=== PATIENT | male | born 1970 | race Caucasian/White ===

== ENCOUNTER → 2017-05-14 | Day surgery (SDC) | payer MEDICARE, OTHER ==
[~2017-05-14] MED LIST: DEXL60CA2 PO; ESCITALOPRAM OX10 MG PO; GABA600T2 PO; HYDR12.58 PO; LIDOCAINE 1%/EPI 1:100,000 20 ML VIAL. ONE; LIDOCAINE 2%/EPI 1:100,000 20 ML VIAL. IJ ONE; MIRT30TA6 PO; OLAN15TA7 PO; ONDA4TAB10 SL; ONDA8TAB12 PO; ONDA8TAB9 PO; RANI150T6 PO; TRAM-48 PO
[2017-05-14 11:10] VITALS: BP 136/93
--- NOTE | 2017-05-14 11:35 | PDOC ---
BRIEF OPERATIVE NOTE Pre-Op Diagnosis infected groshong remove infected groshong adia byrne local ebl <5 ml stacy well fl home #dictation line down. will dictate when line working. BOBY BYRNE MD May 14, 2017 11:35
== END | disposition home or self-care (01) ==
LOC: SURG 10:01
PROVIDERS: ATTEND Surgery
DX: T80.218A Other infection due to central venous catheter, initial encounter (principal); K21.9 Gastro-esophageal reflux disease without esophagitis; K31.84 Gastroparesis; Z72.89 Other problems related to lifestyle; Z88.6 Allergy status to analgesic agent; Z88.4 Allergy status to anesthetic agent
CPT/HCPCS: 36590; 87070; 87071; 87075; 87205; J3490

== ENCOUNTER 2017-05-24 06:07 | Day surgery (SDC) | payer MEDICARE, OTHER ==
[~2017-05-24 06:07] MED LIST changes: +HEPARIN SODIUM 5,000 UNIT in IV RINGERS,LACTATED 500ML 500 ML IRR ONE; -LIDOCAINE 1%/EPI 1:100,000 20 ML VIAL. ONE; -LIDOCAINE 2%/EPI 1:100,000 20 ML VIAL. IJ ONE
[2017-05-24] MEDS ORDERED: HEPARIN for IV BOLUS 10,000 UNIT/10 ML VIAL. ONE (06:54)
[2017-05-24] MEDS ORDERED: BUPIVACAINE-EPI 0.5%-1:200000 50 ML VIAL. ONE (06:54)
[2017-05-24] MEDS ORDERED: fentaNYL PF VIAL 100 MCG/2 ML VIAL IV PRN (07:00)
[2017-05-24] MEDS ORDERED: LIDOCAINE 1% 1 ML SYRINGE. ID PRN (07:00)
[2017-05-24] MEDS ORDERED: IV RINGERS,LACTATED 1000ML 1,000 ML IV SCH (07:00)
[2017-05-24] MEDS ORDERED: HYDROmorphone 2 MG/ML VIAL IV PRN (07:00)
[2017-05-24] MEDS ORDERED: ONDANSETRON PF 4 MG/2 ML VIAL. IV PRN (07:00)
[2017-05-24] MEDS ORDERED: LIDOCAINE 2% PF Vial for OR 5 ML VIAL. ONE (07:16)
[2017-05-24] MEDS ORDERED: PROPOFOL 20 ML IV ONE ×6 (07:16→08:09)
[2017-05-24] MEDS ORDERED: MIDAZOLAM HCL/PF 2 MG/2 ML VIAL. ONE (07:19)
[2017-05-24] MEDS ORDERED: ONDANSETRON PF 4 MG/2 ML VIAL. ONE (07:41)
[2017-05-24] MEDS ORDERED: IOHEXOL 300 MG/ML 50 ML VIAL. ONE (08:19)
--- NOTE | 2017-05-24 08:45 | PDOC4 ---
OPERATIVE NOTE: (dictation line is down) DATE OF SURGERY: 05/24/2017 PREOPERATIVE DIAGNOSIS: Gastroparesis. POSTOPERATIVE DIAGNOSIS: Gastroparesis. PROCEDURE: 1. Placement of a right internal jugular groshong (a tunneled CVL) 2. Ultrasound-guided venous access. 3. Intraoperative use of fluoroscopy. SURGEON: Eliana Byrne MD. ANESTHESIA: IV sedation/local. ESTIMATED BLOOD LOSS: 10 mL. IV FLUIDS: 100 mL. INDICATIONS: The patient is a 47-year-old male who is in need of tunneled CVL for ongoing treatment of n/v associated with his gastroparesis. DESCRIPTION OF PROCEDURE: After informed consent was obtained, the patient was taken to the operating room and placed in supine position. After adequate induction of IV sedation, he was prepped and draped in usual sterile fashion. he had been given 2 grams of ancef. After prepping and draping in the usual sterile fashion, he was placed in Trendelenburg with the right IJ visualized with ultrasound, and the right IJ was accessed without difficulty under direct ultrasound-guidance. Venous blood was aspirated easily. The syringe was removed, and the guidewire was advanced through the Cook needle. Fluoroscopy was then used to confirm that the guidewire advanced down the right side of the heart. The Cook needle was removed, and the guidewire was clamped to the drape with a hemostat. Local was injected in the skin of the right chest and the subcutaneous pocket of the right chest as well as from the right chest to the right neck. The anticipated catheter exit site and subcutaneous tunnel were lateral to his prior groshong. Skin incision was made over the guidewire as well as on the right chest. The catheter was tunneled from the right neck to the right chest and allowed to lie on a sterile blue towel so that the catheter did not come in contact with the skin. Dilator and sheath were passed over the guidewire. Guidewire slid easily throughout passes of the dilator and sheath. The guidewire and dilator were removed leaving the sheath in place. The catheter was inserted through the sheath. The sheath was then removed. The patient was taken out of head-down position and returned to a flat position. The catheter was withdrawn to the superior vena cava. It's position was confirmed with fluoroscopy. The catheter hub was attached to the catheter. The white wings were fastened to the catheter and secured in 4 places with 2-0 prolene. The incision exit site on the right chest was closed with a single interrupted 2-0 prolene. The incision at the right neck was also closed with 4-0 Monocryl in subcuticular fashion. Sterile dressings were placed, which consisted of Dermabond and Steri-Strips and a tegaderm. He tolerated the procedure well. There were no apparent complications. He was transferred in stable condition to the recovery room where a CXR will be performed. ELIANA BYRNE MD May 24, 2017 08:45
[2017-05-24] MEDS: fentaNYL PF VIAL 100 MCG/2 ML VIAL IV PRN ×4 (09:05→09:30)
--- NOTE | 2017-05-24 09:56 | RAD ---
Indication post Port-A-Cath. Assess for potential complication. A single view of the chest was obtained. Note is made of a previous examination 02/05/2015. The heart and pulmonary vessels appear normal. The lungs are clear. Port-A-Cath is noted appropriately positioned in the distal SVC. No complication is seen and specifically no pneumothorax is apparent. IMPRESSION: Appropriately positioned right Port-A-Cath. No complication seen.
[2017-05-24 10:37] VITALS: BP 142/98
== END 2017-05-24 11:00 | disposition home or self-care (01) ==
LOC: SURG 06:07
PROVIDERS: ATTEND Surgery
DX: K31.84 Gastroparesis (principal); K21.9 Gastro-esophageal reflux disease without esophagitis; I10 Essential (primary) hypertension; Z86.69 Personal history of other diseases of the nervous system and sense organs; Z87.39 Personal history of other diseases of the musculoskeletal system and connective tissue; Z88.6 Allergy status to analgesic agent; Z88.8 Allergy status to other drugs, medicaments and biological substances
CPT/HCPCS: 36556; 71010; C1769; C1894; J0690; J1170; J1644; J2001; J2250; J2405; J2704; J3010; J7120; Q9967

== ENCOUNTER 2017-09-14 21:19 | Emergency (ER) | payer MEDICARE, OTHER ==
[~2017-09-14] VITALS: Ht 172.7 cm; Wt 74.4 kg
[~2017-09-14 21:19] MED LIST changes: -HEPARIN SODIUM 5,000 UNIT in IV RINGERS,LACTATED 500ML 500 ML IRR ONE
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
[2017-09-14] MEDS ORDERED: fentaNYL PF VIAL 100 MCG/2 ML VIAL IV PRN (22:30)
[2017-09-14] MEDS ORDERED: ONDANSETRON PF 4 MG/2 ML VIAL. IV ONE (23:00)
[2017-09-14] MEDS ORDERED: FAMOTIDINE 20 MG/2 ML VIAL IVP ONE (23:00)
[2017-09-14] MEDS ORDERED: IV NORMAL SALINE 1000ML BAG 1,000 ML IV SCH (23:00)
[2017-09-14 23:07] LABS: BASO % 1 % (0-3); EOS % 0 % (0-3); HEMATOCRIT 38.5 % (39.0-53.0); HEMOGLOBIN 11.9 g/dL (13.0-17.5); LYMPH # 0.9 x10^3/uL (1.0-4.8); LYMPH % 18 % (24-48); MEAN CORPUSCULAR HEMOGLOBIN 23 pg (25-35); MEAN CORPUSCULAR HGB CONC 31 g/dL (31-37); MEAN CORPUSCULAR VOLUME 74 fL (79-100); MONO % 8 % (0-9); NEUT % 73 % (31-73); PLATELET COUNT 182 x10^3/uL (140-400); RED BLOOD COUNT 5.19 x10^6/uL (4.30-5.70); RED CELL DISTRIBUTION WIDTH 18.4 % (11.5-14.5); WHITE BLOOD COUNT 4.9 x10^3/uL (4.0-11.0)
[2017-09-14 23:19] LABS: CALCIUM 9.3 mg/dL (8.5-10.1); CREATININE 1.1 mg/dL (0.7-1.3); GFR 71.8; POTASSIUM 3.4 mmol/L (3.5-5.1)
[2017-09-14 23:26] LABS: ALBUMIN/GLOBULIN RATIO 0.9 (1.0-1.7); TOTAL BILIRUBIN 0.4 mg/dL (0.2-1.0); TOTAL PROTEIN 8.6 g/dL (6.4-8.2)
[2017-09-15 01:02] VITALS: BP 160/100
== END 2017-09-15 01:05 | disposition home or self-care (01) ==
LOC: ER 21:19
DX: K31.84 Gastroparesis (principal); R11.2 Nausea with vomiting, unspecified; I10 Essential (primary) hypertension; K21.9 Gastro-esophageal reflux disease without esophagitis; Z88.5 Allergy status to narcotic agent; Z88.8 Allergy status to other drugs, medicaments and biological substances
CPT/HCPCS: 36415; 80053; 83690; 85025; 96361; 96374; 96375; 99284; J2405; J3010; J7030; S0028

== ENCOUNTER 2017-09-29 15:40 | Emergency (ER) | payer MEDICARE, OTHER ==
[~2017-09-29] VITALS: Ht 172.7 cm; Wt 76.7 kg
[2017-09-29] MEDS ORDERED: IV NORMAL SALINE 1000ML BAG 1,000 ML IV ONE (16:15)
[2017-09-29] MEDS ORDERED: ONDANSETRON PF 4 MG/2 ML VIAL. IV ONE (16:15)
[2017-09-29] MEDS ORDERED: fentaNYL PF VIAL 100 MCG/2 ML VIAL IV ONE (16:15)
[2017-09-29 16:35] LABS: BASO % 1 % (0-3); EOS % 1 % (0-3); HEMATOCRIT 33.2 % (39.0-53.0); HEMOGLOBIN 10.4 g/dL (13.0-17.5); LYMPH # 0.9 x10^3/uL (1.0-4.8); LYMPH % 18 % (24-48); MEAN CORPUSCULAR HEMOGLOBIN 23 pg (25-35); MEAN CORPUSCULAR HGB CONC 31 g/dL (31-37); MEAN CORPUSCULAR VOLUME 74 fL (79-100); MONO % 7 % (0-9); NEUT % 74 % (31-73); PLATELET COUNT 174 x10^3/uL (140-400); RED BLOOD COUNT 4.51 x10^6/uL (4.30-5.70); RED CELL DISTRIBUTION WIDTH 18.4 % (11.5-14.5); WHITE BLOOD COUNT 4.9 x10^3/uL (4.0-11.0)
[2017-09-29 16:43] LABS: CALCIUM 8.8 mg/dL (8.5-10.1); CREATININE 0.9 mg/dL (0.7-1.3); GFR 90.4; POTASSIUM 3.4 mmol/L (3.5-5.1)
[2017-09-29 16:49] LABS: ALBUMIN 3.3 g/dL (3.4-5.0); ALBUMIN/GLOBULIN RATIO 0.8 (1.0-1.7); MAGNESIUM 1.9 mg/dL (1.8-2.4); TOTAL BILIRUBIN 0.3 mg/dL (0.2-1.0); TOTAL PROTEIN 7.4 g/dL (6.4-8.2)
[2017-09-29] MEDS ORDERED: POTASSIUM CHLORIDE 20 MEQ TABLET.ER. PO ONE (17:15)
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
[2017-09-29] MEDS ORDERED: PROMETHAZINE 12.5 MG in IV NORMAL SALINE 50ML 50 ML IV ONE (17:30)
[2017-09-29] MEDS ORDERED: diphenhydrAMINE 50 MG/ML VIAL IVP ONE (17:30)
[2017-09-29 18:15] VITALS: BP 169/110
== END 2017-09-29 18:15 | disposition home or self-care (01) ==
LOC: ER 15:40
DX: R10.32 Left lower quadrant pain (principal); R11.2 Nausea with vomiting, unspecified; K21.9 Gastro-esophageal reflux disease without esophagitis; I10 Essential (primary) hypertension; F43.10 Post-traumatic stress disorder, unspecified; F32.9 Major depressive disorder, single episode, unspecified; Z88.5 Allergy status to narcotic agent; Z88.8 Allergy status to other drugs, medicaments and biological substances
CPT/HCPCS: 36415; 80053; 83690; 83735; 85025; 96361; 96365; 96375; 99284; J1200; J2405; J2550; J3010; J7030; 99285-25

== ENCOUNTER 2018-01-21 19:53 | Emergency (ER) | payer MEDICARE, OTHER ==
[2018-01-21] MEDS ORDERED: CONTRAST GIVEN MC (20:30)
[2018-01-21] MEDS: IV NORMAL SALINE 1000ML BAG 1,000 ML IV (20:40)
[2018-01-21] MEDS: ONDANSETRON PF 4 MG/2 ML VIAL. IV (20:41)
[2018-01-21] MEDS: diphenhydrAMINE 50 MG/ML VIAL IVP (20:42)
[2018-01-21] MEDS: FAMOTIDINE 20 MG/2 ML VIAL IVP (20:42)
[2018-01-21] MEDS: fentaNYL PF VIAL 100 MCG/2 ML VIAL IV ×2 (20:42→21:23)
[2018-01-21 20:51] LABS: ADD MAN DIFF? NO
[2018-01-21 20:54] LABS: BASO % 0 % (0-3); EOS % 0 % (0-3); HEMATOCRIT 45.4 % (39.0-53.0); HEMOGLOBIN 15.4 g/dL (13.0-17.5); LYMPH % 14 % (24-48); MEAN CORPUSCULAR HEMOGLOBIN 31 pg (25-35); MEAN CORPUSCULAR HGB CONC 34 g/dL (31-37); MEAN CORPUSCULAR VOLUME 90 fL (79-100); MONO # 0.5 x10^3/uL (0.0-1.1); MONO % 7 % (0-9); NEUT # 5.4 x10^3uL (1.8-7.7); NEUT % 78 % (31-73); PLATELET COUNT 217 x10^3/uL (140-400); RED BLOOD COUNT 5.02 x10^6/uL (4.30-5.70); RED CELL DISTRIBUTION WIDTH 15.4 % (11.5-14.5); WHITE BLOOD COUNT 6.8 x10^3/uL (4.0-11.0)
[2018-01-21 21:05] LABS: ANION GAP 9 (6-14); BLOOD UREA NITROGEN 9 mg/dL (8-26); BUN/CREATININE RATIO 8 (6-20); CALCIUM 9.3 mg/dL (8.5-10.1); CARBON DIOXIDE 27 mmol/L (21-32); CHLORIDE 101 mmol/L (98-107); CREATININE 1.1 mg/dL (0.7-1.3); GFR 71.8; GLUCOSE 141 mg/dL (70-99); POTASSIUM 3.1 mmol/L (3.5-5.1); SODIUM 137 mmol/L (136-145)
[2018-01-21 21:10] LABS: ALBUMIN 3.2 g/dL (3.4-5.0); ALBUMIN/GLOBULIN RATIO 0.7 (1.0-1.7); ALK PHOS 99 U/L (46-116); ALT (SGPT) 26 U/L (16-63); AST (SGOT) 25 U/L (15-37); TOTAL BILIRUBIN 0.3 mg/dL (0.2-1.0); TOTAL PROTEIN 8.1 g/dL (6.4-8.2)
[2018-01-21] MEDS: IOHEXOL 300 MG/ML 100ML VIAL. IV (21:44)
[2018-01-21 22:07] LABS: BILIRUBIN,URINE NEGATIVE (NEG); CLARITY,URINE CLEAR; COLOR,URINE YELLOW; GLUCOSE,URINE NEGATIVE (NEG); NITRITE,URINE NEGATIVE (NEG); PH,URINE 7.5; PROTEIN,URINE NEGATIVE (NEG-TRACE)
[2018-01-21 22:17] LABS: BACTERIA,URINE 0 /HPF (0-FEW); RBC,URINE 0 /HPF (0-2); WBC,URINE 0 /HPF (0-4)
[2018-01-21] MEDS: DOXYCYCLINE HYCLATE 100 MG TABLET PO (22:56)
== END 2018-01-21 22:58 | disposition home or self-care (01) ==
LOC: ER 19:53
DX: G43.A1 Cyclical vomiting, in migraine, intractable (principal); R10.84 Generalized abdominal pain; L03.311 Cellulitis of abdominal wall; K31.84 Gastroparesis; I10 Essential (primary) hypertension; F43.10 Post-traumatic stress disorder, unspecified; K21.9 Gastro-esophageal reflux disease without esophagitis; Z93.3 Colostomy status; Z90.49 Acquired absence of other specified parts of digestive tract; Z95.0 Presence of cardiac pacemaker; Z88.5 Allergy status to narcotic agent; Z88.8 Allergy status to other drugs, medicaments and biological substances
CPT/HCPCS: 36415; 74177; 80053; 81001; 85025; 87205; 96361; 96374; 96375; 96376; 99285-25; J1200; J2405; J3010; J7030; Q9967; S0028

== ENCOUNTER 2018-01-27 14:21 | Emergency (ER) | payer MEDICARE, OTHER ==
[2018-01-27 16:02] LABS: ADD MAN DIFF? NO
[2018-01-27 16:10] LABS: BASO % 1 % (0-3); EOS % 1 % (0-3); HEMOGLOBIN 14.3 g/dL (13.0-17.5); LYMPH # 1.2 x10^3/uL (1.0-4.8); LYMPH % 24 % (24-48); MEAN CORPUSCULAR HEMOGLOBIN 31 pg (25-35); MEAN CORPUSCULAR HGB CONC 34 g/dL (31-37); MEAN CORPUSCULAR VOLUME 91 fL (79-100); MONO # 0.5 x10^3/uL (0.0-1.1); MONO % 11 % (0-9); NEUT # 3.1 x10^3uL (1.8-7.7); NEUT % 64 % (31-73); PLATELET COUNT 222 x10^3/uL (140-400); RED BLOOD COUNT 4.62 x10^6/uL (4.30-5.70); RED CELL DISTRIBUTION WIDTH 14.8 % (11.5-14.5); WHITE BLOOD COUNT 4.9 x10^3/uL (4.0-11.0)
[2018-01-27 16:19] LABS: ANION GAP 8 (6-14); BLOOD UREA NITROGEN 8 mg/dL (8-26); CALCIUM 8.4 mg/dL (8.5-10.1); CARBON DIOXIDE 27 mmol/L (21-32); CHLORIDE 105 mmol/L (98-107); GFR 80.1; GLUCOSE 88 mg/dL (70-99); POTASSIUM 3.8 mmol/L (3.5-5.1); SODIUM 140 mmol/L (136-145)
[2018-01-27 16:25] LABS: ALBUMIN 3.1 g/dL (3.4-5.0); ALK PHOS 81 U/L (46-116); ALT (SGPT) 20 U/L (16-63); AST (SGOT) 20 U/L (15-37); LIPASE 155 U/L (73-393); TOTAL BILIRUBIN 0.3 mg/dL (0.2-1.0); TOTAL PROTEIN 7.2 g/dL (6.4-8.2)
[2018-01-27 16:30] LABS: DIRECT BILIRUBIN < 0.1 mg/dL (0.0-0.2)
[2018-01-27 16:31] LABS: TROPONINI < 0.017 ng/mL (0.000-0.055)
[2018-01-27 18:01] LABS: BILIRUBIN,URINE NEGATIVE (NEG); CLARITY,URINE CLOUDY; COLOR,URINE YELLOW; GLUCOSE,URINE NEGATIVE (NEG); NITRITE,URINE NEGATIVE (NEG); PROTEIN,URINE NEGATIVE (NEG-TRACE)
[2018-01-27] MEDS: diphenhydrAMINE HCL 25 MG CAPSULE PO (18:07)
[2018-01-27] MEDS: fentaNYL PF VIAL 100 MCG/2 ML VIAL IV (18:07)
[2018-01-27 18:09] LABS: BACTERIA,URINE 0 /HPF (0-FEW); RBC,URINE 0 /HPF (0-2); WBC,URINE 0 /HPF (0-4)
== END 2018-01-27 18:37 | disposition home or self-care (01) ==
LOC: ER 14:21
DX: R10.9 Unspecified abdominal pain (principal); F32.9 Major depressive disorder, single episode, unspecified; K21.9 Gastro-esophageal reflux disease without esophagitis; I10 Essential (primary) hypertension; K31.84 Gastroparesis; F43.10 Post-traumatic stress disorder, unspecified; Z87.820 Personal history of traumatic brain injury; Z96.659 Presence of unspecified artificial knee joint; Z88.5 Allergy status to narcotic agent; Z88.8 Allergy status to other drugs, medicaments and biological substances
CPT/HCPCS: 36415; 74176; 80048; 80076; 81001; 83605; 83690; 84484; 85025; 96374; 99285-25; J3010; Q0163

== ENCOUNTER 2018-03-04 18:58 | Emergency (ER) | payer MEDICARE, OTHER ==
[2018-03-04 19:56] LABS: ADD MAN DIFF? NO
[2018-03-04 19:59] LABS: BASO % 1 % (0-3); EOS % 0 % (0-3); HEMATOCRIT 40.4 % (39.0-53.0); HEMOGLOBIN 13.8 g/dL (13.0-17.5); LYMPH # 1.3 x10^3/uL (1.0-4.8); LYMPH % 24 % (24-48); MEAN CORPUSCULAR HEMOGLOBIN 31 pg (25-35); MEAN CORPUSCULAR HGB CONC 34 g/dL (31-37); MEAN CORPUSCULAR VOLUME 92 fL (79-100); MONO # 0.4 x10^3/uL (0.0-1.1); MONO % 8 % (0-9); NEUT # 3.4 x10^3uL (1.8-7.7); NEUT % 67 % (31-73); PLATELET COUNT 198 x10^3/uL (140-400); RED BLOOD COUNT 4.42 x10^6/uL (4.30-5.70); RED CELL DISTRIBUTION WIDTH 13.6 % (11.5-14.5); WHITE BLOOD COUNT 5.2 x10^3/uL (4.0-11.0)
[2018-03-04] MEDS: IV NORMAL SALINE 1000ML BAG 1,000 ML IV ×4 (20:01→20:52)
[2018-03-04] MEDS: PROMETHAZINE 25 MG in IV NORMAL SALINE 50ML 50 ML IV (20:02)
[2018-03-04] MEDS: diphenhydrAMINE 50 MG/ML VIAL IVP ×2 (20:02)
[2018-03-04] MEDS: fentaNYL PF VIAL 100 MCG/2 ML VIAL IV ×4 (20:02→21:16)
[2018-03-04 20:10] LABS: INR 0.9 (0.8-1.1)
[2018-03-04 20:13] LABS: ANION GAP 9 (6-14); BLOOD UREA NITROGEN 6 mg/dL (8-26); CALCIUM 8.2 mg/dL (8.5-10.1); CARBON DIOXIDE 28 mmol/L (21-32); CHLORIDE 103 mmol/L (98-107); GFR 80.1; GLUCOSE 102 mg/dL (70-99); POTASSIUM 3.9 mmol/L (3.5-5.1); SODIUM 140 mmol/L (136-145)
[2018-03-04 20:18] LABS: ALBUMIN 3.3 g/dL (3.4-5.0); ALK PHOS 87 U/L (46-116); ALT (SGPT) 16 U/L (16-63); AST (SGOT) 20 U/L (15-37); DIRECT BILIRUBIN 0.1 mg/dL (0.0-0.2); LIPASE 69 U/L (73-393); MAGNESIUM 2.1 mg/dL (1.8-2.4); TOTAL BILIRUBIN 0.5 mg/dL (0.2-1.0)
[2018-03-04 20:20] LABS: BILIRUBIN,URINE NEGATIVE (NEG); CLARITY,URINE CLEAR; COLOR,URINE YELLOW; GLUCOSE,URINE NEGATIVE (NEG); NITRITE,URINE NEGATIVE (NEG); PROTEIN,URINE NEGATIVE (NEG-TRACE); UROBILINOGEN,URINE 0.2 mg/dL (0.2 mg/dL)
[2018-03-04 20:21] LABS: TROPONINI < 0.017 ng/mL (0.000-0.055)
[2018-03-04 20:26] LABS: NT-PRO BNP 135 pg/mL (0-124)
[2018-03-04 20:26] LABS: AMPHETAMINE/METHAMPHETAMINE NEG (NEG); BARBITURATES NEG (NEG); BENZODIAZEPINES NEG (NEG); CANNABINOIDS NEG (NEG); CKMB INDEX 0.4 % (0-4); CKMB MASS 0.8 ng/mL (0.0-3.6); COCAINE NEG (NEG); CREATINE KINASE 197 U/L (39-308); ETHANOL, URINE NEG (NEG); METHADONE NEG (NEG); OPIATES NEG (NEG); PHENCYCLIDINE NEG (NEG)
[2018-03-04 20:31] LABS: RBC,URINE OCC /HPF (0-2)
[2018-03-04 20:32] LABS: BACTERIA,URINE 0 /HPF (0-FEW); SQUAMOUS EPITHELIAL CELL,UR FEW /LPF; WBC,URINE 0 /HPF (0-4)
== END 2018-03-04 22:13 | disposition home or self-care (01) ==
LOC: ER 18:58
DX: R10.9 Unspecified abdominal pain (principal); R11.0 Nausea; I10 Essential (primary) hypertension; F43.10 Post-traumatic stress disorder, unspecified; K21.9 Gastro-esophageal reflux disease without esophagitis; Z93.1 Gastrostomy status; Z95.0 Presence of cardiac pacemaker
CPT/HCPCS: 36415; 80048; 80076; 80307; 81001; 82553; 83690; 83735; 83880; 84484; 85025; 85610; 93005; 96365; 96375; 96376; 99285-25; J1200; J2550; J3010; J7030

== ENCOUNTER 2018-03-11 20:45 | Emergency (ER) | payer MEDICARE, OTHER ==
[2018-03-11] MEDS ORDERED: PROMETHAZINE IM 25 MG/ML VIAL IM (21:15)
[2018-03-11 21:21] LABS: ADD MAN DIFF? NO
[2018-03-11 21:23] LABS: BASO % 0 % (0-3); EOS % 0 % (0-3); HEMATOCRIT 37.9 % (39.0-53.0); LYMPH # 1.2 x10^3/uL (1.0-4.8); LYMPH % 22 % (24-48); MEAN CORPUSCULAR HEMOGLOBIN 31 pg (25-35); MEAN CORPUSCULAR HGB CONC 34 g/dL (31-37); MEAN CORPUSCULAR VOLUME 91 fL (79-100); MONO # 0.6 x10^3/uL (0.0-1.1); MONO % 10 % (0-9); NEUT # 3.6 x10^3uL (1.8-7.7); NEUT % 67 % (31-73); PLATELET COUNT 165 x10^3/uL (140-400); RED BLOOD COUNT 4.15 x10^6/uL (4.30-5.70); RED CELL DISTRIBUTION WIDTH 13.5 % (11.5-14.5); WHITE BLOOD COUNT 5.4 x10^3/uL (4.0-11.0)
[2018-03-11 21:32] LABS: ANION GAP 8 (6-14); BLOOD UREA NITROGEN 14 mg/dL (8-26); BUN/CREATININE RATIO 13 (6-20); CALCIUM 8.3 mg/dL (8.5-10.1); CARBON DIOXIDE 29 mmol/L (21-32); CHLORIDE 104 mmol/L (98-107); CREATININE 1.1 mg/dL (0.7-1.3); GFR 71.8; GLUCOSE 88 mg/dL (70-99); POTASSIUM 3.5 mmol/L (3.5-5.1); SODIUM 141 mmol/L (136-145)
[2018-03-11 21:37] LABS: ALBUMIN 3.2 g/dL (3.4-5.0); ALBUMIN/GLOBULIN RATIO 0.9 (1.0-1.7); ALK PHOS 78 U/L (46-116); ALT (SGPT) 18 U/L (16-63); AST (SGOT) 30 U/L (15-37); LIPASE 112 U/L (73-393); TOTAL BILIRUBIN 0.3 mg/dL (0.2-1.0); TOTAL PROTEIN 6.7 g/dL (6.4-8.2)
[2018-03-11] MEDS: ONDANSETRON PF 4 MG/2 ML VIAL. IV (22:08)
[2018-03-11] MEDS: diphenhydrAMINE 50 MG/ML VIAL IVP (22:08)
[2018-03-11] MEDS: fentaNYL PF VIAL 100 MCG/2 ML VIAL IV (22:09)
[2018-03-11] MEDS: IV NORMAL SALINE 1000ML BAG 1,000 ML IV (22:09)
[2018-03-12] MEDS: fentaNYL PF VIAL 100 MCG/2 ML VIAL IV (00:15)
== END 2018-03-12 00:20 | disposition home or self-care (01) ==
LOC: ER 03-12 00:20
DX: K31.84 Gastroparesis (principal); R11.10 Vomiting, unspecified; I10 Essential (primary) hypertension; K21.9 Gastro-esophageal reflux disease without esophagitis; F43.10 Post-traumatic stress disorder, unspecified; Z88.5 Allergy status to narcotic agent; Z88.8 Allergy status to other drugs, medicaments and biological substances
CPT/HCPCS: 36415; 80053; 83690; 85025; 96361; 96374; 96375; 96376; 99284-25; J1200; J2405; J3010; J7030

== ENCOUNTER 2018-03-30 03:08 | Emergency (ER) | payer MEDICARE, OTHER ==
[2018-03-30] MEDS: IV NORMAL SALINE 1000ML BAG 1,000 ML IV (04:15)
[2018-03-30] MEDS: PROMETHAZINE IM 25 MG/ML VIAL IM (04:25)
[2018-03-30] MEDS: fentaNYL PF VIAL 100 MCG/2 ML VIAL IV ×2 (04:25→05:43)
[2018-03-30] MEDS: diphenhydrAMINE 50 MG/ML VIAL IVP (04:25)
[2018-03-30 04:50] LABS: ADD MAN DIFF? NO
[2018-03-30 04:52] LABS: BASO % 1 % (0-3); EOS # 0.1 x10^3/uL (0.0-0.7); EOS % 2 % (0-3); HEMATOCRIT 36.8 % (39.0-53.0); HEMOGLOBIN 12.4 g/dL (13.0-17.5); LYMPH # 1.3 x10^3/uL (1.0-4.8); LYMPH % 29 % (24-48); MEAN CORPUSCULAR HEMOGLOBIN 30 pg (25-35); MEAN CORPUSCULAR HGB CONC 34 g/dL (31-37); MEAN CORPUSCULAR VOLUME 90 fL (79-100); MONO # 0.4 x10^3/uL (0.0-1.1); MONO % 9 % (0-9); NEUT # 2.6 x10^3uL (1.8-7.7); NEUT % 59 % (31-73); PLATELET COUNT 201 x10^3/uL (140-400); RED BLOOD COUNT 4.09 x10^6/uL (4.30-5.70); RED CELL DISTRIBUTION WIDTH 13.5 % (11.5-14.5); WHITE BLOOD COUNT 4.4 x10^3/uL (4.0-11.0)
[2018-03-30 05:03] LABS: ANION GAP 6 (6-14); BLOOD UREA NITROGEN 11 mg/dL (8-26); BUN/CREATININE RATIO 11 (6-20); CARBON DIOXIDE 25 mmol/L (21-32); CHLORIDE 103 mmol/L (98-107); GFR 80.1; GLUCOSE 108 mg/dL (70-99); POTASSIUM 3.9 mmol/L (3.5-5.1); SODIUM 134 mmol/L (136-145)
[2018-03-30 05:10] LABS: ALBUMIN 3.1 g/dL (3.4-5.0); ALBUMIN/GLOBULIN RATIO 0.8 (1.0-1.7); ALK PHOS 80 U/L (46-116); ALT (SGPT) 21 U/L (16-63); AST (SGOT) 17 U/L (15-37); LIPASE 91 U/L (73-393); TOTAL BILIRUBIN 0.3 mg/dL (0.2-1.0); TOTAL PROTEIN 6.9 g/dL (6.4-8.2)
== END 2018-03-30 05:55 | disposition home or self-care (01) ==
LOC: ER 03:08
DX: K31.84 Gastroparesis (principal); R11.2 Nausea with vomiting, unspecified; R10.84 Generalized abdominal pain; I10 Essential (primary) hypertension; K21.9 Gastro-esophageal reflux disease without esophagitis; Z87.820 Personal history of traumatic brain injury; F43.10 Post-traumatic stress disorder, unspecified; Z88.5 Allergy status to narcotic agent; Z88.8 Allergy status to other drugs, medicaments and biological substances
CPT/HCPCS: 36415; 80053; 83690; 85025; 96361; 96372; 96374; 96375; 96376; 99284-25; J1200; J2550; J3010; J7030

== ENCOUNTER 2018-04-02 20:29 | Inpatient (IN) | payer MEDICARE, OTHER ==
[2018-04-02] MEDS: IV NORMAL SALINE 1000ML BAG 1,000 ML IV (22:19)
[2018-04-02] MEDS: fentaNYL PF VIAL 100 MCG/2 ML VIAL IV (22:23)
[2018-04-02 22:24] LABS: ADD MAN DIFF? NO
[2018-04-02 22:26] LABS: BASO % 1 % (0-3); EOS % 1 % (0-3); HEMATOCRIT 39.4 % (39.0-53.0); HEMOGLOBIN 13.7 g/dL (13.0-17.5); LYMPH # 1.2 x10^3/uL (1.0-4.8); LYMPH % 24 % (24-48); MEAN CORPUSCULAR HEMOGLOBIN 31 pg (25-35); MEAN CORPUSCULAR HGB CONC 35 g/dL (31-37); MEAN CORPUSCULAR VOLUME 88 fL (79-100); MONO # 0.4 x10^3/uL (0.0-1.1); MONO % 9 % (0-9); NEUT # 3.1 x10^3uL (1.8-7.7); NEUT % 66 % (31-73); PLATELET COUNT 211 x10^3/uL (140-400); RED BLOOD COUNT 4.46 x10^6/uL (4.30-5.70); WHITE BLOOD COUNT 4.8 x10^3/uL (4.0-11.0)
[2018-04-02] MEDS: diphenhydrAMINE 50 MG/ML VIAL IVP ×2 (22:27→23:59)
[2018-04-02] MEDS: METOCLOPRAMIDE HCL 10 MG/2 ML VIAL. IV (22:31)
[2018-04-02 22:44] LABS: ANION GAP 10 (6-14); BLOOD UREA NITROGEN 12 mg/dL (8-26); BUN/CREATININE RATIO 15 (6-20); CALCIUM 8.4 mg/dL (8.5-10.1); CARBON DIOXIDE 26 mmol/L (21-32); CHLORIDE 104 mmol/L (98-107); CREATININE 0.8 mg/dL (0.7-1.3); GFR 103.6; GLUCOSE 112 mg/dL (70-99); POTASSIUM 3.5 mmol/L (3.5-5.1); SODIUM 140 mmol/L (136-145)
[2018-04-02 22:50] LABS: ALBUMIN 3.2 g/dL (3.4-5.0); ALBUMIN/GLOBULIN RATIO 0.8 (1.0-1.7); ALK PHOS 88 U/L (46-116); ALT (SGPT) 21 U/L (16-63); AST (SGOT) 20 U/L (15-37); LIPASE 117 U/L (73-393); TOTAL BILIRUBIN 0.3 mg/dL (0.2-1.0); TOTAL PROTEIN 7.1 g/dL (6.4-8.2)
[2018-04-03] MEDS: fentaNYL PF VIAL 100 MCG/2 ML VIAL IV ×13 (02:05→23:06)
[2018-04-03] MEDS: IV NORMAL SALINE 1000ML BAG 1,000 ML IV (02:15)
[2018-04-03] MEDS: ONDANSETRON PF 4 MG/2 ML VIAL. IV ×2 (05:52→20:43)
[2018-04-03] MEDS: diphenhydrAMINE 50 MG/ML VIAL IVP ×3 (07:55→23:06)
[2018-04-03 10:48] LABS: POC GLUCOSE 101 mg/dL (70-99)
[2018-04-03 11:47] LABS: POC GLUCOSE 92 mg/dL (70-99)
[2018-04-03 16:21] LABS: POC GLUCOSE 82 mg/dL (70-99)
[2018-04-03] MEDS: TPN PER PHARMACY MC (17:19)
[2018-04-03] MEDS: TOTAL PARENTERAL NUTRITION IV (22:08)
[2018-04-03] MEDS: [UNRECOGNIZED DRUG - OTHER] IV (22:08)
[2018-04-03] MEDS: AMINO ACID IV (22:08)
[2018-04-03] MEDS: DEXTROSE 70% IV (22:08)
[2018-04-04] MEDS: fentaNYL PF VIAL 100 MCG/2 ML VIAL IV ×9 (01:41→22:14)
[2018-04-04 04:17] LABS: ANION GAP 6 (6-14); BLOOD UREA NITROGEN 10 mg/dL (8-26); CALCIUM 8.5 mg/dL (8.5-10.1); CARBON DIOXIDE 28 mmol/L (21-32); CHLORIDE 103 mmol/L (98-107); CREATININE 0.8 mg/dL (0.7-1.3); GFR 103.6; GLUCOSE 113 mg/dL (70-99); MAGNESIUM 2.2 mg/dL (1.8-2.4); PHOSPHORUS 3.7 mg/dL (2.6-4.7); POTASSIUM 3.9 mmol/L (3.5-5.1); SODIUM 137 mmol/L (136-145); TRIGLYCERIDES 198 mg/dL (0-150)
[2018-04-04] MEDS: diphenhydrAMINE 50 MG/ML VIAL IVP ×3 (05:21→22:14)
[2018-04-04 06:28] LABS: POC GLUCOSE 99 mg/dL (70-99)
[2018-04-04] MEDS: ONDANSETRON PF 4 MG/2 ML VIAL. IV (10:45)
[2018-04-04 12:30] LABS: POC GLUCOSE 107 mg/dL (70-99)
[2018-04-04] MEDS: TPN PER PHARMACY MC (13:14)
[2018-04-04 18:05] LABS: POC GLUCOSE 107 mg/dL (70-99)
[2018-04-04] MEDS: ALTEPLASE 2 MG VIAL INT CAT (21:34)
[2018-04-04] MEDS: [UNRECOGNIZED DRUG - OTHER] IV (23:35)
[2018-04-04] MEDS: DEXTROSE 70% IV (23:35)
[2018-04-04] MEDS: TOTAL PARENTERAL NUTRITION IV (23:35)
[2018-04-04] MEDS: AMINO ACID IV (23:35)
[2018-04-05] MEDS: fentaNYL PF VIAL 100 MCG/2 ML VIAL IV ×6 (00:55→13:15)
[2018-04-05 01:31] LABS: POC GLUCOSE 111 mg/dL (70-99)
[2018-04-05] MEDS: ONDANSETRON PF 4 MG/2 ML VIAL. IV (03:49)
[2018-04-05] MEDS: diphenhydrAMINE 50 MG/ML VIAL IVP ×2 (04:32→11:08)
[2018-04-05 05:51] LABS: ANION GAP 8 (6-14); BLOOD UREA NITROGEN 14 mg/dL (8-26); CARBON DIOXIDE 28 mmol/L (21-32); CHLORIDE 103 mmol/L (98-107); CREATININE 0.8 mg/dL (0.7-1.3); GFR 103.6; GLUCOSE 89 mg/dL (70-99); MAGNESIUM 2.2 mg/dL (1.8-2.4); PHOSPHORUS 3.6 mg/dL (2.6-4.7); POTASSIUM 4.2 mmol/L (3.5-5.1); SODIUM 139 mmol/L (136-145)
[2018-04-05 07:15] LABS: POC GLUCOSE 97 mg/dL (70-99)
[2018-04-05] MEDS: TPN PER PHARMACY MC (13:14)
[2018-04-05] MEDS: HEPARIN PF 500 UNIT/5 ML DISP.SYRIN. IV (14:30)
== END 2018-04-05 14:30 | disposition home or self-care (01) | DRG 391 ==
LOC: 5 SOUTH 04-03 00:04 → ER 20:29
DX: K31.84 Gastroparesis (principal); E43 Unspecified severe protein-calorie malnutrition; K65.9 Peritonitis, unspecified; Z88.8 Allergy status to other drugs, medicaments and biological substances; Z68.22 Body mass index [BMI] 22.0-22.9, adult; F32.9 Major depressive disorder, single episode, unspecified; F43.10 Post-traumatic stress disorder, unspecified; I10 Essential (primary) hypertension; Z96.659 Presence of unspecified artificial knee joint; K21.9 Gastro-esophageal reflux disease without esophagitis; Z83.3 Family history of diabetes mellitus; Z93.1 Gastrostomy status; Z93.4 Other artificial openings of gastrointestinal tract status; Z87.820 Personal history of traumatic brain injury
CPT/HCPCS: 36415; 80048; 80053; 82962; 83690; 83735; 84100; 84478; 85025; 96374; 96375; 99285; 99285-25; J0610; J1200; J2405; J2765; J2997; J3010; J3475; J7030

== ENCOUNTER 2018-07-15 16:42 | Emergency (ER) | payer MEDICARE, OTHER ==
[~2018-07-15] VITALS: Ht 172.7 cm; Wt 62.6 kg
[~2018-07-15 16:42] MED LIST changes: +DOXY100T PO; +METO25TA4 PO; +MIRT45TA58 PO; +ONDA4DIS4 IVP; +ONDA8TAB15 PO; +PRAZ2CAP2 PO; +PROM25VI5 IVP; +RANI150C PO; +RANI150T21 PO; -RANI150T6 PO; +SCOP1PAT11 TP
--- NOTE | 2018-07-15 17:52 | PHYS DOC ---
Past Medical History Past Medical History: Depression, GERD, Hypertension, Other Additional Past Medical Histor: GASTROPARESIS-due to abdominal injury, TBI, groshong placement,PTSD Past Surgical History: Knee Replacement, Other Additional Past Surgical Histo: ostomy insertion/takedown, diaphragm repair, jtube,gtube, gastric pacemaker Alcohol Use: None Drug Use: None Adult General Chief Complaint Chief Complaint: NAUSEA/VOMITING/DIARRHA HPI HPI Patient is a 48 year old male presents to the ED complaining of nausea and vomiting times one day. Patient has a history of gastroparesis and multiple abdominal surgeries with a G-tube and J-tube on TPN and is "as tolerated by mouth". States the vomiting started last night. Vomited over 5 times (Nonbloody) . Follows up with Dr. James for his care. States same symptoms in the past with previous exacerbations of his gastroparesis. Took IV zofran at home without relief. Denies weakness, chest pain, shortness of breath, diarrhea, bloody stools, headache, fever. Review of Systems Review of Systems Constitutional: Denies fever or chills [] Eyes: Denies change in visual acuity, redness, or eye pain [] HENT: Denies nasal congestion or sore throat [] Respiratory: Denies cough or shortness of breath [] Cardiovascular: No additional information not addressed in HPI [] GI: Complains of abdominal pain, nausea and vomiting. Denies bloody stools or diarrhea [] : Denies dysuria or hematuria [] Musculoskeletal: Denies back pain or joint pain [] Integument: Denies rash or skin lesions [] Neurologic: Denies headache, focal weakness or sensory changes [] All other systems were reviewed and found to be within normal limits, except as documented in this note. Current Medications Current Medications Current Medications Medications (Trade) Dose Ordered Sig/Ed Start Time Stop Time Status Last Admin Dose Admin Diphenhydramine HCl (Benadryl) 25 mg 1X ONCE 07/15/18 17:45 07/15/18 17:46 DC 07/15/18 18:02 25 MG Fentanyl Citrate (Fentanyl 2ml Vial) 50 mcg 1X ONCE 07/15/18 17:45 07/15/18 17:46 DC 07/15/18 18:03 50 MCG Metoclopramide HCl (Reglan Vial) 10 mg 1X ONCE 07/15/18 17:45 07/15/18 17:46 DC 07/15/18 18:12 10 MG Allergies Allergies Allergies Coded Allergies Type Severity Reaction Last Updated Verified morphine Allergy Severe Anaphylaxis Patient states can take Hydromorphone Yes droperidol Adverse Reaction Intermediate DYSTONIA 05/24/17 Yes metoclopramide Adverse Reaction Intermediate DYSTONIA 05/24/17 Yes prochlorperazine Adverse Reaction Intermediate DYSTONIA 05/24/17 Yes Physical Exam Physical Exam Constitutional: Well developed, well nourished, no acute distress, non-toxic appearance. [] HENT: Normocephalic, atraumatic Neck: Normal range of motion, no tenderness, supple, no stridor. [] Cardiovascular:Heart rate regular rhythm, no murmur [] Lungs & Thorax: Bilateral breath sounds clear to auscultation [] Abdomen: Bowel sounds normal, soft, no tenderness, no masses, no pulsatile masses. [] Skin: Warm, dry, no erythema, no rash. [] Back: No tenderness, no CVA tenderness. [] Extremities: No tenderness, no cyanosis, no clubbing, ROM intact, no edema. [] Neurologic: Alert and oriented X 3, normal motor function, normal sensory function, no focal deficits noted. [] Psychologic: Affect normal, judgement normal, mood normal. [] Current Patient Data Vital Signs Vital Signs Date Time Temp Pulse Resp B/P (MAP) Pulse Ox O2 Delivery O2 Flow Rate FiO2 07/15/18 18:16 98.6 104 20 145/106 (119) Room Air 98.6 07/15/18 18:03 98 Lab Values Laboratory Tests Test 07/15/18 17:52 07/15/18 18:40 White Blood Count 5.1 x10^3/uL (4.0-11.0) Red Blood Count 4.44 x10^6/uL (4.30-5.70) Hemoglobin 12.4 g/dL (13.0-17.5) L Hematocrit 37.2 % (39.0-53.0) L Mean Corpuscular Volume 84 fL (79-100) Mean Corpuscular Hemoglobin 28 pg (25-35) Mean Corpuscular Hemoglobin Concent 33 g/dL (31-37) Red Cell Distribution Width 15.8 % (11.5-14.5) H Platelet Count 255 x10^3/uL (140-400) Neutrophils (%) (Auto) 68 % (31-73) Lymphocytes (%) (Auto) 22 % (24-48) L Monocytes (%) (Auto) 10 % (0-9) H Eosinophils (%) (Auto) 0 % (0-3) Basophils (%) (Auto) 0 % (0-3) Neutrophils # (Auto) 3.4 x10^3uL (1.8-7.7) Lymphocytes # (Auto) 1.1 x10^3/uL (1.0-4.8) Monocytes # (Auto) 0.5 x10^3/uL (0.0-1.1) Eosinophils # (Auto) 0.0 x10^3/uL (0.0-0.7) Basophils # (Auto) 0.0 x10^3/uL (0.0-0.2) Sodium Level 137 mmol/L (136-145) Potassium Level 3.8 mmol/L (3.5-5.1) Chloride Level 103 mmol/L (98-107) Carbon Dioxide Level 28 mmol/L (21-32) Anion Gap 6 (6-14) Blood Urea Nitrogen 7 mg/dL (8-26) L Creatinine 1.0 mg/dL (0.7-1.3) Estimated GFR (Cockcroft-Gault) 79.8 BUN/Creatinine Ratio 7 (6-20) Glucose Level 101 mg/dL (70-99) H Calcium Level 8.9 mg/dL (8.5-10.1) Total Bilirubin 0.4 mg/dL (0.2-1.0) Aspartate Amino Transferase (AST) 21 U/L (15-37) Alanine Aminotransferase (ALT) 20 U/L (16-63) Alkaline Phosphatase 93 U/L (46-116) Total Protein 7.8 g/dL (6.4-8.2) Albumin 3.5 g/dL (3.4-5.0) Albumin/Globulin Ratio 0.8 (1.0-1.7) L Lipase 79 U/L (73-393) Urine Collection Type Void Urine Color Yellow Urine Clarity Clear Urine pH 6.5 Urine Specific [place] <=1.005 Urine Protein Negative mg/dL (NEG-TRACE) Urine Glucose (UA) Negative mg/dL (NEG) Urine Ketones (Stick) Negative mg/dL (NEG) Urine Blood Negative (NEG) Urine Nitrite Negative (NEG) Urine Bilirubin Negative (NEG) Urine Urobilinogen Dipstick 1.0 mg/dL (0.2 mg/dL) Urine Leukocyte Esterase Negative (NEG) Urine RBC 0 /HPF (0-2) Urine WBC Occ /HPF (0-4) Urine Squamous Epithelial Cells Occ /LPF Urine Bacteria Few /HPF (0-FEW) Laboratory Tests 07/15/18 17:52 Laboratory Tests 07/15/18 17:52 EKG EKG [] Radiology/Procedures Radiology/Procedures [] Course & Med Decision Making Course & Med Decision Making Pertinent Labs and Imaging studies reviewed. (See chart for details) []Discussed lab findings with patient. Patient's pain resolved. On re- examination, abdomen is soft nontender nondistended. No peritoneal signs. Tolerating by mouth. Patient has medications outpatient for his symptoms. States he follows up with his surgeon next week. Discussed reasons to return to the ED. Patient understands and agrees with plan. Dragon Disclaimer Dragon Disclaimer This electronic medical record was generated, in whole or in part, using a voice recognition dictation system. Departure Departure Impression: Primary Impression: Gastroparesis Disposition: 01 HOME, SELF-CARE Condition: IMPROVED Referrals: CHIRAG MALIK (PCP) Patient Instructions: Gastroparesis QUEENIE NUNEZ Jul 15, 2018 17:52
[2018-07-15 18:01] LABS: BASO % 0 % (0-3); EOS % 0 % (0-3); HEMATOCRIT 37.2 % (39.0-53.0); HEMOGLOBIN 12.4 g/dL (13.0-17.5); LYMPH # 1.1 x10^3/uL (1.0-4.8); LYMPH % 22 % (24-48); MEAN CORPUSCULAR HEMOGLOBIN 28 pg (25-35); MEAN CORPUSCULAR HGB CONC 33 g/dL (31-37); MEAN CORPUSCULAR VOLUME 84 fL (79-100); MONO # 0.5 x10^3/uL (0.0-1.1); MONO % 10 % (0-9); NEUT # 3.4 x10^3uL (1.8-7.7); NEUT % 68 % (31-73); PLATELET COUNT 255 x10^3/uL (140-400); RED BLOOD COUNT 4.44 x10^6/uL (4.30-5.70); RED CELL DISTRIBUTION WIDTH 15.8 % (11.5-14.5); WHITE BLOOD COUNT 5.1 x10^3/uL (4.0-11.0)
[2018-07-15] MEDS: diphenhydrAMINE 50 MG/ML VIAL IVP ONE (18:02)
[2018-07-15] MEDS: fentaNYL PF VIAL 100 MCG/2 ML VIAL IV ONE (18:03)
[2018-07-15 18:10] LABS: CALCIUM 8.9 mg/dL (8.5-10.1); GFR 79.8; POTASSIUM 3.8 mmol/L (3.5-5.1)
[2018-07-15] MEDS: METOCLOPRAMIDE HCL 10 MG/2 ML VIAL. IV ONE (18:12)
[2018-07-15 18:16] VITALS: BP 145/106
[2018-07-15 18:16] LABS: ALBUMIN 3.5 g/dL (3.4-5.0); ALBUMIN/GLOBULIN RATIO 0.8 (1.0-1.7); TOTAL BILIRUBIN 0.4 mg/dL (0.2-1.0); TOTAL PROTEIN 7.8 g/dL (6.4-8.2)
[2018-07-15 18:58] LABS: BILIRUBIN,URINE NEGATIVE (NEG); CLARITY,URINE CLEAR; COLOR,URINE YELLOW; NITRITE,URINE NEGATIVE (NEG); PH,URINE 6.5; PROTEIN,URINE NEGATIVE (NEG-TRACE)
[2018-07-15 19:01] LABS: BACTERIA,URINE FEW /HPF (0-FEW); RBC,URINE 0 /HPF (0-2); SQUAMOUS EPITHELIAL CELL,UR OCC /LPF; WBC,URINE OCC /HPF (0-4)
== END 2018-07-15 18:56 | disposition home or self-care (01) ==
LOC: ER 16:42
DX: K31.84 Gastroparesis (principal); R11.2 Nausea with vomiting, unspecified; K21.9 Gastro-esophageal reflux disease without esophagitis; I10 Essential (primary) hypertension; F32.9 Major depressive disorder, single episode, unspecified; F43.10 Post-traumatic stress disorder, unspecified; Z98.890 Other specified postprocedural states
CPT/HCPCS: 36415; 80053; 81001; 83690; 85025; 96374; 96375; 99284; J1200; J2765; J3010

== ENCOUNTER 2018-08-11 02:17 | Emergency (ER) | payer MEDICARE, OTHER ==
[~2018-08-11] VITALS: Ht 162.6 cm; Wt 62.6 kg
[2018-08-11] MEDS ORDERED: ONDANSETRON PF 4 MG/2 ML VIAL. IV ONE (03:45)
[2018-08-11 03:53] LABS: BASO % 1 % (0-3); EOS # 0.1 x10^3/uL (0.0-0.7); EOS % 1 % (0-3); HEMATOCRIT 34.3 % (39.0-53.0); HEMOGLOBIN 11.6 g/dL (13.0-17.5); LYMPH # 1.3 x10^3/uL (1.0-4.8); LYMPH % 27 % (24-48); MEAN CORPUSCULAR HEMOGLOBIN 28 pg (25-35); MEAN CORPUSCULAR HGB CONC 34 g/dL (31-37); MEAN CORPUSCULAR VOLUME 83 fL (79-100); MONO # 0.5 x10^3/uL (0.0-1.1); MONO % 10 % (0-9); NEUT % 61 % (31-73); PLATELET COUNT 170 x10^3/uL (140-400); RED BLOOD COUNT 4.13 x10^6/uL (4.30-5.70); RED CELL DISTRIBUTION WIDTH 15.6 % (11.5-14.5); WHITE BLOOD COUNT 4.9 x10^3/uL (4.0-11.0)
[2018-08-11] MEDS ORDERED: IV NORMAL SALINE 1000ML BAG 1,000 ML IV ONE (04:00)
[2018-08-11] MEDS ORDERED: fentaNYL PF VIAL 100 MCG/2 ML VIAL IV ONE (04:00)
[2018-08-11] MEDS ORDERED: diphenhydrAMINE HCL 25 MG CAPSULE PO ONE (04:00)
[2018-08-11 04:06] LABS: CALCIUM 8.1 mg/dL (8.5-10.1); CREATININE 0.9 mg/dL (0.7-1.3); GFR 90.1
[2018-08-11 04:14] LABS: ALBUMIN 3.1 g/dL (3.4-5.0); ALBUMIN/GLOBULIN RATIO 0.9 (1.0-1.7); TOTAL BILIRUBIN 0.3 mg/dL (0.2-1.0); TOTAL PROTEIN 6.7 g/dL (6.4-8.2)
[2018-08-11 04:30] VITALS: BP 147/102
[2018-08-11] MEDS ORDERED: ONDA4TAB7 PO (04:43)
--- NOTE | 2018-08-11 04:44 | PHYS DOC ---
Past Medical History Past Medical History: Anxiety, Depression, GERD, Other Additional Past Medical Histor: PTSD, GASTROPARESIS, TBI Past Surgical History: Other Additional Past Surgical Histo: HERNIA REPAIR, COLOSTOMY, JTUBE, GTUBE Alcohol Use: None Drug Use: None Adult General Chief Complaint Chief Complaint: ABDOMINAL PAIN HPI HPI Patient is a 48 year old male with history of trauma gastroparesis who presents with chronic abdominal pain with nausea and vomiting. No fever chills, or sweats. Symptoms began yesterday and continued today. Patient last vomited 3 hours prior to ED arrival. [facility] 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 Patient several months diet with PPN and chilled tube feedings. No other acute symptoms or complaints [ ] Review of Systems Review of Systems Review symptoms as per history of present illness. All other review symptoms are negative. All other systems were reviewed and found to be within normal limits, except as documented in this note. Current Medications Current Medications Current Medications Medications (Trade) Dose Ordered Sig/Ed Start Time Stop Time Status Last Admin Dose Admin Diphenhydramine HCl (Benadryl) 50 mg 1X ONCE 08/11/18 04:00 08/11/18 04:01 DC 08/11/18 04:02 50 MG Fentanyl Citrate (Fentanyl 2ml Vial) 75 mcg 1X ONCE 08/11/18 04:00 08/11/18 04:01 DC 08/11/18 04:01 75 MCG Ondansetron HCl (Zofran) 4 mg 1X ONCE 08/11/18 03:45 08/11/18 03:46 DC 08/11/18 03:41 4 MG Sodium Chloride 1,000 ml @ 1,000 mls/hr 1X ONCE 08/11/18 04:00 08/11/18 04:59 08/11/18 04:01 1,000 MLS/HR Allergies Allergies Allergies Coded Allergies Type Severity Reaction Last Updated Verified morphine Allergy Severe Anaphylaxis Patient states can take Hydromorphone Yes droperidol Adverse Reaction Intermediate DYSTONIA 05/24/17 Yes metoclopramide Adverse Reaction Intermediate DYSTONIA 05/24/17 Yes prochlorperazine Adverse Reaction Intermediate DYSTONIA 05/24/17 Yes Physical Exam Physical Exam Constitutional: Well developed, well nourished, no acute distress, non-toxic appearance. [] HENT: Normocephalic, atraumatic, bilateral external ears normal, oropharynx moist, no oral exudates, nose normal. [] Eyes: PERRLA, EOMI, conjunctiva normal, no discharge. [] Neck: Normal range of motion, no tenderness, supple, no stridor. [] Cardiovascular:Heart rate regular rhythm, no murmur [] Lungs & Thorax: Bilateral breath sounds clear to auscultation. [] Abdomen: Bowel sounds normal, soft, mild distention, nonincarcerated para umbilical hernia, J tubes X2 in place.. [] Skin: Warm, dry, no erythema, no rash. [] Back: No tenderness, no CVA tenderness. [] Extremities: No tenderness, no cyanosis, no edema. [] Neurologic: Alert and oriented X 3, normal motor function, normal sensory function, no focal deficits noted. [] Psychologic: Affect, anxious. [] Current Patient Data Vital Signs Vital Signs Date Time Temp Pulse Resp B/P (MAP) Pulse Ox O2 Delivery O2 Flow Rate FiO2 08/11/18 04:01 16 100 Room Air 08/11/18 03:24 87 161/109 (126) 08/11/18 02:20 98.3 98.3 Lab Values Laboratory Tests Test 08/11/18 03:40 White Blood Count 4.9 x10^3/uL (4.0-11.0) Red Blood Count 4.13 x10^6/uL (4.30-5.70) L Hemoglobin 11.6 g/dL (13.0-17.5) L Hematocrit 34.3 % (39.0-53.0) L Mean Corpuscular Volume 83 fL (79-100) Mean Corpuscular Hemoglobin 28 pg (25-35) Mean Corpuscular Hemoglobin Concent 34 g/dL (31-37) Red Cell Distribution Width 15.6 % (11.5-14.5) H Platelet Count 170 x10^3/uL (140-400) Neutrophils (%) (Auto) 61 % (31-73) Lymphocytes (%) (Auto) 27 % (24-48) Monocytes (%) (Auto) 10 % (0-9) H Eosinophils (%) (Auto) 1 % (0-3) Basophils (%) (Auto) 1 % (0-3) Neutrophils # (Auto) 3.0 x10^3uL (1.8-7.7) Lymphocytes # (Auto) 1.3 x10^3/uL (1.0-4.8) Monocytes # (Auto) 0.5 x10^3/uL (0.0-1.1) Eosinophils # (Auto) 0.1 x10^3/uL (0.0-0.7) Basophils # (Auto) 0.0 x10^3/uL (0.0-0.2) Sodium Level 141 mmol/L (136-145) Potassium Level 4.0 mmol/L (3.5-5.1) Chloride Level 105 mmol/L (98-107) Carbon Dioxide Level 27 mmol/L (21-32) Anion Gap 9 (6-14) Blood Urea Nitrogen 12 mg/dL (8-26) Creatinine 0.9 mg/dL (0.7-1.3) Estimated GFR (Cockcroft-Gault) 90.1 BUN/Creatinine Ratio 13 (6-20) Glucose Level 90 mg/dL (70-99) Calcium Level 8.1 mg/dL (8.5-10.1) L Total Bilirubin 0.3 mg/dL (0.2-1.0) Aspartate Amino Transferase (AST) 20 U/L (15-37) Alanine Aminotransferase (ALT) 15 U/L (16-63) L Alkaline Phosphatase 65 U/L (46-116) Total Protein 6.7 g/dL (6.4-8.2) Albumin 3.1 g/dL (3.4-5.0) L Albumin/Globulin Ratio 0.9 (1.0-1.7) L Lipase 88 U/L (73-393) Laboratory Tests 08/11/18 03:40 Laboratory Tests 08/11/18 03:40 EKG EKG [] Radiology/Procedures Radiology/Procedures [] Course & Med Decision Making Course & Med Decision Making Pertinent Labs and Imaging studies reviewed. (See chart for details) [IV fluids, pain medication and antiemetics given. No vomiting in the ED. Lab work is reassuring. Recommend follow-up with GI specialist.] Dragon Disclaimer Dragon Disclaimer This electronic medical record was generated, in whole or in part, using a voice recognition dictation system. Departure Departure Impression: Primary Impression: Nausea and vomiting Additional Impression: Abdominal pain Disposition: 01 HOME, SELF-CARE Condition: GOOD Referrals: CHIRAG MALIK (PCP) Patient Instructions: Abdominal Pain (Nonspecific), Nausea and Vomiting, Easy- to-Read Additional Instructions: Please take some instructed and follow-up with your GI specialist for further management. Scripts Ondansetron Hcl (ZOFRAN) 4 Mg Tablet 1 TAB PO Q6HRS, #20 TAB 0 Refills Prov: TIFFANI SELBY DO 08/11/18 Problem Qualifiers TIFFANI SELBY DO Aug 11, 2018 04:43
== END 2018-08-11 05:07 | disposition home or self-care (01) ==
LOC: ER 02:17
DX: G89.29 Other chronic pain (principal); R10.33 Periumbilical pain; R11.2 Nausea with vomiting, unspecified; K21.9 Gastro-esophageal reflux disease without esophagitis; Z98.890 Other specified postprocedural states; F43.10 Post-traumatic stress disorder, unspecified; Z93.3 Colostomy status; Z88.5 Allergy status to narcotic agent; Z88.8 Allergy status to other drugs, medicaments and biological substances
CPT/HCPCS: 36415; 80053; 83690; 85025; 96374; 96375; 99284; J2405; J3010; J7030; Q0163

== ENCOUNTER 2018-08-26 21:49 | Emergency (ER) | payer MEDICARE, OTHER ==
[~2018-08-26] VITALS: Ht 172.7 cm; Wt 63.5 kg
[~2018-08-26 21:49] MED LIST changes: +ONDA4TAB7 PO
[2018-08-26] MEDS ORDERED: fentaNYL PF VIAL 100 MCG/2 ML VIAL IV ONE (23:15)
[2018-08-26] MEDS ORDERED: ONDANSETRON PF 4 MG/2 ML VIAL. IV ONE (23:15)
[2018-08-26 23:24] LABS: BASO % 1 % (0-3); EOS % 1 % (0-3); HEMATOCRIT 34.9 % (39.0-53.0); HEMOGLOBIN 11.9 g/dL (13.0-17.5); LYMPH # 1.4 x10^3/uL (1.0-4.8); LYMPH % 30 % (24-48); MEAN CORPUSCULAR HEMOGLOBIN 28 pg (25-35); MEAN CORPUSCULAR HGB CONC 34 g/dL (31-37); MEAN CORPUSCULAR VOLUME 82 fL (79-100); MONO # 0.5 x10^3/uL (0.0-1.1); MONO % 10 % (0-9); NEUT # 2.8 x10^3uL (1.8-7.7); NEUT % 58 % (31-73); PLATELET COUNT 227 x10^3/uL (140-400); RED BLOOD COUNT 4.26 x10^6/uL (4.30-5.70); RED CELL DISTRIBUTION WIDTH 15.3 % (11.5-14.5); WHITE BLOOD COUNT 4.8 x10^3/uL (4.0-11.0)
[2018-08-26 23:32] LABS: CALCIUM 9.2 mg/dL (8.5-10.1); CREATININE 1.1 mg/dL (0.7-1.3); GFR 71.4
[2018-08-26 23:37] LABS: ALBUMIN 3.4 g/dL (3.4-5.0); DIRECT BILIRUBIN 0.1 mg/dL (0.0-0.2); TOTAL BILIRUBIN 0.2 mg/dL (0.2-1.0); TOTAL PROTEIN 7.5 g/dL (6.4-8.2)
[2018-08-27] MEDS ORDERED: fentaNYL PF VIAL 100 MCG/2 ML VIAL IV ONE (00:30)
[2018-08-27] MEDS ORDERED: ONDANSETRON PF 4 MG/2 ML VIAL. IV ONE (00:30)
[2018-08-27 01:10] VITALS: BP 117/79
--- NOTE | 2018-08-27 04:45 | PHYS DOC ---
Past Medical History Past Medical History: Anxiety, Depression, GERD, Other Additional Past Medical Histor: PTSD, GASTROPARESIS, TBI Past Surgical History: Other Additional Past Surgical Histo: HERNIA REPAIR, COLOSTOMY, JTUBE, GTUBE Alcohol Use: None Drug Use: None Adult General Chief Complaint Chief Complaint: ABDOMINAL PAIN HPI HPI Patient is a 48 year old male who presents with abdominal pain. The patient is known to have a significant history of gastroparesis. He does take medications at home every day for control of the symptoms. Today, he presents to the emergency department stating that he is having an exacerbation of his pain. The patient does come to the emergency department for similar presentations. He does have some nausea but no acute vomiting. No fever. He denies diarrhea. He is primarily requesting pain relief this evening. Review of Systems Review of Systems Constitutional: Denies fever or chills Eyes: Denies complaints HENT: Denies Respiratory: Denies cough or shortness of breath Cardiovascular: No additional information not addressed in HPI GI: as documented above Musculoskeletal: Denies back pain Integument: Denies rash or skin lesions Neurologic: Denies focal neuro complaints Endocrine: Denies polyuria All other systems were reviewed and found to be within normal limits, except as documented in this note. Current Medications Current Medications Current Medications Medications (Trade) Dose Ordered Sig/[facility] Start Time Stop Time Status Last Admin Dose Admin Fentanyl Citrate (Fentanyl 2ml Vial) 100 mcg 1X ONCE 08/27/18 00:30 08/27/18 00:31 DC 08/27/18 00:55 100 MCG Ondansetron HCl (Zofran) 4 mg 1X ONCE 08/27/18 00:30 08/27/18 00:31 DC 08/27/18 00:55 4 MG Allergies Allergies Allergies Coded Allergies Type Severity Reaction Last Updated Verified morphine Allergy Severe Anaphylaxis Patient states can take Hydromorphone Yes droperidol Adverse Reaction Intermediate DYSTONIA 05/24/17 Yes metoclopramide Adverse Reaction Intermediate DYSTONIA 05/24/17 Yes prochlorperazine Adverse Reaction Intermediate DYSTONIA 05/24/17 Yes Physical Exam Physical Exam Constitutional: Well developed, well nourished, no acute distress, non-toxic appearance HENT: Normocephalic, atraumatic, bilateral external ears normal, oropharynx moist Eyes: PERRLA, EOMI Neck: Normal range of motion Cardiovascular:Heart rate regular rhythm, no murmur Lungs & Thorax: Bilateral breath sounds clear to auscultation Abdomen: abdomen is soft with multiple old, healed scars present, midline incisional hernia that is soft and reduces easily. no significant TTP, guarding , or rebound Skin: Warm, dry Back: No tenderness Extremities: No tenderness Neurologic: Alert and oriented X 3 Psychologic: Affect normal Current Patient Data Vital Signs Vital Signs Date Time Temp Pulse Resp B/P (MAP) Pulse Ox O2 Delivery O2 Flow Rate FiO2 08/27/18 01:10 78 16 117/79 (92) 94 Room Air 08/26/18 22:43 98.1 98.1 Lab Values Laboratory Tests Test 08/26/18 23:16 White Blood Count 4.8 x10^3/uL (4.0-11.0) Red Blood Count 4.26 x10^6/uL (4.30-5.70) L Hemoglobin 11.9 g/dL (13.0-17.5) L Hematocrit 34.9 % (39.0-53.0) L Mean Corpuscular Volume 82 fL (79-100) Mean Corpuscular Hemoglobin 28 pg (25-35) Mean Corpuscular Hemoglobin Concent 34 g/dL (31-37) Red Cell Distribution Width 15.3 % (11.5-14.5) H Platelet Count 227 x10^3/uL (140-400) Neutrophils (%) (Auto) 58 % (31-73) Lymphocytes (%) (Auto) 30 % (24-48) Monocytes (%) (Auto) 10 % (0-9) H Eosinophils (%) (Auto) 1 % (0-3) Basophils (%) (Auto) 1 % (0-3) Neutrophils # (Auto) 2.8 x10^3uL (1.8-7.7) Lymphocytes # (Auto) 1.4 x10^3/uL (1.0-4.8) Monocytes # (Auto) 0.5 x10^3/uL (0.0-1.1) Eosinophils # (Auto) 0.0 x10^3/uL (0.0-0.7) Basophils # (Auto) 0.0 x10^3/uL (0.0-0.2) Sodium Level 139 mmol/L (136-145) Potassium Level 4.0 mmol/L (3.5-5.1) Chloride Level 103 mmol/L (98-107) Carbon Dioxide Level 31 mmol/L (21-32) Anion Gap 5 (6-14) L Blood Urea Nitrogen 12 mg/dL (8-26) Creatinine 1.1 mg/dL (0.7-1.3) Estimated GFR (Cockcroft-Gault) 71.4 Glucose Level 85 mg/dL (70-99) Calcium Level 9.2 mg/dL (8.5-10.1) Total Bilirubin 0.2 mg/dL (0.2-1.0) Direct Bilirubin 0.1 mg/dL (0.0-0.2) Aspartate Amino Transferase (AST) 22 U/L (15-37) Alanine Aminotransferase (ALT) 22 U/L (16-63) Alkaline Phosphatase 79 U/L (46-116) Total Protein 7.5 g/dL (6.4-8.2) Albumin 3.4 g/dL (3.4-5.0) Lipase 100 U/L (73-393) Laboratory Tests 08/26/18 23:16 Laboratory Tests 08/26/18 23:16 EKG EKG [] Radiology/Procedures Radiology/Procedures [] Course & Med Decision Making Course & Med Decision Making Pertinent Labs and Imaging studies reviewed. (See chart for details) Patient was seen in the ER for what he describes to be a typical flare of his gastroparesis pain. He did not desire admission this evening. He simply wanted pain control. In the ER, basic labs were checked and there were no acute findings. He was given 2 doses of intravenous dental along with Zofran and his symptoms were improved enough that he was comfortable with discharge home and resuming his medications at home. He was nontoxic in appearance and his abdominal exam was benign. Patient was encouraged to follow-up with his primary care doctor or return to the ER for any new symptoms. Dragon Disclaimer Dragon Disclaimer This electronic medical record was generated, in whole or in part, using a voice recognition dictation system. Departure Departure Impression: Primary Impression: Gastroparesis Disposition: 01 HOME, SELF-CARE Condition: GOOD Referrals: CHIRAG MALIK (PCP) Patient Instructions: Gastroparesis MARVA MARIE DO Aug 27, 2018 04:45
== END 2018-08-27 01:17 | disposition home or self-care (01) ==
LOC: ER 21:49
DX: K31.84 Gastroparesis (principal); K21.9 Gastro-esophageal reflux disease without esophagitis; Z88.8 Allergy status to other drugs, medicaments and biological substances; Z88.5 Allergy status to narcotic agent
CPT/HCPCS: 36415; 80048; 80076; 83690; 85025; 96361; 96374; 96375; 99285; J2405; J3010

== ENCOUNTER 2018-09-02 21:09 | Emergency (ER) | payer MEDICARE, OTHER ==
[~2018-09-02] VITALS: Ht 172.7 cm; Wt 63.5 kg
[2018-09-02] MEDS ORDERED: KETOROLAC 15 MG/ML VIAL. IV ONE (22:15)
[2018-09-02] MEDS ORDERED: ONDANSETRON PF 4 MG/2 ML VIAL. IV ONE (22:15)
[2018-09-02] MEDS ORDERED: FAMOTIDINE 20 MG/2 ML VIAL IVP ONE (22:15)
[2018-09-02 22:39] LABS: BASO % 1 % (0-3); EOS % 1 % (0-3); HEMATOCRIT 35.8 % (39.0-53.0); HEMOGLOBIN 12.1 g/dL (13.0-17.5); LYMPH # 1.2 x10^3/uL (1.0-4.8); LYMPH % 20 % (24-48); MEAN CORPUSCULAR HEMOGLOBIN 28 pg (25-35); MEAN CORPUSCULAR HGB CONC 34 g/dL (31-37); MEAN CORPUSCULAR VOLUME 81 fL (79-100); MONO # 0.5 x10^3/uL (0.0-1.1); MONO % 8 % (0-9); NEUT # 4.4 x10^3uL (1.8-7.7); NEUT % 71 % (31-73); PLATELET COUNT 202 x10^3/uL (140-400); RED BLOOD COUNT 4.41 x10^6/uL (4.30-5.70); RED CELL DISTRIBUTION WIDTH 14.8 % (11.5-14.5); WHITE BLOOD COUNT 6.2 x10^3/uL (4.0-11.0)
--- NOTE | 2018-09-02 22:47 | PHYS DOC ---
Past Medical History Past Medical History: Anxiety, Depression, GERD, Other Additional Past Medical Histor: PTSD, GASTROPARESIS, TBI Past Surgical History: Other Additional Past Surgical Histo: HERNIA REPAIR, COLOSTOMY, JTUBE, GTUBE Alcohol Use: None Drug Use: None Adult General Chief Complaint Chief Complaint: NAUSEA/VOMITING/DIARRHA HPI HPI 48-year-old male with past medical history of gastroparesis who follows with GI and general surgery regarding presents with report of continued nausea despite using home medications. Patient denies known trauma. Reports he thinks might be secondary to exposure to kids at home with possible gastroenteritis. Denies fever or chills. Review of Systems Review of Systems Constitutional: Denies fever or chills [] Eyes: Denies change in visual acuity, redness, or eye pain [] HENT: Denies nasal congestion or sore throat [] Respiratory: Denies cough or shortness of breath [] Cardiovascular: Denies chest pain or palpitations GI: Reports abdominal pain and nausea; Denies vomiting, bloody stools, or diarrhea [] : Denies dysuria or hematuria [] Musculoskeletal: Denies back pain or joint pain [] Integument: Denies rash or skin lesions [] Neurologic: Denies headache, focal weakness or sensory changes [] Complete systems were reviewed and found to be within normal limits, except as documented in this note. Current Medications Current Medications Current Medications Medications (Trade) Dose Ordered Sig/Ed Start Time Stop Time Status Last Admin Dose Admin Famotidine (Pepcid Vial) 20 mg 1X ONCE 09/02/18 22:15 09/02/18 22:16 DC 09/02/18 22:26 20 MG Ketorolac Tromethamine (Toradol 15mg Vial) 15 mg 1X ONCE 09/02/18 22:15 09/02/18 22:16 DC 09/02/18 22:26 15 MG Ondansetron HCl (Zofran) 4 mg 1X ONCE 09/02/18 22:15 09/02/18 22:16 DC 09/02/18 22:26 4 MG Allergies Allergies Allergies Coded Allergies Type Severity Reaction Last Updated Verified morphine Allergy Severe Anaphylaxis Patient states can take Hydromorphone Yes droperidol Adverse Reaction Intermediate DYSTONIA 05/24/17 Yes metoclopramide Adverse Reaction Intermediate DYSTONIA 05/24/17 Yes prochlorperazine Adverse Reaction Intermediate DYSTONIA 05/24/17 Yes Physical Exam Physical Exam Constitutional: Well developed, well nourished, no acute distress, non-toxic appearance. [] HENT: Normocephalic, atraumatic, oropharynx moist Eyes: Conjunctiva normal, no discharge. [] Neck: Normal range of motion, no tenderness, supple, no stridor. [] Cardiovascular: Heart rate regular rhythm, no murmur [] Lungs & Thorax: Bilateral breath sounds clear to auscultation [] Abdomen: Soft, abdomen non-peritoneal Skin: Warm, dry, no erythema, no rash. [] Extremities: No tenderness, ROM intact, no edema. [] Neurologic: Alert and oriented X 3, normal motor function, normal sensory function, no focal deficits noted. [] Psychologic: Affect normal, judgement normal, mood normal. [] Current Patient Data Vital Signs Vital Signs Date Time Temp Pulse Resp B/P (MAP) Pulse Ox O2 Delivery O2 Flow Rate FiO2 09/02/18 21:18 97.9 88 16 179/118 (138) 98 Room Air 97.9 Lab Values Laboratory Tests Test 09/02/18 00:45 09/02/18 22:20 Urine Collection Type Unknown Urine Color Yellow Urine Clarity Clear Urine pH 6.5 Urine Specific [place] <=1.005 Urine Protein Negative mg/dL (NEG-TRACE) Urine Glucose (UA) Negative mg/dL (NEG) Urine Ketones (Stick) Negative mg/dL (NEG) Urine Blood Negative (NEG) Urine Nitrite Negative (NEG) Urine Bilirubin Negative (NEG) Urine Urobilinogen Dipstick 0.2 mg/dL (0.2 mg/dL) Urine Leukocyte Esterase Negative (NEG) Urine RBC 0 /HPF (0-2) Urine WBC 0 /HPF (0-4) Urine Squamous Epithelial Cells Occ /LPF Urine Bacteria 0 /HPF (0-FEW) White Blood Count 6.2 x10^3/uL (4.0-11.0) Red Blood Count 4.41 x10^6/uL (4.30-5.70) Hemoglobin 12.1 g/dL (13.0-17.5) L Hematocrit 35.8 % (39.0-53.0) L Mean Corpuscular Volume 81 fL (79-100) Mean Corpuscular Hemoglobin 28 pg (25-35) Mean Corpuscular Hemoglobin Concent 34 g/dL (31-37) Red Cell Distribution Width 14.8 % (11.5-14.5) H Platelet Count 202 x10^3/uL (140-400) Neutrophils (%) (Auto) 71 % (31-73) Lymphocytes (%) (Auto) 20 % (24-48) L Monocytes (%) (Auto) 8 % (0-9) Eosinophils (%) (Auto) 1 % (0-3) Basophils (%) (Auto) 1 % (0-3) Neutrophils # (Auto) 4.4 x10^3uL (1.8-7.7) Lymphocytes # (Auto) 1.2 x10^3/uL (1.0-4.8) Monocytes # (Auto) 0.5 x10^3/uL (0.0-1.1) Eosinophils # (Auto) 0.0 x10^3/uL (0.0-0.7) Basophils # (Auto) 0.0 x10^3/uL (0.0-0.2) Sodium Level 137 mmol/L (136-145) Potassium Level 3.9 mmol/L (3.5-5.1) Chloride Level 100 mmol/L (98-107) Carbon Dioxide Level 30 mmol/L (21-32) Anion Gap 7 (6-14) Blood Urea Nitrogen 11 mg/dL (8-26) Creatinine 1.1 mg/dL (0.7-1.3) Estimated GFR (Cockcroft-Gault) 71.4 BUN/Creatinine Ratio 10 (6-20) Glucose Level 85 mg/dL (70-99) Calcium Level 8.9 mg/dL (8.5-10.1) Magnesium Level 2.1 mg/dL (1.8-2.4) Total Bilirubin 0.2 mg/dL (0.2-1.0) Aspartate Amino Transferase (AST) 25 U/L (15-37) Alanine Aminotransferase (ALT) 23 U/L (16-63) Alkaline Phosphatase 76 U/L (46-116) Creatine Kinase 352 U/L (39-308) H Creatine Kinase MB (Mass) 1.4 ng/mL (0.0-3.6) Creatine Kinase MB Relative Index 0.4 % (0-4) Troponin I Quantitative < 0.017 ng/mL (0.000-0.055) Total Protein 7.4 g/dL (6.4-8.2) Albumin 3.4 g/dL (3.4-5.0) Albumin/Globulin Ratio 0.9 (1.0-1.7) L Lipase 85 U/L (73-393) Laboratory Tests 09/02/18 22:20 Laboratory Tests 09/02/18 22:20 EKG EKG @ 2207 NSR with sinus arrhythmia at 89bpm, No ST elevation, nonspecific q waves in I and aVL Radiology/Procedures Radiology/Procedures [] Course & Med Decision Making Course & Med Decision Making Pertinent Labs and Imaging studies reviewed. (See chart for details) Patient presents with report of continued nausea despite taking Zofran at home with past medical history of gastroparesis. Patient recently seen in the emergency department on 08/26/18 for same. Patient follows with GI and general surgery. Labs obtained and posted to chart. IV fluid hydration provided. Symptomatic treatment provided. Patient stable for discharge with outpatient follow-up with PCP. Discussed findings and plan with patient and family, who acknowledge understanding and agreement. Dragon Disclaimer Dragon Disclaimer This electronic medical record was generated, in whole or in part, using a voice recognition dictation system. Departure Departure Impression: Primary Impression: Gastroparesis Disposition: 01 HOME, SELF-CARE Condition: STABLE Referrals: CHIRAG MALIK (PCP) Patient Instructions: Gastroparesis, Nausea and Vomiting, [id number] CHAY BLANC DO Sep 02, 2018 22:47
[2018-09-02 22:48] LABS: CALCIUM 8.9 mg/dL (8.5-10.1); CREATININE 1.1 mg/dL (0.7-1.3); GFR 71.4; POTASSIUM 3.9 mmol/L (3.5-5.1)
[2018-09-02 22:54] LABS: ALBUMIN 3.4 g/dL (3.4-5.0); ALBUMIN/GLOBULIN RATIO 0.9 (1.0-1.7); MAGNESIUM 2.1 mg/dL (1.8-2.4); TOTAL BILIRUBIN 0.2 mg/dL (0.2-1.0); TOTAL PROTEIN 7.4 g/dL (6.4-8.2)
[2018-09-02 22:57] LABS: BILIRUBIN,URINE NEGATIVE (NEG); CLARITY,URINE CLEAR; COLOR,URINE YELLOW; NITRITE,URINE NEGATIVE (NEG); PH,URINE 6.5; PROTEIN,URINE NEGATIVE (NEG-TRACE); UROBILINOGEN,URINE 0.2 mg/dL (0.2 mg/dL)
[2018-09-02 23:07] LABS: BACTERIA,URINE 0 /HPF (0-FEW); RBC,URINE 0 /HPF (0-2); SQUAMOUS EPITHELIAL CELL,UR OCC /LPF; WBC,URINE 0 /HPF (0-4)
[2018-09-02 23:32] VITALS: BP 138/87
--- NOTE | 2018-09-03 07:21 | EKG ---
[address] [place] [id number] Test Date: 2018-09-02 Test Time: 22:07:35 Pat Name: MERISSA JACKSON Department: Room: Gender: M [employer]ud [employer]er: : 1970 Requested By: CHAY BLANC Order Number: [id number] Reading MD: Chucho Hooker MD Measurements Intervals [place] Rate: 89 P: 47 IL: 164 QRS: -5 QRSD: 86 T: 31 QT: 338 QTc: 412 Interpretive Statements SINUS RHYTHM Electronically Signed On 09-05-2018 11:52:18 CDT by Chucho Hooker MD
== END 2018-09-02 23:46 | disposition home or self-care (01) ==
LOC: ER 21:09
DX: K31.84 Gastroparesis (principal); K21.9 Gastro-esophageal reflux disease without esophagitis; Z98.890 Other specified postprocedural states; Z93.3 Colostomy status; Z88.5 Allergy status to narcotic agent; Z88.8 Allergy status to other drugs, medicaments and biological substances
CPT/HCPCS: 36415; 80053; 81001; 82553; 83690; 83735; 84484; 85025; 93005; 96374; 96375; 99285; J1885; J2405; J3490

== ENCOUNTER 2018-10-22 09:09 | Emergency (ER) | payer MEDICARE, OTHER ==
[~2018-10-22] VITALS: Ht 172.7 cm; Wt 63.5 kg
[2018-10-22] MEDS ORDERED: IV NORMAL SALINE 1000ML BAG 1,000 ML IV SCH (09:27)
[2018-10-22] MEDS ORDERED: ONDANSETRON PF 4 MG/2 ML VIAL. IV ONE (09:30)
[2018-10-22] MEDS ORDERED: FAMOTIDINE 20 MG/2 ML VIAL IVP ONE (09:30)
[2018-10-22] MEDS ORDERED: fentaNYL PF VIAL 100 MCG/2 ML VIAL IV ONE ×2 (09:30→11:30)
[2018-10-22 10:06] LABS: CALCIUM 8.9 mg/dL (8.5-10.1); GFR 79.8; POTASSIUM 4.1 mmol/L (3.5-5.1)
[2018-10-22 10:09] LABS: BASO % 0 % (0-3); EOS % 1 % (0-3); HEMATOCRIT 34.6 % (39.0-53.0); HEMOGLOBIN 11.2 g/dL (13.0-17.5); LYMPH # 1.1 x10^3/uL (1.0-4.8); LYMPH % 29 % (24-48); MEAN CORPUSCULAR HEMOGLOBIN 26 pg (25-35); MEAN CORPUSCULAR HGB CONC 32 g/dL (31-37); MEAN CORPUSCULAR VOLUME 81 fL (79-100); MONO # 0.4 x10^3/uL (0.0-1.1); MONO % 10 % (0-9); NEUT # 2.3 x10^3uL (1.8-7.7); NEUT % 60 % (31-73); PLATELET COUNT 174 x10^3/uL (140-400); RED BLOOD COUNT 4.29 x10^6/uL (4.30-5.70); RED CELL DISTRIBUTION WIDTH 16.2 % (11.5-14.5); WHITE BLOOD COUNT 3.8 x10^3/uL (4.0-11.0)
[2018-10-22 10:15] LABS: ALBUMIN 3.5 g/dL (3.4-5.0); ALBUMIN/GLOBULIN RATIO 0.9 (1.0-1.7); TOTAL BILIRUBIN 0.3 mg/dL (0.2-1.0); TOTAL PROTEIN 7.6 g/dL (6.4-8.2)
--- NOTE | 2018-10-22 10:15 | PHYS DOC ---
Past Medical History Past Medical History: Anxiety, Depression, GERD, Other Additional Past Medical Histor: PTSD, GASTROPARESIS, TBI Past Surgical History: Other Additional Past Surgical Histo: HERNIA REPAIR, COLOSTOMY, JTUBE, GTUBE and removal Alcohol Use: None Drug Use: None Adult General Chief Complaint Chief Complaint: NAUSEA/VOMITING/DIARRHA HPI HPI Patient is a 48 year old male who presents with complaint of nausea and vomiting for the last couple of days. Patient also indicates that he has had loose stools since being on antibiotics. He states that he has a history of gastroparesis and feels that he is having a recurrence of the gastroparesis. He does indicate that he is on TPN 12 hours a day due to malnutrition. He does report to abdominal cramping and pain that he rates as moderate. He states that nothing is improving symptoms. He denies any fever. He also denies any chest pain or shortness of breath. Review of Systems Review of Systems Constitutional: Denies fever or chills [] Respiratory: Denies cough or shortness of breath [] Cardiovascular: No additional information not addressed in HPI [] GI: Complains of abdominal pain/cramping with nausea and vomiting. Admits to loose stools.[] Integument: Denies rash or skin lesions [] Neurologic: Denies headache, focal weakness or sensory changes [] All other systems were reviewed and found to be within normal limits, except as documented in this note. Current Medications Current Medications Current Medications Medications (Trade) Dose Ordered Sig/Ed Start Time Stop Time Status Last Admin Dose Admin Diphenhydramine HCl (Benadryl) 25 mg 1X ONCE 10/22/18 11:30 10/22/18 11:31 DC 10/22/18 11:39 25 MG Famotidine (Pepcid Vial) 20 mg 1X ONCE 10/22/18 09:30 10/22/18 09:32 DC 10/22/18 09:59 20 MG Fentanyl Citrate (Fentanyl 2ml Vial) 50 mcg 1X ONCE 10/22/18 11:30 10/22/18 11:31 DC 10/22/18 11:39 50 MCG Ondansetron HCl (Zofran) 8 mg 1X ONCE 10/22/18 09:30 10/22/18 09:32 DC 10/22/18 09:59 8 MG Sodium Chloride 1,000 ml @ 1,000 mls/hr Q1H 10/22/18 09:27 10/22/18 10:26 DC 10/22/18 09:27 1,000 MLS/HR Allergies Allergies Allergies Coded Allergies Type Severity Reaction Last Updated Verified morphine Allergy Severe Anaphylaxis Patient states can take Hydromorphone Yes droperidol Adverse Reaction Intermediate DYSTONIA 05/24/17 Yes metoclopramide Adverse Reaction Intermediate DYSTONIA 05/24/17 Yes prochlorperazine Adverse Reaction Intermediate DYSTONIA 05/24/17 Yes Physical Exam Physical Exam Constitutional: Well developed, well nourished, no acute distress, non-toxic appearance. [] HENT: Normocephalic, atraumatic, bilateral external ears normal, oropharynx moist, no oral exudates, nose normal. [] Eyes: PERRLA, EOMI, conjunctiva normal, no discharge. [] Neck: Normal range of motion, no tenderness, supple, no stridor. [] Cardiovascular: Regular rate and rhythm [] Lungs & Thorax: Bilateral breath sounds clear to auscultation [] Abdomen: Bowel sounds normal, soft, with diffuse tenderness. [] Skin: Warm, dry, no erythema, no rash. [] Extremities: No tenderness, no cyanosis, no clubbing, ROM intact, no edema. [] Neurologic: Alert and oriented X 3, normal motor function, normal sensory function, no focal deficits noted. [] Current Patient Data Vital Signs Vital Signs Date Time Temp Pulse Resp B/P (MAP) Pulse Ox O2 Delivery O2 Flow Rate FiO2 10/22/18 11:35 68 20 131/80 (97) 99 10/22/18 09:16 98.1 Room Air 98.1 Lab Values Laboratory Tests Test 10/22/18 09:30 10/22/18 09:44 Urine Collection Type Unknown Urine Color Yellow Urine Clarity Clear Urine pH 6.5 Urine Specific [place] 1.010 Urine Protein Negative mg/dL (NEG-TRACE) Urine Glucose (UA) Negative mg/dL (NEG) Urine Ketones (Stick) Negative mg/dL (NEG) Urine Blood Negative (NEG) Urine Nitrite Negative (NEG) Urine Bilirubin Negative (NEG) Urine Urobilinogen Dipstick 0.2 mg/dL (0.2 mg/dL) Urine Leukocyte Esterase Negative (NEG) Urine RBC 0 /HPF (0-2) Urine WBC 1-4 /HPF (0-4) Urine Squamous Epithelial Cells Occ /LPF Urine Bacteria 0 /HPF (0-FEW) White Blood Count 3.8 x10^3/uL (4.0-11.0) L Red Blood Count 4.29 x10^6/uL (4.30-5.70) L Hemoglobin 11.2 g/dL (13.0-17.5) L Hematocrit 34.6 % (39.0-53.0) L Mean Corpuscular Volume 81 fL (79-100) Mean Corpuscular Hemoglobin 26 pg (25-35) Mean Corpuscular Hemoglobin Concent 32 g/dL (31-37) Red Cell Distribution Width 16.2 % (11.5-14.5) H Platelet Count 174 x10^3/uL (140-400) Neutrophils (%) (Auto) 60 % (31-73) Lymphocytes (%) (Auto) 29 % (24-48) Monocytes (%) (Auto) 10 % (0-9) H Eosinophils (%) (Auto) 1 % (0-3) Basophils (%) (Auto) 0 % (0-3) Neutrophils # (Auto) 2.3 x10^3uL (1.8-7.7) Lymphocytes # (Auto) 1.1 x10^3/uL (1.0-4.8) Monocytes # (Auto) 0.4 x10^3/uL (0.0-1.1) Eosinophils # (Auto) 0.0 x10^3/uL (0.0-0.7) Basophils # (Auto) 0.0 x10^3/uL (0.0-0.2) Sodium Level 139 mmol/L (136-145) Potassium Level 4.1 mmol/L (3.5-5.1) Chloride Level 105 mmol/L (98-107) Carbon Dioxide Level 26 mmol/L (21-32) Anion Gap 8 (6-14) Blood Urea Nitrogen 12 mg/dL (8-26) Creatinine 1.0 mg/dL (0.7-1.3) Estimated GFR (Cockcroft-Gault) 79.8 BUN/Creatinine Ratio 12 (6-20) Glucose Level 99 mg/dL (70-99) Calcium Level 8.9 mg/dL (8.5-10.1) Total Bilirubin 0.3 mg/dL (0.2-1.0) Aspartate Amino Transferase (AST) 22 U/L (15-37) Alanine Aminotransferase (ALT) 22 U/L (16-63) Alkaline Phosphatase 83 U/L (46-116) Total Protein 7.6 g/dL (6.4-8.2) Albumin 3.5 g/dL (3.4-5.0) Albumin/Globulin Ratio 0.9 (1.0-1.7) L Lipase 145 U/L (73-393) Laboratory Tests 10/22/18 09:44 Laboratory Tests 10/22/18 09:44 EKG EKG [] Radiology/Procedures Radiology/Procedures [] Course & Med Decision Making Course & Med Decision Making Pertinent Labs and Imaging studies reviewed. (See chart for details) [] Dragon Disclaimer Dragon Disclaimer This electronic medical record was generated, in whole or in part, using a voice recognition dictation system. Departure Departure Impression: Primary Impression: Gastroparesis Additional Impression: Nausea and vomiting Disposition: 01 HOME, SELF-CARE Condition: STABLE Referrals: CHIRAG MALIK (PCP) Patient Instructions: Gastroparesis Problem Qualifiers Additional Impression: Nausea and vomiting Vomiting type: unspecified Vomiting Intractability: non-intractable Qualified Codes: R11.2 - Nausea with vomiting, unspecified YOON GERMAN Jr. DO Oct 22, 2018 10:15
[2018-10-22 10:41] LABS: BILIRUBIN,URINE NEGATIVE (NEG); CLARITY,URINE CLEAR; COLOR,URINE YELLOW; NITRITE,URINE NEGATIVE (NEG); PH,URINE 6.5; PROTEIN,URINE NEGATIVE (NEG-TRACE); UROBILINOGEN,URINE 0.2 mg/dL (0.2 mg/dL)
[2018-10-22 11:05] LABS: SQUAMOUS EPITHELIAL CELL,UR OCC /LPF
[2018-10-22 11:06] LABS: BACTERIA,URINE 0 /HPF (0-FEW); RBC,URINE 0 /HPF (0-2)
[2018-10-22] MEDS ORDERED: diphenhydrAMINE 50 MG/ML VIAL IVP ONE (11:30)
[2018-10-22 12:30] VITALS: BP 136/86
== END 2018-10-22 13:02 | disposition home or self-care (01) ==
LOC: ER 09:09
DX: K31.84 Gastroparesis (principal); R11.2 Nausea with vomiting, unspecified; R19.7 Diarrhea, unspecified; F41.9 Anxiety disorder, unspecified; F32.9 Major depressive disorder, single episode, unspecified; K21.9 Gastro-esophageal reflux disease without esophagitis; F43.10 Post-traumatic stress disorder, unspecified; Z87.820 Personal history of traumatic brain injury; Z88.5 Allergy status to narcotic agent; Z88.8 Allergy status to other drugs, medicaments and biological substances
CPT/HCPCS: 36415; 80053; 81001; 83690; 85025; 96361; 96374; 96375; 96376; 99283; J1200; J2405; J3010; J3490; J7030

== ENCOUNTER 2018-11-11 09:24 | Emergency (ER) | payer MEDICARE, OTHER ==
[~2018-11-11] VITALS: Ht 172.7 cm; Wt 63.5 kg
[2018-11-11 10:19] LABS: BILIRUBIN,URINE NEGATIVE (NEG); CLARITY,URINE CLEAR; COLOR,URINE YELLOW; NITRITE,URINE NEGATIVE (NEG); PH,URINE 6.5; PROTEIN,URINE NEGATIVE (NEG-TRACE); UROBILINOGEN,URINE 0.2 mg/dL (0.2 mg/dL)
[2018-11-11 10:33] LABS: SQUAMOUS EPITHELIAL CELL,UR FEW /LPF
[2018-11-11 10:34] LABS: BACTERIA,URINE 0 /HPF (0-FEW); RBC,URINE 0 /HPF (0-2)
[2018-11-11] MEDS ORDERED: fentaNYL PF VIAL 100 MCG/2 ML VIAL IV ONE (11:30)
[2018-11-11] MEDS ORDERED: ONDANSETRON PF 4 MG/2 ML VIAL. IV ONE (11:30)
[2018-11-11] MEDS ORDERED: diphenhydrAMINE 50 MG/ML VIAL IVP ONE (11:30)
[2018-11-11] MEDS ORDERED: IV NORMAL SALINE 1000ML BAG 1,000 ML IV ONE (11:30)
--- NOTE | 2018-11-11 11:57 | PHYS DOC ---
Past Medical History Past Medical History: Anxiety, Depression, GERD, Other Additional Past Medical Histor: PTSD, GASTROPARESIS, TBI Past Surgical History: Other Additional Past Surgical Histo: HERNIA REPAIR, COLOSTOMY, JTUBE, GTUBE and removal Alcohol Use: None Drug Use: None Adult General Chief Complaint Chief Complaint: NAUSEA/VOMITING/DIARRHA HPI HPI 48-year-old male presents to ER with complaints of abdominal pain with nausea and vomiting. Patient reports for the past couple of days he has had gradual worsening of symptoms. Patient has history of gastroparesis and is well known to the ER for chronic abdominal pain. Patient reports this episode feels similar to previous where he has had to come to the ER for fluids and nausea/ pain medications. Pt denies any fever, urinary symptoms, chest pain, or palpitations. Patient denies dizziness or fatigue. Review of Systems Review of Systems Constitutional: Denies fever or chills [] Eyes: Denies change in visual acuity, redness, or eye pain [] HENT: Denies nasal congestion or sore throat [] Respiratory: Denies cough or shortness of breath [] Cardiovascular: No additional information not addressed in HPI [] GI: Denies abdominal pain, nausea, vomiting, bloody stools or diarrhea [] : Denies dysuria or hematuria [] Musculoskeletal: Denies back pain or joint pain [] Integument: Denies rash or skin lesions [] Neurologic: Denies headache, focal weakness or sensory changes [] Endocrine: Denies polyuria or polydipsia [] All other systems were reviewed and found to be within normal limits, except as documented in this note. Current Medications Current Medications Current Medications Medications (Trade) Dose Ordered Sig/Ed Start Time Stop Time Status Last Admin Dose Admin Diphenhydramine HCl (Benadryl) 25 mg 1X ONCE 11/11/18 11:30 11/11/18 11:31 DC 11/11/18 11:46 25 MG Fentanyl Citrate (Fentanyl 2ml Vial) 50 mcg 1X ONCE 11/11/18 11:30 11/11/18 11:31 DC 11/11/18 11:50 50 MCG Ondansetron HCl (Zofran) 4 mg 1X ONCE 11/11/18 11:30 11/11/18 11:31 DC 11/11/18 11:48 4 MG Sodium Chloride 1,000 ml @ 1,000 mls/hr 1X ONCE 11/11/18 11:30 11/11/18 12:29 DC 11/11/18 11:43 1,000 MLS/HR Allergies Allergies Allergies Coded Allergies Type Severity Reaction Last Updated Verified morphine Allergy Severe Anaphylaxis Patient states can take Hydromorphone Yes droperidol Adverse Reaction Intermediate DYSTONIA 05/24/17 Yes metoclopramide Adverse Reaction Intermediate DYSTONIA 05/24/17 Yes prochlorperazine Adverse Reaction Intermediate DYSTONIA 05/24/17 Yes Physical Exam Physical Exam Constitutional: Well developed, well nourished, no acute distress, non-toxic appearance. [] HENT: Normocephalic, atraumatic, bilateral external ears normal, oropharynx moist, no oral exudates, nose normal. [] Eyes: PERRLA, EOMI, conjunctiva normal, no discharge. [] Neck: Normal range of motion, no tenderness, supple, no stridor. [] Cardiovascular:Heart rate regular rhythm, no murmur [] Lungs & Thorax: Bilateral breath sounds clear to auscultation [] Abdomen: Bowel sounds normal, soft, no tenderness, no masses, no pulsatile masses. [] Skin: Warm, dry, no erythema, no rash. [] Back: No tenderness, no CVA tenderness. [] Extremities: No tenderness, no cyanosis, no clubbing, ROM intact, no edema. [] Neurologic: Alert and oriented X 3, normal motor function, normal sensory function, no focal deficits noted. [] Psychologic: Affect normal, judgement normal, mood normal. [] Current Patient Data Vital Signs Vital Signs Date Time Temp Pulse Resp B/P (MAP) Pulse Ox O2 Delivery O2 Flow Rate FiO2 11/11/18 12:14 82 16 149/95 (113) 96 Room Air 11/11/18 10:55 98.0 98.0 Lab Values Laboratory Tests Test 11/11/18 09:30 11/11/18 11:45 Urine Collection Type Unknown Urine Color Yellow Urine Clarity Clear Urine pH 6.5 Urine Specific [place] 1.015 Urine Protein Negative mg/dL (NEG-TRACE) Urine Glucose (UA) Negative mg/dL (NEG) Urine Ketones (Stick) Negative mg/dL (NEG) Urine Blood Negative (NEG) Urine Nitrite Negative (NEG) Urine Bilirubin Negative (NEG) Urine Urobilinogen Dipstick 0.2 mg/dL (0.2 mg/dL) Urine Leukocyte Esterase Trace (NEG) Urine RBC 0 /HPF (0-2) Urine WBC 1-4 /HPF (0-4) Urine Squamous Epithelial Cells Few /LPF Urine Bacteria 0 /HPF (0-FEW) White Blood Count 4.3 x10^3/uL (4.0-11.0) Red Blood Count 4.16 x10^6/uL (4.30-5.70) L Hemoglobin 10.8 g/dL (13.0-17.5) L Hematocrit 32.4 % (39.0-53.0) L Mean Corpuscular Volume 78 fL (79-100) L Mean Corpuscular Hemoglobin 26 pg (25-35) Mean Corpuscular Hemoglobin Concent 33 g/dL (31-37) Red Cell Distribution Width 16.7 % (11.5-14.5) H Platelet Count 143 x10^3/uL (140-400) Neutrophils (%) (Auto) 67 % (31-73) Lymphocytes (%) (Auto) 24 % (24-48) Monocytes (%) (Auto) 8 % (0-9) Eosinophils (%) (Auto) 1 % (0-3) Basophils (%) (Auto) 1 % (0-3) Neutrophils # (Auto) 2.9 x10^3uL (1.8-7.7) Lymphocytes # (Auto) 1.0 x10^3/uL (1.0-4.8) Monocytes # (Auto) 0.4 x10^3/uL (0.0-1.1) Eosinophils # (Auto) 0.0 x10^3/uL (0.0-0.7) Basophils # (Auto) 0.0 x10^3/uL (0.0-0.2) Sodium Level 139 mmol/L (136-145) Potassium Level 3.9 mmol/L (3.5-5.1) Chloride Level 103 mmol/L (98-107) Carbon Dioxide Level 28 mmol/L (21-32) Anion Gap 8 (6-14) Blood Urea Nitrogen 10 mg/dL (8-26) Creatinine 1.0 mg/dL (0.7-1.3) Estimated GFR (Cockcroft-Gault) 79.8 Glucose Level 99 mg/dL (70-99) Calcium Level 8.4 mg/dL (8.5-10.1) L Total Bilirubin 0.4 mg/dL (0.2-1.0) Direct Bilirubin 0.1 mg/dL (0.0-0.2) Aspartate Amino Transferase (AST) 25 U/L (15-37) Alanine Aminotransferase (ALT) 23 U/L (16-63) Alkaline Phosphatase 104 U/L (46-116) Total Protein 7.3 g/dL (6.4-8.2) Albumin 3.1 g/dL (3.4-5.0) L Lipase 94 U/L (73-393) Laboratory Tests 11/11/18 11:45 Laboratory Tests 11/11/18 11:45 EKG EKG [] Radiology/Procedures Radiology/Procedures [] Course & Med Decision Making Course & Med Decision Making Pertinent Labs reviewed. (See chart for details) 1300: Reevaluation patient reports he has had some improvement in pain and patient is in no visible distress and nontoxic in appearance at this time. Vital signs have remained stable. Discussed with improved symptoms and lab similar to previous results plans were for home discharge and patient to call as soon as possible to schedule follow-up appointment with GI and primary care physician. Patient is Zofran at home for nausea. Education provided on signs and symptoms to return to ER for an discharge instructions were discussed. Dragon Disclaimer Dragon Disclaimer This electronic medical record was generated, in whole or in part, using a voice recognition dictation system. Departure Departure Impression: Primary Impression: Abdominal pain Additional Impression: Nausea and vomiting Disposition: 01 HOME, SELF-CARE Condition: STABLE Referrals: CHIRAG MALIK (PCP) Patient Instructions: Abdominal Pain, Nausea and Vomiting Additional Instructions: Call and schedule follow-up appointment with your lower gastrointestinal and primary care physicians. Continue home medications as previously prescribed. Problem Qualifiers WALTER BAUTISTA APRN Nov 11, 2018 11:56
[2018-11-11 12:10] LABS: BASO % 1 % (0-3); EOS % 1 % (0-3); HEMATOCRIT 32.4 % (39.0-53.0); HEMOGLOBIN 10.8 g/dL (13.0-17.5); LYMPH % 24 % (24-48); MEAN CORPUSCULAR HEMOGLOBIN 26 pg (25-35); MEAN CORPUSCULAR HGB CONC 33 g/dL (31-37); MEAN CORPUSCULAR VOLUME 78 fL (79-100); MONO # 0.4 x10^3/uL (0.0-1.1); MONO % 8 % (0-9); NEUT # 2.9 x10^3uL (1.8-7.7); NEUT % 67 % (31-73); PLATELET COUNT 143 x10^3/uL (140-400); RED BLOOD COUNT 4.16 x10^6/uL (4.30-5.70); RED CELL DISTRIBUTION WIDTH 16.7 % (11.5-14.5); WHITE BLOOD COUNT 4.3 x10^3/uL (4.0-11.0)
[2018-11-11 12:19] LABS: CALCIUM 8.4 mg/dL (8.5-10.1); GFR 79.8; POTASSIUM 3.9 mmol/L (3.5-5.1)
[2018-11-11 13:20] VITALS: BP 147/94
[2018-11-11 13:22] LABS: ALBUMIN 3.1 g/dL (3.4-5.0); DIRECT BILIRUBIN 0.1 mg/dL (0.0-0.2); TOTAL BILIRUBIN 0.4 mg/dL (0.2-1.0); TOTAL PROTEIN 7.3 g/dL (6.4-8.2)
== END 2018-11-11 13:50 | disposition home or self-care (01) ==
LOC: ER 09:24
DX: R11.2 Nausea with vomiting, unspecified (principal); G89.29 Other chronic pain; R10.9 Unspecified abdominal pain; K21.9 Gastro-esophageal reflux disease without esophagitis; Z98.890 Other specified postprocedural states; Z93.3 Colostomy status; Z93.4 Other artificial openings of gastrointestinal tract status; Z93.1 Gastrostomy status; Z88.5 Allergy status to narcotic agent; Z88.8 Allergy status to other drugs, medicaments and biological substances
CPT/HCPCS: 36415; 80048; 80076; 81001; 83690; 85025; 96361; 96374; 96375; 99283; J1200; J2405; J3010; J7030

== ENCOUNTER 2018-12-09 09:17 | Emergency (ER) | payer MEDICARE, OTHER ==
[~2018-12-09] VITALS: Ht 172.7 cm; Wt 68.0 kg
[~2018-12-09 09:17] MED LIST changes: -GABA600T2 PO; +GABA600T7 PO; -MIRT30TA6 PO; +MIRT30TA93 PO
[2018-12-09] MEDS ORDERED: IV NORMAL SALINE 1000ML BAG 1,000 ML IV SCH (09:42)
[2018-12-09] MEDS ORDERED: diphenhydrAMINE 50 MG/ML VIAL IVP ONE (09:45)
[2018-12-09] MEDS ORDERED: KETOROLAC 30 MG/ML VIAL. IV ONE (09:45)
[2018-12-09 10:27] LABS: BASO % 1 % (0-3); EOS % 1 % (0-3); HEMATOCRIT 34.6 % (39.0-53.0); LYMPH % 19 % (24-48); MEAN CORPUSCULAR HEMOGLOBIN 24 pg (25-35); MEAN CORPUSCULAR HGB CONC 32 g/dL (31-37); MEAN CORPUSCULAR VOLUME 77 fL (79-100); MONO # 0.4 x10^3/uL (0.0-1.1); MONO % 7 % (0-9); NEUT # 3.9 x10^3uL (1.8-7.7); NEUT % 73 % (31-73); PLATELET COUNT 231 x10^3/uL (140-400); RED BLOOD COUNT 4.52 x10^6/uL (4.30-5.70); RED CELL DISTRIBUTION WIDTH 17.1 % (11.5-14.5); WHITE BLOOD COUNT 5.4 x10^3/uL (4.0-11.0)
[2018-12-09 10:38] LABS: CALCIUM 8.9 mg/dL (8.5-10.1); GFR 79.8
[2018-12-09 10:41] LABS: ALBUMIN 3.4 g/dL (3.4-5.0); ALBUMIN/GLOBULIN RATIO 0.8 (1.0-1.7); TOTAL BILIRUBIN 0.2 mg/dL (0.2-1.0); TOTAL PROTEIN 7.5 g/dL (6.4-8.2)
[2018-12-09] MEDS ORDERED: fentaNYL PF VIAL 100 MCG/2 ML VIAL IV ONE (11:15)
--- NOTE | 2018-12-09 11:28 | PHYS DOC ---
Past Medical History Past Medical History: Anxiety, Depression, GERD, Other Additional Past Medical Histor: PTSD, GASTROPARESIS, TBI Past Surgical History: Cholecystectomy, Colectomy, Gastric Bypass, Other Additional Past Surgical Histo: HERNIA REPAIR, COLOSTOMY, JTUBE, GTUBE and removal Additional Information: Denies smoking Alcohol Use: None Drug Use: None Adult General Chief Complaint Chief Complaint: NAUSEA/VOMITING/DIARRHA HPI HPI Patient is a 48 year old male with history of 12 abdominal surgeries and gastroparesis on home TPN who presents with complaining of flaring up of his gastroparesis for the last 3 days with one episode of vomiting every day and pain in left upper quadrant as a constant pain and rated his pain 6/10 and stated he did not take any pain medication at home. Patient states he took oral and IV Zofran, Benadryl, Phenergan at home without improvement of nausea. Patient states he usually gets episodes of gastroparesis episode 3 weeks. Patient denies fever and chills, diarrhea and constipation, urinary symptoms, focal neuro deficit, chest pain and shortness of breath. Review of Systems Review of Systems Constitutional: Denies fever or chills [] Eyes: Denies change in visual acuity, redness, or eye pain [] HENT: Denies nasal congestion or sore throat [] Respiratory: Denies cough or shortness of breath [] Cardiovascular: No additional information not addressed in HPI [] GI: Reports abdominal pain, nausea, vomiting, denies bloody stools or diarrhea [ ] : Denies dysuria or hematuria [] Musculoskeletal: Denies back pain or joint pain [] Integument: Denies rash or skin lesions [] Neurologic: Denies headache, focal weakness or sensory changes [] Endocrine: Denies polyuria or polydipsia [] All other systems were reviewed and found to be within normal limits, except as documented in this note. Current Medications Current Medications Current Medications Medications (Trade) Dose Ordered Sig/Ed Start Time Stop Time Status Last Admin Dose Admin Diphenhydramine HCl (Benadryl) 50 mg 1X ONCE 12/09/18 09:45 12/09/18 09:47 DC 12/09/18 10:18 50 MG Ketorolac Tromethamine (Toradol 30mg Vial) 30 mg 1X ONCE 12/09/18 09:45 12/09/18 09:47 DC 12/09/18 10:19 30 MG Sodium Chloride 1,000 ml @ 1,000 mls/hr Q1H 12/09/18 09:42 12/09/18 10:41 DC 12/09/18 10:14 1,000 MLS/HR Allergies Allergies Allergies Coded Allergies Type Severity Reaction Last Updated Verified morphine Allergy Severe Anaphylaxis Patient states can take Hydromorphone Yes droperidol Adverse Reaction Intermediate DYSTONIA 05/24/17 Yes metoclopramide Adverse Reaction Intermediate DYSTONIA 05/24/17 Yes prochlorperazine Adverse Reaction Intermediate DYSTONIA 05/24/17 Yes Physical Exam Physical Exam Constitutional: Well developed, well nourished, no acute distress, non-toxic appearance. [] HENT: Normocephalic, atraumatic, oropharynx moist, no oral exudates, nose normal. [] Eyes: PERRLA, EOMI, conjunctiva normal, no discharge. [] Neck: Normal range of motion, no tenderness, supple, no stridor. [] Cardiovascular: Tachycardia, no murmur [] Lungs & Thorax: Bilateral breath sounds clear to auscultation [] Abdomen: Several abdominal wall scar and small epigastric ventral hernia, bowel sounds normal, soft, no tenderness, no masses, no pulsatile masses. [] Skin: Warm, dry, no erythema, no rash. [] Back: No tenderness, no CVA tenderness. [] Extremities: Right upper extremity PICC line in place, No tenderness, no cyanosis, no clubbing, ROM intact, no edema. [] Neurologic: Alert and oriented X 3, normal motor function, normal sensory function, no focal deficits noted. [] Psychologic: Affect normal, judgement normal, mood normal. [] Current Patient Data Vital Signs Vital Signs Date Time Temp Pulse Resp B/P (MAP) Pulse Ox O2 Delivery O2 Flow Rate FiO2 12/09/18 09:38 98.9 117 20 154/92 (112) 100 Room Air 98.9 Lab Values Laboratory Tests Test 12/09/18 10:15 White Blood Count 5.4 x10^3/uL (4.0-11.0) Red Blood Count 4.52 x10^6/uL (4.30-5.70) Hemoglobin 11.0 g/dL (13.0-17.5) L Hematocrit 34.6 % (39.0-53.0) L Mean Corpuscular Volume 77 fL (79-100) L Mean Corpuscular Hemoglobin 24 pg (25-35) L Mean Corpuscular Hemoglobin Concent 32 g/dL (31-37) Red Cell Distribution Width 17.1 % (11.5-14.5) H Platelet Count 231 x10^3/uL (140-400) Neutrophils (%) (Auto) 73 % (31-73) Lymphocytes (%) (Auto) 19 % (24-48) L Monocytes (%) (Auto) 7 % (0-9) Eosinophils (%) (Auto) 1 % (0-3) Basophils (%) (Auto) 1 % (0-3) Neutrophils # (Auto) 3.9 x10^3uL (1.8-7.7) Lymphocytes # (Auto) 1.0 x10^3/uL (1.0-4.8) Monocytes # (Auto) 0.4 x10^3/uL (0.0-1.1) Eosinophils # (Auto) 0.0 x10^3/uL (0.0-0.7) Basophils # (Auto) 0.0 x10^3/uL (0.0-0.2) Sodium Level 141 mmol/L (136-145) Potassium Level 4.0 mmol/L (3.5-5.1) Chloride Level 104 mmol/L (98-107) Carbon Dioxide Level 27 mmol/L (21-32) Anion Gap 10 (6-14) Blood Urea Nitrogen 13 mg/dL (8-26) Creatinine 1.0 mg/dL (0.7-1.3) Estimated GFR (Cockcroft-Gault) 79.8 BUN/Creatinine Ratio 13 (6-20) Glucose Level 94 mg/dL (70-99) Calcium Level 8.9 mg/dL (8.5-10.1) Magnesium Level 2.0 mg/dL (1.8-2.4) Total Bilirubin 0.2 mg/dL (0.2-1.0) Aspartate Amino Transferase (AST) 21 U/L (15-37) Alanine Aminotransferase (ALT) 16 U/L (16-63) Alkaline Phosphatase 90 U/L (46-116) Total Protein 7.5 g/dL (6.4-8.2) Albumin 3.4 g/dL (3.4-5.0) Albumin/Globulin Ratio 0.8 (1.0-1.7) L Lipase 108 U/L (73-393) Laboratory Tests 12/09/18 10:15 Laboratory Tests 12/09/18 10:15 EKG EKG [] Radiology/Procedures Radiology/Procedures [] Course & Med Decision Making Course & Med Decision Making Pertinent Labs reviewed. (See chart for details) Evaluation of patient in ER showed 48-year-old female patient with history of gastroparesis and home TPN with complaining of episodes of nausea and vomiting and abdominal pain for the last 2 days. Patient had unremarkable physical exam except for tachycardia that was a chronic problem for patient. Patient had unremarkable labs except for chronic anemia. Patient treated with IV fluid and Zofran and Toradol and states his pain is not getting better and one dose of fentanyl was ordered and plan to discharge patient home with instruction to continue home treatment. Dragon Disclaimer Dragon Disclaimer This electronic medical record was generated, in whole or in part, using a voice recognition dictation system. Departure Departure Impression: Primary Impression: Gastroparesis Additional Impressions: Nausea and vomiting Abdominal pain Disposition: HOME, SELF-CARE (@1125) Condition: IMPROVED Referrals: CHIRAG MALIK (PCP) Patient Instructions: Gastroparesis, Nausea and Vomiting Additional Instructions: Drink plenty of liquids Follow-up with your primary care physician in 3-5 days Return to ER if not getting better [id number] current medication Problem Qualifiers SUE RAMOS MD Dec 09, 2018 11:28
[2018-12-09 11:53] VITALS: BP 163/105
== END 2018-12-09 12:17 | disposition home or self-care (01) ==
LOC: ER 09:17
DX: R11.2 Nausea with vomiting, unspecified (principal); K31.84 Gastroparesis; R10.12 Left upper quadrant pain; K21.9 Gastro-esophageal reflux disease without esophagitis; F43.10 Post-traumatic stress disorder, unspecified; Z90.49 Acquired absence of other specified parts of digestive tract; Z98.84 Bariatric surgery status; Z93.3 Colostomy status; Z98.890 Other specified postprocedural states; Z88.5 Allergy status to narcotic agent; Z88.8 Allergy status to other drugs, medicaments and biological substances
CPT/HCPCS: 36415; 80053; 83690; 83735; 85025; 96361; 96374; 96375; 99283; J1200; J1885; J3010; J7030

== ENCOUNTER 2018-12-17 09:28 | Emergency (ER) | payer MEDICARE, OTHER ==
[~2018-12-17] VITALS: Ht 172.7 cm; Wt 68.9 kg
[2018-12-17] MEDS ORDERED: PROMETHAZINE 12.5 MG TABLET. PO ONE (10:15)
[2018-12-17] MEDS ORDERED: IV NORMAL SALINE 1000ML BAG 1,000 ML IV ONE (10:15)
[2018-12-17] MEDS ORDERED: ONDANSETRON PF 4 MG/2 ML VIAL. IV ONE (10:15)
[2018-12-17] MEDS ORDERED: DIPHENHYDRAMINE IV ONE (10:30)
[2018-12-17] MEDS ORDERED: NORMAL SALINE IV ONE (10:30)
[2018-12-17 10:53] LABS: BASO % 1 % (0-3); EOS % 0 % (0-3); HEMOGLOBIN 10.7 g/dL (13.0-17.5); LYMPH # 0.7 x10^3/uL (1.0-4.8); LYMPH % 16 % (24-48); MEAN CORPUSCULAR HEMOGLOBIN 24 pg (25-35); MEAN CORPUSCULAR HGB CONC 31 g/dL (31-37); MEAN CORPUSCULAR VOLUME 77 fL (79-100); MONO # 0.4 x10^3/uL (0.0-1.1); MONO % 8 % (0-9); NEUT # 3.4 x10^3uL (1.8-7.7); NEUT % 75 % (31-73); PLATELET COUNT 217 x10^3/uL (140-400); RED BLOOD COUNT 4.44 x10^6/uL (4.30-5.70); RED CELL DISTRIBUTION WIDTH 17.3 % (11.5-14.5); WHITE BLOOD COUNT 4.5 x10^3/uL (4.0-11.0)
[2018-12-17 11:01] LABS: CALCIUM 8.8 mg/dL (8.5-10.1); CREATININE 0.9 mg/dL (0.7-1.3); GFR 90.1; POTASSIUM 4.5 mmol/L (3.5-5.1)
--- NOTE | 2018-12-17 11:01 | RAD ---
Examination: ACUTE ABDOMEN SERIES History: Abdominal pain, vomiting, gastroparesis Comparison/Correlation: 01/27/2018 CT abdomen and pelvis without contrast Findings: Frontal view chest was obtained. Supine and upright views of the abdomen were provided. Right-sided PICC is present. Heart size and pulmonary vasculature are normal. No infiltrate or effusion. Epicardial surgical clips are present. Right lower quadrant electronic device with leads terminating in the epigastric region noted. Moderate quantity of stool in the colon noted. No bowel obstruction. No suspicious abdominal calcification. Osteopenia present. Impression: No infiltrate. No bowel obstruction or other acute process. Electronically signed by: Juan José Stringer MD (12/17/2018 10:58 AM) [id number]
[2018-12-17 11:07] LABS: ALBUMIN 3.2 g/dL (3.4-5.0); ALBUMIN/GLOBULIN RATIO 0.7 (1.0-1.7); TOTAL BILIRUBIN 0.2 mg/dL (0.2-1.0); TOTAL PROTEIN 7.6 g/dL (6.4-8.2)
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
[2018-12-17 12:24] VITALS: BP 153/100
== END 2018-12-17 12:36 | disposition home or self-care (01) ==
LOC: ER 09:28
DX: K31.84 Gastroparesis (principal); R11.2 Nausea with vomiting, unspecified; R19.7 Diarrhea, unspecified; K21.9 Gastro-esophageal reflux disease without esophagitis; Z90.49 Acquired absence of other specified parts of digestive tract; Z93.3 Colostomy status; Z98.84 Bariatric surgery status; Z98.890 Other specified postprocedural states; Z88.5 Allergy status to narcotic agent; Z88.8 Allergy status to other drugs, medicaments and biological substances
CPT/HCPCS: 36415; 74022; 80053; 85025; 96365; 96375; 99285; J1200; J2060; J2405; J7030; Q0169; 99284-25

== ENCOUNTER 2019-02-03 09:05 | Emergency (ER) | payer MEDICARE, OTHER ==
[~2019-02-03] VITALS: Ht 172.7 cm; Wt 68.9 kg
[~2019-02-03 09:05] MED LIST changes: +RANI-376 PO; -RANI150T21 PO
[2019-02-03] MEDS ORDERED: fentaNYL PF VIAL 100 MCG/2 ML VIAL IV ONE ×2 (09:30→11:30)
[2019-02-03] MEDS ORDERED: ONDANSETRON PF 4 MG/2 ML VIAL. IV ONE ×2 (09:30→11:30)
[2019-02-03] MEDS ORDERED: IV NORMAL SALINE 1000ML BAG 1,000 ML IV ONE ×2 (09:30)
[2019-02-03] MEDS ORDERED: diphenhydrAMINE 50 MG/ML VIAL IVP ONE ×2 (09:30→11:30)
--- NOTE | 2019-02-03 09:52 | PHYS DOC ---
Past Medical History Past Medical History: Anxiety, Depression, GERD, Other Additional Past Medical Histor: PTSD, GASTROPARESIS, TBI Past Surgical History: Cholecystectomy, Colectomy, Gastric Bypass, Other Additional Past Surgical Histo: HERNIA REPAIR, COLOSTOMY, JTUBE, GTUBE and removal Alcohol Use: None Drug Use: None Adult General Chief Complaint Chief Complaint: NAUSEA/VOMITING/DIARRHA HPI HPI Patient is a 48 year old male who presents with chief complaint of abdominal pain and vomiting. He has a long history of gastroparesis multiple abdominal surgeries frequent ER visits is been dealing with this off for a long time and is a left sided upper quadrant cramping and sharp pain he's had it for 2 days he tried his usual home treatment with minimal relief so he is coming to the emergency room for IV treatment which does happen to him occasionally he denies fever he is being treated for open wounds on his left upper abdomen apparently they did cultures in the did not grow out anything they're just being covered with wet-to-dry dressings and he tells me they are slowly improving. This is similar to his prior visit type of pain Review of Systems Review of Systems Constitutional: Denies fever or chills [] Eyes: Denies change in visual acuity, redness, or eye pain [] HENT: Denies nasal congestion or sore throat [] Respiratory: Denies cough or shortness of breath [] Cardiovascular: No additional information not addressed in HPI [] GI: : Denies dysuria or hematuria [] All other systems were reviewed and found to be within normal limits, except as documented in this note. Current Medications Current Medications Current Medications Medications (Trade) Dose Ordered Sig/Ed Start Time Stop Time Status Last Admin Dose Admin Amlodipine Besylate (Norvasc) 10 mg 1X ONCE 02/03/19 12:45 02/03/19 12:46 DC 02/03/19 12:51 10 MG Diphenhydramine HCl (Benadryl) 25 mg 1X ONCE 02/03/19 11:30 02/03/19 11:31 DC 02/03/19 12:19 25 MG Fentanyl Citrate (Fentanyl 2ml Vial) 50 mcg 1X ONCE 02/03/19 11:30 02/03/19 11:31 DC 02/03/19 12:20 50 MCG Labetalol HCl (Normodyne Iv Push) 10 mg 1X ONCE 02/03/19 12:45 02/03/19 12:45 DC Ondansetron HCl (Zofran) 4 mg 1X ONCE 02/03/19 11:30 02/03/19 11:31 DC 02/03/19 12:19 4 MG Sodium Chloride 1,000 ml @ 1,000 mls/hr 1X ONCE 02/03/19 09:30 02/03/19 10:29 DC Allergies Allergies Allergies Coded Allergies Type Severity Reaction Last Updated Verified morphine Allergy Severe Anaphylaxis Patient states can take Hydromorphone Yes droperidol Adverse Reaction Intermediate DYSTONIA 05/24/17 Yes metoclopramide Adverse Reaction Intermediate DYSTONIA 05/24/17 Yes prochlorperazine Adverse Reaction Intermediate DYSTONIA 05/24/17 Yes Physical Exam Physical Exam Constitutional: Well developed, well nourished, no acute distress, non-toxic appearance. [] HENT: Normocephalic, atraumatic, bilateral external ears normal, oropharynx dry , no oral exudates, nose normal. [] Eyes: PERRLA, EOMI, conjunctiva normal, no discharge. [] Neck: Normal range of motion, no tenderness, supple, no stridor. [] Cardiovascular: Tachycardic pulse Lungs & Thorax: normal respiratory effort no increased work of breathing. Abdomen: Bowel sounds normal, soft, mild left upper quadrant epigastric similar to my prior examination tenderness, no masses, no pulsatile masses. [] There is a reducible ventral hernia there is 2 wet to dry dressings overlying G and J- tube surgical sites no significant surrounding erythema noted. No peritoneal signs Skin: Warm, dry, no erythema, no rash. [] Back: No tenderness, no CVA tenderness. [] Extremities: No tenderness, no cyanosis, no clubbing, ROM intact, no edema. [] Neurologic: Alert and oriented X 3, normal motor function, normal sensory function, no focal deficits noted. [] Psychologic: Affect normal, judgement normal, mood normal. [] Current Patient Data Vital Signs Vital Signs Date Time Temp Pulse Resp B/P (MAP) Pulse Ox O2 Delivery O2 Flow Rate FiO2 02/03/19 12:51 94 168/113 02/03/19 12:50 15 100 Room Air 02/03/19 09:27 98.2 98.2 Lab Values Laboratory Tests Test 02/03/19 10:05 02/03/19 11:52 White Blood Count 7.3 x10^3/uL (4.0-11.0) Red Blood Count 4.88 x10^6/uL (4.30-5.70) Hemoglobin 12.0 g/dL (13.0-17.5) L Hematocrit 37.9 % (39.0-53.0) L Mean Corpuscular Volume 78 fL (79-100) L Mean Corpuscular Hemoglobin 25 pg (25-35) Mean Corpuscular Hemoglobin Concent 32 g/dL (31-37) Red Cell Distribution Width 20.4 % (11.5-14.5) H Platelet Count 131 x10^3/uL (140-400) L Neutrophils (%) (Auto) 79 % (31-73) H Lymphocytes (%) (Auto) 14 % (24-48) L Monocytes (%) (Auto) 7 % (0-9) Eosinophils (%) (Auto) 0 % (0-3) Basophils (%) (Auto) 0 % (0-3) Neutrophils # (Auto) 5.7 x10^3uL (1.8-7.7) Lymphocytes # (Auto) 1.0 x10^3/uL (1.0-4.8) Monocytes # (Auto) 0.5 x10^3/uL (0.0-1.1) Eosinophils # (Auto) 0.0 x10^3/uL (0.0-0.7) Basophils # (Auto) 0.0 x10^3/uL (0.0-0.2) Platelet Estimate Decreased (ADEQUATE) Large Platelets Present Hypochromasia Slight Anisocytosis Mod Sodium Level 141 mmol/L (136-145) Potassium Level 3.9 mmol/L (3.5-5.1) Chloride Level 103 mmol/L (98-107) Carbon Dioxide Level 28 mmol/L (21-32) Anion Gap 10 (6-14) Blood Urea Nitrogen 11 mg/dL (8-26) Creatinine 1.0 mg/dL (0.7-1.3) Estimated GFR (Cockcroft-Gault) 79.8 BUN/Creatinine Ratio 11 (6-20) Glucose Level 103 mg/dL (70-99) H Calcium Level 8.7 mg/dL (8.5-10.1) Total Bilirubin 0.3 mg/dL (0.2-1.0) Aspartate Amino Transferase (AST) 24 U/L (15-37) Alanine Aminotransferase (ALT) 25 U/L (16-63) Alkaline Phosphatase 93 U/L (46-116) Total Protein 7.4 g/dL (6.4-8.2) Albumin 3.3 g/dL (3.4-5.0) L Albumin/Globulin Ratio 0.8 (1.0-1.7) L Lipase 191 U/L (73-393) Urine Collection Type Unknown Urine Color Yellow Urine Clarity Clear Urine pH 7.5 Urine Specific Wilson 1.015 Urine Protein Negative mg/dL (NEG-TRACE) Urine Glucose (UA) Negative mg/dL (NEG) Urine Ketones (Stick) Negative mg/dL (NEG) Urine Blood Negative (NEG) Urine Nitrite Negative (NEG) Urine Bilirubin Negative (NEG) Urine Urobilinogen Dipstick 1.0 mg/dL (0.2 mg/dL) Urine Leukocyte Esterase Negative (NEG) Urine RBC Occ /HPF (0-2) Urine WBC Occ /HPF (0-4) Urine Squamous Epithelial Cells Occ /LPF Urine Bacteria 0 /HPF (0-FEW) Urine Mucus Slight /LPF Laboratory Tests 02/03/19 10:05 Laboratory Tests 02/03/19 10:05 EKG EKG [] Radiology/Procedures Radiology/Procedures [] Course & Med Decision Making Course & Med Decision Making Pertinent Labs and Imaging studies reviewed. (See chart for details) 48-year-old male multiple prior abdominal surgeries history of gastroparesis on TPN presenting with what sounds most like gastroparesis flare initially in the emergency room he was tachycardic to 130 he says that happens sometimes when he is having a flareup he does look a little bit dehydrated we will give his usual IV regimen as noted above on reevaluation at 9:50 AM heart rate is down to 101 we did check basic lab work is feeling better after treatment As per patient is usual ER course he did have fairly significant improvement after medication as noted above. His heart rate did come down nicely his blood pressure did remain elevated we did give a dose of by mouth amlodipine, blood pressure was in the 160s on my reevaluation at this point time given his reassuring lab work and is symptomatically improved and I think this is likely to be a gastroparesis flare he is comfortable with going home he has had frequent visits I don't see any obvious need for new imaging at this time reassurance was provided and return precautions discussed she voiced understanding. Antonieta Disclaimer Antonieta Disclaimer This electronic medical record was generated, in whole or in part, using a voice recognition dictation system. Departure Departure Impression: Primary Impression: Gastroparesis Disposition: 01 HOME, SELF-CARE Condition: STABLE Referrals: CHIRAG MALIK (PCP) SILVER BRADSHAW MD Feb 03, 2019 09:52
[2019-02-03 10:26] LABS: BASO % 0 % (0-3); EOS % 0 % (0-3); HEMATOCRIT 37.9 % (39.0-53.0); LYMPH % 14 % (24-48); MEAN CORPUSCULAR HEMOGLOBIN 25 pg (25-35); MEAN CORPUSCULAR HGB CONC 32 g/dL (31-37); MEAN CORPUSCULAR VOLUME 78 fL (79-100); MONO # 0.5 x10^3/uL (0.0-1.1); MONO % 7 % (0-9); NEUT # 5.7 x10^3uL (1.8-7.7); NEUT % 79 % (31-73); PLATELET COUNT 131 x10^3/uL (140-400); RED BLOOD COUNT 4.88 x10^6/uL (4.30-5.70); RED CELL DISTRIBUTION WIDTH 20.4 % (11.5-14.5); WHITE BLOOD COUNT 7.3 x10^3/uL (4.0-11.0)
[2019-02-03 10:31] LABS: CALCIUM 8.7 mg/dL (8.5-10.1); GFR 79.8; POTASSIUM 3.9 mmol/L (3.5-5.1)
[2019-02-03 10:36] LABS: ALBUMIN 3.3 g/dL (3.4-5.0); ALBUMIN/GLOBULIN RATIO 0.8 (1.0-1.7); TOTAL BILIRUBIN 0.3 mg/dL (0.2-1.0); TOTAL PROTEIN 7.4 g/dL (6.4-8.2)
[2019-02-03 12:02] LABS: BILIRUBIN,URINE NEGATIVE (NEG); CLARITY,URINE CLEAR; COLOR,URINE YELLOW; NITRITE,URINE NEGATIVE (NEG); PH,URINE 7.5; PROTEIN,URINE NEGATIVE (NEG-TRACE)
[2019-02-03 12:19] LABS: BACTERIA,URINE 0 /HPF (0-FEW); RBC,URINE OCC /HPF (0-2); SQUAMOUS EPITHELIAL CELL,UR OCC /LPF; WBC,URINE OCC /HPF (0-4)
[2019-02-03] MEDS ORDERED: LABETALOL 20 MG/4 ML DISP.SYRIN. IVP ONE (12:45)
[2019-02-03] MEDS ORDERED: amLODIPine BESYLATE 5 MG TABLET PO ONE (12:45)
[2019-02-03 12:51] VITALS: BP 168/113
[2019-02-03 13:14] LABS: ANISOCYTOSIS MOD; HYPOCHROMIA SLIGHT; PLT ESTIMATE DECREASED (ADEQUATE)
[2019-03-08] MEDS ORDERED: ENOX100D SQ (12:06)
[2019-03-08] MEDS ORDERED: WARF-78 PO ×3 (12:06→12:21)
[2019-03-08] MEDS ORDERED: BETH10TA12 PO (12:51)
== END 2019-02-03 13:20 | disposition home or self-care (01) ==
LOC: ER 09:05
DX: K31.84 Gastroparesis (principal); E86.0 Dehydration; F41.9 Anxiety disorder, unspecified; F32.9 Major depressive disorder, single episode, unspecified; K21.9 Gastro-esophageal reflux disease without esophagitis; F43.10 Post-traumatic stress disorder, unspecified; Z90.89 Acquired absence of other organs; Z90.49 Acquired absence of other specified parts of digestive tract; Z98.84 Bariatric surgery status; Z88.5 Allergy status to narcotic agent; Z88.8 Allergy status to other drugs, medicaments and biological substances
CPT/HCPCS: 36415; 80053; 81001; 83690; 85025; 96361; 96374; 96375; 96376; 99283; J1200; J2405; J3010; J7030

== ENCOUNTER 2019-02-17 09:00 | Emergency (ER) | payer MEDICARE, OTHER ==
[~2019-02-17] VITALS: Ht 172.7 cm; Wt 65.8 kg
[2019-02-17] MEDS ORDERED: fentaNYL PF VIAL 100 MCG/2 ML VIAL IV ONE ×2 (09:15→10:45)
[2019-02-17] MEDS ORDERED: diphenhydrAMINE 50 MG/ML VIAL IVP ONE (09:15)
[2019-02-17] MEDS ORDERED: ONDANSETRON PF 4 MG/2 ML VIAL. IV ONE (09:15)
--- NOTE | 2019-02-17 09:20 | PHYS DOC ---
Past Medical History Past Medical History: Anxiety, Depression, GERD, Other Additional Past Medical Histor: PTSD, GASTROPARESIS, TBI Past Surgical History: Cholecystectomy, Colectomy, Gastric Bypass, Other Additional Past Surgical Histo: HERNIA REPAIR, COLOSTOMY, JTUBE, GTUBE and removal Alcohol Use: None Drug Use: None Adult General Chief Complaint Chief Complaint: ABDOMINAL PAIN HPI HPI Patient is a 48 year old male with long-standing history of gastroparesis currently on TPN who presents to the ED today complaining of moderate left upper quadrant abdominal pain with nausea that is chronic but got worse in the last couple days. Patient rates the pain as 8 out of 10 describes it as cramping. He states he has tried his home regimen with no relief. He has history of multiple abdominal surgeries. He has a couple wounds on his abdomen from G-tube and J-tube removal as well as an abdominal hernia. He states the wounds are healing well, he states the wounds have been cultured before they did not grow infection. He is requesting pain management, IV fluids and nausea medicine and Benadryl. Review of Systems Review of Systems Constitutional: Denies fever or chills [] Eyes: Denies change in visual acuity, redness, or eye pain [] HENT: Denies nasal congestion or sore throat [] Respiratory: Denies cough or shortness of breath [] Cardiovascular: No additional information not addressed in HPI [] GI: Reports left upper quadrant abdominal pain, nausea, denies vomiting, bloody stools or diarrhea [] : Denies dysuria or hematuria [] Musculoskeletal: Denies back pain or joint pain [] Integument: Denies rash or skin lesions [] Neurologic: Denies headache, focal weakness or sensory changes [] All other systems were reviewed and found to be within normal limits, except as documented in this note. Current Medications Current Medications Current Medications Medications (Trade) Dose Ordered Sig/Ed Start Time Stop Time Status Last Admin Dose Admin Diphenhydramine HCl (Benadryl) 25 mg 1X ONCE 02/17/19 09:15 02/17/19 09:22 DC 02/17/19 09:36 25 MG Fentanyl Citrate (Fentanyl 2ml Vial) 50 mcg 1X ONCE 02/17/19 10:45 02/17/19 10:46 DC 02/17/19 10:54 50 MCG Ondansetron HCl (Zofran) 4 mg 1X ONCE 02/17/19 09:15 02/17/19 09:22 DC 02/17/19 09:35 4 MG Allergies Allergies Allergies Coded Allergies Type Severity Reaction Last Updated Verified morphine Allergy Severe Anaphylaxis Patient states can take Hydromorphone Yes droperidol Adverse Reaction Intermediate DYSTONIA 05/24/17 Yes metoclopramide Adverse Reaction Intermediate DYSTONIA 05/24/17 Yes prochlorperazine Adverse Reaction Intermediate DYSTONIA 05/24/17 Yes Physical Exam Physical Exam Constitutional: Well developed, well nourished, no acute distress, non-toxic appearance. [] HENT: Normocephalic, atraumatic, bilateral external ears normal, oropharynx moist, no oral exudates, nose normal. [] Eyes: PERRLA, EOMI, conjunctiva normal, no discharge. [] Neck: Normal range of motion, no tenderness, supple, no stridor. [] Cardiovascular:Heart rate regular rhythm, no murmur [] Lungs & Thorax: Bilateral breath sounds clear to auscultation [] Abdomen: Bowel sounds normal, soft, a small reducible ventral hernia is noted on the abdomen. There are two open wounds on the left abdomen, patient states the wounds are chronic from G-tube and J- tube removal sites he states the wound have been swabbed before and cultures were negative. There is slight erythema of the areas, no obvious drainage today from the wounds. Diffuse tenderness on the left upper quadrant,no masses, no pulsatile masses. [] No peritoneal signs. PICC line RUE Skin: Warm, dry, no erythema, no rash. [] Back: No tenderness, no CVA tenderness. [] Extremities: No tenderness, no cyanosis, no clubbing, ROM intact, no edema. [] Neurologic: Alert and oriented X 3, normal motor function, normal sensory function, no focal deficits noted. [] Psychologic: Affect normal, judgement normal, mood normal. [] Current Patient Data Vital Signs Vital Signs Date Time Temp Pulse Resp B/P (MAP) Pulse Ox O2 Delivery O2 Flow Rate FiO2 02/17/19 10:54 14 02/17/19 09:27 97.9 95 148/98 (115) 97 Room Air 97.9 Lab Values Laboratory Tests Test 02/17/19 09:16 White Blood Count 3.0 x10^3/uL (4.0-11.0) L Red Blood Count 4.13 x10^6/uL (4.30-5.70) L Hemoglobin 10.3 g/dL (13.0-17.5) L Hematocrit 32.2 % (39.0-53.0) L Mean Corpuscular Volume 78 fL (79-100) L Mean Corpuscular Hemoglobin 25 pg (25-35) Mean Corpuscular Hemoglobin Concent 32 g/dL (31-37) Red Cell Distribution Width 20.6 % (11.5-14.5) H Platelet Count 193 x10^3/uL (140-400) Neutrophils (%) (Auto) 50 % (31-73) Lymphocytes (%) (Auto) 32 % (24-48) Monocytes (%) (Auto) 15 % (0-9) H Eosinophils (%) (Auto) 2 % (0-3) Basophils (%) (Auto) 1 % (0-3) Neutrophils # (Auto) 1.5 x10^3uL (1.8-7.7) L Lymphocytes # (Auto) 1.0 x10^3/uL (1.0-4.8) Monocytes # (Auto) 0.5 x10^3/uL (0.0-1.1) Eosinophils # (Auto) 0.1 x10^3/uL (0.0-0.7) Basophils # (Auto) 0.0 x10^3/uL (0.0-0.2) Platelet Estimate Pending Sodium Level 137 mmol/L (136-145) Potassium Level 3.4 mmol/L (3.5-5.1) L Chloride Level 102 mmol/L (98-107) Carbon Dioxide Level 25 mmol/L (21-32) Anion Gap 10 (6-14) Blood Urea Nitrogen 12 mg/dL (8-26) Creatinine 1.0 mg/dL (0.7-1.3) Estimated GFR (Cockcroft-Gault) 79.8 BUN/Creatinine Ratio 12 (6-20) Glucose Level 115 mg/dL (70-99) H Calcium Level 8.1 mg/dL (8.5-10.1) L Total Bilirubin 0.3 mg/dL (0.2-1.0) Aspartate Amino Transferase (AST) 21 U/L (15-37) Alanine Aminotransferase (ALT) 13 U/L (16-63) L Alkaline Phosphatase 71 U/L (46-116) Total Protein 7.0 g/dL (6.4-8.2) Albumin 3.2 g/dL (3.4-5.0) L Albumin/Globulin Ratio 0.8 (1.0-1.7) L Lipase 114 U/L (73-393) Laboratory Tests 02/17/19 09:16 Laboratory Tests 02/17/19 09:16 EKG EKG [] Radiology/Procedures Radiology/Procedures [] Course & Med Decision Making Course & Med Decision Making Pertinent Labs and Imaging studies reviewed. (See chart for details) This is a 48-year-old male patient with was known history of gastroparesis presenting to the ED today with left upper quadrant pain consistent with his gastroparesis. Patient is well known to this ED. CBC with a WBC of 3.0, hemoglobin 10.3, hematocrit 32.2 around his baseline from previous labs, CMP with no acute findings. Patient is in no distress, was given IV fluids, pain medicine, nausea medicine, sitting on the side of the bed right now reading a magazine, states he feels much better and would like to go home. DC to home. Follow-up with his own doctors as an outpatient. Dragon Disclaimer Dragon Disclaimer This electronic medical record was generated, in whole or in part, using a voice recognition dictation system. Departure Departure Impression: Primary Impression: Gastroparesis Disposition: 01 HOME, SELF-CARE Condition: STABLE Referrals: CHIRAG MALIK (PCP) Follow-up in 1-2 weeks Patient Instructions: Gastroparesis Additional Instructions: You were evaluated in the emergency room for gastroparesis. Please continue following up with your own doctor. MONICA LAWSON APRN Feb 17, 2019 09:20
[2019-02-17 09:33] LABS: BASO % 1 % (0-3); EOS # 0.1 x10^3/uL (0.0-0.7); EOS % 2 % (0-3); HEMATOCRIT 32.2 % (39.0-53.0); HEMOGLOBIN 10.3 g/dL (13.0-17.5); LYMPH % 32 % (24-48); MEAN CORPUSCULAR HEMOGLOBIN 25 pg (25-35); MEAN CORPUSCULAR HGB CONC 32 g/dL (31-37); MEAN CORPUSCULAR VOLUME 78 fL (79-100); MONO # 0.5 x10^3/uL (0.0-1.1); MONO % 15 % (0-9); NEUT # 1.5 x10^3uL (1.8-7.7); NEUT % 50 % (31-73); PLATELET COUNT 193 x10^3/uL (140-400); RED BLOOD COUNT 4.13 x10^6/uL (4.30-5.70); RED CELL DISTRIBUTION WIDTH 20.6 % (11.5-14.5)
[2019-02-17 09:44] LABS: CALCIUM 8.1 mg/dL (8.5-10.1); GFR 79.8; POTASSIUM 3.4 mmol/L (3.5-5.1)
[2019-02-17 09:50] LABS: ALBUMIN 3.2 g/dL (3.4-5.0); ALBUMIN/GLOBULIN RATIO 0.8 (1.0-1.7); TOTAL BILIRUBIN 0.3 mg/dL (0.2-1.0)
[2019-02-17 11:13] VITALS: BP 142/97
[2019-02-17 11:52] LABS: ANISOCYTOSIS PRESENT; PLT ESTIMATE ADEQUATE (ADEQUATE)
[2019-03-08] MEDS ORDERED: ENOX100D SQ (12:06)
[2019-03-08] MEDS ORDERED: WARF-78 PO ×3 (12:06→12:21)
[2019-03-08] MEDS ORDERED: BETH10TA12 PO (12:51)
== END 2019-02-17 12:14 | disposition home or self-care (01) ==
LOC: ER 09:00
DX: K31.84 Gastroparesis (principal); G89.29 Other chronic pain; K21.9 Gastro-esophageal reflux disease without esophagitis; Z90.49 Acquired absence of other specified parts of digestive tract; Z98.84 Bariatric surgery status; Z98.890 Other specified postprocedural states; Z93.3 Colostomy status; Z88.5 Allergy status to narcotic agent; Z88.8 Allergy status to other drugs, medicaments and biological substances
CPT/HCPCS: 36415; 80053; 83690; 85025; 96374; 96375; 96376; 99284; J1200; J2405; J3010

== ENCOUNTER 2019-02-20 09:05 | Emergency (ER) | payer MEDICARE, OTHER ==
[~2019-02-20] VITALS: Ht 172.7 cm; Wt 65.8 kg
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
[2019-02-20] MEDS ORDERED: IV NORMAL SALINE 1000ML BAG 1,000 ML IV ONE (09:30)
[2019-02-20] MEDS ORDERED: ONDANSETRON PF 4 MG/2 ML VIAL. IV ONE (09:30)
[2019-02-20] MEDS ORDERED: diphenhydrAMINE HCL 25 MG CAPSULE PO ONE (09:30)
[2019-02-20] MEDS ORDERED: fentaNYL PF VIAL 100 MCG/2 ML VIAL IV ONE ×2 (09:30→10:45)
[2019-02-20 10:46] VITALS: BP 169/115
[2019-02-20] MEDS ORDERED: DIPH25CA58 PO (12:55)
[2019-02-20] MEDS ORDERED: CLON0.1T PO (12:55)
[2019-02-20] MEDS ORDERED: VENL75TA PO (12:55)
[2019-02-21] MEDS ORDERED: fentaNYL PF VIAL 100 MCG/2 ML VIAL ONE (12:00)
[2019-03-08] MEDS ORDERED: ENOX100D SQ (12:06)
[2019-03-08] MEDS ORDERED: WARF-78 PO ×3 (12:06→12:21)
[2019-03-08] MEDS ORDERED: BETH10TA12 PO (12:51)
== END 2019-02-20 11:08 | disposition home or self-care (01) ==
LOC: ER 09:05
DX: K31.84 Gastroparesis (principal); R11.2 Nausea with vomiting, unspecified; R10.84 Generalized abdominal pain; R19.7 Diarrhea, unspecified; K21.9 Gastro-esophageal reflux disease without esophagitis; Z90.49 Acquired absence of other specified parts of digestive tract; Z98.84 Bariatric surgery status; Z98.890 Other specified postprocedural states; Z88.5 Allergy status to narcotic agent; Z88.8 Allergy status to other drugs, medicaments and biological substances
CPT/HCPCS: 96361; 96374; 96375; 96376; 99284; J2405; J3010; J7030; Q0163

== ENCOUNTER → 2019-02-21 | Day surgery (SDC) | payer MEDICARE, OTHER ==
[~2019-02-21] VITALS: Ht 172.7 cm; Wt 69.6 kg
[~2019-02-21] MED LIST changes: +BETH10TA12 PO; +BUPIVACAINE 0.25% 50 ML VIAL. ONE; +CLON0.1T PO; +DIPH25CA58 PO; +ENOX100D SQ; +ERYT1OIN6 OP; +FAMOTIDINE 20 MG/2 ML VIAL ONE; +GLYCOPYRROLATE 1 MG/5 ML VIAL. ONE; +HEPARIN PF 500 UNIT/5 ML DISP.SYRIN. IV ONE; +HEPARIN for IV BOLUS 10,000 UNIT/10 ML VIAL. ONE; +IOHEXOL 300 MG/ML 100ML VIAL. ONE; +IV RINGERS,LACTATED 1000ML 1,000 ML IV SCH; +LIDOCAINE 2% PF 5 ML VIAL. ONE; +MIDAZOLAM HCL/PF 5 MG/5 ML VIAL. ONE; +NEOSTIGMINE METHYLSULFATE 5 MG/5 ML SYRINGE. ONE; +ONDANSETRON PF 4 MG/2 ML VIAL. IV PRN; +ONDANSETRON PF 4 MG/2 ML VIAL. ONE; +PROM12.58 PO; +PROPOFOL 100 ML IV ONE; +PROPOFOL 20 ML IV ONE; +PROPOFOL 50 ML IV ONE; +ROCURONIUM 50 MG/5 ML VIAL. ONE; +SUCCINYLCHOLINE 200 MG/10 ML VIAL. ONE; +VENL75TA PO; +WARF-78 PO; +ceFAZolin 2GM PREMIX 2 GM/50 ML BAG IV ONE; +diphenhydrAMINE 50 MG/ML VIAL ONE; +fentaNYL PF VIAL 100 MCG/2 ML VIAL IV PRN; +fentaNYL PF VIAL 100 MCG/2 ML VIAL ONE
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
--- NOTE | 2019-02-21 11:27 | DISCH ---
DISCHARGE INSTRUCTIONS Condition on Discharge Condition on Discharge: Stable Activity After Discharge Activity Instructions for Disc: Activity as tolerated Bathing Instructions: Shower-keep dressing dry Diet after Discharge Diet after Discharge: Regular Contacting the [facility]Mag after DC Call your doctor for: If your condition worsens Follow-Up Follow up with: Dr. Shi in 2 weeks ROBERT SHI MD Feb 21, 2019 11:27
[2019-02-21] MEDS: fentaNYL PF VIAL 100 MCG/2 ML VIAL IV PRN ×4 (12:04→12:52)
--- NOTE | 2019-02-21 12:54 | RAD ---
Portable chest, 02/21/2019: HISTORY: Check catheter placement Comparison is made to a study from 05/24/2017. A right sided Groshong catheter extends into the mid right atrium. A right PICC extends into the superior vena cava. The heart size and pulmonary vascularity are normal. Several artifacts overlie the right upper chest. No underlying pneumothorax, pulmonary infiltrate or pleural fluid is seen. IMPRESSION: The right sided Groshong catheter extends into the mid right atrium. Electronically signed by: Robert Castro MD (02/21/2019 12:51 PM) [facility]
[2019-02-21 13:45] VITALS: BP 113/76
== END | disposition home or self-care (01) ==
LOC: SURG 08:16
PROVIDERS: ATTEND Surgery
DX: K31.84 Gastroparesis (principal); K21.9 Gastro-esophageal reflux disease without esophagitis; F43.10 Post-traumatic stress disorder, unspecified; Z88.5 Allergy status to narcotic agent; Z88.8 Allergy status to other drugs, medicaments and biological substances; Z79.899 Other long term (current) drug therapy; Z90.49 Acquired absence of other specified parts of digestive tract; Z93.3 Colostomy status; Z98.890 Other specified postprocedural states; Z82.49 Family history of ischemic heart disease and other diseases of the circulatory system
CPT/HCPCS: 36558; 71045; 77001; A7015; C1750; J0330; J0696; J1200; J1644; J2001; J2250; J2405; J2704; J2710; J3010; J3490; Q9967; 36556

== ENCOUNTER 2019-03-04 09:23 | Inpatient (IN) | payer MEDICARE, OTHER ==
[~2019-03-04] VITALS: Ht 172.7 cm; Wt 67.6 kg
[~2019-03-04 09:23] MED LIST changes: -BETH10TA12 PO; -BUPIVACAINE 0.25% 50 ML VIAL. ONE; -ENOX100D SQ; -ERYT1OIN6 OP; -FAMOTIDINE 20 MG/2 ML VIAL ONE; -GLYCOPYRROLATE 1 MG/5 ML VIAL. ONE; -HEPARIN PF 500 UNIT/5 ML DISP.SYRIN. IV ONE; -HEPARIN for IV BOLUS 10,000 UNIT/10 ML VIAL. ONE; -IOHEXOL 300 MG/ML 100ML VIAL. ONE; -IV RINGERS,LACTATED 1000ML 1,000 ML IV SCH; -LIDOCAINE 2% PF 5 ML VIAL. ONE; -MIDAZOLAM HCL/PF 5 MG/5 ML VIAL. ONE; -NEOSTIGMINE METHYLSULFATE 5 MG/5 ML SYRINGE. ONE; -ONDANSETRON PF 4 MG/2 ML VIAL. IV PRN; -ONDANSETRON PF 4 MG/2 ML VIAL. ONE; -PROM12.58 PO; -PROPOFOL 100 ML IV ONE; -PROPOFOL 20 ML IV ONE; -PROPOFOL 50 ML IV ONE; -ROCURONIUM 50 MG/5 ML VIAL. ONE; -SUCCINYLCHOLINE 200 MG/10 ML VIAL. ONE; -WARF-78 PO; -ceFAZolin 2GM PREMIX 2 GM/50 ML BAG IV ONE; -diphenhydrAMINE 50 MG/ML VIAL ONE; -fentaNYL PF VIAL 100 MCG/2 ML VIAL IV PRN; -fentaNYL PF VIAL 100 MCG/2 ML VIAL ONE
[2019-03-04] MEDS ORDERED: IV NORMAL SALINE 1000ML BAG 1,000 ML IV ONE (10:30)
[2019-03-04] MEDS ORDERED: ONDANSETRON PF 4 MG/2 ML VIAL. IV ONE (10:30)
[2019-03-04 10:36] LABS: BASO % 1 % (0-3); EOS # 0.1 x10^3/uL (0.0-0.7); EOS % 1 % (0-3); HEMATOCRIT 32.1 % (39.0-53.0); HEMOGLOBIN 10.3 g/dL (13.0-17.5); LYMPH % 15 % (24-48); MEAN CORPUSCULAR HEMOGLOBIN 24 pg (25-35); MEAN CORPUSCULAR HGB CONC 32 g/dL (31-37); MEAN CORPUSCULAR VOLUME 76 fL (79-100); MONO # 0.5 x10^3/uL (0.0-1.1); MONO % 8 % (0-9); NEUT % 76 % (31-73); PLATELET COUNT 190 x10^3/uL (140-400); RED BLOOD COUNT 4.24 x10^6/uL (4.30-5.70); RED CELL DISTRIBUTION WIDTH 19.5 % (11.5-14.5); WHITE BLOOD COUNT 6.6 x10^3/uL (4.0-11.0)
[2019-03-04 11:35] LABS: ALBUMIN 3.4 g/dL (3.4-5.0); ALBUMIN/GLOBULIN RATIO 0.8 (1.0-1.7); CALCIUM 8.8 mg/dL (8.5-10.1); CREATININE 0.9 mg/dL (0.7-1.3); GFR 90.1; MAGNESIUM 2.2 mg/dL (1.8-2.4); POTASSIUM 4.2 mmol/L (3.5-5.1); TOTAL BILIRUBIN 0.4 mg/dL (0.2-1.0); TOTAL PROTEIN 7.5 g/dL (6.4-8.2)
--- NOTE | 2019-03-04 11:35 | RAD ---
Right upper extremity venous doppler ultrasound History: Right arm swelling after PICC removal Comparison: None Findings: Multiple grayscale, color, and duplex spectral analysis sonographic images were acquired of the right upper extremity veins to evaluate for the presence of DVT. There is prominent abnormal occlusive echogenicity in the right subclavian vein as well as in one of the right brachial veins at the level of the proximal to mid upper arm. There is also occlusive thrombus of the right basilic vein at the level of distal left forearm. There is nonocclusive thrombus of the right cephalic vein at mid-upper arm level. Right axillary vein is patent. Radial and ulnar veins are patent. Impression: 1. There is occlusive thrombus in the right subclavian vein and one on the right brachial veins, also thrombus in segments of right cephalic and basilic veins. FOR INTERNAL CODING PURPOSES Critical result: Findings discussed with EDMOND DOW at 03/04/2019 10:59 AM. RESULT CODE: (C) Electronically signed by: Doug Mcdonald MD (03/04/2019 11:00 AM) [id number]
[2019-03-04] MEDS ORDERED: IOHEXOL 350 MG/ML 100 ML VIAL. IV ONE (12:00)
[2019-03-04] MEDS ORDERED: CONTRAST GIVEN. MC PRN (12:15)
[2019-03-04] MEDS ORDERED: HEPARIN for IV BOLUS 10,000 UNIT/10 ML VIAL. IV PRN ×2 (12:30)
--- NOTE | 2019-03-04 12:35 | RAD ---
Chest CTA History: Extensive DVT of the right arm Technique: After bolus of intravenous contrast, CT imaging was performed of the chest. Multiplanar reconstruction images to include MIP reconstruction images are submitted. Exposure: One or more of the following individualized dose reduction techniques were utilized for this examination: 1. Automated exposure control 2. Adjustment of the mA and/or kV according to patient size 3. Use of iterative reconstruction technique. Comparison: None Findings: [ ] There are some scattered pulmonary emboli of right lower lobe branches. There is no pleural or pericardial effusion, pneumothorax, or lobar consolidation. There is some scattered atelectasis bilaterally of the lower lobes. Major airways are patent. Thoracic aortic caliber is within normal limits without intraluminal flap. There is coronary calcification. No significantly enlarged nodes are identified of the chest. There is esophageal wall thickening greater distally, small sliding hiatal hernia. Impression: 1. There are pulmonary emboli of the right lower lobe branches. 2. There is atelectasis bilaterally. 3. There is coronary calcification. 4. There is nonspecific esophageal wall thickening greater distally, could be associated with esophagitis, cannot accurately assess for mass by CT. FOR INTERNAL CODING PURPOSES Critical result: Findings discussed with EDMOND DOW at 03/04/2019 12:30 PM. RESULT CODE: (C) Electronically signed by: Doug Mcdonald MD (03/04/2019 12:32 PM) [id number]
[2019-03-04] MEDS ORDERED: HEPARIN for IV BOLUS 10,000 UNIT/10 ML VIAL. IV ONE ×2 (12:45→14:00)
--- NOTE | 2019-03-04 12:47 | PHYS DOC ---
Past Medical History Past Medical History: Anxiety, Depression, GERD, Other Additional Past Medical Histor: PTSD, GASTROPARESIS, TBI Past Surgical History: Cholecystectomy, Colectomy, Gastric Bypass, Other Additional Past Surgical Histo: HERNIA REPAIR, COLOSTOMY, JTUBE, GTUBE and removal Alcohol Use: None Drug Use: None Adult General Chief Complaint Chief Complaint: ABDOMINAL PAIN HPI HPI Patient is a 48 year old male presented to ER today for evaluation of nausea, vomiting, no cramping. Patient had history gastroparesis. Patient also complaint of right upper extremity swelling for the last 24-hours. patient had a PICC line removed couple weeks ago. Patient also had a Groshong catheter placed in his right IJ TPN. He denies any fever. Review of Systems Review of Systems Constitutional: Denies fever or chills [] Eyes: Denies change in visual acuity, redness, or eye pain [] HENT: Denies nasal congestion or sore throat [] Respiratory: Denies cough or shortness of breath [] Cardiovascular: No additional information not addressed in HPI [] GI: POSITIVE FOR abdominal pain, nausea, vomiting, NO bloody stools or diarrhea [] : Denies dysuria or hematuria [] Musculoskeletal: Denies back pain . POSITIVE RIGHT UPPER EXTREMITY SWELLING AND PAIN. Integument: Denies rash or skin lesions [] Neurologic: Denies headache, focal weakness or sensory changes [] Endocrine: Denies polyuria or polydipsia [] All other systems were reviewed and found to be within normal limits, except as documented in this note. Current Medications Current Medications Current Medications Medications (Trade) Dose Ordered Sig/Ed Start Time Stop Time Status Last Admin Dose Admin Diphenhydramine HCl (Benadryl) 25 mg PRN Q4HRS PRN 03/04/19 16:30 Fentanyl Citrate (Fentanyl 2ml Vial) 50 mcg PRN Q2HR PRN 03/04/19 16:30 Heparin Sodium (Porcine) (Heparin Sodium) 5,700 unit 1X ONCE 03/04/19 14:00 03/04/19 14:01 DC 03/04/19 13:47 5,700 UNIT Heparin Sodium/ Dextrose 500 ml @ 0 mls/hr CONT PRN 03/04/19 12:30 03/04/19 13:57 23 MLS/HR Info (Anti-Coagulation Monitoring By Pharmacy) 1 each PRN DAILY PRN 03/04/19 14:15 Info (CONTRAST GIVEN -- Rx MONITORING) 1 each PRN DAILY PRN 03/04/19 12:15 03/06/19 12:14 Iohexol (Omnipaque 350 Mg/ml) 100 ml 1X ONCE 03/04/19 12:00 03/04/19 12:02 DC 03/04/19 12:21 100 ML Metoprolol Tartrate (Lopressor Vial) 5 mg PRN Q6HRS PRN 03/04/19 16:30 Ondansetron HCl (Zofran) 4 mg PRN Q8HRS PRN 03/04/19 13:45 03/05/19 13:44 Prochlorperazine Edisylate (Compazine) 10 mg 1X ONCE 03/04/19 14:00 03/04/19 14:01 Cancel Sodium Chloride 1,000 ml @ 1,000 mls/hr 1X ONCE 03/04/19 10:30 03/04/19 11:34 DC 03/04/19 10:41 1,000 MLS/HR Allergies Allergies Allergies Coded Allergies Type Severity Reaction Last Updated Verified morphine Allergy Severe Anaphylaxis Patient states can take Hydromorphone 03/04/19 Yes hydrocodone Allergy Intermediate Rash 03/04/19 Yes droperidol Adverse Reaction Intermediate DYSTONIA 03/04/19 Yes metoclopramide Adverse Reaction Intermediate DYSTONIA 03/04/19 Yes prochlorperazine Adverse Reaction Intermediate DYSTONIA 03/04/19 Yes Physical Exam Physical Exam Constitutional: Well developed, well nourished, no acute distress, non-toxic appearance. [] HENT: Normocephalic, atraumatic, bilateral external ears normal, oropharynx moist, no oral exudates, nose normal. [] Eyes: PERRLA, EOMI, conjunctiva normal, no discharge. [] Neck: Normal range of motion, no tenderness, supple, no stridor. [] Cardiovascular:Heart rate regular rhythm, no murmur [] Lungs & Thorax: Bilateral breath sounds clear to auscultation [] Abdomen: Bowel sounds normal, soft, no tenderness, no masses, no pulsatile masses. [] Skin: Warm, dry, no erythema, no rash. [] Back: No tenderness, no CVA tenderness. [] Extremities: No tenderness, no cyanosis, no clubbing, ROM intact, Right upper extremity swelling , erythema and tender. There is strong radial pulse. Neurologic: Alert and oriented X 3, normal motor function, normal sensory function, no focal deficits noted. [] Psychologic: Affect normal, judgement normal, mood normal. [] Current Patient Data Vital Signs Vital Signs Date Time Temp Pulse Resp B/P (MAP) Pulse Ox O2 Delivery O2 Flow Rate FiO2 03/04/19 14:21 107 20 149/98 (115) 99 Room Air 03/04/19 09:30 98.1 98.1 Lab Values Laboratory Tests Test 03/04/19 10:25 White Blood Count 6.6 x10^3/uL (4.0-11.0) Red Blood Count 4.24 x10^6/uL (4.30-5.70) L Hemoglobin 10.3 g/dL (13.0-17.5) L Hematocrit 32.1 % (39.0-53.0) L Mean Corpuscular Volume 76 fL (79-100) L Mean Corpuscular Hemoglobin 24 pg (25-35) L Mean Corpuscular Hemoglobin Concent 32 g/dL (31-37) Red Cell Distribution Width 19.5 % (11.5-14.5) H Platelet Count 190 x10^3/uL (140-400) Neutrophils (%) (Auto) 76 % (31-73) H Lymphocytes (%) (Auto) 15 % (24-48) L Monocytes (%) (Auto) 8 % (0-9) Eosinophils (%) (Auto) 1 % (0-3) Basophils (%) (Auto) 1 % (0-3) Neutrophils # (Auto) 5.0 x10^3uL (1.8-7.7) Lymphocytes # (Auto) 1.0 x10^3/uL (1.0-4.8) Monocytes # (Auto) 0.5 x10^3/uL (0.0-1.1) Eosinophils # (Auto) 0.1 x10^3/uL (0.0-0.7) Basophils # (Auto) 0.0 x10^3/uL (0.0-0.2) Sodium Level 134 mmol/L (136-145) L Potassium Level 4.2 mmol/L (3.5-5.1) Chloride Level 99 mmol/L (98-107) Carbon Dioxide Level 27 mmol/L (21-32) Anion Gap 8 (6-14) Blood Urea Nitrogen 16 mg/dL (8-26) Creatinine 0.9 mg/dL (0.7-1.3) Estimated GFR (Cockcroft-Gault) 90.1 BUN/Creatinine Ratio 18 (6-20) Glucose Level 97 mg/dL (70-99) Calcium Level 8.8 mg/dL (8.5-10.1) Magnesium Level 2.2 mg/dL (1.8-2.4) Total Bilirubin 0.4 mg/dL (0.2-1.0) Aspartate Amino Transferase (AST) 24 U/L (15-37) Alanine Aminotransferase (ALT) 24 U/L (16-63) Alkaline Phosphatase 86 U/L (46-116) Total Protein 7.5 g/dL (6.4-8.2) Albumin 3.4 g/dL (3.4-5.0) Albumin/Globulin Ratio 0.8 (1.0-1.7) L Lipase 137 U/L (73-393) Laboratory Tests 03/04/19 10:25 Laboratory Tests 03/04/19 10:25 EKG EKG [] Radiology/Procedures Radiology/Procedures [][facility] [address] [place] [address] IMAGING REPORT Signed PATIENT: MERISSA JACKSON ACCOUNT: [id number] : 1970 LOCATION: ER AGE: 48 SEX: M EXAM STATUS: REG ER ORD. PHYSICIAN: EDMOND DOW DO REASON: soa, extensive DVT ON RIGHT ARM PROCEDURE: CT ANGIOGRAPHY CHEST Chest CTA History: Extensive DVT of the right arm Technique: After bolus of intravenous contrast, CT imaging was performed of the chest. Multiplanar reconstruction images to include MIP reconstruction images are submitted. Exposure: One or more of the following individualized dose reduction techniques were utilized for this examination: 1. Automated exposure control 2. Adjustment of the mA and/or kV according to patient size 3. Use of iterative reconstruction technique. Comparison: None Findings: [ ] There are some scattered pulmonary emboli of right lower lobe branches. There is no pleural or pericardial effusion, pneumothorax, or lobar consolidation. There is some scattered atelectasis bilaterally of the lower lobes. Major airways are patent. Thoracic aortic caliber is within normal limits without intraluminal flap. There is coronary calcification. No significantly enlarged nodes are identified of the chest. There is esophageal wall thickening greater distally, small sliding hiatal hernia. Impression: 1. There are pulmonary emboli of the right lower lobe branches. 2. There is atelectasis bilaterally. 3. There is coronary calcification. 4. There is nonspecific esophageal wall thickening greater distally, could be associated with esophagitis, cannot accurately assess for mass by CT. FOR INTERNAL CODING PURPOSES Critical result: Findings discussed with EDMOND DOW at 03/04/2019 12:30 PM. RESULT CODE: (C) Electronically signed by: Justin Sheppard MD (03/04/2019 12:32 PM) [id number] DICTATED and SIGNED BY: JUSTIN SHEPPARD MD DATE: 03/04/19 1232 [facility] [address] [place] [address] IMAGING REPORT Signed PATIENT: MERISSA JACKSON ACCOUNT: [id number] : 1970 LOCATION: ER AGE: 48 SEX: M EXAM STATUS: REG ER ORD. PHYSICIAN: EDMOND DOW DO REASON: right arm swelling after picc line removal recently PROCEDURE: VENOUS UPPER EXTREMITY RIGHT Right upper extremity venous doppler ultrasound History: Right arm swelling after PICC removal Comparison: None Findings: Multiple grayscale, color, and duplex spectral analysis sonographic images were acquired of the right upper extremity veins to evaluate for the presence of DVT. There is prominent abnormal occlusive echogenicity in the right subclavian vein as well as in one of the right brachial veins at the level of the proximal to mid upper arm. There is also occlusive thrombus of the right basilic vein at the level of distal left forearm. There is nonocclusive thrombus of the right cephalic vein at mid-upper arm level. Right axillary vein is patent. Radial and ulnar veins are patent. Impression: 1. There is occlusive thrombus in the right subclavian vein and one on the right brachial veins, also thrombus in segments of right cephalic and basilic veins. FOR INTERNAL CODING PURPOSES Critical result: Findings discussed with EDMOND DOW at 03/04/2019 10:59 AM. RESULT CODE: (C) Electronically signed by: Justin Sheppard MD (03/04/2019 11:00 AM) [id number] DICTATED and SIGNED BY: JUSTIN SHEPPARD MD DATE: 03/04/19 1100 Course & Med Decision Making Course & Med Decision Making Pertinent Labs and Imaging studies reviewed. (See chart for details) [] Dragon Disclaimer Dragon Disclaimer This electronic medical record was generated, in whole or in part, using a voice recognition dictation system. Departure Departure Impression: Primary Impression: Pulmonary embolism Additional Impression: DVT (deep venous thrombosis) Disposition: ADMITTED INPATIENT Admitting Physician: Fabby Francois Condition: STABLE Referrals: CHIRAG MALIK (PCP) Problem Qualifiers EDMOND DOW DO Mar 04, 2019 12:47
[2019-03-04] MEDS ORDERED: ONDANSETRON PF 4 MG/2 ML VIAL. IV PRN (13:45)
[2019-03-04] MEDS: HEPARIN 25,000UTS/500ML PREMIX 500 ML IV PRN (13:57)
[2019-03-04] MEDS ORDERED: PROCHLORPERAZINE 10 MG/2 ML VIAL. IV ONE (14:00)
[2019-03-04] MEDS ORDERED: ANTI-COAG MONITOR BY PHARMACY. MC PRN (14:15)
[2019-03-04] MEDS ORDERED: diphenhydrAMINE 50 MG/ML VIAL IVP ONE (14:15)
[2019-03-04] MEDS ORDERED: METOPROLOL TARTRATE 5 MG/5 ML VIAL. IVP PRN (16:30)
[2019-03-04] MEDS: fentaNYL PF VIAL 100 MCG/2 ML VIAL IV PRN ×3 (17:27→22:08)
[2019-03-04] MEDS: diphenhydrAMINE 50 MG/ML VIAL IVP PRN ×2 (17:27→22:08)
[2019-03-04] MEDS: AMINO AC 3%/ELECTROLYTE/GLYCER 1,000 ML IV SCH (18:36)
--- NOTE | 2019-03-04 19:20 | PDOC1 ---
History and Physical Date of Admission Date of Admission DATE: 03/04/19 TIME: 19:16 Source Source: Chart review, Patient History of Present Illness History of Present Illness Mr. Portillo, is a 48 year old male presented to ER today for evaluation of nausea, vomiting, no cramping. He has recnet PICC to right arm taken out and Grosong cath placed by Dr. James RIght arm swlling and pain and nausea and vomiting and dyspnea, pain 7/10, nausea and unable to take PO Past Medical History Past Medical History gastroparesis from injury to abdomen Cardiovascular: HTN CENTRAL NERVOUS SYSTEM: Other GI: Other Dermatology: No pertinent hx Past Surgical History Past Surgical History: Other Family History Family History: No Significant Social History Smoke: No ALCOHOL: none Current Problem List Problem List Problems Medical Problems: (1) DVT (deep venous thrombosis) Status: Acute (2) Pulmonary embolism Status: Acute Current Medications Current Medications Current Medications Sodium Chloride 1,000 ml @ 1,000 mls/hr 1X ONCE IV Last administered on 03/04/19at 10:41; Start 03/04/19 at 10:30; Stop 03/04/19 at 11:34; Status DC Ondansetron HCl (Zofran) 8 mg 1X ONCE IV Last administered on 03/04/19at 10:44; Start 03/04/19 at 10:30; Stop 03/04/19 at 10:34; Status DC Iohexol (Omnipaque 350 Mg/ml) 100 ml 1X ONCE IV Last administered on 03/04/19at 12:21; Start 03/04/19 at 12:00; Stop 03/04/19 at 12:02; Status DC Info (CONTRAST GIVEN -- Rx MONITORING) 1 each PRN DAILY PRN MC SEE COMMENTS; Start 03/04/19 at 12:15; Stop 03/06/19 at 12:14 Heparin Sodium (Porcine) (Heparin Sodium) 5,350 unit 1X ONCE IV ; Start 03/04/19 at 12:45; Stop 03/04/19 at 12:46; Status Cancel Heparin Sodium/ Dextrose 500 ml @ 0 mls/hr CONT PRN IV SEE I/O RECORD Last administered on 03/04/19at 13:57; Start 03/04/19 at 12:30 Heparin Sodium (Porcine) (Heparin Sodium) 2,000 unit PRN Q6HRS PRN IV FOR UFH LEVEL LESS THAN 0.2; Start 03/04/19 at 12:30 Heparin Sodium (Porcine) (Heparin Sodium) 1,000 unit PRN Q6HRS PRN IV FOR UFH LEVEL 0.2 - 0.29; Start 03/04/19 at 12:30 Heparin Sodium (Porcine) (Heparin Sodium) 5,700 unit 1X ONCE IV Last administered on 03/04/19 13:47; Start 03/04/19 at 14:00; Stop 03/04/19 at 14:01; Status DC Ondansetron HCl (Zofran) 4 mg PRN Q8HRS PRN IV NAUSEA/VOMITING; Start 03/04/19 at 13:45; Stop 03/05/19 at 13:44 Prochlorperazine Edisylate (Compazine) 10 mg 1X ONCE IV ; Start 03/04/19 at 14:00; Stop 03/04/19 at 14:01; Status Cancel Diphenhydramine HCl (Benadryl) 50 mg 1X ONCE IVP Last administered on 03/04/19at 14:11; Start 03/04/19 at 14:15; Stop 03/04/19 at 14:16; Status DC Info (Anti-Coagulation Monitoring By Pharmacy) 1 each PRN DAILY PRN MC SEE COMMENTS; Start 03/04/19 at 14:15 Fentanyl Citrate (Fentanyl 2ml Vial) 50 mcg PRN Q2HR PRN IV PAIN severe Last administered on 03/04/19 17:27; Start 03/04/19 at 16:30 Diphenhydramine HCl (Benadryl) 25 mg PRN Q4HRS PRN IVP ITCHING Last administered on 03/04/19 17:27; Start 03/04/19 at 16:30 Metoprolol Tartrate (Lopressor Vial) 5 mg PRN Q6HRS PRN IVP HYPERTENSION, SEE COMMENTS Last administered on 03/04/19 17:27; Start 03/04/19 at 16:30 Amino Acids/ Glycerin/ Electrolytes 1,000 ml @ 80 mls/hr [id number] IV Last administered on 03/04/19at 18:36; Start 03/04/19 at 17:15 Ondansetron HCl (Zofran) 8 mg PRN Q8HRS PRN IV NAUSEA; Start 03/04/19 at 17:15 Active Scripts Active Zofran (Ondansetron Hcl) 4 Mg Tablet 1 Tab PO Q6HRS Reported Clonidine Hcl 0.1 Mg Tablet 0.1 Mg PO PRN PRN Benadryl (Diphenhydramine Hcl) 25 Mg Capsule 50 Mg PO PRN PRN Venlafaxine Hcl 75 Mg Tablet 75 Mg PO DAILY Ranitidine Hcl 150 Mg Capsule 150 Mg PO QID Dexilant (Dexlansoprazole) 60 Mg 60 Mg PO BIDAC Metoprolol Tartrate 25 Mg Tablet 1 Tab PO BID Transderm-Scop (Scopolamine) 1 Each Patch.td72 1 Patch TP Q3DAYS Phenergan (Promethazine Hcl) 25 Mg/1 Ml Vial 25 Mg IVP PRN Q6HRS PRN Ondansetron HCl 4 mg/2 ml Syr (Ondansetron HCl/Pf) 4 Mg/2 Ml Syringe 8 Mg IVP Q8HRS Ondansetron Odt (Ondansetron) 8 Mg Tab.rapdis 8 Mg PO PRN Q12HR PRN Allergies Allergies: Coded Allergies: morphine (Verified Allergy, Severe, Anaphylaxis Patient states can take Hydromorphone, 03/04/19) DILAUDID [place] hydrocodone (Verified Allergy, Intermediate, Rash, 03/04/19) droperidol (Verified Adverse Reaction, Intermediate, DYSTONIA, 03/04/19) metoclopramide (Verified Adverse Reaction, Intermediate, DYSTONIA, 03/04/19) prochlorperazine (Verified Adverse Reaction, Intermediate, DYSTONIA, ) ROS General: No: Chills, Night Sweats, Fatigue, Malaise, Appetite, Other PSYCHOLOGICAL ROS: YES: Sleep disturbances; No: Anxiety, Behavioral Disorder, Concentration difficultie, Decreased libido, Depression, Disorientation, Hallucinations, Hostility, Irritablity, Memory difficulties, Mood Swings, Obsessive thoughts, Physical abuse, Sexual abuse, Suicidal ideation, Other Eyes: No Blurry vision, No Decreased vision, No Double vision, No Dry eyes, No Excessive tearing, No Eye Pain, No Itchy Eyes, No Loss of vision, No Photophobia , No Scotomata, No Uses contacts, No Uses glasses, No Other Respiratory: YES: Shortness of breath, SOB with excertion; No: Cough, Hemoptysis, Orthopnea, Pleuritic Pain, Sputum Changes, Stridor, Tachypnea, Wheezing, Other Cardiovascular: No Chest Pain, No Palpitations, No Orthopnea, No Paroxysmal Noc. Dyspnea, No Edema, No Lt Headedness, No Other Gastrointestinal: Yes Nausea, Yes Vomiting, Yes Abdominal Pain Genitourinary: No Dysuria, No Frequency, No Incontinence, No Hematuria, No Retention, No Discharge, No Urgency, No Pain, No Flank Pain, No Other, No , No , No , No , No , No , No Musculoskeletal: Yes Joint Stiffness; No Gait Disturbance, No Joint Pain, No Joint Swelling, No Muscle Pain, No Muscular Weakness, No Pain In:, No Swelling In:, No Other Neurological: No Behavorial Changes, No Bowel/Bladder ControlChng, No Confusion, No Dizziness, No Headaches, No Impaired Coord/balance, No Memory Loss , No Numbness/Tingling, No Seizures, No Speech Problems, No Tremors, No Visual Changes, No Weakness, No Other Skin: Yes Dry Skin; No Eczema, No Hair Changes, No Lumps, No Mole Changes, No Mottling, No Nail Changes, No Pruritus, No Rash, No Skin Lesion Changes, No Other, No Acne Physical Exam General: Oriented X3, mild distress HEENT: Atraumatic Lungs: Clear to auscultation Heart: no gallops Abdomen: Normal bowel sounds, Soft (tender, ) Rectal Exam: not examined Extremities: No cyanosis, Other (right arm and hand swollen, slighlty tender) Skin: No breakdown Neuro: Normal speech, Sensation intact Psych/Mental Status: Mood NL Vitals Vitals Vital Signs Date Time Temp Pulse Resp B/P (MAP) Pulse Ox O2 Delivery O2 Flow Rate FiO2 03/04/19 18:36 99 Room Air 03/04/19 17:27 107 191/99 03/04/19 14:21 20 03/04/19 09:30 98.1 98.1 Labs Labs Laboratory Tests Test 03/04/19 10:25 White Blood Count 6.6 x10^3/uL (4.0-11.0) Red Blood Count 4.24 x10^6/uL (4.30-5.70) Hemoglobin 10.3 g/dL (13.0-17.5) Hematocrit 32.1 % (39.0-53.0) Mean Corpuscular Volume 76 fL (79-100) Mean Corpuscular Hemoglobin 24 pg (25-35) Mean Corpuscular Hemoglobin Concent 32 g/dL (31-37) Red Cell Distribution Width 19.5 % (11.5-14.5) Platelet Count 190 x10^3/uL (140-400) Neutrophils (%) (Auto) 76 % (31-73) Lymphocytes (%) (Auto) 15 % (24-48) Monocytes (%) (Auto) 8 % (0-9) Eosinophils (%) (Auto) 1 % (0-3) Basophils (%) (Auto) 1 % (0-3) Neutrophils # (Auto) 5.0 x10^3uL (1.8-7.7) Lymphocytes # (Auto) 1.0 x10^3/uL (1.0-4.8) Monocytes # (Auto) 0.5 x10^3/uL (0.0-1.1) Eosinophils # (Auto) 0.1 x10^3/uL (0.0-0.7) Basophils # (Auto) 0.0 x10^3/uL (0.0-0.2) Sodium Level 134 mmol/L (136-145) Potassium Level 4.2 mmol/L (3.5-5.1) Chloride Level 99 mmol/L (98-107) Carbon Dioxide Level 27 mmol/L (21-32) Anion Gap 8 (6-14) Blood Urea Nitrogen 16 mg/dL (8-26) Creatinine 0.9 mg/dL (0.7-1.3) Estimated GFR (Cockcroft-Gault) 90.1 BUN/Creatinine Ratio 18 (6-20) Glucose Level 97 mg/dL (70-99) Calcium Level 8.8 mg/dL (8.5-10.1) Magnesium Level 2.2 mg/dL (1.8-2.4) Total Bilirubin 0.4 mg/dL (0.2-1.0) Aspartate Amino Transf (AST/SGOT) 24 U/L (15-37) Alanine Aminotransferase (ALT/SGPT) 24 U/L (16-63) Alkaline Phosphatase 86 U/L (46-116) Total Protein 7.5 g/dL (6.4-8.2) Albumin 3.4 g/dL (3.4-5.0) Albumin/Globulin Ratio 0.8 (1.0-1.7) Lipase 137 U/L (73-393) Laboratory Tests Test 03/04/19 10:25 White Blood Count 6.6 x10^3/uL (4.0-11.0) Red Blood Count 4.24 x10^6/uL (4.30-5.70) Hemoglobin 10.3 g/dL (13.0-17.5) Hematocrit 32.1 % (39.0-53.0) Mean Corpuscular Volume 76 fL (79-100) Mean Corpuscular Hemoglobin 24 pg (25-35) Mean Corpuscular Hemoglobin Concent 32 g/dL (31-37) Red Cell Distribution Width 19.5 % (11.5-14.5) Platelet Count 190 x10^3/uL (140-400) Neutrophils (%) (Auto) 76 % (31-73) Lymphocytes (%) (Auto) 15 % (24-48) Monocytes (%) (Auto) 8 % (0-9) Eosinophils (%) (Auto) 1 % (0-3) Basophils (%) (Auto) 1 % (0-3) Neutrophils # (Auto) 5.0 x10^3uL (1.8-7.7) Lymphocytes # (Auto) 1.0 x10^3/uL (1.0-4.8) Monocytes # (Auto) 0.5 x10^3/uL (0.0-1.1) Eosinophils # (Auto) 0.1 x10^3/uL (0.0-0.7) Basophils # (Auto) 0.0 x10^3/uL (0.0-0.2) Sodium Level 134 mmol/L (136-145) Potassium Level 4.2 mmol/L (3.5-5.1) Chloride Level 99 mmol/L (98-107) Carbon Dioxide Level 27 mmol/L (21-32) Anion Gap 8 (6-14) Blood Urea Nitrogen 16 mg/dL (8-26) Creatinine 0.9 mg/dL (0.7-1.3) Estimated GFR (Cockcroft-Gault) 90.1 BUN/Creatinine Ratio 18 (6-20) Glucose Level 97 mg/dL (70-99) Calcium Level 8.8 mg/dL (8.5-10.1) Magnesium Level 2.2 mg/dL (1.8-2.4) Total Bilirubin 0.4 mg/dL (0.2-1.0) Aspartate Amino Transf (AST/SGOT) 24 U/L (15-37) Alanine Aminotransferase (ALT/SGPT) 24 U/L (16-63) Alkaline Phosphatase 86 U/L (46-116) Total Protein 7.5 g/dL (6.4-8.2) Albumin 3.4 g/dL (3.4-5.0) Albumin/Globulin Ratio 0.8 (1.0-1.7) Lipase 137 U/L (73-393) VTE Prophylaxis Ordered VTE Prophylaxis Devices: No VTE Pharmacological Prophylaxi: Yes Assessment/Plan Assessment/Plan DVT right upper arm Pulmonary embolism gastroparesis chronic abd pain w. acute exacerbation malnutrition, TPN at home MARTA LEDESMA MD Mar 04, 2019 19:20
--- NOTE | 2019-03-04 19:38 | NUR ---
Patient was admitted to the floor around 1430. Patient was reporting of some mild abdominal pain. Pain medication received from Dr. Francois and given to the patient. He stated that it helped slightly. Patient was admitted during downtime. All admission charting and head to toe assessments were completed on paper forms and placed in the chart. Patient vitals are WNL and he is laying in bed comfortably.
[2019-03-04] MEDS: ONDANSETRON PF 4 MG/2 ML VIAL. IV PRN (19:45)
[2019-03-04 19:50] VITALS: BP 130/89
[2019-03-04 23:15] VITALS: BP 120/75
[2019-03-05] MEDS: fentaNYL PF VIAL 100 MCG/2 ML VIAL IV PRN ×9 (00:14→20:56)
[2019-03-05] MEDS: diphenhydrAMINE 50 MG/ML VIAL IVP PRN ×4 (02:03→18:43)
[2019-03-05 02:12] LABS: BASO % 1 % (0-3); EOS # 0.1 x10^3/uL (0.0-0.7); EOS % 2 % (0-3); HEMATOCRIT 31.9 % (39.0-53.0); HEMOGLOBIN 10.1 g/dL (13.0-17.5); LYMPH # 1.2 x10^3/uL (1.0-4.8); LYMPH % 22 % (24-48); MEAN CORPUSCULAR HEMOGLOBIN 24 pg (25-35); MEAN CORPUSCULAR HGB CONC 32 g/dL (31-37); MEAN CORPUSCULAR VOLUME 77 fL (79-100); MONO # 0.5 x10^3/uL (0.0-1.1); MONO % 9 % (0-9); NEUT # 3.7 x10^3uL (1.8-7.7); NEUT % 67 % (31-73); PLATELET COUNT 170 x10^3/uL (140-400); RED BLOOD COUNT 4.14 x10^6/uL (4.30-5.70); RED CELL DISTRIBUTION WIDTH 19.9 % (11.5-14.5); WHITE BLOOD COUNT 5.5 x10^3/uL (4.0-11.0)
[2019-03-05 02:25] LABS: PROTHROMBIN TIME PATIENT 12.4 SEC (11.7-14.0)
[2019-03-05 02:26] LABS: ALBUMIN 3.1 g/dL (3.4-5.0); ALBUMIN/GLOBULIN RATIO 0.8 (1.0-1.7); CALCIUM 8.4 mg/dL (8.5-10.1); CREATININE 1.1 mg/dL (0.7-1.3); GFR 71.4; POTASSIUM 4.4 mmol/L (3.5-5.1); TOTAL BILIRUBIN 0.4 mg/dL (0.2-1.0); TOTAL PROTEIN 7.1 g/dL (6.4-8.2)
[2019-03-05 02:27] LABS: UNFRACTIONATED HEPARIN TESTING 0.49 IU/mL (0.30-0.70)
[2019-03-05 03:20] VITALS: BP 145/97
[2019-03-05] MEDS: ONDANSETRON PF 4 MG/2 ML VIAL. IV PRN ×2 (04:21→12:48)
[2019-03-05] MEDS: AMINO AC 3%/ELECTROLYTE/GLYCER 1,000 ML IV SCH ×2 (05:52→18:43)
[2019-03-05 07:00] VITALS: BP 136/91
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
[2019-03-05] MEDS ORDERED: PROM12.58 PO (08:46)
[2019-03-05 11:00] VITALS: BP 150/95
[2019-03-05] MEDS: HEPARIN 25,000UTS/500ML PREMIX 500 ML IV PRN (11:09)
[2019-03-05] MEDS ORDERED: cloNIDine HCL 0.1 MG TABLET PO PRN (13:15)
[2019-03-05] MEDS ORDERED: PROMETHAZINE 12.5 MG TABLET. PO PRN (13:15)
[2019-03-05] MEDS: diphenhydrAMINE HCL 25 MG CAPSULE PO SCH ×2 (13:30→17:45)
[2019-03-05] MEDS: PANTOPRAZOLE 40 MG TABLET.DR. PO SCH (13:39)
[2019-03-05] MEDS: VENLAFAXINE XR 37.5 MG CAP.ER.24H. PO SCH (13:39)
[2019-03-05] MEDS: BETHANECHOL CHLORIDE 10 MG TABLET. PO SCH ×2 (13:40→16:30)
[2019-03-05] MEDS: METOPROLOL TART IMMED RELEASE 50 MG TABLET. PO SCH ×2 (13:40→20:55)
[2019-03-05] MEDS: ONDANSETRON ODT 4 MG TAB.RAPDIS. PO SCH ×2 (14:00→22:11)
--- NOTE | 2019-03-05 14:32 | NUR ---
SS following for discharge planning. SS reviewed pt chart. Pt is from home and is currently on room air. No discharge needs noted at this time. SS will continue to follow for pending discharge needs.
[2019-03-05] MEDS: TPN PER PHARMACY MC PRN (14:33)
--- NOTE | 2019-03-05 14:33 | NUR ---
Pharmacy TPN Dosing Note S: JACKSONMERISSA is a 48 year old M Currently receiving Central Cyclic TPN started 03/05/19 B:Pertinent PMH: protein malnutrition, home TPN Height: 5 feet, 8 inches Weight: 70.7 kg Current diet: cardiac LABS: Sodium: 137 Potassium: 4.4 Chloride: 101 Calcium: 8.4 Corrected Calcium: 9.12 Magnesium: 2.2 CO2: 27 SCr: 1.1 Glucose: 107 Albumin: 3.1 AST: 23 ALT: 25 TPN FORMULA: TPN TYPE: Central Cyclic AMINO ACIDS: 120 gm DEXTROSE: 340 gm LIPIDS: 82 gm SODIUM CHLORIDE: 85 mEq SODIUM PHOSPHATE: 30 mmol POTASSIUM ACETATE: 80 mEq MAGNESIUM: 8 mEq CALCIUM: 10 mEq MULTIPLE VITAMIN: 10 ml TRACE ELEMENTS: 1 ml TPN PLAN: -Resume home TPN with below changes. -Adjust starting NaPhos to 30 mmol/day due to Ca/Phos ratio warnings. -BMP, mag, phos, triglyceride tomorrow. R: Begin cyclic TPN Will monitor electrolytes, glucose, and tolerance to TPN. [facility], 03/05/19 [id number]
[2019-03-05 15:10] VITALS: BP 154/97
[2019-03-05 19:15] VITALS: BP 155/96
[2019-03-05] MEDS ORDERED: [UNRECOGNIZED DRUG - OTHER] IV SCH ×10 (22:00)
[2019-03-05] MEDS ORDERED: TOTAL PARENTERAL NUTRITION IV SCH ×10 (22:00)
[2019-03-05] MEDS ORDERED: AMINO ACID IV SCH ×10 (22:00)
[2019-03-05] MEDS ORDERED: DEXTROSE 70% IV SCH ×10 (22:00)
[2019-03-05 23:20] VITALS: BP 164/105
[2019-03-06] MEDS: diphenhydrAMINE 50 MG/ML VIAL IVP PRN ×5 (00:06→22:07)
[2019-03-06] MEDS: fentaNYL PF VIAL 100 MCG/2 ML VIAL IV PRN ×9 (00:06→23:09)
[2019-03-06 03:48] VITALS: BP 110/77
[2019-03-06] MEDS: diphenhydrAMINE HCL 25 MG CAPSULE PO SCH ×4 (06:00→17:27)
[2019-03-06] MEDS: ONDANSETRON ODT 4 MG TAB.RAPDIS. PO SCH ×3 (06:02→22:00)
[2019-03-06 06:37] LABS: CALCIUM 8.3 mg/dL (8.5-10.1); CREATININE 0.9 mg/dL (0.7-1.3); GFR 90.1; MAGNESIUM 2.1 mg/dL (1.8-2.4); PHOSPHORUS 3.3 mg/dL (2.6-4.7); POTASSIUM 4.8 mmol/L (3.5-5.1)
[2019-03-06 07:00] VITALS: BP 114/76
[2019-03-06] MEDS: BETHANECHOL CHLORIDE 10 MG TABLET. PO SCH ×3 (07:30→11:30)
[2019-03-06] MEDS: VENLAFAXINE XR 37.5 MG CAP.ER.24H. PO SCH (07:58)
[2019-03-06] MEDS: PANTOPRAZOLE 40 MG TABLET.DR. PO SCH (07:58)
[2019-03-06] MEDS: METOPROLOL TART IMMED RELEASE 50 MG TABLET. PO SCH ×2 (07:59→20:50)
[2019-03-06] MEDS: HEPARIN 25,000UTS/500ML PREMIX 500 ML IV PRN (09:01)
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
[2019-03-06 11:00] VITALS: BP 126/86
--- NOTE | 2019-03-06 11:58 | PDOC2 ---
MARINAJOSÉ MANUEL Russell [employer]BER 03/06/19 1158: CONSULT Date of Consult Date of Consult DATE: 03/06/19 TIME: 11:53 Reason for Consult Reason for Consult: PE, DVT, groshong Referring Physician Referring Physician: ER Identification/Chief Complaint Chief Complaint right arm swelling Source Source: Chart review, Patient History of Present Illness Reason for Visit: Hx of significant gastroparesis, g tube, stimulator previously now with groshong by Dr Sarabia 02/21/19 acutely developed right arm swelling no chest or soa Past Medical History Cardiovascular: HTN CENTRAL NERVOUS SYSTEM: Other (TB hx) GI: Other (gastroparesis ) Psych: Other (PTSD) Dermatology: No pertinent hx Past Surgical History Past Surgical History: Other (g tube, j tube, gastric stimulator vih) Family History Family History: No Significant Social History No ALCOHOL: none Current Problem List Problem List Problems Medical Problems: (1) DVT (deep venous thrombosis) Status: Acute (2) Pulmonary embolism Status: Acute Current Medications Current Medications Current Medications Sodium Chloride 1,000 ml @ 1,000 mls/hr 1X ONCE IV Last administered on 03/04/19at 10:41; Start 03/04/19 at 10:30; Stop 03/04/19 at 11:34; Status DC Ondansetron HCl (Zofran) 8 mg 1X ONCE IV Last administered on 03/04/19at 10:44; Start 03/04/19 at 10:30; Stop 03/04/19 at 10:34; Status DC Iohexol (Omnipaque 350 Mg/ml) 100 ml 1X ONCE IV Last administered on 03/04/19at 12:21; Start 03/04/19 at 12:00; Stop 03/04/19 at 12:02; Status DC Info (CONTRAST GIVEN -- Rx MONITORING) 1 each PRN DAILY PRN MC SEE COMMENTS; Start 03/04/19 at 12:15; Stop 03/06/19 at 12:14 Heparin Sodium (Porcine) (Heparin Sodium) 5,350 unit 1X ONCE IV ; Start 03/04/19 at 12:45; Stop 03/04/19 at 12:46; Status Cancel Heparin Sodium/ Dextrose 500 ml @ 0 mls/hr CONT PRN IV SEE I/O RECORD Last administered on 03/06/19at 09:01; Start 03/04/19 at 12:30 Heparin Sodium (Porcine) (Heparin Sodium) 2,000 unit PRN Q6HRS PRN IV FOR UFH LEVEL LESS THAN 0.2; Start 03/04/19 at 12:30 Heparin Sodium (Porcine) (Heparin Sodium) 1,000 unit PRN Q6HRS PRN IV FOR UFH LEVEL 0.2 - 0.29 Last administered on 03/06/19 07:02; Start 03/04/19 at 12:30 Heparin Sodium (Porcine) (Heparin Sodium) 5,700 unit 1X ONCE IV Last administered on 03/04/19 13:47; Start 03/04/19 at 14:00; Stop 03/04/19 at 14:01; Status DC Ondansetron HCl (Zofran) 4 mg PRN Q8HRS PRN IV NAUSEA/VOMITING; Start 03/04/19 at 13:45; Stop 03/05/19 at 13:44; Status DC Prochlorperazine Edisylate (Compazine) 10 mg 1X ONCE IV ; Start 03/04/19 at 14:00; Stop 03/04/19 at 14:01; Status Cancel Diphenhydramine HCl (Benadryl) 50 mg 1X ONCE IVP Last administered on 03/04/19 14:11; Start 03/04/19 at 14:15; Stop 03/04/19 at 14:16; Status DC Info (Anti-Coagulation Monitoring By Pharmacy) 1 each PRN DAILY PRN MC SEE COMMENTS; Start 03/04/19 at 14:15 Fentanyl Citrate (Fentanyl 2ml Vial) 50 mcg PRN Q2HR PRN IV PAIN severe Last administered on 03/06/19 07:58; Start 03/04/19 at 16:30 Diphenhydramine HCl (Benadryl) 25 mg PRN Q4HRS PRN IVP ITCHING Last administered on 03/06/19 05:11; Start 03/04/19 at 16:30 Metoprolol Tartrate (Lopressor Vial) 5 mg PRN Q6HRS PRN IVP HYPERTENSION, SEE COMMENTS Last administered on 03/04/19 17:27; Start 03/04/19 at 16:30 Amino Acids/ Glycerin/ Electrolytes 1,000 ml @ 80 mls/hr [id number] IV Last administered on 5/1/19at 18:43; Start 03/04/19 at 17:15; Stop 03/05/19 at 21:59; Status DC Ondansetron HCl (Zofran) 8 mg PRN Q8HRS PRN IV NAUSEA Last administered on 03/05/19at 12:48; Start 03/04/19 at 17:15 Clonidine HCl (Catapres) 0.1 mg PRN Q6HRS PRN PO HTN; Start 03/05/19 at 13:15 Diphenhydramine HCl (Benadryl) 50 mg Q6HRS PO ; Start 03/05/19 at 13:30 Metoprolol Tartrate (Lopressor) 50 mg BID PO Last administered on 03/06/19 07:59; Start 03/05/19 at 13:30 Promethazine HCl (Phenergan) 25 mg PRN Q6HRS PRN PO NAUSEA/VOMITING Last administered on 03/06/19 07:58; Start 03/05/19 at 13:15 Pantoprazole Sodium (Protonix) 40 mg DAILYAC PO Last administered on 03/06/19 07:58; Start 03/05/19 at 13:30 Ondansetron HCl (Zofran Odt) 8 mg Q8HRS PO Last administered on 03/06/19 06:02; Start 03/05/19 at 14:00 Scopolamine (Transderm-Scop) 1 patch Q3DAYS TD ; Start 03/08/19 at 09:00 Venlafaxine HCl (Effexor Xr) 75 mg DAILY PO Last administered on 03/06/19 07:58; Start 03/05/19 at 13:30 Bethanechol Chloride (Urecholine) 5 mg TIDAC PO Last administered on 03/05/19 13:40; Start 03/05/19 at 13:30 Info (Tpn Per Pharmacy) 1 each PRN DAILY PRN MC SEE COMMENTS Last administered on 03/05/19 14:33; Start 03/05/19 at 14:30 Sodium Chloride 85 meq/Sodium Phosphate 30 mmol/ Potassium Acetate 80 meq/Magn esium Sulfate 8 meq/ Calcium Gluconate 10 meq/ Multivitamins 10 ml/Chromium/ Copper/Manganese/ Seleni/Zn 1 ml/ Total Parenteral Nutrition/Amino Acids/Dextrose/ Fat Emulsion Intravenous 2,200 ml @ 183.333 mls/hr TPN CONT IV Last administered on 03/05/19at 22:09; Start 03/05/19 at 22:00; Stop 03/06/19 at 10:00; Status DC Active Scripts Active Reported Promethazine Hcl 12.5 Mg Tablet 25 Mg PO Q6H Clonidine Hcl 0.1 Mg Tablet 0.1 Mg PO PRN Q6HRS PRN Benadryl (Diphenhydramine Hcl) 25 Mg Capsule 50 Mg PO Q6HRS Venlafaxine Hcl 75 Mg Tablet 75 Mg PO DAILY Ranitidine Hcl 150 Mg Capsule 150 Mg PO QID Dexilant (Dexlansoprazole) 60 Mg Cap.mp 60 Mg PO BIDAC Metoprolol Tartrate 25 Mg Tablet 2 Tab PO BID Transderm-Scop (Scopolamine) 1 Each Patch.td72 1 Patch TP Q3DAYS Ondansetron Odt (Ondansetron) 8 Mg Tab.rapdis 8 Mg PO Q8HRS Allergies Allergies: Coded Allergies: morphine (Verified Allergy, Severe, Anaphylaxis Patient states can take Hydromorphone, 03/04/19) DILAUDID [place] hydrocodone (Verified Allergy, Intermediate, Rash, 03/04/19) droperidol (Verified Adverse Reaction, Intermediate, DYSTONIA, 03/04/19) metoclopramide (Verified Adverse Reaction, Intermediate, DYSTONIA, 03/04/19) prochlorperazine (Verified Adverse Reaction, Intermediate, DYSTONIA, 03/04/19) ROS General: No: Chills, Other (fevers) PSYCHOLOGICAL ROS: No: Anxiety, Depression Eyes: No Blurry vision, No Double vision HEENT: No: Heacaches, Sore Throat Hematological and Lymphatic: YES: Other (see hpi) Respiratory: No: Cough, SOB with excertion Cardiovascular: No Chest Pain, No Palpitations Gastrointestinal: Yes Nausea, Yes Vomiting Genitourinary: No Dysuria, No Flank Pain Musculoskeletal: No Joint Pain, No Muscle Pain Neurological: No Impaired Coord/balance, No Numbness/Tingling Skin: No Pruritus, No Rash Physical Exam General: Alert, Oriented X3, Cooperative, No acute distress HEENT: PERRLA, Mucous membr. moist/pink Lungs: Clear to auscultation, Normal air movement Heart: Regular rate, Normal S1, Normal S2, No murmurs Abdomen: Soft, No tenderness Extremities: Other (swelling R arm) Neuro: Normal speech, Strength at 5/5 X4 ext Psych/Mental Status: Mental status NL, Mood NL Vitals VITALS Vital Signs Date Time Temp Pulse Resp B/P (MAP) Pulse Ox O2 Delivery O2 Flow Rate FiO2 03/06/19 08:30 Room Air 03/06/19 07:59 78 114/76 03/06/19 07:00 97.8 16 96 97.8 Labs Labs Laboratory Tests Test 03/04/19 19:45 03/05/19 02:05 03/06/19 06:00 Heparin Anti-Xa Act, Unfractionated 0.67 IU/mL (0.30-0.70) 0.49 IU/mL (0.30-0.70) 0.24 IU/mL (0.30-0.70) White Blood Count 5.5 x10^3/uL (4.0-11.0) Red Blood Count 4.14 x10^6/uL (4.30-5.70) Hemoglobin 10.1 g/dL (13.0-17.5) Hematocrit 31.9 % (39.0-53.0) Mean Corpuscular Volume 77 fL (79-100) Mean Corpuscular Hemoglobin 24 pg (25-35) Mean Corpuscular Hemoglobin Concent 32 g/dL (31-37) Red Cell Distribution Width 19.9 % (11.5-14.5) Platelet Count 170 x10^3/uL (140-400) Neutrophils (%) (Auto) 67 % (31-73) Lymphocytes (%) (Auto) 22 % (24-48) Monocytes (%) (Auto) 9 % (0-9) Eosinophils (%) (Auto) 2 % (0-3) Basophils (%) (Auto) 1 % (0-3) Neutrophils # (Auto) 3.7 x10^3uL (1.8-7.7) Lymphocytes # (Auto) 1.2 x10^3/uL (1.0-4.8) Monocytes # (Auto) 0.5 x10^3/uL (0.0-1.1) Eosinophils # (Auto) 0.1 x10^3/uL (0.0-0.7) Basophils # (Auto) 0.0 x10^3/uL (0.0-0.2) Prothrombin Time 12.4 SEC (11.7-14.0) Prothromb Time International Ratio 1.0 (0.8-1.1) Sodium Level 137 mmol/L (136-145) 134 mmol/L (136-145) Potassium Level 4.4 mmol/L (3.5-5.1) 4.8 mmol/L (3.5-5.1) Chloride Level 101 mmol/L (98-107) 99 mmol/L (98-107) Carbon Dioxide Level 27 mmol/L (21-32) 28 mmol/L (21-32) Anion Gap 9 (6-14) 7 (6-14) Blood Urea Nitrogen 14 mg/dL (8-26) 19 mg/dL (8-26) Creatinine 1.1 mg/dL (0.7-1.3) 0.9 mg/dL (0.7-1.3) Estimated GFR (Cockcroft-Gault) 71.4 90.1 BUN/Creatinine Ratio 13 (6-20) Glucose Level 107 mg/dL (70-99) 132 mg/dL (70-99) Calcium Level 8.4 mg/dL (8.5-10.1) 8.3 mg/dL (8.5-10.1) Total Bilirubin 0.4 mg/dL (0.2-1.0) Aspartate Amino Transf (AST/SGOT) 23 U/L (15-37) Alanine Aminotransferase (ALT/SGPT) 25 U/L (16-63) Alkaline Phosphatase 84 U/L (46-116) Total Protein 7.1 g/dL (6.4-8.2) Albumin 3.1 g/dL (3.4-5.0) Albumin/Globulin Ratio 0.8 (1.0-1.7) Phosphorus Level 3.3 mg/dL (2.6-4.7) Magnesium Level 2.1 mg/dL (1.8-2.4) Triglycerides Level 543 mg/dL (0-150) Laboratory Tests Test 03/06/19 06:00 Heparin Anti-Xa Act, Unfractionated 0.24 IU/mL (0.30-0.70) Sodium Level 134 mmol/L (136-145) Potassium Level 4.8 mmol/L (3.5-5.1) Chloride Level 99 mmol/L (98-107) Carbon Dioxide Level 28 mmol/L (21-32) Anion Gap 7 (6-14) Blood Urea Nitrogen 19 mg/dL (8-26) Creatinine 0.9 mg/dL (0.7-1.3) Estimated GFR (Cockcroft-Gault) 90.1 Glucose Level 132 mg/dL (70-99) Calcium Level 8.3 mg/dL (8.5-10.1) Phosphorus Level 3.3 mg/dL (2.6-4.7) Magnesium Level 2.1 mg/dL (1.8-2.4) Triglycerides Level 543 mg/dL (0-150) Assessment/Plan Assessment/Plan PE, DVT continue anticoagulation therapy leave groshong in place for now will d/w JANIE Pratt MD 03/06/19 1520: CONSULT Assessment/Plan Assessment/Plan Pt seen and examined. Agree with Ms. Townsend's note Pt feels better, stacy min PO right arm swelling mild improved groshong in place without signs of infection abd soft, reducible hernia, persistent drainage from J-tube site agree with anticoagulants, will maintain line secondary for need for longer term access Thanks for consult! JOSÉ MANUEL TOWNSEND APRN March 06, 2019 11:58 JANIE MORALES MD March 06, 2019 15:20
[2019-03-06] MEDS ORDERED: SCOPOLAMINE 1.5MG PATCH. TD SCH (12:08)
--- NOTE | 2019-03-06 12:09 | NUR ---
Manually administered fent vial was placed in sharps container before scanning. Bendaryl PO non administered d/t pt requesting IV.
[2019-03-06] MEDS: TPN PER PHARMACY MC PRN ×2 (13:31→13:39)
--- NOTE | 2019-03-06 13:41 | NUR ---
Pharmacy TPN Dosing Note S: RENETTAMERISSA is a 48 year old M Currently receiving Central Cyclic TPN started 03/05/19 B:Pertinent PMH: protein malnutrition, home TPN Height: 5 feet, 8 inches Weight: 72.2 kg Current diet: cardiac LABS: Sodium: 134 Potassium: 4.8 Chloride: 99 Calcium: 8.3 Corrected Calcium: 9.02 Magnesium: 2.1 CO2: 28 SCr: 0.9 Glucose: 132 Albumin: 3.1 AST: 23 ALT: 25 TPN FORMULA: TPN TYPE: Central Cyclic AMINO ACIDS: 120 gm DEXTROSE: 340 gm SODIUM CHLORIDE: 85 mEq SODIUM PHOSPHATE: 30 mmol POTASSIUM ACETATE: 80 mEq MAGNESIUM: 8 mEq CALCIUM: 10 mEq MULTIPLE VITAMIN: 10ml TRACE ELEMENTS: 1 ml(s) TPN PLAN: Patient's triglycerides >500. Lipids to be removed from tonight's TPN. R: Change TPN per plan and ordered formula Will monitor electrolytes, glucose, and tolerance to TPN. Sarah Morrison RPH, 03/06/19 [id number]
--- NOTE | 2019-03-06 14:54 | NUR ---
Pt transferred to room 662. Report given to REAL Gerenberg. Assisted pt to wheelchair and packed belongings. Taken to room 662 and pt ambulated to bed.
[2019-03-06] MEDS: WARFARIN 5 MG TABLET. PO SCH (15:27)
[2019-03-06 15:34] VITALS: BP 121/79
[2019-03-06] MEDS: BETHANECHOL CHLORIDE 25 MG TABLET PO SCH (16:30)
[2019-03-06 19:00] VITALS: BP 117/79
[2019-03-06] MEDS ORDERED: DEXTROSE 70% IV SCH ×9 (22:00)
[2019-03-06] MEDS ORDERED: AMINO ACID IV SCH ×9 (22:00)
[2019-03-06] MEDS ORDERED: [UNRECOGNIZED DRUG - OTHER] IV SCH ×9 (22:00)
[2019-03-06] MEDS ORDERED: TOTAL PARENTERAL NUTRITION IV SCH ×9 (22:00)
[2019-03-06 23:00] VITALS: BP 105/73
[2019-03-06] MEDS: ONDANSETRON PF 4 MG/2 ML VIAL. IV PRN (23:09)
[2019-03-07] MEDS: diphenhydrAMINE 50 MG/ML VIAL IVP PRN ×5 (02:09→23:04)
[2019-03-07] MEDS: fentaNYL PF VIAL 100 MCG/2 ML VIAL IV PRN ×9 (02:10→23:00)
[2019-03-07 03:00] VITALS: BP 106/69
[2019-03-07] MEDS: ONDANSETRON ODT 4 MG TAB.RAPDIS. PO SCH ×3 (06:00→23:04)
[2019-03-07] MEDS: diphenhydrAMINE HCL 25 MG CAPSULE PO SCH ×4 (06:00→17:33)
[2019-03-07 07:00] VITALS: BP 100/58
[2019-03-07 07:10] LABS: CALCIUM 8.7 mg/dL (8.5-10.1); CREATININE 0.9 mg/dL (0.7-1.3); GFR 90.1; MAGNESIUM 2.1 mg/dL (1.8-2.4); POTASSIUM 4.9 mmol/L (3.5-5.1)
--- NOTE | 2019-03-07 08:38 | PDOC ---
JOSÉ MANUEL GRAY [employer]APHITE [employer]K [employer]SEMBLER 03/07/19 0838: SURGICAL PROGRESS NOTE Subjective using groshong now, no issues hoping to go home today Vital Signs Vital Signs Date Time Temp Pulse Resp B/P (MAP) Pulse Ox O2 Delivery O2 Flow Rate FiO2 03/07/19 06:50 Room Air 03/07/19 03:00 98.4 62 18 106/69 (81) 95 98.4 03/06/19 19:00 4.0 I&O Intake and Output 03/07/19 06:59 Intake Total 200 ml Balance 200 ml Intake Oral 200 ml General: Alert, Oriented X3, Cooperative, No acute distress HEENT: Other (groshong functioning ) Labs Laboratory Tests Test 03/06/19 06:00 03/06/19 11:48 03/07/19 06:43 Heparin Anti-Xa Act, Unfractionated 0.24 IU/mL (0.30-0.70) 0.62 IU/mL (0.30-0.70) Sodium Level 134 mmol/L (136-145) 131 mmol/L (136-145) Potassium Level 4.8 mmol/L (3.5-5.1) 4.9 mmol/L (3.5-5.1) Chloride Level 99 mmol/L (98-107) 95 mmol/L (98-107) Carbon Dioxide Level 28 mmol/L (21-32) 29 mmol/L (21-32) Anion Gap 7 (6-14) 7 (6-14) Blood Urea Nitrogen 19 mg/dL (8-26) 26 mg/dL (8-26) Creatinine 0.9 mg/dL (0.7-1.3) 0.9 mg/dL (0.7-1.3) Estimated GFR (Cockcroft-Gault) 90.1 90.1 Glucose Level 132 mg/dL (70-99) 92 mg/dL (70-99) Calcium Level 8.3 mg/dL (8.5-10.1) 8.7 mg/dL (8.5-10.1) Phosphorus Level 3.3 mg/dL (2.6-4.7) 4.0 mg/dL (2.6-4.7) Magnesium Level 2.1 mg/dL (1.8-2.4) 2.1 mg/dL (1.8-2.4) Triglycerides Level 543 mg/dL (0-150) Laboratory Tests Test 03/06/19 11:48 03/07/19 06:43 Heparin Anti-Xa Act, Unfractionated 0.62 IU/mL (0.30-0.70) Sodium Level 131 mmol/L (136-145) Potassium Level 4.9 mmol/L (3.5-5.1) Chloride Level 95 mmol/L (98-107) Carbon Dioxide Level 29 mmol/L (21-32) Anion Gap 7 (6-14) Blood Urea Nitrogen 26 mg/dL (8-26) Creatinine 0.9 mg/dL (0.7-1.3) Estimated GFR (Cockcroft-Gault) 90.1 Glucose Level 92 mg/dL (70-99) Calcium Level 8.7 mg/dL (8.5-10.1) Phosphorus Level 4.0 mg/dL (2.6-4.7) Magnesium Level 2.1 mg/dL (1.8-2.4) Problem List Problems Medical Problems: (1) DVT (deep venous thrombosis) Status: Acute (2) Pulmonary embolism Status: Acute Assessment/Plan PE, DVT anticoagulants JANIE MORALES MD 03/07/19 1220: SURGICAL PROGRESS NOTE Assessment/Plan Pt seen and examined. agree with Ms. Gray's note Pt with decreased swelling and improved sensation in RUQ changing to lovenox to d/c home. No surgical plans. JOSÉ MANUEL GRAY APRN March 07, 2019 08:38 JANIE MORALES MD March 07, 2019 12:20
[2019-03-07] MEDS: PANTOPRAZOLE 40 MG TABLET.DR. PO SCH (08:56)
[2019-03-07] MEDS: VENLAFAXINE XR 37.5 MG CAP.ER.24H. PO SCH (08:56)
[2019-03-07] MEDS: BETHANECHOL CHLORIDE 25 MG TABLET PO SCH (08:56)
[2019-03-07] MEDS: METOPROLOL TART IMMED RELEASE 50 MG TABLET. PO SCH ×2 (08:57→20:30)
[2019-03-07 09:53] LABS: PROTHROMBIN TIME PATIENT 13.4 SEC (11.7-14.0)
[2019-03-07 11:00] VITALS: BP 117/79
[2019-03-07] MEDS: BETHANECHOL CHLORIDE 10 MG TABLET. PO SCH ×2 (11:35→16:19)
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
[2019-03-07] MEDS: TPN PER PHARMACY MC PRN (13:43)
--- NOTE | 2019-03-07 13:44 | NUR ---
Pharmacy TPN Dosing Note S: RENETTAMERISSA is a 48 year old M Currently receiving Central Cyclic TPN started 03/05/19 B:Pertinent PMH: protein malnutrition, home TPN Height: 5 feet, 8 inches Weight: 66 kg Current diet: cardiac LABS: Sodium: 131 Potassium: 4.9 Chloride: 95 Calcium: 8.7 Corrected Calcium: 9.42 Magnesium: 2.1 CO2: 29 SCr: 0.9 Glucose: 92 Albumin: 3.1 AST: 23 ALT: 25 TPN FORMULA: TPN TYPE: Central Cyclic AMINO ACIDS: 120 gm DEXTROSE: 340 gm SODIUM CHLORIDE: 120 mEq SODIUM PHOSPHATE: 30 mmol POTASSIUM ACETATE: 60 mEq MAGNESIUM: 8 mEq CALCIUM: 10 mEq INSULIN: - units MULTIPLE VITAMIN: 10 mL TRACE ELEMENTS: 1 ml(s) TPN PLAN: Potassium decreased to 60mEq and Sodium increased to 120mEq. R: Change TPN Will monitor electrolytes, glucose, and tolerance to TPN. Sarah Morrison Felipe, 03/07/19 2584
[2019-03-07 15:00] VITALS: BP 117/71
--- NOTE | 2019-03-07 16:06 | NUR ---
Can youi please send up the Bethanechol for this patient's next dose? Thanks Julia Addendum: 03/07/19 at 1608 by JULIA RIZVI RN RN Note added in the incorrect place
[2019-03-07] MEDS: WARFARIN 5 MG TABLET. PO SCH (16:18)
[2019-03-07 19:40] VITALS: BP 113/77
[2019-03-07] MEDS ORDERED: [UNRECOGNIZED DRUG - OTHER] IV SCH ×9 (22:00)
[2019-03-07] MEDS ORDERED: DEXTROSE 70% IV SCH ×9 (22:00)
[2019-03-07] MEDS ORDERED: TOTAL PARENTERAL NUTRITION IV SCH ×9 (22:00)
[2019-03-07] MEDS ORDERED: AMINO ACID IV SCH ×9 (22:00)
[2019-03-07 23:20] VITALS: BP 119/75
[2019-03-08] MEDS: fentaNYL PF VIAL 100 MCG/2 ML VIAL IV PRN ×5 (01:25→12:15)
[2019-03-08] MEDS: diphenhydrAMINE 50 MG/ML VIAL IVP PRN ×2 (03:33→09:13)
[2019-03-08 03:44] VITALS: BP 113/73
[2019-03-08 05:35] LABS: CALCIUM 8.8 mg/dL (8.5-10.1); GFR 79.8; MAGNESIUM 2.3 mg/dL (1.8-2.4); PHOSPHORUS 4.3 mg/dL (2.6-4.7); POTASSIUM 4.6 mmol/L (3.5-5.1)
[2019-03-08] MEDS: diphenhydrAMINE HCL 25 MG CAPSULE PO SCH ×3 (06:00→12:13)
[2019-03-08 07:00] VITALS: BP 107/63
--- NOTE | 2019-03-08 09:02 | PDOC ---
SURGICAL PROGRESS NOTE Subjective no issues with Groshong working arm swelling improving Vital Signs Vital Signs Date Time Temp Pulse Resp B/P (MAP) Pulse Ox O2 Delivery O2 Flow Rate FiO2 03/08/19 07:00 98.0 59 16 107/63 (78) 98 Room Air 98.0 I&O Intake and Output 03/08/19 06:59 Intake Total 450 ml Balance 450 ml Intake Oral 450 ml # Voids 5 General: Alert, Oriented X3, Cooperative, No acute distress HEENT: Other (groshong without any swelling, reddness ) Labs Laboratory Tests Test 03/06/19 11:48 03/07/19 06:43 03/07/19 09:25 03/08/19 04:30 Heparin Anti-Xa Act, Unfractionated 0.62 IU/mL (0.30-0.70) Sodium Level 131 mmol/L (136-145) 134 mmol/L (136-145) Potassium Level 4.9 mmol/L (3.5-5.1) 4.6 mmol/L (3.5-5.1) Chloride Level 95 mmol/L (98-107) 98 mmol/L (98-107) Carbon Dioxide Level 29 mmol/L (21-32) 25 mmol/L (21-32) Anion Gap 7 (6-14) 11 (6-14) Blood Urea Nitrogen 26 mg/dL (8-26) 27 mg/dL (8-26) Creatinine 0.9 mg/dL (0.7-1.3) 1.0 mg/dL (0.7-1.3) Estimated GFR (Cockcroft-Gault) 90.1 79.8 Glucose Level 92 mg/dL (70-99) 124 mg/dL (70-99) Calcium Level 8.7 mg/dL (8.5-10.1) 8.8 mg/dL (8.5-10.1) Phosphorus Level 4.0 mg/dL (2.6-4.7) 4.3 mg/dL (2.6-4.7) Magnesium Level 2.1 mg/dL (1.8-2.4) 2.3 mg/dL (1.8-2.4) Prothrombin Time 13.4 SEC (11.7-14.0) Prothromb Time International Ratio 1.1 (0.8-1.1) Triglycerides Level 141 mg/dL (0-150) Laboratory Tests Test 03/07/19 09:25 03/08/19 04:30 Prothrombin Time 13.4 SEC (11.7-14.0) Prothromb Time International Ratio 1.1 (0.8-1.1) Sodium Level 134 mmol/L (136-145) Potassium Level 4.6 mmol/L (3.5-5.1) Chloride Level 98 mmol/L (98-107) Carbon Dioxide Level 25 mmol/L (21-32) Anion Gap 11 (6-14) Blood Urea Nitrogen 27 mg/dL (8-26) Creatinine 1.0 mg/dL (0.7-1.3) Estimated GFR (Cockcroft-Gault) 79.8 Glucose Level 124 mg/dL (70-99) Calcium Level 8.8 mg/dL (8.5-10.1) Phosphorus Level 4.3 mg/dL (2.6-4.7) Magnesium Level 2.3 mg/dL (1.8-2.4) Triglycerides Level 141 mg/dL (0-150) Problem List Problems Medical Problems: (1) DVT (deep venous thrombosis) Status: Acute (2) Pulmonary embolism Status: Acute Assessment/Plan medical management no surgical needs can FU in clinic with Dr Sarabia if any issues arise available as needed, will sign off JOSÉ MANUEL GRAY APRN March 08, 2019 09:02
[2019-03-08] MEDS: ONDANSETRON ODT 4 MG TAB.RAPDIS. PO SCH (09:07)
[2019-03-08] MEDS: VENLAFAXINE XR 37.5 MG CAP.ER.24H. PO SCH (09:08)
[2019-03-08] MEDS: METOPROLOL TART IMMED RELEASE 50 MG TABLET. PO SCH (09:08)
[2019-03-08] MEDS: PANTOPRAZOLE 40 MG TABLET.DR. PO SCH (09:08)
[2019-03-08] MEDS: BETHANECHOL CHLORIDE 10 MG TABLET. PO SCH ×2 (09:09→12:13)
[2019-03-08 10:11] LABS: PROTHROMBIN TIME PATIENT 13.4 SEC (11.7-14.0)
[2019-03-08 11:00] VITALS: BP 112/76
[2019-03-08] MEDS ORDERED: ENOX100D SQ (12:06)
[2019-03-08] MEDS ORDERED: WARF-78 PO ×3 (12:06→12:21)
--- NOTE | 2019-03-08 12:08 | SNU/HH DC ---
DISCHARGE WITH HOME HEALTH DISCHARGE INFORMATION: Discharge Date: March 08, 2019 Final Diagnosis: DVT and PE Problems Medical Problems: (1) DVT (deep venous thrombosis) Status: Acute (2) Pulmonary embolism Status: Acute Condition on Discharge: Stable CODE STATUS: Code Status: Full HOME HEALTH: Face to Face: I certify this patient is under my care and that I, or a nurse practitioner or physician's assistant professor of dietetics working with me, had a face to face encounter that meets the physician face to face encounter requirements with this patient on 03/08 Usp For: IV Infusion Therapy, Other: (TPN, ) RN For Eval/Treatment: Yes Pt Meets Homebound Status: Extreme weakness w/ amb., Other: POST DISCHARGE ORDERS: Activity Instructions for Disc: Activity as tolerated Bathing Instructions: Shower-keep dressing dry CHECKS AFTER DISCHARGE: Comment: continue the prior TPN order FOLLOW-UP: Follow up with: primary care DC TO SNF LABS: resume labs for TPN management Warfarin Follow UP: 3x week INR for 2 weeks, then weekly, goal INR 2-3 TREATMENT/EQUIPMENT ORDERS: Adaptive Equipment Issued: None Infusion Equipment, home use: PortaCath (grosong) CERTIFICATION STATEMENT: Certification Statement: Certification Statement: Based on the above finding, I certify that this patient is confined to the home and needs intermittent intermediate care, physical therapy and/or speech therapy, or continues to need occupational therapy.~ This patient is under my care, and I have initiated the establishment of the plan of care.~ This patient will be followed by myself or a community physician who will periodically review the plan of care. Home Meds Active Scripts Bethanechol Chloride (URECHOLINE) 10 Mg Tablet, 5 MG PO TIDAC for gastric motility, #90 TAB Prov:MARTA LEDESMA MD 03/08/19 Warfarin Sodium (COUMADIN) 5 Mg Tablet, 10 MG PO DAILY16 for DVT, #60 TAB check INR 3x a week for 2 weeks, then weekly Prov:MARTA LEDESMA MD 03/08/19 Enoxaparin Sodium (LOVENOX) 100 Mg/1 Ml Disp.syrin, 100 MG SQ DAILY for ANTI- COAGULANT for 7 Days, DIS.SYR Prov:MARTA LEDESMA MD 03/08/19 Reported Medications Promethazine Hcl (PROMETHAZINE HCL) 12.5 Mg Tablet, 25 MG PO Q6H for Nausea, TAB 03/05/19 Clonidine Hcl (CLONIDINE HCL) 0.1 Mg Tablet, 0.1 MG PO PRN Q6HRS PRN for ANXIETY / AGITATION, TAB 02/20/19 Diphenhydramine Hcl (BENADRYL) 25 Mg Capsule, 50 MG PO Q6HRS for Itching and Nausea, CAP 02/20/19 Venlafaxine Hcl (VENLAFAXINE HCL) 75 Mg Tablet, 75 MG PO DAILY for DEPRESSION, TAB 02/20/19 Ranitidine Hcl (RANITIDINE HCL) 150 Mg Capsule, 150 MG PO QID, TAB 04/04/18 Dexlansoprazole (DEXILANT) 60 Mg Cap.mp, 60 MG PO BIDAC, CAP 04/04/18 Metoprolol Tartrate (METOPROLOL TARTRATE) 25 Mg Tablet, 2 TAB PO BID for HTN, #180 TAB 1 Refill 04/03/18 Scopolamine (TRANSDERM-SCOP) 1 Each Patch.td72, 1 PATCH TP Q3DAYS, #4 PATCH 04/03/18 Ondansetron (ONDANSETRON ODT) 8 Mg Tab.rapdis, 8 MG PO Q8HRS for Nausea, TAB 04/03/18 Discontinued Scripts Warfarin Sodium (COUMADIN) 5 Mg Tablet, 7.5 MG PO DAILY16 for DVT, #30 TAB check INR 3x a week for 2 weeks, then weekly Prov:MARTA LEDESMA MD 03/08/19 MARTA LEDESMA MD March 08, 2019 12:08
[2019-03-08] MEDS: TPN PER PHARMACY MC PRN (12:11)
--- NOTE | 2019-03-08 12:12 | NUR ---
Pharmacy TPN Dosing Note S: JACKSONMERISSA is a 48 year old M Currently receiving Central Cyclic TPN started 03/05/19 B:Pertinent PMH: gastroparesis, home TPN Height: 5 feet, 8 inches Weight: 67.205190 kg Current diet: cardiac LABS: Sodium: 134 Potassium: 4.6 Chloride: 98 Calcium: 8.8 Corrected Calcium: 9.52 Magnesium: 2.3 CO2: 27 SCr: 1 Glucose: 124 Albumin: 3.1 AST: 23 ALT: 25 TPN FORMULA: TPN TYPE: Central Cyclic AMINO ACIDS: 120 gm DEXTROSE: 340 gm LIPIDS: 0 gm SODIUM CHLORIDE: 120 mEq SODIUM ACETATE: - mEq SODIUM PHOSPHATE: 30 mmol POTASSIUM CHLORIDE: mEq POTASSIUM ACETATE: 60 mEq POTASSIUM PHOSPHATE: mmol MAGNESIUM: 8 mEq CALCIUM: 10 mEq INSULIN: - units MULTIPLE VITAMIN: TRACE ELEMENTS: 1 ml(s) TPN PLAN: Decreased fluid volume by 300 ml to compensate for loss of lipid component since pt's Na is trending down. No other changes, BMP/trig Sunday. Pt may DC today. R: Continue TPN ABOVE. Will monitor electrolytes, glucose, and tolerance to TPN. MELISA GALEANO [facility], 03/08/19 1215
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
[2019-03-08] MEDS ORDERED: BETH10TA12 PO (12:51)
--- NOTE | 2019-03-08 13:44 | NUR ---
Pt was discahrged home with home health. gave pt 3 scripts, Coumadin 7.5 mg daily for 16 days, Coumadin 10mg daily for 16 days, Enoxaparin Inj for 7 days. wheeled down to main entrance to be driven hm by signif other. Kevin Medina RN
[2019-03-08] MEDS ORDERED: [UNRECOGNIZED DRUG - OTHER] IV SCH ×9 (22:00)
[2019-03-08] MEDS ORDERED: TOTAL PARENTERAL NUTRITION IV SCH ×9 (22:00)
[2019-03-08] MEDS ORDERED: DEXTROSE 70% IV SCH ×9 (22:00)
[2019-03-08] MEDS ORDERED: AMINO ACID IV SCH ×9 (22:00)
== END 2019-03-08 13:18 | disposition home health service (06) | DRG 299 ==
LOC: ER 09:23 → 2 SOUTH 13:48 → ER 14:39 → 6 SOUTH 03-06 14:58
PROVIDERS: ADMIT Internal Medicine; ATTEND Internal Medicine
DX: I82.621 Acute embolism and thrombosis of deep veins of right upper extremity (principal); I26.99 Other pulmonary embolism without acute cor pulmonale; E44.0 Moderate protein-calorie malnutrition; J98.11 Atelectasis; I82.B11 Acute embolism and thrombosis of right subclavian vein; D64.9 Anemia, unspecified; F43.10 Post-traumatic stress disorder, unspecified; G89.29 Other chronic pain; I10 Essential (primary) hypertension; I25.10 Atherosclerotic heart disease of native coronary artery without angina pectoris; K21.9 Gastro-esophageal reflux disease without esophagitis; K22.9 Disease of esophagus, unspecified; K31.84 Gastroparesis; Z79.01 Long term (current) use of anticoagulants; Z86.11 Personal history of tuberculosis; Z86.718 Personal history of other venous thrombosis and embolism; Z93.3 Colostomy status; Z98.84 Bariatric surgery status; F32.9 Major depressive disorder, single episode, unspecified; F41.9 Anxiety disorder, unspecified; Z68.22 Body mass index [BMI] 22.0-22.9, adult; Z88.8 Allergy status to other drugs, medicaments and biological substances; Z90.49 Acquired absence of other specified parts of digestive tract
CPT/HCPCS: 36415; 71275; 80048; 80053; 83690; 83735; 84100; 84478; 85025; 85520; 85610; 93971; 96361; 96365; 96375; J0610; J1200; J1644; J1650; J2405; J3010; J3475; J3490; J7030; Q0162; Q0163; Q0169; Q9967; 99285-25

== ENCOUNTER 2019-03-25 09:09 | Emergency (ER) | payer MEDICARE, OTHER ==
[~2019-03-25] VITALS: Ht 172.7 cm; Wt 69.4 kg
[~2019-03-25 09:09] MED LIST changes: +BETH10TA12 PO; +ENOX100D SQ; +PROM12.58 PO; +WARF-78 PO
[2019-03-25 10:28] LABS: BASO % 1 % (0-3); EOS % 1 % (0-3); HEMATOCRIT 30.4 % (39.0-53.0); HEMOGLOBIN 9.6 g/dL (13.0-17.5); LYMPH # 0.9 x10^3/uL (1.0-4.8); LYMPH % 26 % (24-48); MEAN CORPUSCULAR HEMOGLOBIN 24 pg (25-35); MEAN CORPUSCULAR HGB CONC 32 g/dL (31-37); MEAN CORPUSCULAR VOLUME 75 fL (79-100); MONO # 0.4 x10^3/uL (0.0-1.1); MONO % 12 % (0-9); NEUT # 2.2 x10^3uL (1.8-7.7); NEUT % 61 % (31-73); PLATELET COUNT 192 x10^3/uL (140-400); RED BLOOD COUNT 4.07 x10^6/uL (4.30-5.70); RED CELL DISTRIBUTION WIDTH 19.4 % (11.5-14.5); WHITE BLOOD COUNT 3.6 x10^3/uL (4.0-11.0)
[2019-03-25] MEDS ORDERED: IV NORMAL SALINE 1000ML BAG 1,000 ML IV ONE (10:30)
[2019-03-25] MEDS ORDERED: PROCHLORPERAZINE 10 MG/2 ML VIAL. IV ONE (10:30)
[2019-03-25] MEDS ORDERED: fentaNYL PF VIAL 100 MCG/2 ML VIAL IV ONE ×2 (10:30→12:00)
[2019-03-25] MEDS ORDERED: diphenhydrAMINE 50 MG/ML VIAL IVP ONE ×2 (10:30→12:15)
[2019-03-25 10:36] LABS: CALCIUM 8.5 mg/dL (8.5-10.1); CREATININE 1.1 mg/dL (0.7-1.3); GFR 71.4; POTASSIUM 4.3 mmol/L (3.5-5.1)
[2019-03-25 10:42] LABS: ALBUMIN/GLOBULIN RATIO 0.7 (1.0-1.7); TOTAL BILIRUBIN 0.3 mg/dL (0.2-1.0); TOTAL PROTEIN 7.2 g/dL (6.4-8.2)
[2019-03-25] MEDS ORDERED: ONDANSETRON PF 4 MG/2 ML VIAL. IV ONE (10:45)
[2019-03-25 11:56] VITALS: BP 143/92
--- NOTE | 2019-03-25 12:26 | PHYS DOC ---
Past Medical History Past Medical History: Anxiety, Depression, GERD, Other Additional Past Medical Histor: PTSD, GASTROPARESIS, TBI Past Surgical History: Colectomy, Gastric Bypass, Other Additional Past Surgical Histo: HERNIA REPAIR, COLOSTOMY, JTUBE, GTUBE and removal, GASTRIC STIMULATOR Alcohol Use: None Drug Use: None Adult General Chief Complaint Chief Complaint: NAUSEA/VOMITING/DIARRHA HPI HPI Patient is a 48 year old history of gastroparesis currently on TPN who presents to the ED today complaining of gastroparesis flare up with nausea and vomiting, as well as chronic mild left upper quadrant abdominal pain patient states symptoms got worse in the last 2 days. Patient states he has tried his home regimen which includes promethazine, Zofran, no relief. He has history of multiple abdominal surgeries. He has a couple wounds on his abdomen from G-tube and J-tube removal as well as an abdominal hernia. He states the wounds are healing well, he states the wounds have been cultured before they did not grow infection. He is requesting pain management, IV fluids and nausea medicine and Benadryl. Review of Systems Review of Systems Constitutional: Denies fever or chills [] Eyes: Stye to the right lower eyelid. Denies change in visual acuity, redness, or eye pain [] HENT: Denies nasal congestion or sore throat [] Respiratory: Denies cough or shortness of breath [] Cardiovascular: No additional information not addressed in HPI [] GI: Reports abdominal pain, nausea vomiting or, denies bloody stools or diarrhea [] : Denies dysuria or hematuria [] Musculoskeletal: Denies back pain or joint pain [] Integument: Denies rash or skin lesions [] Neurologic: Denies headache, focal weakness or sensory changes [] All other systems were reviewed and found to be within normal limits, except as documented in this note. Current Medications Current Medications Current Medications Medications (Trade) Dose Ordered Sig/Ed Start Time Stop Time Status Last Admin Dose Admin Diphenhydramine HCl (Benadryl) 25 mg 1X ONCE 03/25/19 12:15 03/25/19 12:16 DC 03/25/19 12:19 25 MG Fentanyl Citrate (Fentanyl 2ml Vial) 50 mcg 1X ONCE 03/25/19 12:00 03/25/19 12:01 DC 03/25/19 12:19 50 MCG Ondansetron HCl (Zofran) 4 mg 1X ONCE 03/25/19 10:45 03/25/19 10:46 DC 03/25/19 11:01 4 MG Prochlorperazine Edisylate (Compazine) 10 mg 1X ONCE 03/25/19 10:30 03/25/19 10:31 Cancel Sodium Chloride 1,000 ml @ 1,000 mls/hr 1X ONCE 03/25/19 10:30 03/25/19 11:29 DC 03/25/19 10:41 1,000 MLS/HR Allergies Allergies Allergies Coded Allergies Type Severity Reaction Last Updated Verified morphine Allergy Severe Anaphylaxis Patient states can take Hydromorphone 03/04/19 Yes hydrocodone Allergy Intermediate Rash 03/04/19 Yes droperidol Adverse Reaction Intermediate DYSTONIA 03/04/19 Yes metoclopramide Adverse Reaction Intermediate DYSTONIA 03/04/19 Yes prochlorperazine Adverse Reaction Intermediate DYSTONIA 03/04/19 Yes Physical Exam Physical Exam Constitutional: Well developed, well nourished, no acute distress, non-toxic appearance. [] HENT: Normocephalic, atraumatic, bilateral external ears normal, oropharynx moist, no oral exudates, nose normal. []Right lower eyelid medial aspect with small swelling consistent with a stye. Eyes: PERRLA, EOMI, conjunctiva normal, no discharge. [] Neck: Normal range of motion, no tenderness, supple, no stridor. [] Cardiovascular:Heart rate regular rhythm, no murmur [] Lungs & Thorax: Bilateral breath sounds clear to auscultation [] Abdomen: Bowel sounds normal, soft, no tenderness, no masses, no pulsatile masses. [] Bowel sounds normal, soft, a small reducible ventral hernia is noted on the abdomen. There are two open wounds on the left abdomen, patient states the wounds are chronic from G-tube and J- tube removal sites he states the wound have been swabbed before and cultures were negative. There is slight erythema of the areas, no obvious drainage today from the wounds. Diffuse tenderness on the left upper quadrant,no masses Groshong noted on the chest Skin: Warm, dry, no erythema, no rash. [] Back: No tenderness, no CVA tenderness. [] Extremities: No tenderness, no cyanosis, no clubbing, ROM intact, no edema. [] Neurologic: Alert and oriented X 3, normal motor function, normal sensory function, no focal deficits noted. [] Psychologic: Affect normal, judgement normal, mood normal. [] Current Patient Data Vital Signs Vital Signs Date Time Temp Pulse Resp B/P (MAP) Pulse Ox O2 Delivery O2 Flow Rate FiO2 03/25/19 12:19 100 03/25/19 09:19 97.2 69 18 143/94 (110) Room Air 97.2 Lab Values Laboratory Tests Test 03/25/19 10:11 White Blood Count 3.6 x10^3/uL (4.0-11.0) L Red Blood Count 4.07 x10^6/uL (4.30-5.70) L Hemoglobin 9.6 g/dL (13.0-17.5) L Hematocrit 30.4 % (39.0-53.0) L Mean Corpuscular Volume 75 fL (79-100) L Mean Corpuscular Hemoglobin 24 pg (25-35) L Mean Corpuscular Hemoglobin Concent 32 g/dL (31-37) Red Cell Distribution Width 19.4 % (11.5-14.5) H Platelet Count 192 x10^3/uL (140-400) Neutrophils (%) (Auto) 61 % (31-73) Lymphocytes (%) (Auto) 26 % (24-48) Monocytes (%) (Auto) 12 % (0-9) H Eosinophils (%) (Auto) 1 % (0-3) Basophils (%) (Auto) 1 % (0-3) Neutrophils # (Auto) 2.2 x10^3uL (1.8-7.7) Lymphocytes # (Auto) 0.9 x10^3/uL (1.0-4.8) L Monocytes # (Auto) 0.4 x10^3/uL (0.0-1.1) Eosinophils # (Auto) 0.0 x10^3/uL (0.0-0.7) Basophils # (Auto) 0.0 x10^3/uL (0.0-0.2) Sodium Level 136 mmol/L (136-145) Potassium Level 4.3 mmol/L (3.5-5.1) Chloride Level 101 mmol/L (98-107) Carbon Dioxide Level 28 mmol/L (21-32) Anion Gap 7 (6-14) Blood Urea Nitrogen 12 mg/dL (8-26) Creatinine 1.1 mg/dL (0.7-1.3) Estimated GFR (Cockcroft-Gault) 71.4 BUN/Creatinine Ratio 11 (6-20) Glucose Level 117 mg/dL (70-99) H Calcium Level 8.5 mg/dL (8.5-10.1) Total Bilirubin 0.3 mg/dL (0.2-1.0) Aspartate Amino Transferase (AST) 19 U/L (15-37) Alanine Aminotransferase (ALT) 18 U/L (16-63) Alkaline Phosphatase 115 U/L (46-116) Total Protein 7.2 g/dL (6.4-8.2) Albumin 3.0 g/dL (3.4-5.0) L Albumin/Globulin Ratio 0.7 (1.0-1.7) L Lipase 97 U/L (73-393) Laboratory Tests 03/25/19 10:11 Laboratory Tests 03/25/19 10:11 EKG EKG [] Radiology/Procedures Radiology/Procedures [] Course & Med Decision Making Course & Med Decision Making Pertinent Labs and Imaging studies reviewed. (See chart for details) This is a 48-year-old male patient with long-standing history of gastroparesis presenting today complaining of nausea vomiting and chronic abdominal pain. There is nothing unusual about his symptoms today. Patient was given IV fluids. Nausea medicine and pain medicine. Symptoms have subsided. His labs are negative for any acute findings. Discharged to home and follow-up with his own PCP. Upon discharge and requested treatment for stye his had for 2 weeks on the right lower eyelid. He was put on erythromycin and instructed to follow-up with an ergonomics technician. Dragon Disclaimer Dragon Disclaimer This electronic medical record was generated, in whole or in part, using a voice recognition dictation system. Departure Departure Impression: Primary Impression: Nausea and vomiting Additional Impressions: Abdominal pain Gastroparesis Stye Disposition: 01 HOME, SELF-CARE Condition: STABLE Referrals: CHIRAG MALIK (PCP) Follow-up with your doctor/doctors as soon as possible OSIEL RON MD please follow up in 2 weeks Patient Instructions: Gastroparesis, Sty Additional Instructions: You were evaluated in the emergency room for gastroparesis. Continue your home regimen and follow-up with your primary care doctor as well as a specialist. Also follow up with the eye doctor for the sty Scripts Erythromycin Base (Erythromycin) 1 Gm Oint...g. 1 APPLIC OP Q4HRS W/A, #1 MISC Prov: MONICA LAWSON DEBORAH 03/25/19 Problem Qualifiers Primary Impression: Nausea and vomiting Vomiting type: unspecified Vomiting Intractability: non-intractable Qualified Codes: R11.2 - Nausea with vomiting, unspecified Additional Impressions: Abdominal pain Abdominal location: left upper quadrant Qualified Codes: R10.12 - Left upper quadrant pain Stye Laterality: right Eyelid: lower Qualified Codes: H00.012 - Hordeolum externum right lower eyelid MONICA LAWSON BRASS POURER March 25, 2019 12:26
[2019-03-25] MEDS ORDERED: ERYT1OIN6 OP (12:37)
== END 2019-03-25 12:44 | disposition home or self-care (01) ==
LOC: ER 09:09
DX: K31.84 Gastroparesis (principal); R11.2 Nausea with vomiting, unspecified; H00.012 Hordeolum externum right lower eyelid; S31.101A Unspecified open wound of abdominal wall, left upper quadrant without penetration into peritoneal cavity, initial encounter; F41.9 Anxiety disorder, unspecified; F32.9 Major depressive disorder, single episode, unspecified; K21.9 Gastro-esophageal reflux disease without esophagitis; Z93.3 Colostomy status; Z90.49 Acquired absence of other specified parts of digestive tract; Z88.5 Allergy status to narcotic agent; Z88.8 Allergy status to other drugs, medicaments and biological substances; K43.9 Ventral hernia without obstruction or gangrene; X58.XXXA Exposure to other specified factors, initial encounter; Y93.89 Activity, other specified; Y92.89 Other specified places as the place of occurrence of the external cause; Y99.8 Other external cause status
CPT/HCPCS: 36415; 80053; 83690; 85025; 96374; 96375; 96376; 99284; J1200; J2405; J3010; J7030

== ENCOUNTER 2019-04-09 08:54 | Emergency (ER) | payer MEDICARE, OTHER ==
[~2019-04-09] VITALS: Ht 172.7 cm; Wt 68.9 kg
[~2019-04-09 08:54] MED LIST changes: +ERYT1OIN6 OP
[2019-04-09] MEDS ORDERED: IV NORMAL SALINE 1000ML BAG 1,000 ML IV SCH (09:11)
[2019-04-09] MEDS ORDERED: PROMETHAZINE 12.5 MG TABLET. PO ONE (09:15)
[2019-04-09] MEDS ORDERED: HYDROmorphone 2 MG/ML VIAL IV ONE (09:15)
[2019-04-09] MEDS ORDERED: ONDANSETRON PF 4 MG/2 ML VIAL. IV ONE (09:15)
[2019-04-09] MEDS ORDERED: IV NORMAL SALINE 1000ML BAG 1,000 ML IV ONE (09:15)
[2019-04-09] MEDS ORDERED: diphenhydrAMINE 50 MG/ML VIAL IVP ONE (09:15)
--- NOTE | 2019-04-09 09:16 | PHYS DOC ---
Past Medical History Past Medical History: Anxiety, Depression, GERD, Other Additional Past Medical Histor: PTSD, GASTROPARESIS, TBI Past Surgical History: Colectomy, Gastric Bypass, Other Additional Past Surgical Histo: HERNIA REPAIR, COLOSTOMY, JTUBE, GTUBE and removal, GASTRIC STIMULATOR Alcohol Use: None Drug Use: None Adult General Chief Complaint Chief Complaint: NAUSEA/VOMITING/DIARRHA HPI HPI Patient is a 48-year-old male, with a past history of gastroparesis, and numerous prior abdominal surgeries, who is on home TPN due to malabsorption, who presents to the emergency department for evaluation of a flare of his gastroparesis, he states he has been having nausea and vomiting for the past 3 days. He has not had any bloody emesis, or change in his chronically loose stools. He has not had any bloody stools. He does report some left-sided abdominal soreness which typically flares up when he is having vomiting episodes. He denies any chest pain, or shortness of breath. He has not had any fevers or chills. There are no alleviating or exacerbating factors to his symptoms. He states typically when he has a flare of the symptoms, he receives Zofran, Phenergan, Benadryl, and some pain medication to manage his symptoms. He is followed by a Dr. Arevalo, a GI physician at [facility]. Review of Systems Review of Systems Constitutional: Denies fever or chills [] Eyes: Denies change in visual acuity, redness, or eye pain [] HENT: Denies nasal congestion or sore throat [] Respiratory: Denies cough or shortness of breath [] Cardiovascular: The patient denies any shortness of breath, chest pain, palpit ations, or orthopnea [] GI: No additional information not addressed in HPI [] : Denies dysuria or hematuria [] Musculoskeletal: Denies back pain or joint pain [] Integument: Denies rash or skin lesions [] Neurologic: Denies headache, focal weakness or sensory changes [] Endocrine: Denies polyuria or polydipsia [] All other systems were reviewed and found to be within normal limits, except as documented in this note. Current Medications Current Medications Current Medications Medications (Trade) Dose Ordered Sig/Ed Start Time Stop Time Status Last Admin Dose Admin Diphenhydramine HCl (Benadryl) 25 mg 1X ONCE 04/09/19 09:15 04/09/19 09:16 DC 04/09/19 09:50 25 MG Hydromorphone HCl (Dilaudid) 0.5 mg 1X ONCE 04/09/19 09:15 04/09/19 09:16 DC 04/09/19 09:52 0.5 MG Lorazepam (Ativan Inj) 1 mg 1X ONCE 04/09/19 11:45 04/09/19 11:46 DC 04/09/19 11:44 1 MG Ondansetron HCl (Zofran) 8 mg 1X ONCE 04/09/19 09:15 04/09/19 09:16 DC 04/09/19 09:48 8 MG Potassium Chloride (Klor-Con) 40 meq 1X ONCE 04/09/19 11:00 04/09/19 11:01 DC 04/09/19 11:04 40 MEQ Promethazine HCl (Phenergan) 25 mg 1X ONCE 04/09/19 09:15 04/09/19 09:16 DC 04/09/19 09:54 25 MG Sodium Chloride 1,000 ml @ 1,000 mls/hr Q1H 04/09/19 09:11 04/09/19 10:10 DC 04/09/19 09:44 1,000 MLS/HR Allergies Allergies Allergies Coded Allergies Type Severity Reaction Last Updated Verified morphine Allergy Severe Anaphylaxis Patient states can take Hydromorphone 03/04/19 Yes hydrocodone Allergy Intermediate Rash 03/04/19 Yes droperidol Adverse Reaction Intermediate DYSTONIA 03/04/19 Yes metoclopramide Adverse Reaction Intermediate DYSTONIA 03/04/19 Yes prochlorperazine Adverse Reaction Intermediate DYSTONIA 03/04/19 Yes Physical Exam Physical Exam PHYSICAL EXAM: CONSTITUTIONAL: Well developed, well nourished HEAD: normocephalic, atraumatic EENT: PERRL, EOMI. Conjunctivae normal color, sclerae non-icteric; moist mucous membranes. NECK: Supple, non-tender; no meningismus. LUNGS: Lungs CTA, breathing even and unlabored. Normal air movement. HEART: Regular tachycardia, no murmur CHEST: No deformity; non-tender ABDOMEN: The abdomen is soft, there is mild left upper abdominal tenderness to palpation, bowel sounds are present, there is no rebound or guarding, no masses or bruits. There are numerous scars on the abdomen, with several feeding tube tracts.. There is a gastric pacemaker palpable in the right lower abdomen. EXTREM: Normal ROM; no deformity, no calf tenderness. Normal pulses palpable in all extremities. There is no pedal edema. SKIN: No rash; no diaphoresis NEURO: Alert; normal speech and cognition; CN's grossly intact; strength grossly intact without focal deficit. BACK: No CVA TTP. Current Patient Data Vital Signs Vital Signs Date Time Temp Pulse Resp B/P (MAP) Pulse Ox O2 Delivery O2 Flow Rate FiO2 04/09/19 09:52 16 99 Room Air 04/09/19 08:55 98.2 116 157/90 (112) 98.2 Lab Values Laboratory Tests Test 04/09/19 09:05 White Blood Count 6.0 x10^3/uL (4.0-11.0) Red Blood Count 4.62 x10^6/uL (4.30-5.70) Hemoglobin 10.9 g/dL (13.0-17.5) L Hematocrit 34.0 % (39.0-53.0) L Mean Corpuscular Volume 74 fL (79-100) L Mean Corpuscular Hemoglobin 24 pg (25-35) L Mean Corpuscular Hemoglobin Concent 32 g/dL (31-37) Red Cell Distribution Width 18.4 % (11.5-14.5) H Platelet Count 305 x10^3/uL (140-400) Neutrophils (%) (Auto) 71 % (31-73) Lymphocytes (%) (Auto) 20 % (24-48) L Monocytes (%) (Auto) 8 % (0-9) Eosinophils (%) (Auto) 1 % (0-3) Basophils (%) (Auto) 1 % (0-3) Neutrophils # (Auto) 4.2 x10^3uL (1.8-7.7) Lymphocytes # (Auto) 1.2 x10^3/uL (1.0-4.8) Monocytes # (Auto) 0.5 x10^3/uL (0.0-1.1) Eosinophils # (Auto) 0.0 x10^3/uL (0.0-0.7) Basophils # (Auto) 0.0 x10^3/uL (0.0-0.2) Sodium Level 134 mmol/L (136-145) L Potassium Level 3.0 mmol/L (3.5-5.1) L Chloride Level 97 mmol/L (98-107) L Carbon Dioxide Level 24 mmol/L (21-32) Anion Gap 13 (6-14) Blood Urea Nitrogen 18 mg/dL (8-26) Creatinine 1.5 mg/dL (0.7-1.3) H Estimated GFR (Cockcroft-Gault) 49.9 BUN/Creatinine Ratio 12 (6-20) Glucose Level 218 mg/dL (70-99) H Lactic Acid Level 3.6 mmol/L (0.4-2.0) H Calcium Level 8.5 mg/dL (8.5-10.1) Total Bilirubin 0.3 mg/dL (0.2-1.0) Aspartate Amino Transferase (AST) 96 U/L (15-37) H Alanine Aminotransferase (ALT) 68 U/L (16-63) H Alkaline Phosphatase 130 U/L (46-116) H Total Protein 7.8 g/dL (6.4-8.2) Albumin 3.5 g/dL (3.4-5.0) Albumin/Globulin Ratio 0.8 (1.0-1.7) L Lipase 129 U/L (73-393) Ethyl Alcohol Level 91 mg/dL (0-10) H Acetone Level Neg (NEG) Laboratory Tests 04/09/19 09:05 Laboratory Tests 04/09/19 09:05 EKG EKG Sinus tachycardia at a rate of 115 beats for minute, leftward axis, normal intervals. There are no acute ischemic ST/T changes present.[] Radiology/Procedures Radiology/Procedures [] Course & Med Decision Making Course & Med Decision Making Pertinent Labs and Imaging studies reviewed. (See chart for details). Patient's hemoglobin is at its baseline. []12:30 PM: The patient's condition remained stable. He is feeling better and has had no further emesis. I do believe there is some element of dehydration explained and the patient's elevated lactic acid. He does not appear to have any signs of infection at this time. He has not been able to provide a urine specimen. I did discuss his elevated alcohol level, he denied using alcohol to me initially, and I did discuss importance of close PCP follow-up as I do suspect his alcohol use might be relating to his symptoms. We discussed test r esults and return precautions in detail. The patient does have an adequate supply of Zofran at home. Dragon Disclaimer Dragon Disclaimer This electronic medical record was generated, in whole or in part, using a voice recognition dictation system. Departure Departure Impression: Primary Impression: Nausea and vomiting Additional Impression: Gastroparesis Disposition: HOME, SELF-CARE Condition: STABLE Referrals: CHIRAG MALIK (PCP) Patient Instructions: Gastroparesis, Nausea and Vomiting Problem Qualifiers KEVIN BOWER MD Apr 09, 2019 09:16
[2019-04-09 09:26] LABS: BASO % 1 % (0-3); EOS % 1 % (0-3); HEMOGLOBIN 10.9 g/dL (13.0-17.5); LYMPH # 1.2 x10^3/uL (1.0-4.8); LYMPH % 20 % (24-48); MEAN CORPUSCULAR HEMOGLOBIN 24 pg (25-35); MEAN CORPUSCULAR HGB CONC 32 g/dL (31-37); MEAN CORPUSCULAR VOLUME 74 fL (79-100); MONO # 0.5 x10^3/uL (0.0-1.1); MONO % 8 % (0-9); NEUT # 4.2 x10^3uL (1.8-7.7); NEUT % 71 % (31-73); PLATELET COUNT 305 x10^3/uL (140-400); RED BLOOD COUNT 4.62 x10^6/uL (4.30-5.70); RED CELL DISTRIBUTION WIDTH 18.4 % (11.5-14.5)
[2019-04-09 09:54] LABS: ALBUMIN 3.5 g/dL (3.4-5.0); ALBUMIN/GLOBULIN RATIO 0.8 (1.0-1.7); CALCIUM 8.5 mg/dL (8.5-10.1); CREATININE 1.5 mg/dL (0.7-1.3); GFR 49.9; TOTAL BILIRUBIN 0.3 mg/dL (0.2-1.0); TOTAL PROTEIN 7.8 g/dL (6.4-8.2)
--- NOTE | 2019-04-09 10:02 | EKG ---
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
--- NOTE | 2019-04-09 10:08 | EKG ---
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
[2019-04-09] MEDS ORDERED: POTASSIUM CHLORIDE 20 MEQ TABLET.ER. PO ONE (11:00)
[2019-04-09 12:31] VITALS: BP 193/95
== END 2019-04-09 12:41 | disposition home or self-care (01) ==
LOC: ER 08:54
DX: K31.84 Gastroparesis (principal); R11.2 Nausea with vomiting, unspecified; R19.7 Diarrhea, unspecified; K21.9 Gastro-esophageal reflux disease without esophagitis; Z98.84 Bariatric surgery status; Z93.3 Colostomy status; Z90.49 Acquired absence of other specified parts of digestive tract; Z98.890 Other specified postprocedural states; Z87.820 Personal history of traumatic brain injury; Z88.5 Allergy status to narcotic agent; Z88.8 Allergy status to other drugs, medicaments and biological substances
CPT/HCPCS: 36415; 80053; 82010; 83605; 83690; 85025; 93005; 96361; 96374; 96375; 99285; G0480; J1170; J1200; J2060; J2405; J7030; Q0169

== ENCOUNTER 2019-12-14 08:56 | Emergency (ER) | payer MEDICARE, OTHER ==
[~2019-12-14] VITALS: Ht 172.7 cm; Wt 73.6 kg
[2019-12-14] MEDS ORDERED: HALOPERIDOL LACTATE 5 MG/ML VIAL. IVP STA (09:31)
[2019-12-14] MEDS ORDERED: diphenhydrAMINE 50 MG/ML VIAL IVP STA (09:34)
--- NOTE | 2019-12-14 09:38 | PHYS DOC ---
Past Medical History Past Medical History: Anxiety, Depression, GERD, Other Additional Past Medical Histor: PTSD, GASTROPARESIS, TBI Past Surgical History: Colectomy, Gastric Bypass, Other Additional Past Surgical Histo: HERNIA REPAIR, COLOSTOMY, JTUBE, GTUBE and removal, GASTRIC STIMULATOR Smoking Status: Never Smoker Alcohol Use: None Drug Use: None Adult General Chief Complaint Chief Complaint: ABDOMINAL PAIN HPI HPI Patient is a 49 year old male who presents with abdominal pain that started on Sunday. The patient also been having nausea, vomiting. The patient states she has a history of gastroparesis with gastric pacemaker that was placed 3 years ago. The patient states that normally he can get his symptoms to resolve with 8 mg of Zofran and 50 mg of Benadryl. The patient states however he took that and his symptoms have not resolved. Rates his pain as 5 out of 10 in severity and crampy. Denies fever or other symptoms. States he had a BM this morning. Complete ROS were reviewed and found to be within normal limits, except as documented in the HPI Current Medications Current Medications Current Medications Medications (Trade) Dose Ordered Sig/Ed Start Time Stop Time Status Last Admin Dose Admin Dicyclomine HCl (Bentyl) 10 mg STK-MED ONCE 12/14/19 11:30 12/14/19 11:30 DC Diphenhydramine HCl (Benadryl) 25 mg 1X STAT 12/14/19 09:34 12/14/19 09:35 DC 12/14/19 09:58 25 MG Fentanyl Citrate (Fentanyl 2ml Vial) 75 mcg 1X STAT 12/14/19 11:27 12/14/19 11:30 DC 12/14/19 11:31 75 MCG Haloperidol Lactate (Haldol Inj) 2.5 mg 1X STAT 12/14/19 09:31 12/14/19 09:34 DC Info (CONTRAST GIVEN -- Rx MONITORING) 1 each PRN DAILY PRN 12/14/19 11:00 12/14/19 12:49 DC Iohexol (Omnipaque 300 Mg/ml) 75 ml 1X ONCE 12/14/19 11:00 12/14/19 11:01 DC 12/14/19 11:04 75 ML Promethazine HCl (Phenergan) 25 mg 1X STAT 12/14/19 10:32 12/14/19 10:36 DC 12/14/19 11:32 25 MG Sodium Chloride 1,000 ml @ 1,000 mls/hr 1X ONCE 12/14/19 09:45 12/14/19 10:44 DC 12/14/19 09:58 1,000 MLS/HR Allergies Allergies Allergies Coded Allergies Type Severity Reaction Last Updated Verified morphine Allergy Severe Anaphylaxis Patient states can take Hydromorphone 03/04/19 Yes hydrocodone Allergy Intermediate Rash 03/04/19 Yes droperidol Adverse Reaction Intermediate DYSTONIA 03/04/19 Yes metoclopramide Adverse Reaction Intermediate DYSTONIA 03/04/19 Yes prochlorperazine Adverse Reaction Intermediate DYSTONIA 03/04/19 Yes Physical Exam Physical Exam Constitutional: Well developed, well nourished, no acute distress, non-toxic appearance. [] HENT: Normocephalic, atraumatic, bilateral external ears normal, oropharynx moist, no oral exudates, nose normal. [] Eyes: PERRLA, EOMI, conjunctiva normal, no discharge. [] Neck: Normal range of motion, no tenderness, supple, no stridor. [] Cardiovascular:Heart rate regular rhythm, no murmur [] Lungs & Thorax: Bilateral breath sounds clear to auscultation [] Abdomen: Bowel sounds normal, soft, RLQ tenderness on palpation, hernia in periumbilical region, gastric pacemaker in RLQ, scars from J, G tube LLQ with small amounts of erythema (patients states looks at baseline). Skin: Warm, dry, no erythema, no rash. [] Neurologic: Alert and oriented X 3, normal motor function, normal sensory function, no focal deficits noted. [] Psychologic: Affect normal, judgement normal, mood normal. [] Current Patient Data Vital Signs Vital Signs Date Time Temp Pulse Resp B/P (MAP) Pulse Ox O2 Delivery O2 Flow Rate FiO2 12/14/19 12:40 100 16 166/122 (137) 100 Room Air 12/14/19 09:22 97.9 97.9 Lab Values Laboratory Tests Test 12/14/19 09:55 12/14/19 10:27 12/14/19 11:25 White Blood Count 7.1 x10^3/uL (4.0-11.0) Red Blood Count 4.53 x10^6/uL (4.30-5.70) Hemoglobin 11.6 g/dL (13.0-17.5) L Hematocrit 37.2 % (39.0-53.0) L Mean Corpuscular Volume 82 fL (79-100) Mean Corpuscular Hemoglobin 26 pg (25-35) Mean Corpuscular Hemoglobin Concent 31 g/dL (31-37) Red Cell Distribution Width 26.7 % (11.5-14.5) H Platelet Count 198 x10^3/uL (140-400) Neutrophils (%) (Auto) 79 % (31-73) H Lymphocytes (%) (Auto) 16 % (24-48) L Monocytes (%) (Auto) 4 % (0-9) Eosinophils (%) (Auto) 1 % (0-3) Basophils (%) (Auto) 1 % (0-3) Neutrophils # (Auto) 5.6 x10^3/uL (1.8-7.7) Lymphocytes # (Auto) 1.1 x10^3/uL (1.0-4.8) Monocytes # (Auto) 0.3 x10^3/uL (0.0-1.1) Eosinophils # (Auto) 0.1 x10^3/uL (0.0-0.7) Basophils # (Auto) 0.0 x10^3/uL (0.0-0.2) Platelet Estimate Adequate (ADEQUATE) Large Platelets Few Giant Platelets Occ Polychromasia Slight Anisocytosis Mod Tear Drop Cells Occ Ovalocytes Few Schistocytes Occ Sodium Level 141 mmol/L (136-145) Potassium Level 3.5 mmol/L (3.5-5.1) Chloride Level 106 mmol/L (98-107) Carbon Dioxide Level 24 mmol/L (21-32) Anion Gap 11 (6-14) Blood Urea Nitrogen 8 mg/dL (8-26) Creatinine 1.1 mg/dL (0.7-1.3) Estimated GFR (Cockcroft-Gault) 71.1 BUN/Creatinine Ratio 7 (6-20) Glucose Level 95 mg/dL (70-99) Calcium Level 7.9 mg/dL (8.5-10.1) L Total Bilirubin 0.6 mg/dL (0.2-1.0) Aspartate Amino Transferase (AST) 32 U/L (15-37) Alanine Aminotransferase (ALT) 22 U/L (16-63) Alkaline Phosphatase 95 U/L (46-116) Total Protein 6.2 g/dL (6.4-8.2) L Albumin 2.8 g/dL (3.4-5.0) L Albumin/Globulin Ratio 0.8 (1.0-1.7) L Lipase 194 U/L (73-393) Urine Collection Type Unknown Urine Color Yellow Urine Clarity Clear Urine pH 6.5 Urine Specific Lamar >=1.030 Urine Protein Negative mg/dL (NEG-TRACE) Urine Glucose (UA) Negative mg/dL (NEG) Urine Ketones (Stick) Negative mg/dL (NEG) Urine Blood Small (NEG) Urine Nitrite Negative (NEG) Urine Bilirubin Negative (NEG) Urine Urobilinogen Dipstick 2.0 mg/dL (0.2 mg/dL) Urine Leukocyte Esterase Large (NEG) Urine RBC 6-10 /HPF (0-2) Urine WBC Tntc /HPF (0-4) Urine Bacteria Few /HPF (0-FEW) Urine Mucus Slight /LPF Laboratory Tests 12/14/19 09:55 Laboratory Tests 12/14/19 10:27 EKG EKG [] Radiology/Procedures Radiology/Procedures [][facility] [address] [place], [place] [id number] IMAGING REPORT Signed PATIENT: MERISSA JACKSON ACCOUNT: [id number] : 1970 LOCATION: ER AGE: 49 SEX: M EXAM STATUS: REG ER ORD. PHYSICIAN: CHAY POWELL APRN REASON: abd pain, n/v PROCEDURE: CT ABD PELV W/ IV CONTRST ONLY Exam performed: CT scan of the abdomen and pelvis with contrast Indication: Abdominal pain, nausea and vomiting Date of Service: 07/25/2020. Comparison: CT abdomen and pelvis from January 27, 2018 Technique: Contiguous helical acquisitions are obtained through the abdomen and pelvis during intravenous administration of 75cc of Omnipaque 300. In addition sagittal and coronal reformatted images are obtained and reviewed. CT scan abdomen and pelvis findings: Linear bibasilar opacities likely atelectasis. Visualized heart is normal. The liver, spleen and pancreas appear normal. Gallbladder is normal. Both adrenal glands and bilateral kidneys appear normal with symmetric excretion of contrast via both kidneys. There is no hydronephrosis or nephrolithiasis The aorta is normal in caliber without aneurysm. No retroperitoneal lymphadenopathy is identified. The small bowel loops are nondilated and unremarkable . There are surgical sutures in the midline upper abdomen perhaps colocolic anastomosis. No bowel related stranding or mesenteric lymphadenopathy seen.The pelvic small bowel loops are nondilated and unremarkable .The urinary bladder is decompressed and thick walled. There are low attenuating abnormalities on either side of the urinary bladder, similar to previous study likely bladder diverticulum there is no urolithiasis. Mild prostatomegaly no pelvic free fluid seen. Bones unremarkable. Impression CT Abdomen and pelvis: 1. Decompressed walled urinary bladder. It is not clear if the wall thickening is secondary to decompression or if there is a component of cystitis. Correlate with UA findings Unchanged small bilateral bladder diverticula. RS Compliance Statement: One or more of the following individualized dose reduction techniques were utilized for this examination: 1. Automated exposure control 2. Adjustment of the mA and/or kV according to patient size 3. Use of iterative reconstruction technique Electronically signed by: Deann Gilbert MD (12/14/2019 11:47 AM) [facility] DICTATED and SIGNED BY: DEANN GILBERT MD DATE: 12/14/19 1143 Course & Med Decision Making Course & Med Decision Making Pertinent Labs and Imaging studies reviewed. (See chart for details) Will get labs, CT scan, and will give supportive care. CT scan was unremarkable for acute changes. Labs showed no acute changes. Urine shows blood and leukocytes. Will treat for UTI with Keflex. Discussed return precautions with patient. Offered admission to patient but he declined at this time. Dragon Disclaimer Dragon Disclaimer This electronic medical record was generated, in whole or in part, using a voice recognition dictation system. Departure Departure Impression: Primary Impression: Abdominal pain Additional Impression: Urinary tract infection Disposition: 01 HOME, SELF-CARE Condition: STABLE Referrals: CHIRAG MALIK (PCP) Patient Instructions: Urinary Tract Infection Additional Instructions: Thank you for visiting [facility]. We appreciate you trusting us with your care. If any additional problems come up don't hesitate to return to visit us. Please follow up with your primary care provider so they can plan additional care if needed and know about the problem that you had. If symptoms worsen come back to the Emergency Department. Any concerning symptoms that start such as chest pain, shortness of air, weakness or numbness on one side of the body, running high fevers or any other concerning symptoms return to the ER. You have been prescribed an antibiotic today to help fight your infection. Please take all of the antibiotic as directed. If after 48 hours the infection is not improving, please return for more care. If the infection worsens, return to ER for additional care. Scripts Cephalexin (KEFLEX) 500 Mg Capsule 1 CAP PO QID for 10 Days, #40 CAP 0 Refills Prov: CHAY POWELL APRN 12/14/19 Problem Qualifiers Additional Impression: Urinary tract infection Urinary tract infection type: acute cystitis Hematuria presence: with hematuria Qualified Codes: N30.01 - Acute cystitis with hematuria CHAY POWELL APRN Dec 14, 2019 09:38
[2019-12-14] MEDS ORDERED: fentaNYL PF VIAL 100 MCG/2 ML VIAL IV ONE (09:45)
[2019-12-14] MEDS ORDERED: IV NORMAL SALINE 1000ML BAG 1,000 ML IV ONE (09:45)
[2019-12-14 10:02] LABS: BASO % 1 % (0-3); EOS # 0.1 x10^3/uL (0.0-0.7); EOS % 1 % (0-3); HEMATOCRIT 37.2 % (39.0-53.0); HEMOGLOBIN 11.6 g/dL (13.0-17.5); LYMPH # 1.1 x10^3/uL (1.0-4.8); LYMPH % 16 % (24-48); MEAN CORPUSCULAR HEMOGLOBIN 26 pg (25-35); MEAN CORPUSCULAR HGB CONC 31 g/dL (31-37); MEAN CORPUSCULAR VOLUME 82 fL (79-100); MONO # 0.3 x10^3/uL (0.0-1.1); MONO % 4 % (0-9); NEUT # 5.6 x10^3/uL (1.8-7.7); NEUT % 79 % (31-73); PLATELET COUNT 198 x10^3/uL (140-400); RED BLOOD COUNT 4.53 x10^6/uL (4.30-5.70); RED CELL DISTRIBUTION WIDTH 26.7 % (11.5-14.5); WHITE BLOOD COUNT 7.1 x10^3/uL (4.0-11.0)
[2019-12-14] MEDS ORDERED: PROMETHAZINE 12.5 MG TABLET. PO STA (10:32)
[2019-12-14 10:45] LABS: CALCIUM 7.9 mg/dL (8.5-10.1); CREATININE 1.1 mg/dL (0.7-1.3); GFR 71.1; POTASSIUM 3.5 mmol/L (3.5-5.1)
[2019-12-14 10:48] LABS: PLT ESTIMATE ADEQUATE (ADEQUATE)
[2019-12-14 10:51] LABS: ALBUMIN 2.8 g/dL (3.4-5.0); ALBUMIN/GLOBULIN RATIO 0.8 (1.0-1.7); TOTAL BILIRUBIN 0.6 mg/dL (0.2-1.0); TOTAL PROTEIN 6.2 g/dL (6.4-8.2)
[2019-12-14 10:53] LABS: ANISOCYTOSIS MOD; POLYCHROMASIA SLIGHT
[2019-12-14 10:54] LABS: OVALOCYTES FEW; SCHISTOCYTES OCC; TEAR DROP CELLS OCC
[2019-12-14] MEDS ORDERED: IOHEXOL 300 MG/ML 100ML VIAL. IV ONE (11:00)
[2019-12-14] MEDS ORDERED: CONTRAST GIVEN. MC PRN (11:00)
[2019-12-14] MEDS ORDERED: fentaNYL PF VIAL 100 MCG/2 ML VIAL IV STA (11:27)
[2019-12-14] MEDS ORDERED: DICYCLOMINE HCL 10 MG CAPSULE PO STA (11:27)
[2019-12-14] MEDS ORDERED: DICYCLOMINE HCL 10 MG CAPSULE ONE (11:30)
[2019-12-14 11:50] LABS: BILIRUBIN,URINE NEGATIVE (NEG); CLARITY,URINE CLEAR; COLOR,URINE YELLOW; NITRITE,URINE NEGATIVE (NEG); PH,URINE 6.5; PROTEIN,URINE NEGATIVE (NEG-TRACE)
--- NOTE | 2019-12-14 11:50 | RAD ---
Exam performed: CT scan of the abdomen and pelvis with contrast Indication: Abdominal pain, nausea and vomiting Date of Service: 07/25/2020. Comparison: CT abdomen and pelvis from January 27, 2018 Technique: Contiguous helical acquisitions are obtained through the abdomen and pelvis during intravenous administration of 75cc of Omnipaque 300. In addition sagittal and coronal reformatted images are obtained and reviewed. CT scan abdomen and pelvis findings: Linear bibasilar opacities likely atelectasis. Visualized heart is normal. The liver, spleen and pancreas appear normal. Gallbladder is normal. Both adrenal glands and bilateral kidneys appear normal with symmetric excretion of contrast via both kidneys. There is no hydronephrosis or nephrolithiasis The aorta is normal in caliber without aneurysm. No retroperitoneal lymphadenopathy is identified. The small bowel loops are nondilated and unremarkable . There are surgical sutures in the midline upper abdomen perhaps colocolic anastomosis. No bowel related stranding or mesenteric lymphadenopathy seen.The pelvic small bowel loops are nondilated and unremarkable .The urinary bladder is decompressed and thick walled. There are low attenuating abnormalities on either side of the urinary bladder, similar to previous study likely bladder diverticulum there is no urolithiasis. Mild prostatomegaly no pelvic free fluid seen. Bones unremarkable. Impression CT Abdomen and pelvis: 1. Decompressed walled urinary bladder. It is not clear if the wall thickening is secondary to decompression or if there is a component of cystitis. Correlate with UA findings Unchanged small bilateral bladder diverticula. PQRS Compliance Statement: One or more of the following individualized dose reduction techniques were utilized for this examination: 1. Automated exposure control 2. Adjustment of the mA and/or kV according to patient size 3. Use of iterative reconstruction technique Electronically signed by: Deann Gilbert MD (12/14/2019 11:47 AM) [facility]
[2019-12-14 12:08] LABS: BACTERIA,URINE FEW /HPF (0-FEW); WBC,URINE TNTC /HPF (0-4)
[2019-12-14] MEDS ORDERED: CEPH-264 PO (12:21)
[2019-12-14 12:40] VITALS: BP 166/122
[2019-12-14] MEDS ORDERED: ONDA8TAB9 PO (19:52)
[2019-12-14] MEDS ORDERED: SCOP1PAT11 TP (19:52)
[2019-12-14] MEDS ORDERED: LANS30CA66 PO (19:57)
[2019-12-14] MEDS ORDERED: OMEP20TA63 PO (19:57)
[2019-12-15] MEDS ORDERED: VENL75CA6 PO (14:52)
== END 2019-12-14 12:40 | disposition home or self-care (01) ==
LOC: ER 08:56
DX: N30.01 Acute cystitis with hematuria (principal); R11.2 Nausea with vomiting, unspecified; K21.9 Gastro-esophageal reflux disease without esophagitis; Z93.3 Colostomy status; Z90.49 Acquired absence of other specified parts of digestive tract; Z98.890 Other specified postprocedural states; Z88.5 Allergy status to narcotic agent; Z88.8 Allergy status to other drugs, medicaments and biological substances
CPT/HCPCS: 36415; 74177; 80053; 81001; 83690; 85025; 87086; 96361; 96374; 96375; 96376; 99285; J1200; J3010; J7030; Q0169; Q9967; 87186

== ENCOUNTER 2020-01-07 14:11 | Emergency (ER) | payer MEDICARE, OTHER ==
[~2020-01-07] VITALS: Ht 172.7 cm; Wt 66.0 kg
[~2020-01-07 14:11] MED LIST changes: +CEPH-264 PO; +LANS30CA66 PO; +OMEP20TA63 PO; +VENL75CA6 PO
[2020-01-07] MEDS ORDERED: IV NORMAL SALINE 1000ML BAG 1,000 ML IV SCH (16:29)
[2020-01-07] MEDS ORDERED: ONDANSETRON PF 4 MG/2 ML VIAL. IV ONE (16:30)
[2020-01-07] MEDS ORDERED: fentaNYL PF VIAL 100 MCG/2 ML VIAL IV ONE (16:30)
[2020-01-07] MEDS ORDERED: diphenhydrAMINE 50 MG/ML VIAL IM ONE (16:30)
--- NOTE | 2020-01-07 16:59 | PHYS DOC ---
Past Medical History Past Medical History: Anxiety, Depression, GERD, Other Additional Past Medical Histor: PTSD, GASTROPARESIS, TBI Past Surgical History: Colectomy, Gastric Bypass, Other Additional Past Surgical Histo: HERNIA REPAIR, COLOSTOMY, JTUBE, GTUBE and removal, GASTRIC STIMULATOR Smoking Status: Never Smoker Alcohol Use: None Drug Use: None Adult General Chief Complaint Chief Complaint: NAUSEA/VOMITING/DIARRHA HPI HPI Patient is a 49 year old with history of gastroparesis on TPN, anxiety, PTSD, TBI, recurrent episodes of nausea and vomiting who presents with complaint of nausea and vomiting. Patient complaining of 4 episodes of nonbloody vomiting per day for the last 2 days associated with left upper quadrant pain like his previous episodes of nausea and vomiting and rated his pain 6/10. Patient complaining of decrease of urine output with dark color of urine. Patient denies chest pain, shortness of breath, fever and chills, focal neuro deficit. Patient states he was able to take his TPN last night but was not able to tolerated oral intake. Patient has several antiemetic medication at home without improvement of his condition. Review of Systems Review of Systems Constitutional: Denies fever or chills [] Eyes: Denies change in visual acuity, redness, or eye pain [] HENT: Denies nasal congestion or sore throat [] Respiratory: Denies cough or shortness of breath [] Cardiovascular: No additional information not addressed in HPI [] GI: Reports abdominal pain, nausea, vomiting, denies bloody stools or diarrhea [] : Denies dysuria or hematuria [] Musculoskeletal: Denies back pain or joint pain [] Integument: Denies rash or skin lesions [] Neurologic: Denies headache, focal weakness or sensory changes [] Endocrine: Denies polyuria or polydipsia [] All other systems were reviewed and found to be within normal limits, except as documented in this note. Current Medications Current Medications Current Medications Medications (Trade) Dose Ordered Sig/Ed Start Time Stop Time Status Last Admin Dose Admin Diphenhydramine HCl (Benadryl) 50 mg 1X ONCE 01/07/20 16:30 01/07/20 16:33 DC 01/07/20 17:35 50 MG Fentanyl Citrate (Fentanyl 2ml Vial) 25 mcg 1X ONCE 01/07/20 16:30 01/07/20 16:33 DC 01/07/20 17:35 25 MCG Ondansetron HCl (Zofran) 4 mg 1X ONCE 01/07/20 16:30 01/07/20 16:33 DC 01/07/20 17:34 4 MG Sodium Chloride 1,000 ml @ 1,000 mls/hr Q1H 01/07/20 16:29 01/07/20 17:28 DC 01/07/20 17:36 1,000 MLS/HR Allergies Allergies Allergies Coded Allergies Type Severity Reaction Last Updated Verified morphine Allergy Severe Anaphylaxis Patient states can take Hydromorphone 03/04/19 Yes hydrocodone Allergy Intermediate Rash 03/04/19 Yes droperidol Adverse Reaction Intermediate DYSTONIA 03/04/19 Yes metoclopramide Adverse Reaction Intermediate DYSTONIA 03/04/19 Yes prochlorperazine Adverse Reaction Intermediate DYSTONIA 03/04/19 Yes Physical Exam Physical Exam Constitutional: Mild distress, non-toxic appearance. [] HENT: Normocephalic, atraumatic, bilateral external ears normal, oropharynx dry, no oral exudates, nose normal. [] Eyes: PERRLA, EOMI, conjunctiva normal, no discharge. [] Neck: Normal range of motion, no tenderness, supple, no stridor. [] Cardiovascular: Tachycardia, no murmur [] Lungs & Thorax: Bilateral breath sounds clear to auscultation [] Abdomen: Scar of multiple abdominal series with ventral hernia without sign of strangulation, bowel sounds normal, soft, no tenderness, no masses, no pulsatile masses. [] Skin: Warm, dry, no erythema, no rash. [] Back: No tenderness, no CVA tenderness. [] Extremities: No tenderness, no cyanosis, no clubbing, ROM intact, no edema. [] Neurologic: Alert and oriented X 3, normal motor function, normal sensory function, no focal deficits noted. [] Psychologic: Affect normal, judgement normal, mood normal. [] Current Patient Data Vital Signs Vital Signs Date Time Temp Pulse Resp B/P (MAP) Pulse Ox O2 Delivery O2 Flow Rate FiO2 01/07/20 16:38 98.8 108 20 159/111 (127) 100 Room Air 98.8 Lab Values Laboratory Tests Test 01/07/20 17:17 White Blood Count 9.6 x10^3/uL (4.0-11.0) Red Blood Count 4.73 x10^6/uL (4.30-5.70) Hemoglobin 12.4 g/dL (13.0-17.5) L Hematocrit 38.5 % (39.0-53.0) L Mean Corpuscular Volume 81 fL (79-100) Mean Corpuscular Hemoglobin 26 pg (25-35) Mean Corpuscular Hemoglobin Concent 32 g/dL (31-37) Red Cell Distribution Width 24.6 % (11.5-14.5) H Platelet Count 124 x10^3/uL (140-400) L Neutrophils (%) (Auto) 81 % (31-73) H Lymphocytes (%) (Auto) 12 % (24-48) L Monocytes (%) (Auto) 6 % (0-9) Eosinophils (%) (Auto) 0 % (0-3) Basophils (%) (Auto) 0 % (0-3) Neutrophils # (Auto) 7.8 x10^3/uL (1.8-7.7) H Lymphocytes # (Auto) 1.2 x10^3/uL (1.0-4.8) Monocytes # (Auto) 0.6 x10^3/uL (0.0-1.1) Eosinophils # (Auto) 0.0 x10^3/uL (0.0-0.7) Basophils # (Auto) 0.0 x10^3/uL (0.0-0.2) Platelet Estimate Decreased (ADEQUATE) Polychromasia Slight Anisocytosis Mod Schistocytes Occ Sodium Level 140 mmol/L (136-145) Potassium Level 3.3 mmol/L (3.5-5.1) L Chloride Level 101 mmol/L (98-107) Carbon Dioxide Level 24 mmol/L (21-32) Anion Gap 15 (6-14) H Blood Urea Nitrogen 21 mg/dL (8-26) Creatinine 1.1 mg/dL (0.7-1.3) Estimated GFR (Cockcroft-Gault) 71.1 BUN/Creatinine Ratio 19 (6-20) Glucose Level 93 mg/dL (70-99) Calcium Level 9.4 mg/dL (8.5-10.1) Total Bilirubin 0.6 mg/dL (0.2-1.0) Aspartate Amino Transferase (AST) 41 U/L (15-37) H Alanine Aminotransferase (ALT) 34 U/L (16-63) Alkaline Phosphatase 70 U/L (46-116) Total Protein 7.9 g/dL (6.4-8.2) Albumin 3.2 g/dL (3.4-5.0) L Albumin/Globulin Ratio 0.7 (1.0-1.7) L Lipase 423 U/L (73-393) H Laboratory Tests 01/07/20 17:17 Laboratory Tests 01/07/20 17:17 EKG EKG [] Radiology/Procedures Radiology/Procedures [] Course & Med Decision Making Course & Med Decision Making Pertinent Labs reviewed. (See chart for details) Evaluation of patient in ER showed 49-year-old male patient with history of multiple abdominal surgeries and gastroparesis on TPN presented with complaining of nausea and vomiting since yesterday. Patient had dry oral mucosa and tachycardia and IV fluid, Zofran and Benadryl was started. Labs showed chronic anemia and marked hypokalemia without sign of dehydration. UA is pending. Plan to reevaluate patient for this point of tachycardia and his symptoms IV fluid and medication and decide about possible admission or discharging home. Sign out given to Dr. Husain at 1800 for further evaluation and final disposition. Discussed current findings and plan with patient and family, who acknowledge understanding and agreement. Dragon Disclaimer Dragon Disclaimer This electronic medical record was generated, in whole or in part, using a voice recognition dictation system. Departure Departure Impression: Primary Impression: Gastroparesis Additional Impressions: Nausea and vomiting Hypokalemia Tachycardia Referrals: CHIRAG MALIK (PCP) Problem Qualifiers Additional Impressions: Nausea and vomiting Vomiting type: unspecified Vomiting Intractability: non-intractable Qualified Codes: R11.2 - Nausea with vomiting, unspecified SUE RAMOS MD Jan 07, 2020 16:58
[2020-01-07 17:24] LABS: BASO % 0 % (0-3); EOS % 0 % (0-3); HEMATOCRIT 38.5 % (39.0-53.0); HEMOGLOBIN 12.4 g/dL (13.0-17.5); LYMPH # 1.2 x10^3/uL (1.0-4.8); LYMPH % 12 % (24-48); MEAN CORPUSCULAR HEMOGLOBIN 26 pg (25-35); MEAN CORPUSCULAR HGB CONC 32 g/dL (31-37); MEAN CORPUSCULAR VOLUME 81 fL (79-100); MONO # 0.6 x10^3/uL (0.0-1.1); MONO % 6 % (0-9); NEUT # 7.8 x10^3/uL (1.8-7.7); NEUT % 81 % (31-73); PLATELET COUNT 124 x10^3/uL (140-400); RED BLOOD COUNT 4.73 x10^6/uL (4.30-5.70); RED CELL DISTRIBUTION WIDTH 24.6 % (11.5-14.5); WHITE BLOOD COUNT 9.6 x10^3/uL (4.0-11.0)
[2020-01-07 17:33] LABS: CALCIUM 9.4 mg/dL (8.5-10.1); CREATININE 1.1 mg/dL (0.7-1.3); GFR 71.1; POTASSIUM 3.3 mmol/L (3.5-5.1)
[2020-01-07 17:41] LABS: ALBUMIN 3.2 g/dL (3.4-5.0); ALBUMIN/GLOBULIN RATIO 0.7 (1.0-1.7); TOTAL BILIRUBIN 0.6 mg/dL (0.2-1.0); TOTAL PROTEIN 7.9 g/dL (6.4-8.2)
[2020-01-07 17:46] LABS: ANISOCYTOSIS MOD; PLT ESTIMATE DECREASED (ADEQUATE); POLYCHROMASIA SLIGHT; SCHISTOCYTES OCC
[2020-01-07 18:15] LABS: BILIRUBIN,URINE SMALL (NEG); CLARITY,URINE CLEAR; NITRITE,URINE NEGATIVE (NEG); PROTEIN,URINE 100 mg/dL (NEG-TRACE)
[2020-01-07] MEDS ORDERED: diphenhydrAMINE 50 MG/ML VIAL IVP ONE (18:15)
[2020-01-07] MEDS ORDERED: HYDROmorphone 2 MG/ML VIAL IV ONE ×2 (18:15→19:45)
[2020-01-07 18:23] LABS: COLOR,URINE DK YELLOW
[2020-01-07 18:26] LABS: BACTERIA,URINE FEW /HPF (0-FEW); SQUAMOUS EPITHELIAL CELL,UR OCC /LPF; WBC,URINE 20-40 /HPF (0-4)
[2020-01-07] MEDS ORDERED: ONDA4TAB7 PO (19:43)
[2020-01-07 20:09] VITALS: BP 142/99
== END 2020-01-07 20:12 | disposition home or self-care (01) ==
LOC: ER 14:11
DX: K31.84 Gastroparesis (principal); R11.2 Nausea with vomiting, unspecified; E87.6 Hypokalemia; R00.0 Tachycardia, unspecified; K21.9 Gastro-esophageal reflux disease without esophagitis; Z95.1 Presence of aortocoronary bypass graft; Z90.49 Acquired absence of other specified parts of digestive tract; Z98.890 Other specified postprocedural states; Z88.5 Allergy status to narcotic agent; Z88.8 Allergy status to other drugs, medicaments and biological substances
CPT/HCPCS: 36415; 80053; 81001; 83690; 85025; 87086; 96361; 96372; 96374; 96375; 96376; 99284; J1170; J1200; J2405; J3010; J7030; 99285-25

== ENCOUNTER 2020-01-28 17:47 | Emergency (ER) | payer MEDICARE, OTHER ==
[~2020-01-28] VITALS: Ht 172.7 cm; Wt 67.3 kg
[2020-01-28] MEDS ORDERED: IV NORMAL SALINE 1000ML BAG 1,000 ML IV SCH (18:29)
[2020-01-28] MEDS ORDERED: fentaNYL PF VIAL 100 MCG/2 ML VIAL IVP ONE ×2 (18:30→20:00)
[2020-01-28] MEDS ORDERED: ONDANSETRON PF 4 MG/2 ML VIAL. IVP ONE (18:30)
--- NOTE | 2020-01-28 18:34 | PHYS DOC ---
Past Medical History Past Medical History: Anxiety, Depression, GERD, Other Additional Past Medical Histor: PTSD, GASTROPARESIS, TBI Past Surgical History: Colectomy, Gastric Bypass, Other Additional Past Surgical Histo: HERNIA REPAIR, COLOSTOMY, JTUBE, GTUBE and removal, GASTRIC STIMULATOR Smoking Status: Never Smoker Alcohol Use: None Drug Use: None Adult General Chief Complaint Chief Complaint: ABDOMINAL PAIN HPI HPI 49-year-old male presents to the emergency department complaints of abdominal pain, nausea with vomiting. Patient has underlying history of gastroparesis. He is well is being treated for bacteremia. Patient states he is on vancomycin 3 times per day. Patient states [place] was [place]. Patient states he is unable to keep his medications down given the vomiting. He was placed on blood thinning medication, Eliquis and states he has been unable to take that. Nothing makes his symptoms worse, nothing makes his symptoms better. Patient denies any fever. He denies any headache or visual change, chest pain, shortness of breath. Review of Systems Review of Systems Constitutional: Denies fever or chills [] Respiratory: Denies cough or shortness of breath [] Cardiovascular: No additional information not addressed in HPI [] GI: + abdominal pain, nausea, vomiting, no bloody stools or diarrhea [] Musculoskeletal: Denies back pain or joint pain [] Neurologic: Denies headache, focal weakness or sensory changes [] All other systems were reviewed and found to be within normal limits, except as documented in this note. Current Medications Current Medications Current Medications Medications (Trade) Dose Ordered Sig/[facility] Start Time Stop Time Status Last Admin Dose Admin Fentanyl Citrate (Fentanyl 2ml Vial) 50 mcg 1X ONCE 01/28/20 18:30 01/28/20 18:32 DC 01/28/20 18:49 50 MCG Ondansetron HCl (Zofran) 4 mg 1X ONCE 01/28/20 18:30 01/28/20 18:32 DC 01/28/20 18:49 4 MG Sodium Chloride 1,000 ml @ 1,000 mls/hr Q1H 01/28/20 18:29 01/28/20 19:28 DC 01/28/20 18:50 1,000 MLS/HR Allergies Allergies Allergies Coded Allergies Type Severity Reaction Last Updated Verified morphine Allergy Severe Anaphylaxis Patient states can take Hydromorphone 03/04/19 Yes hydrocodone Allergy Intermediate Rash 03/04/19 Yes droperidol Adverse Reaction Intermediate DYSTONIA 03/04/19 Yes metoclopramide Adverse Reaction Intermediate DYSTONIA 03/04/19 Yes prochlorperazine Adverse Reaction Intermediate DYSTONIA 03/04/19 Yes Physical Exam Physical Exam Constitutional: Well developed, well nourished, no acute distress, non-toxic appearance. [] Cardiovascular:Heart rate regular rhythm, no murmur [] Lungs & Thorax: Bilateral breath sounds clear to auscultation [] Abdomen: Bowel sounds normal, soft, no tenderness, no masses, no pulsatile masses. [] Skin: Warm, dry, no erythema, no rash. [] Back: No tenderness, no CVA tenderness. [] Extremities: No tenderness, no edema. [] Neurologic: Alert and oriented X 3, no focal deficits noted. [] Psychologic: Affect normal, judgement normal, mood normal. [] Current Patient Data Vital Signs Vital Signs Date Time Temp Pulse Resp B/P (MAP) Pulse Ox O2 Delivery O2 Flow Rate FiO2 01/28/20 18:26 98.9 110 18 168/110 (129) 99 Room Air 98.9 Lab Values Laboratory Tests Test 01/28/20 18:20 01/28/20 18:38 Urine Collection Type Unknown Urine Color Yellow Urine Clarity Clear Urine pH 6.0 (<5.0-8.0) Urine Specific [place] 1.025 (1.000-1.030) Urine Protein Negative mg/dL (NEG-TRACE) Urine Glucose (UA) Negative mg/dL (NEG) Urine Ketones (Stick) Negative mg/dL (NEG) Urine Blood Negative (NEG) Urine Nitrite Negative (NEG) Urine Bilirubin Negative (NEG) Urine Urobilinogen Dipstick 1.0 mg/dL (0.2 mg/dL) Urine Leukocyte Esterase Negative (NEG) Urine RBC 0 /HPF (0-2) Urine WBC Occ /HPF (0-4) Urine Bacteria 0 /HPF (0-FEW) Urine Mucus Mod /LPF White Blood Count 5.1 x10^3/uL (4.0-11.0) Red Blood Count 3.29 x10^6/uL (4.30-5.70) L Hemoglobin 8.6 g/dL (13.0-17.5) L Hematocrit 26.9 % (39.0-53.0) L Mean Corpuscular Volume 82 fL (79-100) Mean Corpuscular Hemoglobin 26 pg (25-35) Mean Corpuscular Hemoglobin Concent 32 g/dL (31-37) Red Cell Distribution Width 22.3 % (11.5-14.5) H Platelet Count 254 x10^3/uL (140-400) Neutrophils (%) (Auto) 67 % (31-73) Lymphocytes (%) (Auto) 24 % (24-48) Monocytes (%) (Auto) 8 % (0-9) Eosinophils (%) (Auto) 1 % (0-3) Basophils (%) (Auto) 1 % (0-3) Neutrophils # (Auto) 3.4 x10^3/uL (1.8-7.7) Lymphocytes # (Auto) 1.2 x10^3/uL (1.0-4.8) Monocytes # (Auto) 0.4 x10^3/uL (0.0-1.1) Eosinophils # (Auto) 0.0 x10^3/uL (0.0-0.7) Basophils # (Auto) 0.0 x10^3/uL (0.0-0.2) Platelet Estimate Pending Sodium Level 145 mmol/L (136-145) Potassium Level 3.4 mmol/L (3.5-5.1) L Chloride Level 107 mmol/L (98-107) Carbon Dioxide Level 27 mmol/L (21-32) Anion Gap 11 (6-14) Blood Urea Nitrogen 12 mg/dL (8-26) Creatinine 0.9 mg/dL (0.7-1.3) Estimated GFR (Cockcroft-Gault) 89.7 BUN/Creatinine Ratio 13 (6-20) Glucose Level 121 mg/dL (70-99) H Calcium Level 8.3 mg/dL (8.5-10.1) L Total Bilirubin 0.1 mg/dL (0.2-1.0) L Aspartate Amino Transferase (AST) 19 U/L (15-37) Alanine Aminotransferase (ALT) 25 U/L (16-63) Alkaline Phosphatase 66 U/L (46-116) Total Protein 6.5 g/dL (6.4-8.2) Albumin 2.6 g/dL (3.4-5.0) L Albumin/Globulin Ratio 0.7 (1.0-1.7) L Lipase 419 U/L (73-393) H Laboratory Tests 01/28/20 18:38 Laboratory Tests 01/28/20 18:38 EKG EKG [] Radiology/Procedures Radiology/Procedures [] Course & Med Decision Making Course & Med Decision Making Pertinent Labs and Imaging studies reviewed. (See chart for details) []49-year-old male presents to the emergency department complaints of abdominal pain, nausea with vomiting. Patient has underlying history of gastroparesis. He is well is being treated for bacteremia. Patient states he is on vancomycin 3 times per day. Patient states he was recently [place]. Patient states he is unable to keep his medications down given the vomiting. He was placed on blood thinning medication, Eliquis and states he has been unable to take that. Nothing makes his symptoms worse, nothing makes his symptoms better. Patient denies any fever. He denies any headache or visual change, chest pain, shortness of breath. IVFs, Zofran, fentanyl given without improvement Repeat dose of fentanyl provided Recommend continued abx as provided for bacteremia Labs reviewed No acute findings appreciated on labs Recommend dc home and follow up as outpatient. Dragon Disclaimer Dragon Disclaimer This electronic medical record was generated, in whole or in part, using a voice recognition dictation system. Departure Departure Impression: Primary Impression: Gastroparesis Additional Impression: Vomiting Disposition: 01 HOME, SELF-CARE Condition: IMPROVED Referrals: CHIRAG MALIK (PCP) Patient Instructions: Gastroparesis Additional Instructions: Recommend follow up with PCP Anti-emetics and pain medications provided in the ER No acute findings on lab Tylenol for fever Continued abx for underlying bacteremia Problem Qualifiers Additional Impression: Vomiting Vomiting type: unspecified Vomiting Intractability: unspecified Nausea presence: unspecified Qualified Codes: R11.10 - Vomiting, unspecified MERCEDEZ MARTINEZ MD Jan 28, 2020 18:34
[2020-01-28 18:44] LABS: BILIRUBIN,URINE NEGATIVE (NEG); CLARITY,URINE CLEAR; COLOR,URINE YELLOW; NITRITE,URINE NEGATIVE (NEG); PROTEIN,URINE NEGATIVE (NEG-TRACE)
[2020-01-28 18:52] LABS: BACTERIA,URINE 0 /HPF (0-FEW); RBC,URINE 0 /HPF (0-2); WBC,URINE OCC /HPF (0-4)
[2020-01-28 19:18] LABS: BASO % 1 % (0-3); EOS % 1 % (0-3); HEMATOCRIT 26.9 % (39.0-53.0); HEMOGLOBIN 8.6 g/dL (13.0-17.5); LYMPH # 1.2 x10^3/uL (1.0-4.8); LYMPH % 24 % (24-48); MEAN CORPUSCULAR HEMOGLOBIN 26 pg (25-35); MEAN CORPUSCULAR HGB CONC 32 g/dL (31-37); MEAN CORPUSCULAR VOLUME 82 fL (79-100); MONO # 0.4 x10^3/uL (0.0-1.1); MONO % 8 % (0-9); NEUT # 3.4 x10^3/uL (1.8-7.7); NEUT % 67 % (31-73); PLATELET COUNT 254 x10^3/uL (140-400); RED BLOOD COUNT 3.29 x10^6/uL (4.30-5.70); RED CELL DISTRIBUTION WIDTH 22.3 % (11.5-14.5); WHITE BLOOD COUNT 5.1 x10^3/uL (4.0-11.0)
[2020-01-28 19:24] VITALS: BP 133/90
[2020-01-28 19:27] LABS: CALCIUM 8.3 mg/dL (8.5-10.1); CREATININE 0.9 mg/dL (0.7-1.3); GFR 89.7; POTASSIUM 3.4 mmol/L (3.5-5.1)
[2020-01-28 19:34] LABS: ALBUMIN 2.6 g/dL (3.4-5.0); ALBUMIN/GLOBULIN RATIO 0.7 (1.0-1.7); TOTAL PROTEIN 6.5 g/dL (6.4-8.2)
[2020-01-28 19:47] LABS: TOTAL BILIRUBIN 0.1 mg/dL (0.2-1.0)
[2020-01-28] MEDS ORDERED: diphenhydrAMINE 50 MG/ML VIAL IVP ONE (20:00)
[2020-01-28 20:46] LABS: PLT ESTIMATE ADEQUATE (ADEQUATE)
[2020-01-28 20:47] LABS: ANISOCYTOSIS MOD; OVALOCYTES FEW
== END 2020-01-28 20:26 | disposition home or self-care (01) ==
LOC: ER 17:47
DX: K31.84 Gastroparesis (principal); R11.2 Nausea with vomiting, unspecified; R19.7 Diarrhea, unspecified; F41.9 Anxiety disorder, unspecified; F32.9 Major depressive disorder, single episode, unspecified; K21.9 Gastro-esophageal reflux disease without esophagitis; F43.12 Post-traumatic stress disorder, chronic; Z87.820 Personal history of traumatic brain injury; Z90.89 Acquired absence of other organs; Z98.890 Other specified postprocedural states; Z88.6 Allergy status to analgesic agent; Z88.5 Allergy status to narcotic agent; Z88.8 Allergy status to other drugs, medicaments and biological substances; Z88.2 Allergy status to sulfonamides
CPT/HCPCS: 36415; 80053; 81001; 83690; 85025; 96361; 96374; 96375; 96376; 99284; J1200; J2405; J3010; J7030

== ENCOUNTER 2020-02-13 14:36 | Emergency (ER) | payer MEDICARE, OTHER ==
[~2020-02-13] VITALS: Ht 167.6 cm; Wt 70.0 kg
[2020-02-13] MEDS ORDERED: diphenhydrAMINE 50 MG/ML VIAL IVP ONE (15:15)
[2020-02-13] MEDS ORDERED: ONDANSETRON PF 4 MG/2 ML VIAL. IVP ONE (15:15)
[2020-02-13] MEDS ORDERED: IV NORMAL SALINE 1000ML BAG 1,000 ML IV ONE (15:15)
[2020-02-13] MEDS ORDERED: FAMOTIDINE 20 MG/2 ML VIAL IVP ONE (15:15)
[2020-02-13] MEDS ORDERED: HYDROmorphone 2 MG/ML VIAL IV ONE ×2 (15:15→16:30)
[2020-02-13 15:24] LABS: BILIRUBIN,URINE NEGATIVE (NEG); CLARITY,URINE CLOUDY; COLOR,URINE YELLOW; NITRITE,URINE NEGATIVE (NEG); PROTEIN,URINE NEGATIVE (NEG-TRACE); UROBILINOGEN,URINE 0.2 mg/dL (0.2 mg/dL)
[2020-02-13 15:32] LABS: BARBITURATES NEG (NEG); BENZODIAZEPINES NEG (NEG); CANNABINOIDS NEG (NEG); COCAINE NEG (NEG); METHADONE NEG (NEG); OPIATES NEG (NEG); PHENCYCLIDINE NEG (NEG)
[2020-02-13 15:33] LABS: AMPHETAMINE/METHAMPHETAMINE NEG (NEG)
[2020-02-13 15:34] LABS: HYALINE CASTS, URINE MODERATE /HPF
[2020-02-13 15:35] LABS: BACTERIA,URINE 0 /HPF (0-FEW); RBC,URINE OCC /HPF (0-2)
[2020-02-13 15:39] LABS: BASO % 1 % (0-3); EOS % 1 % (0-3); HEMATOCRIT 29.2 % (39.0-53.0); HEMOGLOBIN 9.5 g/dL (13.0-17.5); LYMPH # 1.2 x10^3/uL (1.0-4.8); LYMPH % 29 % (24-48); MEAN CORPUSCULAR HEMOGLOBIN 26 pg (25-35); MEAN CORPUSCULAR HGB CONC 33 g/dL (31-37); MEAN CORPUSCULAR VOLUME 80 fL (79-100); MONO # 0.5 x10^3/uL (0.0-1.1); MONO % 12 % (0-9); NEUT # 2.3 x10^3/uL (1.8-7.7); NEUT % 58 % (31-73); PLATELET COUNT 246 x10^3/uL (140-400); RED BLOOD COUNT 3.64 x10^6/uL (4.30-5.70); RED CELL DISTRIBUTION WIDTH 20.3 % (11.5-14.5)
--- NOTE | 2020-02-13 15:39 | PHYS DOC ---
Past Medical History Past Medical History: Anxiety, Depression, GERD, Other Additional Past Medical Histor: PTSD, GASTROPARESIS, TBI,DUMPING SYNDROME Past Surgical History: Colectomy, Gastric Bypass, Other Additional Past Surgical Histo: HERNIA REPAIR, COLOSTOMY, JTUBE, GTUBE and rem oval, GASTRIC STIMULATOR Smoking Status: Never Smoker Alcohol Use: None Drug Use: None General Adult EDM: Chief Complaint: NAUSEA/VOMITING/DIARRHA HPI: HPI: Patient is a 49 year old male with history of gastroparesis who presents the ED today complaining of a flareup of gastroparesis with nausea vomiting as well as mild intermittent left-sided abdominal pain, symptoms 3 days ago. Patient denies any fever. Patient reports being on vancomycin 3 times a day for bacteremia from an infected central line. He also reports being on Lovenox daily for DVTs. He also reports being on TPN. Patient denies any exacerbating or relieving factors to his symptoms. Review of Systems: Review of Systems: Constitutional: Denies fever or chills. [] Eyes: Denies change in visual acuity. [] HENT: Denies nasal congestion or sore throat. [] Respiratory: Denies cough or shortness of breath. [] Cardiovascular: Denies chest pain or edema. [] GI: Reports abdominal pain, nausea vomiting, denies bloody stools or diarrhea. [] : Denies dysuria. [] Musculoskeletal: Denies back pain or joint pain. [] Integument: Denies rash. [] Neurologic: Denies headache, focal weakness or sensory changes. [] Lymphatic: Denies swollen glands. [] Psychiatric: Denies depression or anxiety. [] Heart Score: Risk Factors: Risk Factors: DM, Current or recent (<one month) smoker, HTN, HLP, family history of CAD, obesity. Risk Scores: Score 0 - 3: 2.5% MACE over next 6 weeks - Discharge Home Score 4 - 6: 20.3% MACE over next 6 weeks - Admit for Clinical Observation Score 7 - 10: 72.7% MACE over next 6 weeks - Early Invasive Strategies Current Medications: Current Medications Medications (Trade) Dose Ordered Sig/Ed Start Time Stop Time Status Last Admin Dose Admin Diphenhydramine HCl (Benadryl) 50 mg 1X ONCE 02/13/20 15:15 02/13/20 15:16 DC 02/13/20 15:29 50 MG Famotidine (Pepcid Vial) 20 mg 1X ONCE 02/13/20 15:15 02/13/20 15:16 DC 02/13/20 15:31 20 MG Hydromorphone HCl (Dilaudid) 1 mg 1X ONCE 02/13/20 15:15 02/13/20 15:16 DC 02/13/20 15:31 1 MG Ondansetron HCl (Zofran) 8 mg 1X ONCE 02/13/20 15:15 02/13/20 15:16 DC 02/13/20 15:30 8 MG Sodium Chloride 1,000 ml @ 1,000 mls/hr 1X ONCE 02/13/20 15:15 02/13/20 16:14 02/13/20 15:27 1,000 MLS/HR Allergies: Allergies: Allergies Coded Allergies Type Severity Reaction Last Updated Verified morphine Allergy Severe Anaphylaxis Patient states can take Hydromorphone 03/04/19 Yes hydrocodone Allergy Intermediate Rash 03/04/19 Yes droperidol Adverse Reaction Intermediate DYSTONIA 03/04/19 Yes metoclopramide Adverse Reaction Intermediate DYSTONIA 03/04/19 Yes prochlorperazine Adverse Reaction Intermediate DYSTONIA 03/04/19 Yes Physical Exam: PE: Constitutional: Well developed, well nourished, no acute distress, non-toxic appearance. [] HENT: Normocephalic, atraumatic, bilateral external ears normal, oropharynx moist, no oral exudates, nose normal. [] Eyes: PERRLA, EOMI, conjunctiva normal, no discharge. [] Neck: Normal range of motion, no tenderness, supple, no stridor. [] Cardiovascular:Heart rate regular rhythm, no murmur [] PICC line noted on the left upper chest. Lungs & Thorax: Bilateral breath sounds clear to auscultation [] Abdomen: Multiple scars noted on the abdomen. Abdominal ventral hernia noted. Bowel sounds normal, soft, diffuse tenderness the left-side of the abdomen with scabbed up wounds in different healing stages from previous surgeries, no masses, no pulsatile masses. [] Skin: Warm, dry, no erythema, no rash. [] Back: No tenderness, no CVA tenderness. [] Extremities: No tenderness, no cyanosis, no clubbing, ROM intact, no edema. [] Neurologic: Alert and oriented X 3, normal motor function, normal sensory function, no focal deficits noted. [] Psychologic: Affect normal, judgement normal, mood normal. [] Current Patient Data: Labs: Laboratory Tests Test 02/13/20 14:45 Urine Collection Type Unknown Urine Color Yellow Urine Clarity Cloudy Urine pH 7.0 (<5.0-8.0) Urine Specific [place] 1.020 (1.000-1.030) Urine Protein Negative mg/dL (NEG-TRACE) Urine Glucose (UA) Negative mg/dL (NEG) Urine Ketones (Stick) Negative mg/dL (NEG) Urine Blood Negative (NEG) Urine Nitrite Negative (NEG) Urine Bilirubin Negative (NEG) Urine Urobilinogen Dipstick 0.2 mg/dL (0.2 mg/dL) Urine Leukocyte Esterase Negative (NEG) Urine RBC Occ /HPF (0-2) Urine WBC 1-4 /HPF (0-4) Urine Bacteria 0 /HPF (0-FEW) Urine Hyaline Casts Moderate /HPF Urine Mucus Marked /LPF Urine Opiates Screen Neg (NEG) Urine Methadone Screen Neg (NEG) Urine Barbiturates Neg (NEG) Urine Phencyclidine Screen Neg (NEG) Urine Amphetamine/Methamphetamine Neg (NEG) Urine Benzodiazepines Screen Neg (NEG) Urine Cocaine Screen Neg (NEG) Urine Cannabinoids Screen Neg (NEG) Urine Ethyl Alcohol Neg (NEG) Vital Signs: Vital Signs Date Time Temp Pulse Resp B/P (MAP) Pulse Ox O2 Delivery O2 Flow Rate FiO2 02/13/20 15:31 16 99 Room Air 02/13/20 14:45 98.4 106 179/106 (130) 98.4 EKG: EKG: [] Radiology/Procedures: Radiology/Procedures: [] Course & Med Decision Making: Course & Med Decision Making Pertinent Labs and Imaging studies reviewed. (See chart for details) This is a 49-year-old male patient well-known to this ED presenting today for gastroparesis flareup. Labs are negative. D/c to home. f/u with PCP in one week Antonieta Disclaimer: Antonieta Disclaimer: This electronic medical record was generated, in whole or in part, using a voice recognition dictation system. Departure Departure Impression: Primary Impression: Gastroparesis Disposition: HOME, SELF-CARE Condition: STABLE Referrals: CHIRAG MALIK (PCP) Follow-up next week Patient Instructions: Gastroparesis Additional Instructions: You were seen for gastroparesis flareup. Follow-up with your doctor in the course of next week. Scripts Ondansetron (ONDANSETRON ODT) 4 Mg Tab.rapdis 1 TAB PO PRN Q6-8HRS, #16 TAB Prov: MONICA LAWSON APRN 02/13/20 MONICA LAWSON APRN Feb 13, 2020 15:39
[2020-02-13 15:45] LABS: CALCIUM 8.5 mg/dL (8.5-10.1); CREATININE 0.9 mg/dL (0.7-1.3); GFR 89.7; POTASSIUM 3.7 mmol/L (3.5-5.1)
[2020-02-13 15:51] LABS: ALBUMIN 3.2 g/dL (3.4-5.0); ALBUMIN/GLOBULIN RATIO 0.9 (1.0-1.7); TOTAL BILIRUBIN 0.3 mg/dL (0.2-1.0); TOTAL PROTEIN 6.7 g/dL (6.4-8.2)
[2020-02-13 16:02] LABS: ANISOCYTOSIS MOD; HYPOCHROMIA SLIGHT; OVALOCYTES MOD; PLT ESTIMATE ADEQUATE (ADEQUATE)
[2020-02-13 16:18] VITALS: BP 168/98
[2020-02-13] MEDS ORDERED: ONDA4TAB12 PO (16:22)
== END 2020-02-13 16:40 | disposition home or self-care (01) ==
LOC: ER 14:36
DX: K31.84 Gastroparesis (principal); R11.2 Nausea with vomiting, unspecified; K21.9 Gastro-esophageal reflux disease without esophagitis; Z95.1 Presence of aortocoronary bypass graft; Z93.3 Colostomy status; Z98.890 Other specified postprocedural states; Z88.5 Allergy status to narcotic agent; Z88.8 Allergy status to other drugs, medicaments and biological substances
CPT/HCPCS: 36415; 80053; 80307; 81001; 83690; 85025; 96361; 96374; 96375; 96376; 99285; G0480; J1170; J1200; J2405; J3490; J7030

== ENCOUNTER 2020-02-22 15:41 | Emergency (ER) | payer MEDICARE, OTHER ==
[~2020-02-22] VITALS: Ht 172.7 cm; Wt 67.0 kg
[~2020-02-22 15:41] MED LIST changes: +ONDA4TAB12 PO
[2020-02-22] MEDS ORDERED: IV NORMAL SALINE 1000ML BAG 1,000 ML IV SCH (16:20)
[2020-02-22] MEDS ORDERED: ONDANSETRON PF 4 MG/2 ML VIAL. IVP ONE ×2 (16:30→19:00)
[2020-02-22] MEDS ORDERED: diphenhydrAMINE 50 MG/ML VIAL IVP ONE ×2 (16:30→19:00)
[2020-02-22 16:34] LABS: BASO % 1 % (0-3); EOS % 1 % (0-3); HEMATOCRIT 31.9 % (39.0-53.0); HEMOGLOBIN 10.4 g/dL (13.0-17.5); LYMPH # 1.4 x10^3/uL (1.0-4.8); LYMPH % 19 % (24-48); MEAN CORPUSCULAR HEMOGLOBIN 26 pg (25-35); MEAN CORPUSCULAR HGB CONC 33 g/dL (31-37); MEAN CORPUSCULAR VOLUME 79 fL (79-100); MONO # 0.8 x10^3/uL (0.0-1.1); MONO % 10 % (0-9); NEUT # 5.2 x10^3/uL (1.8-7.7); NEUT % 70 % (31-73); PLATELET COUNT 270 x10^3/uL (140-400); RED BLOOD COUNT 4.05 x10^6/uL (4.30-5.70); RED CELL DISTRIBUTION WIDTH 19.4 % (11.5-14.5); WHITE BLOOD COUNT 7.5 x10^3/uL (4.0-11.0)
[2020-02-22 16:57] LABS: CALCIUM 9.1 mg/dL (8.5-10.1); GFR 79.4; POTASSIUM 3.7 mmol/L (3.5-5.1)
[2020-02-22 17:02] LABS: ALBUMIN 3.7 g/dL (3.4-5.0); TOTAL BILIRUBIN 0.4 mg/dL (0.2-1.0); TOTAL PROTEIN 7.5 g/dL (6.4-8.2)
[2020-02-22] MEDS ORDERED: fentaNYL PF VIAL 100 MCG/2 ML VIAL IVP ONE ×2 (17:30→19:00)
--- NOTE | 2020-02-22 17:31 | PHYS DOC ---
Past Medical History Past Medical History: Anxiety, Depression, GERD, Other Additional Past Medical Histor: PTSD, GASTROPARESIS, TBI,DUMPING SYNDROME (SUE RAMOS MD) Past Surgical History: Colectomy, Gastric Bypass, Other Additional Past Surgical Histo: HERNIA REPAIR, COLOSTOMY, JTUBE, GTUBE and removal, GASTRIC STIMULATOR (SUE RAMOS MD) Smoking Status: Never Smoker Alcohol Use: None Drug Use: None (SUE RAMOS MD) General Adult EDM: Chief Complaint: ABDOMINAL PAIN HPI: HPI: Patient is a 49 year old male with history of anxiety and depression, GERD, gastroparesis, dumping syndrome, PTSD, TBI, multiple abdominal surgery, frequent emergency room visit with abdominal pain and nausea and vomiting, intermittent using of TPN and central line in place who presents with complaining of nausea and vomiting and abdominal pain. Patient states for the last 1 week he had intermittent episodes of nausea and vomiting and left upper quadrant pain like his previous episode of nausea and vomiting and abdominal pain. Patient states he vomited twice today and rated his left upper quadrant pain 7/10 as a sharp pain. Patient states his pain is improved with vomiting. Patient complaining of episode of loose stool. Patient states currently he is on liquid diet and plan to start his TPA in the middle of next week. Patient denies urinary symptoms, fever and chills, chest pain or shortness of breath. (SUE RAMOS MD) Review of Systems: Review of Systems: Constitutional: Denies fever or chills. [] Eyes: Denies change in visual acuity. [] HENT: Denies nasal congestion or sore throat. [] Respiratory: Denies cough or shortness of breath. [] Cardiovascular: Denies chest pain or edema. [] GI: Reports abdominal pain, nausea, vomiting, diarrhea. [] : Denies dysuria. [] Musculoskeletal: Denies back pain or joint pain. [] Integument: Denies rash. [] Neurologic: Denies headache, focal weakness or sensory changes. [] Endocrine: Denies polyuria or polydipsia. [] Lymphatic: Denies swollen glands. [] Psychiatric: Denies depression or anxiety. [] (SUE RAMOS MD) Heart Score: Risk Factors: Risk Factors: DM, Current or recent (<one month) smoker, HTN, HLP, family history of CAD, obesity. Risk Scores: Score 0 - 3: 2.5% MACE over next 6 weeks - Discharge Home Score 4 - 6: 20.3% MACE over next 6 weeks - Admit for Clinical Observation Score 7 - 10: 72.7% MACE over next 6 weeks - Early Invasive Strategies (SUE RAMOS MD) Current Medications: Current Medications Medications (Trade) Dose Ordered Sig/Ed Start Time Stop Time Status Last Admin Dose Admin Diphenhydramine HCl (Benadryl) 50 mg 1X ONCE 02/22/20 16:30 02/22/20 16:31 DC Fentanyl Citrate (Fentanyl 2ml Vial) 50 mcg 1X ONCE 02/22/20 17:30 02/22/20 17:31 Ondansetron HCl (Zofran) 8 mg 1X ONCE 02/22/20 16:30 02/22/20 16:31 DC Sodium Chloride 1,000 ml @ 1,000 mls/hr Q1H 02/22/20 16:20 02/22/20 17:19 (SUE RAMOS MD) Allergies: Allergies: Allergies Coded Allergies Type Severity Reaction Last Updated Verified morphine Allergy Severe Anaphylaxis Patient states can take Hydromorphone 03/04/19 Yes hydrocodone Allergy Intermediate Rash 03/04/19 Yes droperidol Adverse Reaction Intermediate DYSTONIA 03/04/19 Yes metoclopramide Adverse Reaction Intermediate DYSTONIA 03/04/19 Yes prochlorperazine Adverse Reaction Intermediate DYSTONIA 03/04/19 Yes (SUE RAMOS MD) Physical Exam: PE: Constitutional: Well nourished, mild distress, non-toxic appearance. [] HENT: Normocephalic, atraumatic, moist oral mucosa. Eyes: PERRLA, EOMI, conjunctiva normal, no discharge. [] Neck: Normal range of motion, no tenderness, supple, no stridor. [] Cardiovascular:Heart rate regular rhythm, no murmur [] Lungs & Thorax: Bilateral breath sounds clear to auscultation [] Abdomen: Several surgical scar of abdominal wall with ventral hernia, bowel sounds normal, soft, no tenderness, no masses, no pulsatile masses. [] Skin: Warm, dry, no erythema, no rash. [] Back: No tenderness, no CVA tenderness. [] Extremities: No tenderness, no cyanosis, no clubbing, ROM intact, no edema. [] Neurologic: Alert and oriented X 3, no focal deficits noted. [] Psychologic: Affect anxious , judgement normal, mood normal. [] (SUE RAMOS MD) Current Patient Data: Labs: Laboratory Tests Test 02/22/20 16:21 White Blood Count 7.5 x10^3/uL (4.0-11.0) Red Blood Count 4.05 x10^6/uL (4.30-5.70) L Hemoglobin 10.4 g/dL (13.0-17.5) L Hematocrit 31.9 % (39.0-53.0) L Mean Corpuscular Volume 79 fL (79-100) Mean Corpuscular Hemoglobin 26 pg (25-35) Mean Corpuscular Hemoglobin Concent 33 g/dL (31-37) Red Cell Distribution Width 19.4 % (11.5-14.5) H Platelet Count 270 x10^3/uL (140-400) Neutrophils (%) (Auto) 70 % (31-73) Lymphocytes (%) (Auto) 19 % (24-48) L Monocytes (%) (Auto) 10 % (0-9) H Eosinophils (%) (Auto) 1 % (0-3) Basophils (%) (Auto) 1 % (0-3) Neutrophils # (Auto) 5.2 x10^3/uL (1.8-7.7) Lymphocytes # (Auto) 1.4 x10^3/uL (1.0-4.8) Monocytes # (Auto) 0.8 x10^3/uL (0.0-1.1) Eosinophils # (Auto) 0.0 x10^3/uL (0.0-0.7) Basophils # (Auto) 0.0 x10^3/uL (0.0-0.2) Sodium Level 142 mmol/L (136-145) Potassium Level 3.7 mmol/L (3.5-5.1) Chloride Level 105 mmol/L (98-107) Carbon Dioxide Level 28 mmol/L (21-32) Anion Gap 9 (6-14) Blood Urea Nitrogen 13 mg/dL (8-26) Creatinine 1.0 mg/dL (0.7-1.3) Estimated GFR (Cockcroft-Gault) 79.4 BUN/Creatinine Ratio 13 (6-20) Glucose Level 86 mg/dL (70-99) Calcium Level 9.1 mg/dL (8.5-10.1) Total Bilirubin 0.4 mg/dL (0.2-1.0) Aspartate Amino Transferase (AST) 45 U/L (15-37) H Alanine Aminotransferase (ALT) 65 U/L (16-63) H Alkaline Phosphatase 70 U/L (46-116) Total Protein 7.5 g/dL (6.4-8.2) Albumin 3.7 g/dL (3.4-5.0) Albumin/Globulin Ratio 1.0 (1.0-1.7) Lipase 155 U/L (73-393) Laboratory Tests 02/22/20 16:21 Laboratory Tests 02/22/20 16:21 Vital Signs: Vital Signs Date Time Temp Pulse Resp B/P (MAP) Pulse Ox O2 Delivery O2 Flow Rate FiO2 02/22/20 16:28 97.9 117 22 165/115 (132) 99 Room Air 97.9 (SUE RAMOS MD) EKG: EKG: [] (SUE RAMOS MD) Radiology/Procedures: Radiology/Procedures: [] (SUE RAMOS MD) Course & Med Decision Making: Course & Med Decision Making Pertinent Labs are pending. Sign out given to Dr. Zaman at 1800 for further evaluation and final disposition. Discussed current findings and plan with patient and family, who acknowledge understanding and agreement. (SUE RAMOS MD) Dragon Disclaimer: Dragon Disclaimer: This electronic medical record was generated, in whole or in part, using a voice recognition dictation system. (SUE RAMOS MD) Departure Departure Impression: Primary Impression: Gastroparesis Additional Impression: Vomiting Qualified Codes: R11.2 - Nausea with vomiting, unspecified Disposition: 01 HOME, SELF-CARE Condition: STABLE Referrals: CHIRAG MALIK (PCP) Patient Instructions: Gastroparesis Scripts Ondansetron (ONDANSETRON ODT) 4 Mg Tab.rapdis 1 TAB PO PRN Q6-8HRS PRN for NAUSEA, #15 TAB Prov: YOON ZAMAN Jr. DO 02/22/20 SUE RAMOS MD Feb 22, 2020 17:30 YOON ZAMAN Jr. DO Feb 22, 2020 19:24
[2020-02-22] MEDS ORDERED: ONDA4TAB12 PO (19:24)
[2020-02-22 19:30] VITALS: BP 161/105
== END 2020-02-22 19:55 | disposition home or self-care (01) ==
LOC: ER 15:41
DX: K31.84 Gastroparesis (principal); R11.2 Nausea with vomiting, unspecified; K21.9 Gastro-esophageal reflux disease without esophagitis; Z95.1 Presence of aortocoronary bypass graft; Z90.49 Acquired absence of other specified parts of digestive tract; Z93.3 Colostomy status; Z87.820 Personal history of traumatic brain injury; Z88.5 Allergy status to narcotic agent; Z88.8 Allergy status to other drugs, medicaments and biological substances
CPT/HCPCS: 36415; 80053; 83690; 85025; 96361; 96374; 96375; 96376; 99285; J1200; J2405; J3010; J7030

== ENCOUNTER 2020-02-28 18:02 | Emergency (ER) | payer MEDICARE, OTHER ==
[~2020-02-28] VITALS: Ht 172.7 cm; Wt 67.2 kg
[2020-02-28] MEDS ORDERED: IV NORMAL SALINE 1000ML BAG 1,000 ML IV SCH (18:47)
--- NOTE | 2020-02-28 18:53 | PHYS DOC ---
Past Medical History Past Medical History: Anxiety, Depression, GERD, Other Additional Past Medical Histor: PTSD, GASTROPARESIS, TBI,DUMPING SYNDROME Past Surgical History: Colectomy, Gastric Bypass, Other Additional Past Surgical Histo: HERNIA REPAIR, COLOSTOMY, JTUBE, GTUBE and rem oval, GASTRIC STIMULATOR Smoking Status: Never Smoker Alcohol Use: None Drug Use: None General Adult EDM: Chief Complaint: ABDOMINAL PAIN HPI: HPI: Patient is a 49 year old male who presents with complaint of flareup of his gastroparesis. Patient is not able to get in to see his GI doctor until early next week. Patient states these been having uncontrolled nausea and vomiting and also complains of upper abdominal pain. He rates that pain as moderate. He denies any chest pain or shortness breath. He also denies any fever.[] Review of Systems: Review of Systems: Constitutional: Denies fever or chills. [] Respiratory: Denies cough or shortness of breath. [] Cardiovascular: Denies chest pain or edema. [] GI: Complains of abdominal pain with nausea and vomiting. Denies diarrhea. [] Integument: Denies rash. [] Neurologic: Denies headache, focal weakness or sensory changes. [] A full 10 point review of systems has been reviewed and is otherwise negative. Heart Score: Risk Factors: Risk Factors: DM, Current or recent (<one month) smoker, HTN, HLP, family history of CAD, obesity. Risk Scores: Score 0 - 3: 2.5% MACE over next 6 weeks - Discharge Home Score 4 - 6: 20.3% MACE over next 6 weeks - Admit for Clinical Observation Score 7 - 10: 72.7% MACE over next 6 weeks - Early Invasive Strategies Allergies: Allergies: Allergies Coded Allergies Type Severity Reaction Last Updated Verified morphine Allergy Severe Anaphylaxis Patient states can take Hydromorphone 03/04/19 Yes hydrocodone Allergy Intermediate Rash 03/04/19 Yes droperidol Adverse Reaction Intermediate DYSTONIA 03/04/19 Yes metoclopramide Adverse Reaction Intermediate DYSTONIA 03/04/19 Yes prochlorperazine Adverse Reaction Intermediate DYSTONIA 03/04/19 Yes Physical Exam: PE: Constitutional: Well developed, well nourished, no acute distress, non-toxic appearance. [] HENT: Normocephalic, atraumatic, bilateral external ears normal, oropharynx moist, no oral exudates, nose normal. [] Eyes: PERRLA, EOMI, conjunctiva normal, no discharge. [] Neck: Normal range of motion, no tenderness, supple, no stridor. [] Cardiovascular: Regular rate and rhythm[] Lungs & Thorax: Bilateral breath sounds clear to auscultation [] Abdomen: Bowel sounds normal, soft, with upper abdominal tenderness. [] Skin: Warm, dry, no erythema, no rash. [] Extremities: No tenderness, no cyanosis, no clubbing, ROM intact. [] Neurologic: Alert and oriented X 3, no focal deficits noted. [] Current Patient Data: Vital Signs: Vital Signs Date Time Temp Pulse Resp B/P (MAP) Pulse Ox O2 Delivery O2 Flow Rate FiO2 02/28/20 18:05 98.5 88 16 189/116 (140) 99 Room Air 98.5 EKG: EKG: [] Radiology/Procedures: Radiology/Procedures: [] Course & Med Decision Making: Course & Med Decision Making Pertinent Labs and Imaging studies reviewed. (See chart for details) [] Dragon Disclaimer: Dragon Disclaimer: This electronic medical record was generated, in whole or in part, using a voice recognition dictation system. Departure Departure Impression: Primary Impression: Gastroparesis Additional Impression: Nausea and vomiting Qualified Codes: R11.2 - Nausea with vomiting, unspecified Disposition: HOME, SELF-CARE Condition: STABLE Referrals: CHIRAG MALIK (PCP) Patient Instructions: Gastroparesis, Nausea and Vomiting YOON GERMAN Jr. DO Feb 28, 2020 18:53
[2020-02-28 19:00] LABS: BASO % 1 % (0-3); EOS % 1 % (0-3); HEMATOCRIT 31.8 % (39.0-53.0); HEMOGLOBIN 10.1 g/dL (13.0-17.5); LYMPH % 18 % (24-48); MEAN CORPUSCULAR HEMOGLOBIN 25 pg (25-35); MEAN CORPUSCULAR HGB CONC 32 g/dL (31-37); MEAN CORPUSCULAR VOLUME 78 fL (79-100); MONO # 0.5 x10^3/uL (0.0-1.1); MONO % 11 % (0-9); NEUT # 3.7 x10^3/uL (1.8-7.7); NEUT % 70 % (31-73); PLATELET COUNT 216 x10^3/uL (140-400); RED BLOOD COUNT 4.07 x10^6/uL (4.30-5.70); RED CELL DISTRIBUTION WIDTH 18.7 % (11.5-14.5); WHITE BLOOD COUNT 5.2 x10^3/uL (4.0-11.0)
[2020-02-28] MEDS ORDERED: ONDANSETRON PF 4 MG/2 ML VIAL. IVP ONE (19:00)
[2020-02-28] MEDS ORDERED: FAMOTIDINE 20 MG/2 ML VIAL IVP ONE (19:00)
[2020-02-28] MEDS ORDERED: diphenhydrAMINE 50 MG/ML VIAL IVP ONE (19:00)
[2020-02-28 19:10] LABS: CALCIUM 8.7 mg/dL (8.5-10.1); GFR 79.4; POTASSIUM 4.2 mmol/L (3.5-5.1)
[2020-02-28 19:16] LABS: ALBUMIN 3.7 g/dL (3.4-5.0); ALBUMIN/GLOBULIN RATIO 0.9 (1.0-1.7); TOTAL BILIRUBIN 0.5 mg/dL (0.2-1.0); TOTAL PROTEIN 7.6 g/dL (6.4-8.2)
[2020-02-28] MEDS: HYDROmorphone 2 MG/ML VIAL IV/SQ PRN ×2 (19:19→20:59)
[2020-02-28 22:10] VITALS: BP 143/96
== END 2020-02-28 22:16 | disposition home or self-care (01) ==
LOC: ER 18:02
DX: K31.84 Gastroparesis (principal); R11.2 Nausea with vomiting, unspecified; K21.9 Gastro-esophageal reflux disease without esophagitis; Z87.820 Personal history of traumatic brain injury; F43.10 Post-traumatic stress disorder, unspecified; Z90.49 Acquired absence of other specified parts of digestive tract; Z95.1 Presence of aortocoronary bypass graft; Z98.890 Other specified postprocedural states; Z93.3 Colostomy status; Z88.5 Allergy status to narcotic agent; Z88.8 Allergy status to other drugs, medicaments and biological substances
CPT/HCPCS: 36415; 80053; 83690; 85025; 96361; 96374; 96375; 96376; 99285; J1170; J1200; J2405; J3490; J7030

== ENCOUNTER 2020-03-02 12:46 | Emergency (ER) | payer MEDICARE, OTHER ==
[~2020-03-02] VITALS: Ht 172.7 cm; Wt 67.0 kg
[2020-03-02] MEDS ORDERED: IV NORMAL SALINE 1000ML BAG 1,000 ML IV ONE (13:30)
--- NOTE | 2020-03-02 13:34 | PHYS DOC ---
Past Medical History Past Medical History: Anxiety, Depression, GERD, Other Additional Past Medical Histor: PTSD, GASTROPARESIS, TBI,DUMPING SYNDROME Past Surgical History: Colectomy, Gastric Bypass, Other Additional Past Surgical Histo: HERNIA REPAIR, COLOSTOMY, JTUBE, GTUBE and rem oval, GASTRIC STIMULATOR Smoking Status: Never Smoker Alcohol Use: None Drug Use: None General Adult EDM: Chief Complaint: ABDOMINAL PAIN HPI: HPI: Patient is a 49 year old male who presents with gastroparesis and abdominal pain. States this is the same pain that he always gets with his gastroparesis in the same area of his abdomen. States he sees as his GI doctor. He states that he just got started on TPN that he starts himself so he is now n.p.o. Patient is very excited about this because he will not have to come in here all the time. Patient has left upper abdominal pain he states is the same area that he always has pain. Abdomen is slightly tender but is soft. Patient has history of anxiety, depression, PTSD, gastroparesis, colectomy, G-tube. Patient was seen here on 21 February with the same symptoms. Patient states that the medication they gave him last time helped him drastically. Patient states he is not been able to keep down any of his nausea medications today. Review of Systems: Review of Systems: GI: abdominal pain, nausea, vomiting, denies bloody stools or diarrhea. [] Heart Score: Risk Factors: Risk Factors: DM, Current or recent (<one month) smoker, HTN, HLP, family history of CAD, obesity. Risk Scores: Score 0 - 3: 2.5% MACE over next 6 weeks - Discharge Home Score 4 - 6: 20.3% MACE over next 6 weeks - Admit for Clinical Observation Score 7 - 10: 72.7% MACE over next 6 weeks - Early Invasive Strategies Allergies: Allergies: Allergies Coded Allergies Type Severity Reaction Last Updated Verified morphine Allergy Severe Anaphylaxis Patient states can take Hydromorphone 03/04/19 Yes hydrocodone Allergy Intermediate Rash 03/04/19 Yes droperidol Adverse Reaction Intermediate DYSTONIA 03/04/19 Yes metoclopramide Adverse Reaction Intermediate DYSTONIA 03/04/19 Yes prochlorperazine Adverse Reaction Intermediate DYSTONIA 03/04/19 Yes Physical Exam: PE: Constitutional: Well developed, well nourished, no acute distress, non-toxic appearance. [] HENT: Normocephalic, atraumatic, bilateral external ears normal, oropharynx moist, no oral exudates, nose normal. [] Eyes: PERRLA, EOMI, conjunctiva normal, no discharge. [] Neck: Normal range of motion, no tenderness, supple, no stridor. [] Cardiovascular:Heart rate regular rhythm, no murmur [] Lungs & Thorax: Bilateral breath sounds clear to auscultation [] Abdomen: Bowel sounds normal, soft, Left side tenderness, no masses, no pulsatile masses. [] Skin: Warm, dry, no erythema, no rash. [] Back: No tenderness, no CVA tenderness. [] Extremities: No tenderness, no cyanosis, no clubbing, ROM intact, no edema. [] Neurologic: Alert and oriented X 3, normal motor function, normal sensory function, no focal deficits noted. [] Psychologic: Affect normal, judgement normal, mood normal. [] Current Patient Data: Vital Signs: Vital Signs Date Time Temp Pulse Resp B/P (MAP) Pulse Ox O2 Delivery O2 Flow Rate FiO2 03/02/20 13:00 98.6 112 15 176/101 (126) 100 Room Air 98.6 EKG: EKG: [] Radiology/Procedures: Radiology/Procedures: [] Course & Med Decision Making: Course & Med Decision Making Pertinent Labs and Imaging studies reviewed. (See chart for details) Alert and oriented. Speaks in full clear sentences. Ambulatory with a steady gait. Skin pink warm and dry. Patient states the medications helped his pain down to a 6/10. I have order another 0.5mg Dilaudid. He states all other symptoms have resolved. After second dose of 0.5 mg Dilaudid patient states his pain is down to 4 out of 10. Patient states that his pain is down enough that he is ready to go home. Patient is stable and in no distress. [] Dragon Disclaimer: Dragon Disclaimer: This electronic medical record was generated, in whole or in part, using a voice recognition dictation system. Departure Departure Impression: Primary Impression: Gastroparesis Disposition: 01 HOME, SELF-CARE Condition: STABLE Referrals: CHIRAG MALIK (PCP) Patient Instructions: Gastroparesis Additional Instructions: Follow up with GI doctor as soon as possible. Take all medications as prescribed. JOSEPH STEPHENSON APRN Mar 02, 2020 13:34
[2020-03-02 13:53] LABS: BASO % 0 % (0-3); EOS % 0 % (0-3); HEMATOCRIT 29.2 % (39.0-53.0); HEMOGLOBIN 9.5 g/dL (13.0-17.5); LYMPH # 1.1 x10^3/uL (1.0-4.8); LYMPH % 16 % (24-48); MEAN CORPUSCULAR HEMOGLOBIN 25 pg (25-35); MEAN CORPUSCULAR HGB CONC 33 g/dL (31-37); MEAN CORPUSCULAR VOLUME 77 fL (79-100); MONO % 15 % (0-9); NEUT # 4.8 x10^3/uL (1.8-7.7); NEUT % 69 % (31-73); PLATELET COUNT 207 x10^3/uL (140-400); RED BLOOD COUNT 3.79 x10^6/uL (4.30-5.70); RED CELL DISTRIBUTION WIDTH 18.8 % (11.5-14.5); WHITE BLOOD COUNT 6.9 x10^3/uL (4.0-11.0)
[2020-03-02] MEDS ORDERED: HYDROmorphone 2 MG/ML VIAL IV ONE ×2 (14:00→15:00)
[2020-03-02] MEDS ORDERED: diphenhydrAMINE 50 MG/ML VIAL IVP ONE (14:00)
[2020-03-02] MEDS ORDERED: FAMOTIDINE 20 MG/2 ML VIAL IVP ONE (14:00)
[2020-03-02] MEDS ORDERED: ONDANSETRON PF 4 MG/2 ML VIAL. IVP ONE (14:00)
[2020-03-02 14:10] LABS: CALCIUM 8.4 mg/dL (8.5-10.1); GFR 79.4; POTASSIUM 3.5 mmol/L (3.5-5.1)
[2020-03-02 14:15] LABS: ALBUMIN 3.5 g/dL (3.4-5.0); TOTAL BILIRUBIN 0.5 mg/dL (0.2-1.0); TOTAL PROTEIN 7.1 g/dL (6.4-8.2)
[2020-03-02 15:30] VITALS: BP 160/76
== END 2020-03-02 15:34 | disposition home or self-care (01) ==
LOC: ER 12:46
DX: K31.84 Gastroparesis (principal); R10.12 Left upper quadrant pain; R11.2 Nausea with vomiting, unspecified; F41.9 Anxiety disorder, unspecified; F32.9 Major depressive disorder, single episode, unspecified; K21.9 Gastro-esophageal reflux disease without esophagitis; F43.12 Post-traumatic stress disorder, chronic; K91.1 Postgastric surgery syndromes; Z87.820 Personal history of traumatic brain injury; Z90.89 Acquired absence of other organs; Z98.890 Other specified postprocedural states; Z88.5 Allergy status to narcotic agent; Z88.6 Allergy status to analgesic agent; Z88.8 Allergy status to other drugs, medicaments and biological substances
CPT/HCPCS: 36415; 80053; 83690; 84484; 85025; 96361; 96374; 96375; 96376; 99285; J1170; J1200; J2405; J3490; J7030

== ENCOUNTER 2020-03-12 14:05 | Emergency (ER) | payer MEDICARE, OTHER ==
[~2020-03-12] VITALS: Ht 172.7 cm; Wt 67.2 kg
[2020-03-12] MEDS ORDERED: diphenhydrAMINE 50 MG/ML VIAL IVP ONE (15:00)
[2020-03-12] MEDS ORDERED: ONDANSETRON PF 4 MG/2 ML VIAL. IV ONE (15:00)
[2020-03-12] MEDS ORDERED: fentaNYL PF VIAL 100 MCG/2 ML VIAL IV ONE (15:00)
[2020-03-12 15:19] LABS: CALCIUM 9.1 mg/dL (8.5-10.1); GFR 79.4; POTASSIUM 4.2 mmol/L (3.5-5.1)
[2020-03-12 15:21] LABS: BASO % 1 % (0-3); EOS % 1 % (0-3); HEMATOCRIT 30.1 % (39.0-53.0); HEMOGLOBIN 9.6 g/dL (13.0-17.5); LYMPH # 1.1 x10^3/uL (1.0-4.8); LYMPH % 26 % (24-48); MEAN CORPUSCULAR HEMOGLOBIN 25 pg (25-35); MEAN CORPUSCULAR HGB CONC 32 g/dL (31-37); MEAN CORPUSCULAR VOLUME 80 fL (79-100); MONO # 0.3 x10^3/uL (0.0-1.1); MONO % 6 % (0-9); NEUT # 2.9 x10^3/uL (1.8-7.7); NEUT % 67 % (31-73); PLATELET COUNT 364 x10^3/uL (140-400); RED BLOOD COUNT 3.78 x10^6/uL (4.30-5.70); RED CELL DISTRIBUTION WIDTH 20.2 % (11.5-14.5); WHITE BLOOD COUNT 4.3 x10^3/uL (4.0-11.0)
[2020-03-12 15:25] LABS: ALBUMIN 3.1 g/dL (3.4-5.0); ALBUMIN/GLOBULIN RATIO 0.7 (1.0-1.7); TOTAL BILIRUBIN 0.3 mg/dL (0.2-1.0); TOTAL PROTEIN 7.7 g/dL (6.4-8.2)
--- NOTE | 2020-03-12 15:37 | PHYS DOC ---
Past Medical History Past Medical History: Anxiety, Depression, GERD, Other Additional Past Medical Histor: PTSD,GASTROPARESIS,TBI,DUMPING SYNDROME Past Surgical History: Colectomy, Gastric Bypass, Other Additional Past Surgical Histo: HERNIA REPAIR,COLOSTOMY W/[place],JTUBE,GTUBE & removal,GASTRIC STIMULATOR Smoking Status: Never Smoker Alcohol Use: None Drug Use: None General Adult EDM: Chief Complaint: ABDOMINAL PAIN HPI: HPI: Patient is a 49-year-old male with chronic gastroparesis among other gastrointestinal issues who is been seen here multiple times. Comes in today stating he has had some abdominal pain nausea and vomiting which is consistent with his gastroparesis acting up. He denies any fever chills or sweats. He denies any melena or hematemesis. He has had drainage from his fistula. [] Review of Systems: Review of Systems: Constitutional: Denies fever or chills. [] Eyes: Denies change in visual acuity. [] HENT: Denies nasal congestion or sore throat. [] Respiratory: Denies cough or shortness of breath. [] Cardiovascular: Denies chest pain or edema. [] GI: Per HPI. [] : Denies dysuria. [] Musculoskeletal: Denies back pain or joint pain. [] Integument: Denies rash. [] Neurologic: Denies headache, focal weakness or sensory changes. [] Endocrine: Denies polyuria or polydipsia. [] Lymphatic: Denies swollen glands. [] Psychiatric: Reports anxiety [] Heart Score: Risk Factors: Risk Factors: DM, Current or recent (<one month) smoker, HTN, HLP, family h istory of CAD, obesity. Risk Scores: Score 0 - 3: 2.5% MACE over next 6 weeks - Discharge Home Score 4 - 6: 20.3% MACE over next 6 weeks - Admit for Clinical Observation Score 7 - 10: 72.7% MACE over next 6 weeks - Early Invasive Strategies Current Medications: Current Medications Medications (Trade) Dose Ordered Sig/Ed Start Time Stop Time Status Last Admin Dose Admin Diphenhydramine HCl (Benadryl) 25 mg 1X ONCE 03/12/20 15:00 03/12/20 15:01 DC 03/12/20 15:15 25 MG Fentanyl Citrate (Fentanyl 2ml Vial) 50 mcg 1X ONCE 03/12/20 15:00 5/8/20 15:01 DC 03/12/20 15:16 50 MCG Ondansetron HCl (Zofran) 4 mg 1X ONCE 03/12/20 15:00 03/12/20 15:01 DC 03/12/20 15:15 4 MG Allergies: Allergies: Allergies Coded Allergies Type Severity Reaction Last Updated Verified morphine Allergy Severe Anaphylaxis Patient states can take Hydromorphone 03/04/19 Yes hydrocodone Allergy Intermediate Rash 03/04/19 Yes droperidol Adverse Reaction Intermediate DYSTONIA 03/04/19 Yes metoclopramide Adverse Reaction Intermediate DYSTONIA 03/04/19 Yes prochlorperazine Adverse Reaction Intermediate DYSTONIA 03/04/19 Yes Physical Exam: PE: Constitutional: Well developed, well nourished, mild distress, non-toxic appearance. [] HENT: Normocephalic, atraumatic, bilateral external ears normal, oropharynx moist, no oral exudates, nose normal. [] Eyes: PERRLA, EOMI, conjunctiva normal, no discharge. [] Neck: Normal range of motion, no tenderness, supple, no stridor. [] Cardiovascular:Heart rate regular rhythm, no murmur [] Lungs & Thorax: Bilateral breath sounds clear to auscultation [] Abdomen: Diffusely tender no rebound or guarding externalized fistula that is draining which is chronic. [] Skin: Warm, dry, no erythema, no rash. [] Back: No tenderness, no CVA tenderness. [] Extremities: No tenderness, no cyanosis, no clubbing, ROM intact, no edema. [] Neurologic: Alert and oriented X 3, normal motor function, normal sensory function, no focal deficits noted. [] Psychologic: Anxious. [] Current Patient Data: Labs: Laboratory Tests Test 03/12/20 14:59 03/12/20 15:00 Sodium Level 140 mmol/L (136-145) Potassium Level 4.2 mmol/L (3.5-5.1) Chloride Level 103 mmol/L (98-107) Carbon Dioxide Level 29 mmol/L (21-32) Anion Gap 8 (6-14) Blood Urea Nitrogen 12 mg/dL (8-26) Creatinine 1.0 mg/dL (0.7-1.3) Estimated GFR (Cockcroft-Gault) 79.4 BUN/Creatinine Ratio 12 (6-20) Glucose Level 138 mg/dL (70-99) H Calcium Level 9.1 mg/dL (8.5-10.1) Total Bilirubin 0.3 mg/dL (0.2-1.0) Aspartate Amino Transferase (AST) 19 U/L (15-37) Alanine Aminotransferase (ALT) 11 U/L (16-63) L Alkaline Phosphatase 86 U/L (46-116) Total Protein 7.7 g/dL (6.4-8.2) Albumin 3.1 g/dL (3.4-5.0) L Albumin/Globulin Ratio 0.7 (1.0-1.7) L Lipase 176 U/L (73-393) White Blood Count 4.3 x10^3/uL (4.0-11.0) Red Blood Count 3.78 x10^6/uL (4.30-5.70) L Hemoglobin 9.6 g/dL (13.0-17.5) L Hematocrit 30.1 % (39.0-53.0) L Mean Corpuscular Volume 80 fL (79-100) Mean Corpuscular Hemoglobin 25 pg (25-35) Mean Corpuscular Hemoglobin Concent 32 g/dL (31-37) Red Cell Distribution Width 20.2 % (11.5-14.5) H Platelet Count 364 x10^3/uL (140-400) Neutrophils (%) (Auto) 67 % (31-73) Lymphocytes (%) (Auto) 26 % (24-48) Monocytes (%) (Auto) 6 % (0-9) Eosinophils (%) (Auto) 1 % (0-3) Basophils (%) (Auto) 1 % (0-3) Neutrophils # (Auto) 2.9 x10^3/uL (1.8-7.7) Lymphocytes # (Auto) 1.1 x10^3/uL (1.0-4.8) Monocytes # (Auto) 0.3 x10^3/uL (0.0-1.1) Eosinophils # (Auto) 0.0 x10^3/uL (0.0-0.7) Basophils # (Auto) 0.0 x10^3/uL (0.0-0.2) Platelet Estimate Pending Laboratory Tests 03/12/20 15:00 Laboratory Tests 03/12/20 14:59 Vital Signs: Vital Signs Date Time Temp Pulse Resp B/P (MAP) Pulse Ox O2 Delivery O2 Flow Rate FiO2 03/12/20 15:16 20 99 Room Air 03/12/20 14:10 99.1 121 173/117 (135) 99.1 EKG: EKG: [] Radiology/Procedures: Radiology/Procedures: [] Course & Med Decision Making: Course & Med Decision Making Pertinent Labs and Imaging studies reviewed. (See chart for details) [ED course: Evaluation reveals a 49-year-old male with history of gastroparesis. He was given fentanyl, Zofran and Benadryl with good results. He was also given some IV fluids he felt much better. He is safe for discharge home.] Dragon Disclaimer: Dragon Disclaimer: This electronic medical record was generated, in whole or in part, using a voice recognition dictation system. Departure Departure Impression: Primary Impression: Gastroparesis Additional Impressions: Generalized abdominal pain Nausea and vomiting Qualified Codes: R11.2 - Nausea with vomiting, unspecified Disposition: 01 HOME, SELF-CARE Condition: IMPROVED Referrals: CHIRAG MALIK (PCP) Patient Instructions: Gastroparesis Additional Instructions: Return to the emergency department with any new or concerning symptoms Scripts Ondansetron (ONDANSETRON ODT) 4 Mg Tab.rapdis 1 TAB PO PRN Q6-8HRS for VOMITING, #16 TAB Prov: LISSETTE DENT DO 03/12/20 LISSETTE DENT DO March 12, 2020 15:37
[2020-03-12 15:51] LABS: PLT ESTIMATE ADEQUATE (ADEQUATE)
[2020-03-12 15:52] LABS: ANISOCYTOSIS MOD; HYPOCHROMIA SLIGHT
[2020-03-12 16:15] VITALS: BP 160/109
[2020-03-12] MEDS ORDERED: ONDA4TAB12 PO (16:17)
== END 2020-03-12 16:40 | disposition home or self-care (01) ==
LOC: ER 14:05
DX: K31.84 Gastroparesis (principal); R10.84 Generalized abdominal pain; R11.2 Nausea with vomiting, unspecified; K21.9 Gastro-esophageal reflux disease without esophagitis; F43.10 Post-traumatic stress disorder, unspecified; Z87.820 Personal history of traumatic brain injury; Z95.1 Presence of aortocoronary bypass graft; Z90.49 Acquired absence of other specified parts of digestive tract; Z88.5 Allergy status to narcotic agent; Z88.8 Allergy status to other drugs, medicaments and biological substances
CPT/HCPCS: 36415; 80053; 83690; 85025; 96374; 96375; 99284; J1200; J2405; J3010

== ENCOUNTER 2020-03-18 17:10 | Emergency (ER) | payer MEDICARE, OTHER ==
[~2020-03-18] VITALS: Ht 172.7 cm; Wt 66.0 kg
--- NOTE | 2020-03-18 18:15 | PHYS DOC ---
Past Medical History Past Medical History: Anxiety, Depression, GERD, Other Additional Past Medical Histor: PTSD,GASTROPARESIS,TBI,DUMPING SYNDROME Past Surgical History: Colectomy, Gastric Bypass, Other Additional Past Surgical Histo: HERNIA REPAIR,COLOSTOMY W/[place],JTUBE,GTUBE & removal,GASTRIC STIMULATOR Smoking Status: Never Smoker Alcohol Use: None Drug Use: None General Adult EDM: Chief Complaint: ABDOMINAL PAIN HPI: HPI: Patient is a 49 year old male with history of gastroparesis who presents the ED today complaining of a flareup of gastroparesis with nausea vomiting as well as mild intermittent left-sided abdominal pain, symptoms 2 days ago. Patient denies any fever. He also reports being on Lovenox daily for DVTs. He also reports being on TPN. Patient denies any exacerbating or relieving factors to his symptoms. He states he got a new PICC line and is behind his medications for nausea and vomiting as welll as TPN feedings. Review of Systems: Review of Systems: Constitutional: Denies fever or chills. [] Eyes: Denies change in visual acuity. [] HENT: Denies nasal congestion or sore throat. [] Respiratory: Denies cough or shortness of breath. [] Cardiovascular: Denies chest pain or edema. [] GI: Reports abdominal pain with nausea vomiting, denies bloody stools or diarrhea. [] : Denies dysuria. [] Musculoskeletal: Denies back pain or joint pain. [] Integument: Denies rash. [] Neurologic: Denies headache, focal weakness or sensory changes. [] Psychiatric: Denies depression or anxiety. [] Heart Score: Risk Factors: Risk Factors: DM, Current or recent (<one month) smoker, HTN, HLP, family history of CAD, obesity. Risk Scores: Score 0 - 3: 2.5% MACE over next 6 weeks - Discharge Home Score 4 - 6: 20.3% MACE over next 6 weeks - Admit for Clinical Observation Score 7 - 10: 72.7% MACE over next 6 weeks - Early Invasive Strategies Current Medications: Current Medications Medications (Trade) Dose Ordered Sig/Ed Start Time Stop Time Status Last Admin Dose Admin Diphenhydramine HCl (Benadryl) 25 mg 1X ONCE 03/18/20 17:45 03/18/20 17:46 DC Famotidine (Pepcid Vial) 20 mg 1X ONCE 03/18/20 17:45 03/18/20 17:46 DC Hydromorphone HCl (Dilaudid) 2 mg 1X ONCE 03/18/20 17:45 03/18/20 17:46 DC Ondansetron HCl (Zofran) 4 mg 1X ONCE 03/18/20 17:45 03/18/20 17:46 DC Sodium Chloride 1,000 ml @ 1,000 mls/hr 1X ONCE 03/18/20 17:45 03/18/20 18:44 Allergies: Allergies: Allergies Coded Allergies Type Severity Reaction Last Updated Verified morphine Allergy Severe Anaphylaxis Patient states can take Hydromorphone 03/04/19 Yes hydrocodone Allergy Intermediate Rash 03/04/19 Yes droperidol Adverse Reaction Intermediate DYSTONIA 03/04/19 Yes metoclopramide Adverse Reaction Intermediate DYSTONIA 03/04/19 Yes prochlorperazine Adverse Reaction Intermediate DYSTONIA 03/04/19 Yes Physical Exam: PE: Constitutional: Well developed, well nourished, no acute distress, non-toxic appearance. [] HENT: Normocephalic, atraumatic, bilateral external ears normal, oropharynx moist, no oral exudates, nose normal. [] Eyes: PERRLA, EOMI, conjunctiva normal, no discharge. [] Neck: Normal range of motion, no tenderness, supple, no stridor. [] Cardiovascular: PICC line noted to the right upper chest. Heart rate regular rhythm, no murmur [] Lungs & Thorax: Bilateral breath sounds clear to auscultation [] Abdomen: Multiple scars noted on the abdomen from previous abdominal surgeries. Reducible umbilical hernia noted. Bowel sounds normal, soft, no tenderness, no masses, no pulsatile masses. [] Skin: Warm, dry, no erythema, no rash. [] Back: No tenderness, no CVA tenderness. [] Extremities: No tenderness, no cyanosis, no clubbing, ROM intact, no edema. [] Neurologic: Alert and oriented X 3, normal motor function, normal sensory function, no focal deficits noted. [] Psychologic: Affect normal, judgement normal, mood normal. [] Current Patient Data: Vital Signs: Vital Signs Date Time Temp Pulse Resp B/P (MAP) Pulse Ox O2 Delivery O2 Flow Rate FiO2 03/18/20 17:33 98.3 109 18 161/112 (128) 100 Room Air 98.3 EKG: EKG: [] Radiology/Procedures: Radiology/Procedures: [] Course & Med Decision Making: Course & Med Decision Making Pertinent Labs and Imaging studies reviewed. (See chart for details) This is a 49-year-old male patient presenting to the ED today with a flareup of gastroparesis. Labs are negative. Patient was hydrated. Pain is well controlled. D/c to home. F/u with his PCP and specialist in 1-2 week Dragon Disclaimer: Antonieta Disclaimer: This electronic medical record was generated, in whole or in part, using a voice recognition dictation system. Departure Departure Impression: Primary Impression: Gastroparesis Disposition: 01 HOME, SELF-CARE Condition: STABLE Referrals: CHIRAG MALIK (PCP) follow up in 1-2 weeks Patient Instructions: Gastroparesis Additional Instructions: Please follow up with your doctors in one week, continue your home medications. MONICA LAWSON APRN March 18, 2020 18:15
[2020-03-18] MEDS: HYDROmorphone 2 MG/ML VIAL IV ONE ×2 (18:38→19:29)
[2020-03-18] MEDS: ONDANSETRON PF 4 MG/2 ML VIAL. IVP ONE (18:38)
[2020-03-18] MEDS: FAMOTIDINE 20 MG/2 ML VIAL IVP ONE (18:38)
[2020-03-18] MEDS: diphenhydrAMINE 50 MG/ML VIAL IVP ONE (18:39)
[2020-03-18] MEDS: IV NORMAL SALINE 1000ML BAG 1,000 ML IV ONE (18:40)
[2020-03-18 18:53] LABS: BASO % 1 % (0-3); EOS % 0 % (0-3); HEMATOCRIT 32.7 % (39.0-53.0); HEMOGLOBIN 10.5 g/dL (13.0-17.5); LYMPH # 1.1 x10^3/uL (1.0-4.8); LYMPH % 24 % (24-48); MEAN CORPUSCULAR HEMOGLOBIN 26 pg (25-35); MEAN CORPUSCULAR HGB CONC 32 g/dL (31-37); MEAN CORPUSCULAR VOLUME 80 fL (79-100); MONO # 0.3 x10^3/uL (0.0-1.1); MONO % 6 % (0-9); NEUT # 3.2 x10^3/uL (1.8-7.7); NEUT % 69 % (31-73); PLATELET COUNT 331 x10^3/uL (140-400); RED BLOOD COUNT 4.11 x10^6/uL (4.30-5.70); RED CELL DISTRIBUTION WIDTH 20.7 % (11.5-14.5); WHITE BLOOD COUNT 4.7 x10^3/uL (4.0-11.0)
[2020-03-18 19:04] LABS: CALCIUM 9.1 mg/dL (8.5-10.1); CREATININE 0.9 mg/dL (0.7-1.3); GFR 89.7
[2020-03-18 19:11] LABS: ALBUMIN 3.5 g/dL (3.4-5.0); ALBUMIN/GLOBULIN RATIO 0.8 (1.0-1.7); TOTAL BILIRUBIN 0.3 mg/dL (0.2-1.0); TOTAL PROTEIN 7.9 g/dL (6.4-8.2)
[2020-03-18 19:12] LABS: BILIRUBIN,URINE NEGATIVE (NEG); CLARITY,URINE CLEAR; COLOR,URINE YELLOW; NITRITE,URINE NEGATIVE (NEG); PH,URINE 8.5 (<5.0-8.0); PROTEIN,URINE NEGATIVE (NEG-TRACE)
[2020-03-18 19:20] LABS: BARBITURATES NEG (NEG); BENZODIAZEPINES NEG (NEG); CANNABINOIDS NEG (NEG); COCAINE NEG (NEG); METHADONE NEG (NEG); OPIATES POS (NEG); PHENCYCLIDINE NEG (NEG)
[2020-03-18 19:21] LABS: AMORPHOUS SEDIMENT,UR PRESENT /HPF; HYALINE CASTS, URINE FEW /HPF; SQUAMOUS EPITHELIAL CELL,UR FEW /LPF
[2020-03-18 19:23] LABS: AMPHETAMINE/METHAMPHETAMINE NEG (NEG)
[2020-03-18 19:27] LABS: BACTERIA,URINE 0 /HPF (0-FEW)
[2020-03-18 19:29] VITALS: BP 174/113
== END 2020-03-18 19:55 | disposition home or self-care (01) ==
LOC: ER 17:10
DX: K31.84 Gastroparesis (principal); R11.2 Nausea with vomiting, unspecified; R10.9 Unspecified abdominal pain; K21.9 Gastro-esophageal reflux disease without esophagitis; Z95.1 Presence of aortocoronary bypass graft; Z90.49 Acquired absence of other specified parts of digestive tract; Z93.3 Colostomy status; Z88.5 Allergy status to narcotic agent; Z88.8 Allergy status to other drugs, medicaments and biological substances
CPT/HCPCS: 36415; 80053; 80307; 81001; 83690; 85025; 96361; 96374; 96375; 96376; 99284; G0480; J1170; J1200; J2405; J3490; J7030

== ENCOUNTER 2020-03-22 17:54 | Emergency (ER) | payer MEDICARE, OTHER ==
[~2020-03-22] VITALS: Ht 172.7 cm; Wt 63.6 kg
[2020-03-22] MEDS ORDERED: IV NORMAL SALINE 1000ML BAG 1,000 ML IV ONE (18:30)
[2020-03-22] MEDS ORDERED: ONDANSETRON PF 4 MG/2 ML VIAL. IVP ONE (18:45)
[2020-03-22] MEDS ORDERED: FAMOTIDINE 20 MG/2 ML VIAL IVP ONE (18:45)
[2020-03-22] MEDS ORDERED: diphenhydrAMINE 50 MG/ML VIAL IVP ONE (18:45)
[2020-03-22] MEDS ORDERED: fentaNYL PF VIAL 100 MCG/2 ML VIAL IVP ONE (18:45)
[2020-03-22 18:47] LABS: BASO % 1 % (0-3); EOS % 1 % (0-3); HEMATOCRIT 31.6 % (39.0-53.0); HEMOGLOBIN 10.1 g/dL (13.0-17.5); LYMPH # 1.1 x10^3/uL (1.0-4.8); LYMPH % 28 % (24-48); MEAN CORPUSCULAR HEMOGLOBIN 26 pg (25-35); MEAN CORPUSCULAR HGB CONC 32 g/dL (31-37); MEAN CORPUSCULAR VOLUME 80 fL (79-100); MONO # 0.3 x10^3/uL (0.0-1.1); MONO % 8 % (0-9); NEUT # 2.5 x10^3/uL (1.8-7.7); NEUT % 63 % (31-73); PLATELET COUNT 238 x10^3/uL (140-400); RED BLOOD COUNT 3.96 x10^6/uL (4.30-5.70); RED CELL DISTRIBUTION WIDTH 19.9 % (11.5-14.5)
[2020-03-22 18:59] LABS: CALCIUM 8.8 mg/dL (8.5-10.1); GFR 79.4; POTASSIUM 3.8 mmol/L (3.5-5.1)
[2020-03-22 19:05] LABS: ALBUMIN 3.4 g/dL (3.4-5.0); ALBUMIN/GLOBULIN RATIO 0.9 (1.0-1.7); TOTAL BILIRUBIN 0.4 mg/dL (0.2-1.0); TOTAL PROTEIN 7.3 g/dL (6.4-8.2)
[2020-03-22 19:47] LABS: BILIRUBIN,URINE NEGATIVE (NEG); CLARITY,URINE CLEAR; COLOR,URINE YELLOW; NITRITE,URINE NEGATIVE (NEG); PROTEIN,URINE NEGATIVE (NEG-TRACE)
--- NOTE | 2020-03-22 19:54 | PHYS DOC ---
Past Medical History Past Medical History: Anxiety, Depression, GERD, Other Additional Past Medical Histor: PTSD,GASTROPARESIS,TBI,DUMPING SYNDROME Past Surgical History: Colectomy, Gastric Bypass, Other Additional Past Surgical Histo: HERNIA REPAIR,COLOSTOMY W/[place],JTUBE,GTUBE & removal,GASTRIC STIMULATOR Smoking Status: Never Smoker Alcohol Use: None Drug Use: None General Adult EDM: Chief Complaint: DIARRHEA HPI: HPI: Patient is a 49 year old male with pmh of gastroparesis and "dumping syndrome" presents with report of exacerbation of chronic abdominal pain with associated nausea, vomiting and diarrhea over the last few days. Reports associated fever- Tmax 101.2 F. Reports last took Tylenol at 1330 today. Denies known sick contacts. Denies trauma. Denies travel outside the [place]. Denies known exposure to COVID19. Reports recently started on TPN. Review of Systems: Review of Systems: Constitutional: Repots fever and chills Eyes: Denies change in visual acuity, redness, or eye pain HENT: Denies nasal congestion or sore throat Respiratory: Denies cough or shortness of breath Cardiovascular: Denies chest pain or palpitations GI: Reports abdominal pain, nausea, vomiting, and diarrhea : Denies dysuria or hematuria Musculoskeletal: Denies back pain or joint pain Integument: Denies rash or skin lesions Neurologic: Denies headache, focal weakness or sensory changes Complete systems were reviewed and found to be within normal limits, except as documented in this note. Current Medications: Current Medications Medications (Trade) Dose Ordered Sig/Ed Start Time Stop Time Status Last Admin Dose Admin Diphenhydramine HCl (Benadryl) 50 mg 1X ONCE 03/22/20 18:45 03/22/20 18:46 DC 03/22/20 18:56 50 MG Famotidine (Pepcid Vial) 20 mg 1X ONCE 03/22/20 18:45 03/22/20 18:46 DC 03/22/20 18:56 20 MG Fentanyl Citrate (Fentanyl 2ml Vial) 50 mcg 1X ONCE 03/22/20 18:45 03/22/20 18:46 DC 03/22/20 18:55 50 MCG Ondansetron HCl (Zofran) 4 mg 1X ONCE 03/22/20 18:45 03/22/20 18:46 DC 03/22/20 18:56 4 MG Sodium Chloride 1,000 ml @ 1,000 mls/hr 1X ONCE 03/22/20 18:30 03/22/20 19:29 DC 03/22/20 18:55 1,000 MLS/HR Allergies: Allergies: Allergies Coded Allergies Type Severity Reaction Last Updated Verified morphine Allergy Severe Anaphylaxis Patient states can take Hydromorphone 03/04/19 Yes hydrocodone Allergy Intermediate Rash 03/04/19 Yes droperidol Adverse Reaction Intermediate DYSTONIA 03/04/19 Yes metoclopramide Adverse Reaction Intermediate DYSTONIA 03/04/19 Yes prochlorperazine Adverse Reaction Intermediate DYSTONIA 03/04/19 Yes Physical Exam: PE: Constitutional: Well developed, well nourished, no acute distress, non-toxic appearance HENT: Normocephalic, atraumatic, nose normal Eyes: Conjunctiva normal, no discharge Neck: Normal range of motion, no tenderness, supple, no meningeal signs Cardiovascular: Heart rate normal and regular rhythm Lungs & Thorax: Bilateral breath sounds clear to auscultation, no respiratory distress Abdomen: Soft, diffuse tenderness Skin: Warm, dry, no erythema, no rash Back: No tenderness, no CVA tenderness Extremities: No tenderness, ROM intact, no edema Neurologic: Alert and oriented X 3, no focal deficits noted Psychologic: Affect normal, judgement normal Current Patient Data: Labs: Laboratory Tests Test 03/22/20 18:35 White Blood Count 4.0 x10^3/uL (4.0-11.0) Red Blood Count 3.96 x10^6/uL (4.30-5.70) L Hemoglobin 10.1 g/dL (13.0-17.5) L Hematocrit 31.6 % (39.0-53.0) L Mean Corpuscular Volume 80 fL (79-100) Mean Corpuscular Hemoglobin 26 pg (25-35) Mean Corpuscular Hemoglobin Concent 32 g/dL (31-37) Red Cell Distribution Width 19.9 % (11.5-14.5) H Platelet Count 238 x10^3/uL (140-400) Neutrophils (%) (Auto) 63 % (31-73) Lymphocytes (%) (Auto) 28 % (24-48) Monocytes (%) (Auto) 8 % (0-9) Eosinophils (%) (Auto) 1 % (0-3) Basophils (%) (Auto) 1 % (0-3) Neutrophils # (Auto) 2.5 x10^3/uL (1.8-7.7) Lymphocytes # (Auto) 1.1 x10^3/uL (1.0-4.8) Monocytes # (Auto) 0.3 x10^3/uL (0.0-1.1) Eosinophils # (Auto) 0.0 x10^3/uL (0.0-0.7) Basophils # (Auto) 0.0 x10^3/uL (0.0-0.2) Prothrombin Time 13.0 SEC (11.7-14.0) Prothrombin Time INR 1.0 (0.8-1.1) Activated Partial Thromboplast Time 26 SEC (24-38) Sodium Level 140 mmol/L (136-145) Potassium Level 3.8 mmol/L (3.5-5.1) Chloride Level 104 mmol/L (98-107) Carbon Dioxide Level 25 mmol/L (21-32) Anion Gap 11 (6-14) Blood Urea Nitrogen 12 mg/dL (8-26) Creatinine 1.0 mg/dL (0.7-1.3) Estimated GFR (Cockcroft-Gault) 79.4 BUN/Creatinine Ratio 12 (6-20) Glucose Level 120 mg/dL (70-99) H Lactic Acid Level 1.5 mmol/L (0.4-2.0) Calcium Level 8.8 mg/dL (8.5-10.1) Total Bilirubin 0.4 mg/dL (0.2-1.0) Aspartate Amino Transferase (AST) 24 U/L (15-37) Alanine Aminotransferase (ALT) 18 U/L (16-63) Alkaline Phosphatase 77 U/L (46-116) Creatine Kinase 193 U/L (39-308) Creatine Kinase MB (Mass) 0.5 ng/mL (0.0-3.6) Creatine Kinase MB Relative Index 0.3 % (0-4) Troponin I Quantitative < 0.017 ng/mL (0.000-0.055) Total Protein 7.3 g/dL (6.4-8.2) Albumin 3.4 g/dL (3.4-5.0) Albumin/Globulin Ratio 0.9 (1.0-1.7) L Lipase 329 U/L (73-393) Laboratory Tests 03/22/20 18:35 Laboratory Tests 03/22/20 18:35 Vital Signs: Vital Signs Date Time Temp Pulse Resp B/P (MAP) Pulse Ox O2 Delivery O2 Flow Rate FiO2 03/22/20 18:55 24 99 Room Air 03/22/20 17:59 98.6 114 178/110 (132) 98.6 EKG: EKG: @1829 Sinus tachycardia at 116bpm, NO ST elevation, QRS 82ms, QT/QTc 308/434ms Radiology/Procedures: Radiology/Procedures: [] Course & Med Decision Making: Course & Med Decision Making Pertinent Lab studies reviewed. (See chart for details) Patient reports chronic abdominal pain with associate nausea, vomiting, and diarrhea. Reports fever at home Tmax 101.2F. Labs obtained and posted to chart. IVF hydration given. Pain/nausea addressed. Patient stable for discharge home with outpatient follow-up with PCP. Discussed findings and plan with patient, who acknowledges understanding and agreement. Antonieta Disclaimer: Antonieta Disclaimer: This electronic medical record was generated, in whole or in part, using a voice recognition dictation system. Departure Departure Impression: Primary Impression: Chronic abdominal pain Additional Impression: Diarrhea Qualified Codes: R19.7 - Diarrhea, unspecified Disposition: 01 HOME, SELF-CARE Condition: STABLE Referrals: CHIRAG MALIK (PCP) NINI DURÁN MD Patient Instructions: Chronic Pain, Diarrhea, [id number], Diet for Diarrhea, Adult CHAY BLANC DO March 22, 2020 19:54
[2020-03-22 20:06] LABS: BACTERIA,URINE 0 /HPF (0-FEW); SQUAMOUS EPITHELIAL CELL,UR OCC /LPF
[2020-03-22] MEDS ORDERED: HYDROmorphone 2 MG/ML VIAL IV ONE (20:15)
[2020-03-22 20:21] VITALS: BP 167/116
--- NOTE | 2020-03-23 06:44 | EKG ---
[facility] [address] [place] [address] Test Date: 2020-03-22 Test Time: 18:29:28 Pat Name: MERISSA JACKSON Department: Room: Gender: M [employer] Operator: : 1970 Requested By: CHAY BLANC Order Number: [id number] Reading MD: Vignesh Jarrell Measurements Intervals [place] Rate: 116 P: 83 [place]: 148 QRS: -26 QRSD: 82 T: 52 QT: 308 QTc: 434 Interpretive Statements SINUS TACHYCARDIA LEFT ATRIAL ABNORMALITY LEFTWARD AXIS ABNORMAL ECG Electronically Signed On 03-23-2020 8:42:54 CDT by Vignesh Jarrell
== END 2020-03-22 20:28 | disposition home or self-care (01) ==
LOC: ER 17:54
DX: R19.7 Diarrhea, unspecified (principal); G89.29 Other chronic pain; R10.12 Left upper quadrant pain; R11.2 Nausea with vomiting, unspecified; K21.9 Gastro-esophageal reflux disease without esophagitis; Z93.3 Colostomy status; Z90.49 Acquired absence of other specified parts of digestive tract
CPT/HCPCS: 36415; 80053; 81001; 82553; 83605; 83690; 84484; 85025; 85610; 85730; 93005; 96361; 96374; 96375; 99284; J1170; J1200; J2405; J3010; J3490; J7030

== ENCOUNTER 2020-03-24 15:41 | Emergency (ER) | payer MEDICARE, OTHER ==
[~2020-03-24] VITALS: Ht 172.7 cm; Wt 65.9 kg
[2020-03-24 16:58] VITALS: BP 190/113
[2020-03-24] MEDS ORDERED: PROMETHAZINE 12.5 MG TABLET. PO ONE (17:15)
[2020-03-24] MEDS ORDERED: diphenhydrAMINE 50 MG/ML VIAL IM ONE ×2 (17:15)
--- NOTE | 2020-03-24 17:31 | PHYS DOC ---
Past Medical History Past Medical History: Anxiety, Depression, GERD, Other Additional Past Medical Histor: PTSD,GASTROPARESIS,TBI,DUMPING SYNDROME Past Surgical History: Colectomy, Gastric Bypass, Other Additional Past Surgical Histo: HERNIA REPAIR,COLOSTOMY W/[place],JTUBE,GTUBE & removal,GASTRIC STIMULATOR Smoking Status: Never Smoker Alcohol Use: None Drug Use: None Adult General Chief Complaint Chief Complaint: FEVER HPI HPI Patient is a 49 year old history of PTSD, anxiety, gastroparesis and dumping syndrome who presents with nausea vomiting and chronic abdominal pain. Patient last evaluated in this emergency department 2 days ago for same complaints. Review of recent labs revealed the patient symptoms improved he was discharged home with instructions to follow-up with GI provider. Patient was contacted with Dr. Gonzalez office today outpatient arrangements were made for the patient t o receive IV fluids and antiemetics. Patient denies dizziness lightheadedness, chest pain palpitations hematemesis coffee-ground emesis and melena. Patient walks with steady gait to treatment room. Denies other acute symptoms or complaints. [] Review of Systems Review of Systems Constitutional: Denies fever or chills [] Eyes: Denies change in visual acuity, redness, or eye pain [] HENT: Denies nasal congestion or sore throat [] Respiratory: Denies cough or shortness of breath [] Cardiovascular: No additional information not addressed in HPI [] GI: Denies abdominal pain, nausea, vomiting, bloody stools or diarrhea [] : Denies dysuria or hematuria [] Musculoskeletal: Denies back pain or joint pain [] Integument: Denies rash or skin lesions [] Neurologic: Denies headache, focal weakness or sensory changes [] Endocrine: Denies polyuria or polydipsia [] All other systems were reviewed and found to be within normal limits, except as documented in this note. Current Medications Current Medications Current Medications Medications (Trade) Dose Ordered Sig/Ed Start Time Stop Time Status Last Admin Dose Admin Diphenhydramine HCl (Benadryl) 50 mg 1X ONCE 03/24/20 17:15 03/24/20 17:16 Cancel Promethazine HCl (Phenergan) 25 mg 1X ONCE 03/24/20 17:15 03/24/20 17:16 DC 03/24/20 17:19 25 MG Allergies Allergies Allergies Coded Allergies Type Severity Reaction Last Updated Verified morphine Allergy Severe Anaphylaxis Patient states can take Hydromorphone 03/04/19 Yes hydrocodone Allergy Intermediate Rash 03/04/19 Yes droperidol Adverse Reaction Intermediate DYSTONIA 03/04/19 Yes metoclopramide Adverse Reaction Intermediate DYSTONIA 03/04/19 Yes prochlorperazine Adverse Reaction Intermediate DYSTONIA 03/04/19 Yes Physical Exam Physical Exam Constitutional: Well developed, well nourished, no acute distress, non-toxic appearance. [] HENT: Normocephalic, atraumatic, bilateral external ears normal, oropharynx moist, nose normal. [] Eyes: PERRLA, EOMI, conjunctiva normal. [] Neck: Normal range of motion. [] Cardiovascular:Heart rate regular rhythm, no murmur [] Lungs & Thorax: Bilateral breath sounds clear to auscultation [] Abdomen: Bowel sounds normal, soft, subcutaneous medical practitioners. [] Skin: Warm, dry. [] Back: No tenderness. [] Extremities: No tenderness. [] Neurologic: Alert and oriented X 3, normal motor function, normal sensory function, no focal deficits noted. [] Psychologic: Affect anxious, judgement normal, mood normal. [] Current Patient Data Vital Signs Vital Signs Date Time Temp Pulse Resp B/P (MAP) Pulse Ox O2 Delivery O2 Flow Rate FiO2 03/24/20 16:58 98.7 92 16 190/113 (138) 96 Room Air 98.7 EKG EKG [] Radiology/Procedures Radiology/Procedures [] Course & Med Decision Making Course & Med Decision Making Pertinent Labs and Imaging studies reviewed. (See chart for details) [Review of recent ED testing reveal labs within the normal range. Promethazine and Benadryl given. No vomiting in the ED. Patient instructed to continue management instructions provided by GI specialist. Return precautions reviewed.] Dragon Disclaimer Dragon Disclaimer This electronic medical record was generated, in whole or in part, using a voice recognition dictation system. Departure Departure Impression: Primary Impression: Gastroparesis Additional Impression: Nausea and vomiting Disposition: 01 HOME, SELF-CARE Condition: STABLE Patient Instructions: Gastroparesis Additional Instructions: Please follow outpatient treatment plan outlined by your GI specialist. Problem Qualifiers TIFFANI SELBY DO March 24, 2020 17:31
== END 2020-03-24 17:25 | disposition home or self-care (01) ==
LOC: ER 15:41
DX: K31.84 Gastroparesis (principal); R11.2 Nausea with vomiting, unspecified; R10.9 Unspecified abdominal pain; F41.9 Anxiety disorder, unspecified; F32.9 Major depressive disorder, single episode, unspecified; K21.9 Gastro-esophageal reflux disease without esophagitis; F43.12 Post-traumatic stress disorder, chronic; Z87.820 Personal history of traumatic brain injury; Z90.89 Acquired absence of other organs; Z90.49 Acquired absence of other specified parts of digestive tract; Z98.890 Other specified postprocedural states; Z88.6 Allergy status to analgesic agent; Z88.5 Allergy status to narcotic agent; Z88.8 Allergy status to other drugs, medicaments and biological substances; Z88.1 Allergy status to other antibiotic agents
CPT/HCPCS: 96372; 99283; J1200; Q0169

== ENCOUNTER 2020-11-17 12:10 | Emergency (ER) | payer MEDICARE, OTHER ==
[~2020-11-17 12:10] MED LIST changes: -WARF-78 PO; +WARF5TAB2 PO
[2020-11-17 12:22] VITALS: BP 139/90
== END 2020-11-17 13:01 | disposition left against medical advice (07) ==
LOC: ER 12:10
DX: R11.2 Nausea with vomiting, unspecified (principal); Z53.21 Procedure and treatment not carried out due to patient leaving prior to being seen by health care provider

== ENCOUNTER 2020-11-20 17:45 | Emergency (ER) | payer MEDICARE, OTHER ==
[~2020-11-20] VITALS: Ht 172.7 cm; Wt 65.0 kg
[2020-11-20] MEDS ORDERED: IV NORMAL SALINE 1000ML BAG 1,000 ML IV ONE ×2 (18:45→21:30)
[2020-11-20] MEDS ORDERED: ONDANSETRON PF 4 MG/2 ML VIAL. IVP ONE (19:00)
[2020-11-20] MEDS ORDERED: FAMOTIDINE 20 MG/2 ML VIAL IVP ONE (19:00)
--- NOTE | 2020-11-20 19:08 | PHYS DOC ---
Past Medical History Past Medical History: Anxiety, Depression, GERD, Hypertension, Other Additional Past Medical Histor: PTSD,GASTROPARESIS,TBI,DUMPING SYNDROME,UTI Past Surgical History: Colectomy, Gastric Bypass, Other Additional Past Surgical Histo: HERNIA REPAIR,COLOSTOMY W/[place],JTUBE,GTUBE & removal,GASTRIC STIMULATOR Smoking Status: Never Smoker Alcohol Use: None Drug Use: None General Adult EDM: Chief Complaint: ABDOMINAL PAIN HPI: HPI: Patient is a 50 year old, with PMHx of gastroparesis, presents to ED today with complaint of vomiting and abdominal pain for the last four days. He reports 1 to 2 episodes of bilious vomiting a day, but is able to keep fluids down by mouth. Abdominal pain is located LUQ and is non-radiating sharp in nature. He states the pain is associated with the episodes of vomiting. Pt is taking IV zofran at home, with minimal relief. He states he has TPN for nutrients due to his history of gastroparesis. He states his current state are similar to past episode of gastroparesis flares, with the current flare being keflex he is taking for his current UTI. He denies any SOB, chest pain, headaches, dizziness, or diarrhea. No other symptoms or complaints at this time. Review of Systems: Review of Systems: Constitutional: Denies fever or chills Eyes: Denies redness or eye pain HENT: Denies nasal congestion or sore throat Respiratory: Denies cough or shortness of breath Cardiovascular: Denies chest pain or palpitations GI: Positive for LUQ abdominal pain, nausea, and vomiting. : Denies dysuria or hematuria Musculoskeletal: Denies back pain or joint pain Integument: Denies rash or skin lesions Neurologic: Denies headache, focal weakness or sensory changes Complete systems were reviewed and found to be within normal limits, except as documented in this note. Current Medications: Current Medications Medications (Trade) Dose Ordered Sig/Ed Start Time Stop Time Status Last Admin Dose Admin Sodium Chloride 1,000 ml @ 1,000 mls/hr 1X ONCE 11/20/20 18:45 11/20/20 19:44 Allergies: Allergies: Allergies Coded Allergies Type Severity Reaction Last Updated Verified morphine Allergy Severe Anaphylaxis Patient states can take Hydromorphone 03/04/19 Yes hydrocodone Allergy Intermediate Rash 03/04/19 Yes droperidol Adverse Reaction Intermediate DYSTONIA 03/04/19 Yes metoclopramide Adverse Reaction Intermediate DYSTONIA 03/04/19 Yes prochlorperazine Adverse Reaction Intermediate DYSTONIA 03/04/19 Yes Physical Exam: PE: Constitutional: Well developed, well nourished, no acute distress, non-toxic appearance HENT: Normocephalic, atraumatic Eyes: Conjunctiva normal, no discharge Neck: Normal range of motion, supple Lungs & Thorax: No respiratory distress, equal chest rise and fall Abdomen: Soft and non-distended. Tenderness to palpation to LUQ and epigastric region. Multiple past surgical scars noted. Reducible umbilical hernia noted. Skin: Warm, dry, no erythema, no rash Back: No tenderness, no CVA tenderness Extremities: No tenderness, ROM intact, no edema Neurologic: Alert and oriented X 3, normal motor function, normal sensory function, no focal deficits noted Psychologic: Affect normal, judgment normal Current Patient Data: Vital Signs: Vital Signs Date Time Temp Pulse Resp B/P (MAP) Pulse Ox O2 Delivery O2 Flow Rate FiO2 11/20/20 18:32 98.1 100 16 145/90 (108) 100 Room Air 98.1 Course & Med Decision Making: Course & Med Decision Making Pertinent Labs reviewed. (See chart for details) Patient presented to the ED with complaint of exacerbated gastroparesis with 4 days of vomiting and abdominal pain. Will check basic labs and urine due to history of recent UTI. Plan to give fluids and medication for symptomatic management. Will change antibiotic based on current UA. Patient stable for discharge with outpatient follow-up with PCP. Discussed findings and plan with patient, who acknowledges understanding and agreement. Antonieta Disclaimer: Antonieta Disclaimer: This electronic medical record was generated, in whole or in part, using a voice recognition dictation system. Departure Departure Impression: Primary Impression: Chronic abdominal pain Additional Impressions: Nausea and vomiting Qualified Codes: R11.2 - Nausea with vomiting, unspecified Urinary tract infection Qualified Codes: N30.01 - Acute cystitis with hematuria Disposition: HOME SELF CARE/HOMELESS Condition: STABLE Referrals: CHIRAG MALIK (PCP) Patient Instructions: Gastroparesis, Nausea and Vomiting, [id number], Urinary Tract Infection, [id number] Additional Instructions: Discontinue previously prescribed antibiotics Scripts Ciprofloxacin Hcl (CIPRO) 500 Mg Tablet 1 TAB PO BID for 10 Days, #20 TAB 0 Refills Prov: CHAY BLANC DO 11/20/20 CHAY BLANC DO Nov 20, 2020 19:08
[2020-11-20 19:30] LABS: BASO % 1 % (0-3); EOS % 1 % (0-3); HEMATOCRIT 29.2 % (39.0-53.0); HEMOGLOBIN 9.2 g/dL (13.0-17.5); LYMPH # 1.7 x10^3/uL (1.0-4.8); LYMPH % 28 % (24-48); MEAN CORPUSCULAR HEMOGLOBIN 23 pg (25-35); MEAN CORPUSCULAR HGB CONC 31 g/dL (31-37); MEAN CORPUSCULAR VOLUME 75 fL (79-100); MONO # 0.6 x10^3/uL (0.0-1.1); MONO % 10 % (0-9); NEUT # 3.7 x10^3/uL (1.8-7.7); NEUT % 61 % (31-73); PLATELET COUNT 267 x10^3/uL (140-400); RED BLOOD COUNT 3.91 x10^6/uL (4.30-5.70); RED CELL DISTRIBUTION WIDTH 25.1 % (11.5-14.5); WHITE BLOOD COUNT 6.1 x10^3/uL (4.0-11.0)
[2020-11-20 19:44] LABS: CALCIUM 8.5 mg/dL (8.5-10.1); CREATININE 1.2 mg/dL (0.7-1.3); GFR 64.1; POTASSIUM 3.6 mmol/L (3.5-5.1)
[2020-11-20 19:55] LABS: ALBUMIN 2.9 g/dL (3.4-5.0); ALBUMIN/GLOBULIN RATIO 0.7 (1.0-1.7); MAGNESIUM 1.8 mg/dL (1.8-2.4); TOTAL BILIRUBIN 0.5 mg/dL (0.2-1.0); TOTAL PROTEIN 6.8 g/dL (6.4-8.2)
[2020-11-20 19:58] LABS: ANISOCYTOSIS MOD; HYPOCHROMIA SLIGHT; MICROCYTOSIS SLIGHT; PLT ESTIMATE ADEQUATE (ADEQUATE); POIKILOCYTOSIS SLIGHT
[2020-11-20] MEDS ORDERED: fentaNYL PF VIAL 100 MCG/2 ML VIAL IVP ONE (21:30)
[2020-11-20] MEDS ORDERED: diphenhydrAMINE 50 MG/ML VIAL IVP ONE (21:30)
[2020-11-20 22:15] LABS: BILIRUBIN,URINE NEGATIVE (NEG); CLARITY,URINE CLEAR; COLOR,URINE YELLOW; NITRITE,URINE NEGATIVE (NEG); PROTEIN,URINE 30 mg/dL (NEG-TRACE); UROBILINOGEN,URINE 0.2 mg/dL (0.2 mg/dL)
[2020-11-20 22:21] LABS: BACTERIA,URINE MODERATE /HPF (0-FEW); RBC,URINE 20-40 /HPF (0-2); WBC,URINE 20-40 /HPF (0-4)
[2020-11-20 22:22] LABS: BARBITURATES NEG (NEG); BENZODIAZEPINES NEG (NEG); CANNABINOIDS NEG (NEG); COCAINE NEG (NEG); METHADONE NEG (NEG); OPIATES NEG (NEG); PHENCYCLIDINE NEG (NEG)
[2020-11-20 22:23] LABS: AMPHETAMINE/METHAMPHETAMINE NEG (NEG)
[2020-11-20 22:39] VITALS: BP 134/78
[2020-11-20] MEDS ORDERED: CIPR500T94 PO (22:57)
[2020-11-20] MEDS ORDERED: CIPROFLOXACIN HCL 250 MG TABLET. PO ONE (23:30)
== END 2020-11-20 23:05 | disposition home or self-care (01) ==
LOC: ER 17:45
DX: N30.01 Acute cystitis with hematuria (principal); G89.29 Other chronic pain; K21.9 Gastro-esophageal reflux disease without esophagitis; I10 Essential (primary) hypertension; Z87.820 Personal history of traumatic brain injury; Z90.49 Acquired absence of other specified parts of digestive tract; Z93.3 Colostomy status; Z88.5 Allergy status to narcotic agent; Z88.8 Allergy status to other drugs, medicaments and biological substances; Z79.899 Other long term (current) drug therapy
CPT/HCPCS: 36415; 80053; 80307; 81001; 83690; 83735; 85025; 87086; 96361; 96374; 96375; 99285; J1200; J2405; J3010; J3490; J7030

== ENCOUNTER 2020-11-27 11:45 | Emergency (ER) | payer MEDICARE, OTHER ==
[~2020-11-27] VITALS: Ht 172.7 cm; Wt 65.9 kg
[~2020-11-27 11:45] MED LIST changes: +CIPR500T94 PO
--- NOTE | 2020-11-27 12:57 | PHYS DOC ---
Past Medical History Past Medical History: Anxiety, Depression, GERD, Hypertension, Other Additional Past Medical Histor: PTSD,GASTROPARESIS,TBI,DUMPING SYNDROME,UTI Past Surgical History: Colectomy, Gastric Bypass, Other Additional Past Surgical Histo: HERNIA REPAIR,COLOSTOMY W/[place],JTUBE,GTUBE & removal,GASTRIC STIMULATOR Smoking Status: Never Smoker Alcohol Use: None Drug Use: None General Adult EDM: Chief Complaint: NAUSEA/VOMITING/DIARRHA HPI: HPI: 50-year-old male presented emergency department today with nausea vomiting with an extensive history of gastroparesis. He takes TPN with Pepcid regularly and has a gastric pacemaker. He has epigastric abdominal pain that is worsened over the past few days. He has had some nausea with vomiting with it. He denies fevers or chills. Onset 2 to 3 days. Location epigastrium. Duration intermittent. Partially alleviated by medications he takes at home including Pepcid. Review of systems negative for chest pain shortness of breath fevers chills. All other review of systems is negative. ED course: 50-year-old male presenting with nausea vomiting and acute on chronic epigastric abdominal pain and gastroparesis. On arrival the patient was given IV fluids with Zofran Benadryl and Pepcid. Blood work ordered. Work-up here shows a chronic anemia. Patient is starting iron infusions through his regular doctor. He also had positive leuk esterase. He is currently taking ciprofloxacin for a previously diagnosed UTI. On reexamination he is feeling much better. We will discharge him to follow-up with his PCP in 1 to 2 days. The patient has been examined and was not found to have an emergency medical condition. The patient was then discharged home in stable condition to follow up with their primary care physician over the next 1-2 days. They were to return if their symptoms worsened or if they were concerned for any reason. They were also instructed to return to the emergency department if they were unable to get the recommended and appropriate follow-up. [id number] discharge instructions and return precautions were given. Patient's questions were answered to their satisfaction. Patient is comfortable with plan. Heart Score: Risk Factors: Risk Factors: DM, Current or recent (<one month) smoker, HTN, HLP, family history of CAD, obesity. Risk Scores: Score 0 - 3: 2.5% MACE over next 6 weeks - Discharge Home Score 4 - 6: 20.3% MACE over next 6 weeks - Admit for Clinical Observation Score 7 - 10: 72.7% MACE over next 6 weeks - Early Invasive Strategies Allergies: Allergies: Allergies Coded Allergies Type Severity Reaction Last Updated Verified morphine Allergy Severe Anaphylaxis Patient states can take Hydromorphone 03/04/19 Yes hydrocodone Allergy Intermediate Rash 03/04/19 Yes droperidol Adverse Reaction Intermediate DYSTONIA 03/04/19 Yes metoclopramide Adverse Reaction Intermediate DYSTONIA 03/04/19 Yes prochlorperazine Adverse Reaction Intermediate DYSTONIA 03/04/19 Yes Physical Exam: PE: Constitutional: Well developed, well nourished, no acute distress, non-toxic appearance. [] HENT: Normocephalic, atraumatic, bilateral external ears normal, oropharynx moist, no oral exudates, nose normal. [] Eyes: PERRLA, EOMI, conjunctiva normal, no discharge. [] Neck: Normal range of motion, no tenderness, supple, no stridor. [] Cardiovascular:Heart rate regular rhythm, no murmur [] Lungs & Thorax: Bilateral breath sounds clear to auscultation [] Abdomen: Bowel sounds normal, soft, no tenderness, no masses, no pulsatile mas ses. Patient has an easily reducible epigastric hernia. His abdomen is nondistended. No rebound tenderness or guarding. Skin: Warm, dry, no erythema, no rash. [] Back: No tenderness, no CVA tenderness. [] Extremities: No tenderness, no cyanosis, no clubbing, ROM intact, no edema. [] Neurologic: Alert and oriented X 3, normal motor function, normal sensory function, no focal deficits noted. [] Psychologic: Affect normal, judgement normal, mood normal. [] Current Patient Data: Vital Signs: Vital Signs Date Time Temp Pulse Resp B/P (MAP) Pulse Ox O2 Delivery O2 Flow Rate FiO2 11/27/20 12:44 98.5 95 17 157/89 (111) 99 Room Air 98.5 EKG: EKG: [] Radiology/Procedures: Radiology/Procedures: [] Course & Med Decision Making: Course & Med Decision Making Pertinent Labs and Imaging studies reviewed. (See chart for details) [] Dragon Disclaimer: Dragon Disclaimer: This electronic medical record was generated, in whole or in part, using a voice recognition dictation system. Departure Departure Impression: Primary Impression: Generalized abdominal pain Additional Impressions: Nausea and vomiting Gastroparesis Disposition: 01 DC HOME SELF CARE/HOMELESS Condition: STABLE Referrals: CHIRAG MALIK (PCP) Patient Instructions: Gastroparesis Additional Instructions: EMERGENCY DEPARTMENT GENERAL DISCHARGE INSTRUCTIONS Follow-up with your primary physician in 1 to 2 days. Return to the emergency department if you have any new or concerning findings. Thank you for coming to [facility] Emergency Department (ED) today and trusting us with you care. We trust that you had a positive experience in our Emergency Department. If you wish to speak to the department management, you may call the Director at [phone]. YOUR FOLLOW UP INSTRUCTIONS ARE FOLLOWS: 1. Do you have a private Doctor? If you do not have a private doctor, please ask for a resource list of physicians or clinics that may be able to assist you with follow up care. 2. If a lab test or culture has been done and does not come back immediately, your results will be reviewed and you will be notified if you need a change in treatment. ADDITIONAL INSTRUCTIONS AND INFORMATION: 1. Your care today has been supervised by a physician who is specially trained in emergency care. Many problems require more than one evaluation for a complete diagnosis and treatment. We recommend that you schedule your follow up appointment as recommended to ensure complete treatment of you illness or injury. If you are unable to obtain follow up care and continue to have a problem, or if your condition worsens, we recommend that you return to the ED. 2. We are not able to safely determine your condition over the phone nor are we able to give sound medical advice over the phone. For these safety reasons, if you call for medical advice we will ask you to come to the ED for further evaluation. 3. If you have any questions regarding these discharge instructions please call the ED at [phone]. SAFETY INFORMATION: In the interest of safety, wellness, and injury prevention; we encourage you to wear your sealbelt, if you smoke; quite smoking, and we encourage family to use a protective helmet for bicycling and other sporting events that present an increased risk for head injury. IF YOUR SYMPTOMS WORSEN OR NEW SYMPTOMS DEVELOP, OR YOU HAVE CONCERNS ABOUT YOUR CONDITION; OR IF YOUR CONDITION WORSENS WHILE YOU ARE WAITING FOR YOUR FOLLOW UP APPOINTMENT; EITHER CONTACT YOUR PRIMARY CARE DOCTOR, THE PHYSICIAN WHOSE NAME AND NUMBER YOU WERE GIVEN, OR RETURN TO THE ED IMMEDIATELY. This condition should be evaluated by your primary care physician and any necessary consulting services for continued management within a few days (1-2) after discharge. Return to the emergency department if you have any new or concerning symptoms including but not limited to fever, chills, nausea, vomiting, intractable pain, any new rashes, chest pain, shortness of breath, uncontrolled bleeding, difficulty breathing, and/or vision loss. SARITA ROBERTSON MD Nov 27, 2020 12:57
[2020-11-27] MEDS ORDERED: METOCLOPRAMIDE HCL 10 MG/2 ML VIAL. IVP ONE (13:00)
[2020-11-27] MEDS ORDERED: diphenhydrAMINE 50 MG/ML VIAL IM ONE (13:15)
[2020-11-27] MEDS ORDERED: ONDANSETRON PF 4 MG/2 ML VIAL. IV ONE (13:15)
[2020-11-27] MEDS ORDERED: FAMOTIDINE 20 MG/2 ML VIAL IVP ONE (13:15)
[2020-11-27 14:34] LABS: CALCIUM 8.1 mg/dL (8.5-10.1); CREATININE 0.8 mg/dL (0.7-1.3); GFR 102.3; POTASSIUM 4.3 mmol/L (3.5-5.1)
[2020-11-27 14:39] LABS: ALBUMIN 2.6 g/dL (3.4-5.0); DIRECT BILIRUBIN 0.1 mg/dL (0.0-0.2); TOTAL BILIRUBIN 0.2 mg/dL (0.2-1.0); TOTAL PROTEIN 6.3 g/dL (6.4-8.2)
[2020-11-27 14:39] LABS: BASO # 0.1 x10^3/uL (0.0-0.2); BASO % 2 % (0-3); EOS # 0.1 x10^3/uL (0.0-0.7); EOS % 2 % (0-3); HEMATOCRIT 28.1 % (39.0-53.0); HEMOGLOBIN 8.7 g/dL (13.0-17.5); LYMPH # 1.3 x10^3/uL (1.0-4.8); LYMPH % 33 % (24-48); MEAN CORPUSCULAR HEMOGLOBIN 23 pg (25-35); MEAN CORPUSCULAR HGB CONC 31 g/dL (31-37); MEAN CORPUSCULAR VOLUME 75 fL (79-100); MONO # 0.3 x10^3/uL (0.0-1.1); MONO % 8 % (0-9); NEUT # 2.3 x10^3/uL (1.8-7.7); NEUT % 56 % (31-73); PLATELET COUNT 267 x10^3/uL (140-400); RED BLOOD COUNT 3.75 x10^6/uL (4.30-5.70); RED CELL DISTRIBUTION WIDTH 24.7 % (11.5-14.5)
[2020-11-27 15:06] LABS: ANISOCYTOSIS MOD; HYPOCHROMIA SLIGHT; MICROCYTOSIS SLIGHT; PLT ESTIMATE ADEQUATE (ADEQUATE); POIKILOCYTOSIS SLIGHT
[2020-11-27 15:07] LABS: BILIRUBIN,URINE NEGATIVE (NEG); CLARITY,URINE CLOUDY; COLOR,URINE YELLOW; NITRITE,URINE NEGATIVE (NEG); PH,URINE 7.5 (<5.0-8.0); PROTEIN,URINE 30 mg/dL (NEG-TRACE); UROBILINOGEN,URINE 0.2 mg/dL (0.2 mg/dL)
[2020-11-27 15:07] LABS: SPHEROCYTES OCC; TEAR DROP CELLS OCC
[2020-11-27 15:21] LABS: BACTERIA,URINE 0 /HPF (0-FEW); RBC,URINE RARE /HPF (0-2); WBC,URINE 20-40 /HPF (0-4)
[2020-11-27 16:12] VITALS: BP 155/83
== END 2020-11-27 16:28 | disposition home or self-care (01) ==
LOC: ER 11:45
DX: R10.84 Generalized abdominal pain (principal); R11.2 Nausea with vomiting, unspecified; E11.43 Type 2 diabetes mellitus with diabetic autonomic (poly)neuropathy; K31.84 Gastroparesis; K21.9 Gastro-esophageal reflux disease without esophagitis; I10 Essential (primary) hypertension; F43.10 Post-traumatic stress disorder, unspecified; Z87.820 Personal history of traumatic brain injury; Z90.49 Acquired absence of other specified parts of digestive tract; Z93.3 Colostomy status; Z98.890 Other specified postprocedural states; Z88.5 Allergy status to narcotic agent; Z88.8 Allergy status to other drugs, medicaments and biological substances
CPT/HCPCS: 36415; 80048; 80076; 81001; 83690; 85025; 87086; 96372; 96374; 96375; 99285; J1200; J2405; J3490

== ENCOUNTER 2020-12-31 12:43 | Emergency (ER) | payer MEDICARE, OTHER ==
[~2020-12-31] VITALS: Ht 172.7 cm; Wt 65.2 kg
--- NOTE | 2020-12-31 14:02 | PHYS DOC ---
Past Medical History Past Medical History: Anxiety, Depression, GERD, Hypertension, Other Additional Past Medical Histor: PTSD,GASTROPARESIS,TBI,DUMPING SYNDROME,UTI Past Surgical History: Colectomy, Gastric Bypass, Other Additional Past Surgical Histo: HERNIA REPAIR,COLOSTOMY W/[place]KED[place],JTUBE,GTUBE & removal,GASTRIC STIMULATOR Smoking Status: Never Smoker Alcohol Use: None Drug Use: None General Adult EDM: Chief Complaint: NAUSEA/VOMITING/DIARRHA HPI: HPI: Patient is a 50-year-old male with a history of gastroparesis and multiple abdominal surgeries who presents with nausea and vomiting. He states that his symptoms began 2 days ago and has been gradually worsening. He states he is unable to keep anything down and vomits 3-4 times per day. His vomit is nonbloody and nonbilious. He normally keeps his gastroparesis under control with combination of Zofran, Pepcid, Benadryl which is now providing him no relief. States his last bowel movement was yesterday and normal for him. He denies any abdominal pain, melena, hematochezia, abdominal distention, fever or chills. Review of Systems: Review of Systems: Constitutional: Denies fever or chills Eyes: Denies redness or eye pain HENT: Denies nasal congestion or sore throat Respiratory: Denies cough or shortness of breath Cardiovascular: Denies chest pain or palpitations GI: Admits nausea, vomiting. Denies abdominal pain : Denies dysuria or hematuria Musculoskeletal: Denies back pain or joint pain Integument: Denies rash or skin lesions Neurologic: Denies headache, focal weakness or sensory changes Complete systems were reviewed and found to be within normal limits, except as documented in this note. Allergies: Allergies: Allergies Coded Allergies Type Severity Reaction Last Updated Verified morphine Allergy Severe Anaphylaxis Patient states can take Hydromorphone 12/31/20 Yes hydrocodone Allergy Intermediate Rash 12/31/20 Yes droperidol Adverse Reaction Intermediate DYSTONIA 12/31/20 Yes metoclopramide Adverse Reaction Intermediate DYSTONIA 12/31/20 Yes prochlorperazine Adverse Reaction Intermediate DYSTONIA 12/31/20 Yes Physical Exam: PE: Constitutional: Well developed, well nourished, no acute distress, non-toxic appearance HENT: Normocephalic, atraumatic Eyes: Conjunctiva normal, no discharge Neck: Normal range of motion, supple Lungs & Thorax: No respiratory distress, equal chest rise and fall Abdomen: Soft, no tenderness, numerous surgical scars, 7 cm bulging midline incisional hernia is reducible and nontender Skin: Warm, dry, no erythema, no rash Back: No tenderness, no CVA tenderness Extremities: No tenderness, ROM intact, no edema Neurologic: Alert and oriented X 3, no focal deficits noted Psychologic: Affect normal, judgment normal Current Patient Data: Vital Signs: Vital Signs Date Time Temp Pulse Resp B/P (MAP) Pulse Ox O2 Delivery O2 Flow Rate FiO2 12/31/20 13:39 98.6 93 20 160/93 (115) 100 Room Air 98.6 EKG: EKG: [] Radiology/Procedures: Radiology/Procedures: [] Course & Med Decision Making: Course & Med Decision Making Patient is a 50-year-old male with a history of chronic gastroparesis presenting with reported nausea and vomiting. Patient seen multiple times for same in past. CT imaging held due to concern for excessive exposure to radiation. Plan to treat symptomatically and discharge with appropriate GI follow-up. Abdomen soft, nondistended and abdominal hernia is reducible and nontender. He has had normal bowel movements. Doubt obstruction. Patient stab is le for discharge with outpatient follow-up with PCP/GI/General surgery. Discussed findings and plan with patient, who acknowledges understanding and agreement. Antonieta Disclaimer: Antonieta Disclaimer: This electronic medical record was generated, in whole or in part, using a voice recognition dictation system. Departure Departure Impression: Primary Impression: Chronic abdominal pain Disposition: 01 DC HOME SELF CARE/HOMELESS Condition: STABLE Referrals: CHIRAG MALIK (PCP) NINI DURÁN MD, STEPHEN J MD Patient Instructions: Chronic Pain, Chronic Pain Management Scripts Ondansetron (ONDANSETRON ODT) 4 Mg Tab.rapdis 1 TAB PO PRN Q6-8HRS PRN for NAUSEA, #16 TAB Prov: CHAY BLANC DO 12/31/20 CHAY BLANC DO Dec 31, 2020 14:02
[2020-12-31] MEDS ORDERED: ONDA4TAB12 PO (14:12)
[2020-12-31] MEDS ORDERED: fentaNYL PF VIAL 100 MCG/2 ML VIAL IV ONE (14:15)
[2020-12-31] MEDS ORDERED: 0.9 % SODIUM CHLORIDE 10 ML DISP.SYRIN. IV ONE (14:15)
[2020-12-31] MEDS ORDERED: diphenhydrAMINE 50 MG/ML VIAL IVP ONE (14:15)
[2020-12-31] MEDS ORDERED: ONDANSETRON PF 4 MG/2 ML VIAL. IVP ONE (14:15)
[2020-12-31 14:35] VITALS: BP 151/111
== END 2020-12-31 14:45 | disposition home or self-care (01) ==
LOC: ER 12:43
DX: G89.29 Other chronic pain (principal); R10.9 Unspecified abdominal pain; Z88.1 Allergy status to other antibiotic agents; Z88.5 Allergy status to narcotic agent; Z88.8 Allergy status to other drugs, medicaments and biological substances
CPT/HCPCS: 96374; 96375; 99284; J1200; J2405; J3010

== ENCOUNTER 2021-02-20 13:41 | Inpatient (IN) | payer MEDICARE, OTHER ==
[~2021-02-20] VITALS: Ht 172.7 cm; Wt 69.5 kg
[2021-02-20] MEDS ORDERED: ONDANSETRON PF 4 MG/2 ML VIAL. IV ONE (14:00)
[2021-02-20] MEDS ORDERED: IV NORMAL SALINE 1000ML BAG 1,000 ML IV ONE (14:00)
[2021-02-20 14:19] LABS: BASO % 0 % (0-3); EOS % 1 % (0-3); HEMATOCRIT 24.5 % (39.0-53.0); HEMOGLOBIN 7.6 g/dL (13.0-17.5); LYMPH # 1.2 x10^3/uL (1.0-4.8); LYMPH % 25 % (24-48); MEAN CORPUSCULAR HEMOGLOBIN 23 pg (25-35); MEAN CORPUSCULAR HGB CONC 31 g/dL (31-37); MEAN CORPUSCULAR VOLUME 74 fL (79-100); MONO # 0.5 x10^3/uL (0.0-1.1); MONO % 11 % (0-9); NEUT % 63 % (31-73); PLATELET COUNT 276 x10^3/uL (140-400); RED BLOOD COUNT 3.31 x10^6/uL (4.30-5.70); RED CELL DISTRIBUTION WIDTH 19.5 % (11.5-14.5); WHITE BLOOD COUNT 4.8 x10^3/uL (4.0-11.0)
--- NOTE | 2021-02-20 14:22 | ED.ADGEN ---
Past Medical History Past Medical History: Anxiety, Depression, GERD, Hypertension, Other Additional Past Medical Histor: PTSD,GASTROPARESIS,TBI,DUMPING SYNDROME,UTI Past Surgical History: Colectomy, Gastric Bypass, Other Additional Past Surgical Histo: HERNIA REPAIR,COLOSTOMY W/[place],JTUBE,GTUBE & removal,GASTRIC STIMULATOR Smoking Status: Never Smoker Alcohol Use: None Drug Use: None General Adult EDM: Chief Complaint: NAUSEA/VOMITING/DIARRHEA HPI: HPI: Patient is a 50 year old male with a history of gastroparesis and multiple abdominal hernias and surgeries, that presents to the emergency department today with complaints of intractable nausea and vomiting since last night with epigastric abdominal pain. Patient reports that he has vomited at least 5 times since the onset of his symptoms which was yesterday evening. He denies any bloo d in his vomit. Patient denies any fever, cough, diarrhea, back pain, chest pain, palpitations, shortness of breath, back pain, dysuria, hematuria, difficulty voiding, or increased urinary frequency. He reports that he received his first Moderna COVID-19 injection on February 182020. Patient states he has felt a little achy and tired after receiving that immunization but denies any known exposure to anyone with COVID-19. He currently rates his abdominal discomfort 8 out of 10 and describes it as sharp stabbing sensation, he denies any alleviating or exacerbating factors. Review of Systems: Review of Systems: Complete ROS is negative unless otherwise noted in HPI. Current Medications: Current Medications Medications (Trade) Dose Ordered Sig/[facility] Start Time Stop Time Status Last Admin Dose Admin Bisacodyl (Dulcolax Supp) 10 mg PRN DAILY PRN 02/20/21 17:00 Diphenhydramine HCl (Benadryl) 50 mg QID 02/20/21 17:00 02/20/21 18:21 50 MG Enoxaparin Sodium (Lovenox 150mg Syringe) 128 mg DAILY 02/21/21 09:00 Famotidine (Pepcid Vial) 20 mg STK-MED ONCE 02/20/21 14:24 02/20/21 14:24 DC Fentanyl Citrate (Fentanyl 2ml Vial) 50 mcg 1X ONCE 02/20/21 17:45 02/20/21 17:46 DC 02/20/21 18:21 50 MCG Iohexol (Omnipaque 300 Mg/ml) 75 ml 1X ONCE 02/20/21 16:00 02/20/21 16:01 DC 02/20/21 18:13 75 ML Ondansetron HCl (Zofran) 8 mg TID 02/20/21 21:00 Sodium Chloride 1,000 ml @ 100 mls/hr CONT PRN 02/20/21 17:00 Allergies: Allergies: Allergies Coded Allergies Type Severity Reaction Last Updated Verified morphine Allergy Severe Anaphylaxis Patient states can take Hydromorphone 12/31/20 Yes hydrocodone Allergy Intermediate Rash 12/31/20 Yes droperidol Adverse Reaction Intermediate DYSTONIA 12/31/20 Yes metoclopramide Adverse Reaction Intermediate DYSTONIA 12/31/20 Yes prochlorperazine Adverse Reaction Intermediate DYSTONIA 12/31/20 Yes Physical Exam: PE: See Above Constitutional: Well developed, well nourished, no acute distress, non-toxic appearance. [] HENT: Normocephalic, atraumatic, bilateral external ears normal, nose normal, dry mucous membranes. [] Eyes: PERRLA, EOMI, conjunctiva normal, no discharge. [] Neck: Normal range of motion, no stridor. [] Cardiovascular:Heart rate regular rhythm Lungs & Thorax: Respirations even and unlabored, no retractions, no respiratory distress Abdomen: soft, epigastric tenderness to palpation, large reducible periumbilical hernia superior to the umbilicus, multiple surgical scars, no palpable mass, Skin: Warm, dry, no erythema, no rash. [] Extremities: No cyanosis, ROM intact, no edema. [] Neurologic: Alert and oriented X 3, normal motor, normal sensory, no focal deficits noted. [] Psychologic: Affect normal, judgement normal, mood normal. [] Current Patient Data: Labs: Laboratory Tests Test 02/20/21 14:15 02/20/21 14:35 White Blood Count 4.8 x10^3/uL (4.0-11.0) Red Blood Count 3.31 x10^6/uL (4.30-5.70) L Hemoglobin 7.6 g/dL (13.0-17.5) L Hematocrit 24.5 % (39.0-53.0) L Mean Corpuscular Volume 74 fL (79-100) L Mean Corpuscular Hemoglobin 23 pg (25-35) L Mean Corpuscular Hemoglobin Concent 31 g/dL (31-37) Red Cell Distribution Width 19.5 % (11.5-14.5) H Platelet Count 276 x10^3/uL (140-400) Neutrophils (%) (Auto) 63 % (31-73) Lymphocytes (%) (Auto) 25 % (24-48) Monocytes (%) (Auto) 11 % (0-9) H Eosinophils (%) (Auto) 1 % (0-3) Basophils (%) (Auto) 0 % (0-3) Neutrophils # (Auto) 3.0 x10^3/uL (1.8-7.7) Lymphocytes # (Auto) 1.2 x10^3/uL (1.0-4.8) Monocytes # (Auto) 0.5 x10^3/uL (0.0-1.1) Eosinophils # (Auto) 0.0 x10^3/uL (0.0-0.7) Basophils # (Auto) 0.0 x10^3/uL (0.0-0.2) Platelet Estimate Adequate (ADEQUATE) Polychromasia Slight Hypochromasia Mod Anisocytosis Mod Microcytosis Mod Sodium Level 143 mmol/L (136-145) Potassium Level 3.5 mmol/L (3.5-5.1) Chloride Level 108 mmol/L (98-107) H Carbon Dioxide Level 29 mmol/L (21-32) Anion Gap 6 (6-14) Blood Urea Nitrogen 10 mg/dL (8-26) Creatinine 0.8 mg/dL (0.7-1.3) Estimated GFR (Cockcroft-Gault) 102.3 BUN/Creatinine Ratio 13 (6-20) Glucose Level 98 mg/dL (70-99) Calcium Level 7.9 mg/dL (8.5-10.1) L Magnesium Level 2.2 mg/dL (1.8-2.4) Total Bilirubin 0.1 mg/dL (0.2-1.0) L Aspartate Amino Transferase (AST) 14 U/L (15-37) L Alanine Aminotransferase (ALT) 16 U/L (16-63) Alkaline Phosphatase 60 U/L (46-116) Total Protein 6.1 g/dL (6.4-8.2) L Albumin 2.9 g/dL (3.4-5.0) L Albumin/Globulin Ratio 0.9 (1.0-1.7) L Lipase 172 U/L (73-393) Urine Collection Type Unknown Urine Color Yellow Urine Clarity Clear Urine pH 6.5 (<5.0-8.0) Urine Specific [place] 1.020 (1.000-1.030) Urine Protein Negative mg/dL (NEG-TRACE) Urine Glucose (UA) Negative mg/dL (NEG) Urine Ketones (Stick) Negative mg/dL (NEG) Urine Blood Trace (NEG) Urine Nitrite Negative (NEG) Urine Bilirubin Negative (NEG) Urine Urobilinogen Dipstick 1.0 mg/dL (0.2 mg/dL) Urine Leukocyte Esterase Negative (NEG) Urine RBC 3-5 /HPF (0-2) Urine WBC Occ /HPF (0-4) Urine Squamous Epithelial Cells Few /LPF Urine Bacteria 0 /HPF (0-FEW) Urine Mucus Marked /LPF Laboratory Tests 02/20/21 14:15 Laboratory Tests 02/20/21 14:15 Vital Signs: Vital Signs Date Time Temp Pulse Resp B/P (MAP) Pulse Ox O2 Delivery O2 Flow Rate FiO2 02/20/21 18:21 15 98 Room Air 02/20/21 16:05 75 154/95 (114) 02/20/21 14:00 98.5 98.5 EKG: EKG: [] Heart Score: C/O Chest Pain: No Risk Scores: Score 0 - 3: 2.5% MACE over next 6 weeks - Discharge Home Score 4 - 6: 20.3% MACE over next 6 weeks - Admit for Clinical Observation Score 7 - 10: 72.7% MACE over next 6 weeks - Early Invasive Strategies Radiology/Procedures: Radiology/Procedures: [] Course & Med Decision Making: Course & Med Decision Making Pertinent Labs and Imaging studies reviewed. (See chart for details) [id number] with Dr. Elam who is the admitting physician, and care was assumed following discussion of patient. Will admit patient for anemia and in tractable nausea vomiting, and abd pain Patient's vital signs stable. Patient remains afebrile, appears nontoxic, respirations even and unlabored. Patient will be admitted to the medical surgical floor. Patient's case and plan of care also discussed with Dr. Dow [] Antonieta Disclaimer: Antonieta Disclaimer: This electronic medical record was generated, in whole or in part, using a voice recognition dictation system. Departure Departure Impression: Primary Impression: Anemia Additional Impressions: Abdominal pain Intractable nausea and vomiting Referrals: CHIRAG MALIK (PCP) Attending Signature Attending Signature I have participated in the care of this patient and I have reviewed and agree with all pertinent clinical information above including history, exam, and recommendations. Problem Qualifiers Primary Impression: Anemia Anemia type: unspecified type Qualified Codes: D64.9 - Anemia, unspecified Additional Impressions: Abdominal pain Abdominal location: upper abdomen, unspecified Qualified Codes: R10.10 - Upper abdominal pain, unspecified EUGENIE MARX APRN Feb 20, 2021 14:22 EDMOND DOW DO Feb 20, 2021 18:33
[2021-02-20] MEDS ORDERED: FAMOTIDINE 20 MG/2 ML VIAL ONE (14:24)
[2021-02-20 14:30] LABS: CALCIUM 7.9 mg/dL (8.5-10.1); CREATININE 0.8 mg/dL (0.7-1.3); GFR 102.3; POTASSIUM 3.5 mmol/L (3.5-5.1)
[2021-02-20] MEDS ORDERED: FAMOTIDINE 20 MG/2 ML VIAL IVP ONE (14:30)
[2021-02-20 14:36] LABS: ALBUMIN 2.9 g/dL (3.4-5.0); ALBUMIN/GLOBULIN RATIO 0.9 (1.0-1.7); MAGNESIUM 2.2 mg/dL (1.8-2.4); TOTAL BILIRUBIN 0.1 mg/dL (0.2-1.0); TOTAL PROTEIN 6.1 g/dL (6.4-8.2)
[2021-02-20 14:49] LABS: BILIRUBIN,URINE NEGATIVE (NEG); CLARITY,URINE CLEAR; COLOR,URINE YELLOW; NITRITE,URINE NEGATIVE (NEG); PH,URINE 6.5 (<5.0-8.0); PROTEIN,URINE NEGATIVE (NEG-TRACE)
[2021-02-20 14:58] LABS: BACTERIA,URINE 0 /HPF (0-FEW)
[2021-02-20 15:00] LABS: WBC,URINE OCC /HPF (0-4)
[2021-02-20 15:15] LABS: ANISOCYTOSIS MOD; HYPOCHROMIA MOD; MICROCYTOSIS MOD; PLT ESTIMATE ADEQUATE (ADEQUATE)
[2021-02-20 15:16] LABS: POLYCHROMASIA SLIGHT
[2021-02-20] MEDS ORDERED: fentaNYL PF VIAL 100 MCG/2 ML VIAL IV ONE ×2 (16:00→17:45)
[2021-02-20] MEDS ORDERED: diphenhydrAMINE 50 MG/ML VIAL IVP ONE (16:00)
[2021-02-20] MEDS ORDERED: IOHEXOL 300 MG/ML 100ML VIAL. IV ONE (16:00)
[2021-02-20] MEDS: IV NORMAL SALINE 1000ML BAG 1,000 ML IV SCH (16:14)
--- NOTE | 2021-02-20 16:57 | PDOC1 ---
History and Physical Date of Admission Date of Admission DATE: 02/20/21 TIME: 16:37 Identification/Chief Complaint Chief Complaint Intractable nausea vomiting Source Source: Patient History of Present Illness History of Present Illness Patient is a 50-year-old male with past medical history of gastroparesis, multiple abdominal surgeries, and history of PEs, who presents to the ED with complaints of intractable nausea and vomiting since last night. He reports associated sharp epigastric pain, 8/10. States he vomited 3 times yesterday and twice today. He received his first dose of Materna COVID-19 injection on 02/03, and he initially thought his symptoms were a reaction to his vaccination, but he came to the ED when his symptoms continued. Due to his history of gastroparesis he is on an unusual regimen of Zofran 8 mg 3 times daily, Benadryl 50 mg 4 times daily, and obtains nutritional needs through TPN. Upon evaluation in the ED his hemoglobin is 7.6 and hematocrit 24.5. He states his level of anemia is unusual for him. He denies any bloody vomit dark stools, or bright red blood per rectum. Will admit patient for further medical management. Past Medical History Past Medical History Gastroparesis, history of PEs, history of DVTs, anxiety/depression, GERD, hypertension, PTSD, TBI, dumping syndrome, UTIs Cardiovascular: HTN CENTRAL NERVOUS SYSTEM: Other GI: Other Psych: Other Past Surgical History Past Surgical History Colectomy, gastric bypass, hernia repair, colostomy with takedown, J-tube, G- tube, gastric stimulator Past Surgical History: Hernia Repair, Colectomy, Colon Resection, Other Family History Family History [place], CVA Social History Smoke: No ALCOHOL: none Drugs: None Current Medications Current Medications Current Medications Sodium Chloride 1,000 ml @ 1,000 mls/hr 1X ONCE IV Last administered on 02/20/21at 14:26; Start 02/20/21 at 14:00; Stop 02/20/21 at 14:59; Status DC Ondansetron HCl (Zofran) 4 mg 1X ONCE IV Last administered on 02/20/21at 14:26; Start 02/20/21 at 14:00; Stop 02/20/21 at 14:01; Status DC Famotidine (Pepcid Vial) 20 mg 1X ONCE IVP Last administered on 02/20/21at 14:26; Start 02/20/21 at 14:30; Stop 02/20/21 at 14:31; Status DC Famotidine (Pepcid Vial) 20 mg STK-MED ONCE .ROUTE ; Start 02/20/21 at 14:24; Stop 02/20/21 at 14:24; Status DC Ondansetron HCl (Zofran) 4 mg PRN Q8HRS PRN IV NAUSEA/VOMITING; Start 02/20/21 at 15:45; Stop 02/21/21 at 15:44 Sodium Chloride 1,000 ml @ 100 mls/hr Q10H IV Last administered on 02/20/21at 16:14; Start 02/20/21 at 15:45; Stop 02/21/21 at 15:44 Iohexol (Omnipaque 300 Mg/ml) 75 ml 1X ONCE IV ; Start 02/20/21 at 16:00; Stop 02/20/21 at 16:01; Status DC Fentanyl Citrate (Fentanyl 2ml Vial) 50 mcg 1X ONCE IV Last administered on 02/20/21at 16:14; Start 02/20/21 at 16:00; Stop 02/20/21 at 16:01; Status DC Diphenhydramine HCl (Benadryl) 25 mg 1X ONCE IVP Last administered on 02/20/21at 16:15; Start 02/20/21 at 16:00; Stop 02/20/21 at 16:01; Status DC Enoxaparin Sodium (Lovenox 150mg Syringe) 128 mg DAILY SQ ; Start 02/21/21 at 09:00; Status UNV Diphenhydramine HCl (Benadryl) 50 mg QID IVP ; Start 02/20/21 at 17:00; Status UNV Ondansetron HCl (Zofran) 8 mg TID IVP ; Start 02/20/21 at 21:00; Status UNV Active Scripts Active Ondansetron Odt (Ondansetron) 4 Mg Tab.rapdis 1 Tab PO PRN Q6-8HRS PRN Cipro (Ciprofloxacin Hcl) 500 Mg Tablet 1 Tab PO BID 10 Days Ondansetron Odt (Ondansetron) 4 Mg Tab.rapdis 1 Tab PO PRN Q6-8HRS Ondansetron Odt (Ondansetron) 4 Mg Tab.rapdis 1 Tab PO PRN Q6-8HRS PRN Ondansetron Odt (Ondansetron) 4 Mg Tab.rapdis 1 Tab PO PRN Q6-8HRS Zofran (Ondansetron Hcl) 4 Mg Tablet 1 Tab PO PRN Q6-8HRS Reported Venlafaxine Hcl Er (Venlafaxine Hcl) 75 Mg Cap.er.24h 75 Mg PO DAILY Prevacid (Lansoprazole) 30 Mg Capsule.dr 30 Mg PO DAILY Prilosec Otc (Omeprazole Magnesium) 20 Mg Tablet.dr 40 Mg PO BID Transderm-Scop (Scopolamine) 1 Each Patch.td72 1 Patch TP Q3DAYS Due to be changed 12/15/2019 Zofran (Ondansetron Hcl) 8 Mg Tablet 8 Mg PO BID PRN Promethazine Hcl 12.5 Mg Tablet 25 Mg PO PRN Q6HRS PRN Benadryl (Diphenhydramine Hcl) 25 Mg Capsule 50 Mg PO Q6HRS Dexilant (Dexlansoprazole) 60 Mg Cap..mp 60 Mg PO BIDAC Metoprolol Tartrate 25 Mg Tablet 2 Tab PO BID Allergies Allergies: Coded Allergies: morphine (Verified Allergy, Severe, Anaphylaxis Patient states can take Hydromorphone, 12/31/20) DILAUDID [place] hydrocodone (Verified Allergy, Intermediate, Rash, 12/31/20) droperidol (Verified Adverse Reaction, Intermediate, DYSTONIA, 12/31/20) metoclopramide (Verified Adverse Reaction, Intermediate, DYSTONIA, 12/31/20) prochlorperazine (Verified Adverse Reaction, Intermediate, DYSTONIA, 12/31/20) ROS Review of System GENERAL: No history of weight change, weakness or fevers. SKIN: No bruising, hair changes or rashes. EYES: No blurred, double or loss of vision. NOSE AND THROAT: No history of nosebleeds, hoarseness or sore throat. HEART: Denies chest pain, denies palpitations. LUNGS: Denies cough, hemoptysis, wheezing or shortness of breath. GASTROINTESTINAL: Abdominal pain, nausea, vomiting. Denies diarrhea. GENITOURINARY: Denies dysuria, frequency, urgency, hematuria. NEUROLOGIC: Denies history of numbness, tingling, tremor or weakness. PSYCHIATRIC: Denies anxiety, denies depression. ENDOCRINE: No history of heat or cold intolerance, polyuria or polydipsia. EXTREMITIES: Denies muscle weakness, joint pain, pain on walking or stiffness. Physical Exam Physical Exam General: Alert, Oriented X3, Cooperative, No acute distress HEENT: PERRLA, EOMI Lungs: Clear to auscultation, Normal air movement. Port to right chest wall. Heart: RRR, no murmurs Cardiovascular: S1, S2 Abdomen: Reducible abdominal hernia, multiple surgical scars to left abdomen, gastric stimulator right lower quadrant Extremities: No clubbing, No cyanosis Skin: No rashes, No significant lesion Neuro: Normal speech, Normal tone, Sensation intact Psych/Mental Status: Mental status NL, Mood NL Vitals Vitals Vital Signs Date Time Temp Pulse Resp B/P (MAP) Pulse Ox O2 Delivery O2 Flow Rate FiO2 02/20/21 16:14 16 100 Room Air 02/20/21 15:00 75 143/98 (113) 02/20/21 14:00 98.5 98.5 Labs Labs Laboratory Tests Test 02/20/21 14:15 02/20/21 14:35 White Blood Count 4.8 x10^3/uL (4.0-11.0) Red Blood Count 3.31 x10^6/uL (4.30-5.70) Hemoglobin 7.6 g/dL (13.0-17.5) Hematocrit 24.5 % (39.0-53.0) Mean Corpuscular Volume 74 fL (79-100) Mean Corpuscular Hemoglobin 23 pg (25-35) Mean Corpuscular Hemoglobin Concent 31 g/dL (31-37) Red Cell Distribution Width 19.5 % (11.5-14.5) Platelet Count 276 x10^3/uL (140-400) Neutrophils (%) (Auto) 63 % (31-73) Lymphocytes (%) (Auto) 25 % (24-48) Monocytes (%) (Auto) 11 % (0-9) Eosinophils (%) (Auto) 1 % (0-3) Basophils (%) (Auto) 0 % (0-3) Neutrophils # (Auto) 3.0 x10^3/uL (1.8-7.7) Lymphocytes # (Auto) 1.2 x10^3/uL (1.0-4.8) Monocytes # (Auto) 0.5 x10^3/uL (0.0-1.1) Eosinophils # (Auto) 0.0 x10^3/uL (0.0-0.7) Basophils # (Auto) 0.0 x10^3/uL (0.0-0.2) Platelet Estimate Adequate (ADEQUATE) Polychromasia Slight Hypochromasia Mod Anisocytosis Mod Microcytosis Mod Sodium Level 143 mmol/L (136-145) Potassium Level 3.5 mmol/L (3.5-5.1) Chloride Level 108 mmol/L (98-107) Carbon Dioxide Level 29 mmol/L (21-32) Anion Gap 6 (6-14) Blood Urea Nitrogen 10 mg/dL (8-26) Creatinine 0.8 mg/dL (0.7-1.3) Estimated GFR (Cockcroft-Gault) 102.3 BUN/Creatinine Ratio 13 (6-20) Glucose Level 98 mg/dL (70-99) Calcium Level 7.9 mg/dL (8.5-10.1) Magnesium Level 2.2 mg/dL (1.8-2.4) Total Bilirubin 0.1 mg/dL (0.2-1.0) Aspartate Amino Transf (AST/SGOT) 14 U/L (15-37) Alanine Aminotransferase (ALT/SGPT) 16 U/L (16-63) Alkaline Phosphatase 60 U/L (46-116) Total Protein 6.1 g/dL (6.4-8.2) Albumin 2.9 g/dL (3.4-5.0) Albumin/Globulin Ratio 0.9 (1.0-1.7) Lipase 172 U/L (73-393) Urine Collection Type Unknown Urine Color Yellow Urine Clarity Clear Urine pH 6.5 (<5.0-8.0) Urine Specific [place] 1.020 (1.000-1.030) Urine Protein Negative mg/dL (NEG-TRACE) Urine Glucose (UA) Negative mg/dL (NEG) Urine Ketones (Stick) Negative mg/dL (NEG) Urine Blood Trace (NEG) Urine Nitrite Negative (NEG) Urine Bilirubin Negative (NEG) Urine Urobilinogen Dipstick 1.0 mg/dL (0.2 mg/dL) Urine Leukocyte Esterase Negative (NEG) Urine RBC 3-5 /HPF (0-2) Urine WBC Occ /HPF (0-4) Urine Squamous Epithelial Cells Few /LPF Urine Bacteria 0 /HPF (0-FEW) Urine Mucus Marked /LPF Laboratory Tests Test 02/20/21 14:15 02/20/21 14:35 White Blood Count 4.8 x10^3/uL (4.0-11.0) Red Blood Count 3.31 x10^6/uL (4.30-5.70) Hemoglobin 7.6 g/dL (13.0-17.5) Hematocrit 24.5 % (39.0-53.0) Mean Corpuscular Volume 74 fL (79-100) Mean Corpuscular Hemoglobin 23 pg (25-35) Mean Corpuscular Hemoglobin Concent 31 g/dL (31-37) Red Cell Distribution Width 19.5 % (11.5-14.5) Platelet Count 276 x10^3/uL (140-400) Neutrophils (%) (Auto) 63 % (31-73) Lymphocytes (%) (Auto) 25 % (24-48) Monocytes (%) (Auto) 11 % (0-9) Eosinophils (%) (Auto) 1 % (0-3) Basophils (%) (Auto) 0 % (0-3) Neutrophils # (Auto) 3.0 x10^3/uL (1.8-7.7) Lymphocytes # (Auto) 1.2 x10^3/uL (1.0-4.8) Monocytes # (Auto) 0.5 x10^3/uL (0.0-1.1) Eosinophils # (Auto) 0.0 x10^3/uL (0.0-0.7) Basophils # (Auto) 0.0 x10^3/uL (0.0-0.2) Platelet Estimate Adequate (ADEQUATE) Polychromasia Slight Hypochromasia Mod Anisocytosis Mod Microcytosis Mod Sodium Level 143 mmol/L (136-145) Potassium Level 3.5 mmol/L (3.5-5.1) Chloride Level 108 mmol/L (98-107) Carbon Dioxide Level 29 mmol/L (21-32) Anion Gap 6 (6-14) Blood Urea Nitrogen 10 mg/dL (8-26) Creatinine 0.8 mg/dL (0.7-1.3) Estimated GFR (Cockcroft-Gault) 102.3 BUN/Creatinine Ratio 13 (6-20) Glucose Level 98 mg/dL (70-99) Calcium Level 7.9 mg/dL (8.5-10.1) Magnesium Level 2.2 mg/dL (1.8-2.4) Total Bilirubin 0.1 mg/dL (0.2-1.0) Aspartate Amino Transf (AST/SGOT) 14 U/L (15-37) Alanine Aminotransferase (ALT/SGPT) 16 U/L (16-63) Alkaline Phosphatase 60 U/L (46-116) Total Protein 6.1 g/dL (6.4-8.2) Albumin 2.9 g/dL (3.4-5.0) Albumin/Globulin Ratio 0.9 (1.0-1.7) Lipase 172 U/L (73-393) Urine Collection Type Unknown Urine Color Yellow Urine Clarity Clear Urine pH 6.5 (<5.0-8.0) Urine Specific [place] 1.020 (1.000-1.030) Urine Protein Negative mg/dL (NEG-TRACE) Urine Glucose (UA) Negative mg/dL (NEG) Urine Ketones (Stick) Negative mg/dL (NEG) Urine Blood Trace (NEG) Urine Nitrite Negative (NEG) Urine Bilirubin Negative (NEG) Urine Urobilinogen Dipstick 1.0 mg/dL (0.2 mg/dL) Urine Leukocyte Esterase Negative (NEG) Urine RBC 3-5 /HPF (0-2) Urine WBC Occ /HPF (0-4) Urine Squamous Epithelial Cells Few /LPF Urine Bacteria 0 /HPF (0-FEW) Urine Mucus Marked /LPF VTE Prophylaxis Ordered VTE Prophylaxis Devices: No VTE Pharmacological Prophylaxi: Yes Assessment/Plan Assessment/Plan Intractable nausea and vomiting Gastroparesis Anemia Hypocalcemia History of PEs and DVTs Moderate malnutrition Plan: Will resume home medications; avoid Compazine or Reglan due to history of dystonic reaction. Consultation placed to GI IV fluids Avoid flushing patient's port with heparin FEN - NPO; will need to resume TPN in the AM PPX - Lovenox FULL CODE Dispo - inpatient for above; patient names his [id number]-law (Aggie Golden) as his surrogate decision-maker Justifications for Admission Other Justification MARIJA MUÑIZ MD Feb 20, 2021 16:57
[2021-02-20] MEDS ORDERED: BISACODYL 10 MG SUPP.RECT. PR PRN (17:00)
[2021-02-20] MEDS ORDERED: IV NORMAL SALINE 1000ML BAG 1,000 ML IV PRN (17:00)
[2021-02-20] MEDS: diphenhydrAMINE 50 MG/ML VIAL IVP SCH ×2 (18:21→22:13)
--- NOTE | 2021-02-20 19:13 | RAD ---
CT abdomen and pelvis with contrast: Reason for examination: Right upper quadrant epigastric pain with nausea and vomiting and anemia. Comparison is made to previous study dated 12/14/2019. Helical images were obtained through the abdomen and pelvis with intravenous administration of 75 cc Omnipaque 300. Reconstruction was performed in sagittal and coronal planes. Exposure: One or more of the following individualized dose reduction techniques were utilized for thi s examination: 1. Automated exposure control 2. Adjustment of the mA and/or kV according to patient size 3. Use of iterative reconstruction technique. There is some linear atelectasis at the lung bases bilaterally. The heart size is normal with no yumiko cardial effusion. No focal lesions are seen at the liver, spleen, gallbladder or pancreas. The abdominal aorta and infe rior vena cava show no acute abnormalities. The colon shows no diverticulosis, diverticulitis or coli tis. The transverse colon does bulge into a midline abdominal hernia without obstruction. Colonic isa stomosis is present in the transverse colon. The small intestinal tract shows no abnormal dilatation, wall thickening or obstruction. There is a small hiatal hernia. No other abnormality seen at the sto mach or duodenum. The kidneys again show a hypodense lesion in the midpole of the left kidney measuri ng approximately 1.4 cm in size which appears to be slightly larger than on previous exam and this do es not appear to be cystic by Hounsfield units. Further evaluation with ultrasound is recommended. No renal calculi, hydronephrosis or obstructive uropathy is evident. The bladder is not optimally distended but the wall appears to be thickened similar to previous exam. There are prostate gland calcifications. Seminal vesicles are symmetric. No free fluid or free air s een in the abdomen or pelvis. Infusion pump is present in the lower right anterior abdominal wall. Th ere is again note made of butterfly deformity at the S1 segment of the sacrum. No acute bony abnormal ities are seen. IMPRESSION: Linear atelectasis at the lung bases. Small hiatal hernia. 1.4 cm hypodense lesion in the left kidney at the midpole which appears to be slightly larger than on previous exam and is not definitely cystic by Hounsfield units. Further evaluation with ultrasound s hould be considered. Continued presence of some bladder wall thickening however the bladder is not optimally distended. No other acute abnormality seen in the abdomen or pelvis. Electronically signed by: Gala Lowery MD (02/20/2021 7:10 PM) EMILY
[2021-02-20] MEDS: fentaNYL PF VIAL 100 MCG/2 ML VIAL IVP PRN (22:13)
[2021-02-20] MEDS: ONDANSETRON PF 4 MG/2 ML VIAL. IV PRN (22:14)
[2021-02-21] MEDS: fentaNYL PF VIAL 100 MCG/2 ML VIAL IVP PRN ×9 (01:45→23:01)
[2021-02-21] MEDS: ONDANSETRON PF 4 MG/2 ML VIAL. IV PRN ×2 (04:24→10:09)
--- NOTE | 2021-02-21 08:26 | PDOC ---
PROGRESS NOTES Date of Service: DATE: 02/21/21 TIME: 08:25 Chief Complaint Chief Complaint VTE Prophylaxis Ordered VTE Prophylaxis Devices: No VTE Pharmacological Prophylaxi: Yes Assessment/Plan Assessment/Plan Intractable nausea and vomiting Gastroparesis Anemia Hypocalcemia History of PEs and DVTs Moderate malnutrition Plan: resume home medications; avoid Compazine or Reglan due to history of dystonic reaction. Consultation placed to GI IV fluids Avoid flushing patient's port with heparin FEN - NPO; will need to resume TPN in the AM PPX - Lovenox FULL CODE iv iron iv pain control Dispo - inpatient for above; patient names his [id number]-law (Aggie Golden) as his surrogate decision-maker History of Present Illness History of Present Illness Identification/Chief Complaint Chief Complaint Intractable nausea vomiting Source Source: Patient History of Present Illness History of Present Illness Patient is a 50-year-old male with past medical history of gastroparesis, mult iple abdominal surgeries, and history of PEs, who presents to the ED with complaints of intractable nausea and vomiting since last night. He reports associated sharp epigastric pain, 8/10. States he vomited 3 times yesterday and twice today. He received his first dose of Materna COVID-19 injection on 02/18/2021, and he initially thought his symptoms were a reaction to his vaccina tion, but he came to the ED when his symptoms continued. Due to his history of gastroparesis he is on an unusual regimen of Zofran 8 mg 3 times daily, Benadryl 50 mg 4 times daily, and obtains nutritional needs through TPN. Upon evaluation in the ED his hemoglobin is 7.6 and hematocrit 24.5. He states his level of anemia is unusual for him. He denies any bloody vomit dark stools, or bright red blood per rectum. Will admit patient for further medical management. Past Medical History Past Medical History Gastroparesis, history of PEs, history of DVTs, anxiety/depression, GERD, hypertension, PTSD, TBI, dumping syndrome, UTIs Cardiovascular: HTN CENTRAL NERVOUS SYSTEM: Other GI: Other Psych: Other Past Surgical History Past Surgical History Colectomy, gastric bypass, hernia repair, colostomy with takedown, J-tube, G- tube, gastric stimulator Past Surgical History: Hernia Repair, Colectomy, Colon Resection, Other Family History Family History [place], CVA Social History Smoke: No ALCOHOL: none Drugs: None Current Medications Current Medications Current Medications Sodium Chloride 1,000 ml @ 1,000 mls/hr 1X ONCE IV Last administered on 02/20/21at 14:26; Start 02/20/21 at 14:00; Stop 02/20/21 at 14:59; Status DC Ondansetron HCl (Zofran) 4 mg 1X ONCE IV Last administered on 02/20/21at 14:26; Start 02/20/21 at 14:00; Stop 02/20/21 at 14:01; Status DC Famotidine (Pepcid Vial) 20 mg 1X ONCE IVP Last administered on 02/20/21at 14:26; Start 02/20/21 at 14:30; Stop 02/20/21 at 14:31; Status DC Famotidine (Pepcid Vial) 20 mg STK-MED ONCE .ROUTE ; Start 02/20/21 at 14:24; Stop 02/20/21 at 14:24; Status DC Ondansetron HCl (Zofran) 4 mg PRN Q8HRS PRN IV NAUSEA/VOMITING; Start 02/20/21 at 15:45; Stop 02/21/21 at 15:44 Sodium Chloride 1,000 ml @ 100 mls/hr Q10H IV Last administered on 02/20/21at 16:14; Start 02/20/21 at 15:45; Stop 02/21/21 at 15:44 Iohexol (Omnipaque 300 Mg/ml) 75 ml 1X ONCE IV ; Start 02/20/21 at 16:00; Stop 02/20/21 at 16:01; Status DC Fentanyl Citrate (Fentanyl 2ml Vial) 50 mcg 1X ONCE IV Last administered on 02/20/21at 16:14; Start 02/20/21 at 16:00; Stop 02/20/21 at 16:01; Status DC Diphenhydramine HCl (Benadryl) 25 mg 1X ONCE IVP Last administered on 02/20/21at 16:15; Start 02/20/21 at 16:00; Stop 02/20/21 at 16:01; Status DC Enoxaparin Sodium (Lovenox 150mg Syringe) 128 mg DAILY SQ ; Start 02/21/21 at 09:00; Status UNV Diphenhydramine HCl (Benadryl) 50 mg QID IVP ; Start 02/20/21 at 17:00; Status UNV Ondansetron HCl (Zofran) 8 mg TID IVP ; Start 02/20/21 at 21:00; Status UNV Active Scripts Active Ondansetron Odt (Ondansetron) 4 Mg Tab.rapdis 1 Tab PO PRN Q6-8HRS PRN Cipro (Ciprofloxacin Hcl) 500 Mg Tablet 1 Tab PO BID 10 Days Ondansetron Odt (Ondansetron) 4 Mg Tab.rapdis 1 Tab PO PRN Q6-8HRS Ondansetron Odt (Ondansetron) 4 Mg Tab.rapdis 1 Tab PO PRN Q6-8HRS PRN Ondansetron Odt (Ondansetron) 4 Mg Tab.rapdis 1 Tab PO PRN Q6-8HRS Zofran (Ondansetron Hcl) 4 Mg Tablet 1 Tab PO PRN Q6-8HRS Reported Venlafaxine Hcl Er (Venlafaxine Hcl) 75 Mg Cap.er.24h 75 Mg PO DAILY Prevacid (Lansoprazole) 30 Mg Capsule.dr 30 Mg PO DAILY Prilosec Otc (Omeprazole Magnesium) 20 Mg Tablet.dr 40 Mg PO BID Transderm-Scop (Scopolamine) 1 Each Patch.td72 1 Patch TP Q3DAYS Due to be changed 12/15/2019 Zofran (Ondansetron Hcl) 8 Mg Tablet 8 Mg PO BID PRN Promethazine Hcl 12.5 Mg Tablet 25 Mg PO PRN Q6HRS PRN Benadryl (Diphenhydramine Hcl) 25 Mg Capsule 50 Mg PO Q6HRS Dexilant (Dexlansoprazole) 60 Mg Cap.dr.mp 60 Mg PO BIDAC Metoprolol Tartrate 25 Mg Tablet 2 Tab PO BID Allergies Allergies: Coded Allergies: morphine (Verified Allergy, Severe, Anaphylaxis Patient states can take Hydromorphone, 12/31/20) DILAUDID [place] hydrocodone (Verified Allergy, Intermediate, Rash, 12/31/20) droperidol (Verified Adverse Reaction, Intermediate, DYSTONIA, 12/31/20) metoclopramide (Verified Adverse Reaction, Intermediate, DYSTONIA, 12/31/20) prochlorperazine (Verified Adverse Reaction, Intermediate, DYSTONIA, 12/31/20) ROS Review of System GENERAL: No history of weight change, weakness or fevers. SKIN: No bruising, hair changes or rashes. EYES: No blurred, double or loss of vision. NOSE AND THROAT: No history of nosebleeds, hoarseness or sore throat. HEART: Denies chest pain, denies palpitations. LUNGS: Denies cough, hemoptysis, wheezing or shortness of breath. GASTROINTESTINAL: Abdominal pain, nausea, vomiting. Denies diarrhea. GENITOURINARY: Denies dysuria, frequency, urgency, hematuria. NEUROLOGIC: Denies history of numbness, tingling, tremor or weakness. PSYCHIATRIC: Denies anxiety, denies depression. ENDOCRINE: No history of heat or cold intolerance, polyuria or polydipsia. EXTREMITIES: Denies muscle weakness, joint pain, pain on walking or stiffness. 4-19 D/W RN presented to the ED with complaints of intractable nausea and vomiting gastroparesis w/ complications, recurrent n/v on TPN and IV medications w/ frequent ER visits Linear atelectasis at the lung bases. hgb 7.6 Vitals Vitals Vital Signs Date Time Temp Pulse Resp B/P (MAP) Pulse Ox O2 Delivery O2 Flow Rate FiO2 02/21/21 07:22 18 98 Room Air 02/21/21 03:23 58 118/69 (85) 02/21/21 00:30 98.5 98.5 Physical Exam Physical Exam Physical Exam Physical Exam General: Alert, Oriented X3, Cooperative, No acute distress HEENT: PERRLA, EOMI Lungs: Clear to auscultation, Normal air movement. Port to right chest wall. Heart: RRR, no murmurs Cardiovascular: S1, S2 Abdomen: Reducible abdominal hernia, multiple surgical scars to left abdomen, gastric stimulator right lower quadrant Extremities: No clubbing, No cyanosis Skin: No rashes, No significant lesion Neuro: Normal speech, Normal tone, Sensation intact Psych/Mental Status: Mental status NL, Mood NL General: Alert, Oriented X3, Cooperative, No acute distress Heart: Regular rate Lungs: Clear Abdomen: Normal bowel sounds, Soft Extremities: No cyanosis, No edema Skin: No rashes, No significant lesion Labs LABS Chest CTA History: Extensive DVT of the right arm Technique: After bolus of intravenous contrast, CT imaging was performed of the chest. Multiplanar reconstruction images to include MIP reconstruction images are submitted. Exposure: One or more of the following individualized dose reduction techniques were utilized for this examination: 1. Automated exposure control 2. Adjustment of the mA and/or kV according to patient size 3. Use of iterative reconstruction technique. Comparison: None Findings: [ ] There are some scattered pulmonary emboli of right lower lobe branches. There is no pleural or pericardial effusion, pneumothorax, or lobar consolidation. There is some scattered atelectasis bilaterally of the lower lobes. Major airways are patent. Thoracic aortic caliber is within normal limits without intraluminal flap. There is coronary calcification. No significantly enlarged nodes are identified of the chest. There is esophageal wall thickening greater distally, small sliding hiatal hernia. Impression: 1. There are pulmonary emboli of the right lower lobe branches. 2. There is atelectasis bilaterally. 3. There is coronary calcification. 4. There is nonspecific esophageal wall thickening greater distally, could be associated with esophagitis, cannot accurately assess for mass by CT. FOR INTERNAL CODING PURPOSES Critical result: Findings discussed with EDMOND DOW at 03/04/2019 12:30 PM. RESULT CODE: (C) PATIENT: MERISSA JACKSON ACCOUNT: [id number] : 1970 LOCATION: ER AGE: 50 SEX: M EXAM STATUS: REG ER ORD. PHYSICIAN: EUGENIE MARX APRN REASON: RUQ and epigastric pain, n/v, anemia PROCEDURE: CT ABD PELV W/ IV CONTRST ONLY CT abdomen and pelvis with contrast: Reason for examination: Right upper quadrant epigastric pain with nausea and vomiting and anemia. Comparison is made to previous study dated 12/14/2019. Helical images were obtained through the abdomen and pelvis with intravenous administration of 75 cc Omnipaque 300. Reconstruction was performed in sagittal and coronal planes. Exposure: One or more of the following individualized dose reduction techniques were utilized for this examination: 1. Automated exposure control 2. Adjustment of the mA and/or kV according to patient size 3. Use of iterative reconstruction technique. There is some linear atelectasis at the lung bases bilaterally. The heart size is normal with no pericardial effusion. No focal lesions are seen at the liver, spleen, gallbladder or pancreas. The abdominal aorta and inferior vena cava show no acute abnormalities. The colon shows no diverticulosis, diverticulitis or colitis. The transverse colon does bulge into a midline abdominal hernia without obstruction. Colonic anastomosis is present in the transverse colon. The small intestinal tract shows no abnormal dilatation, wall thickening or obstruction. There is a small hiatal hernia. No other abnormality seen at the stomach or duodenum. The kidneys again show a hypodense lesion in the midpole of the left kidney measuring approximately 1.4 cm in size which appears to be slightly larger than on previous exam and this does not appear to be cystic by Hounsfield units. Further evaluation with ultrasound is recommended. No renal calculi, hydronephrosis or obstructive uropathy is evident. The bladder is not optimally distended but the wall appears to be thickened similar to previous exam. There are prostate gland calcifications. Seminal vesicles are symmetric. No free fluid or free air seen in the abdomen or pelvis. Infusion pump is present in the lower right anterior abdominal wall. 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 No acute bony abnormalities are seen. IMPRESSION: Linear atelectasis at the lung bases. Small hiatal hernia. 1.4 cm hypodense lesion in the left kidney at the midpole which appears to be slightly larger than on previous exam and is not definitely cystic by Hounsfield units. Further evaluation with ultrasound should be considered. Continued presence of some bladder wall thickening however the bladder is not optimally distended. No other acute abnormality seen in the abdomen or pelvis. Electronically signed by: Hortensia Menjivar MD (02/20/2021 7:10 PM) [facility] DICTATED and SIGNED BY: HORTENSIA MENJIVAR MD DATE: 02/20/21 [id number] Laboratory Tests Test 02/20/21 14:15 02/20/21 14:35 White Blood Count 4.8 x10^3/uL (4.0-11.0) Red Blood Count 3.31 x10^6/uL (4.30-5.70) Hemoglobin 7.6 g/dL (13.0-17.5) Hematocrit 24.5 % (39.0-53.0) Mean Corpuscular Volume 74 fL (79-100) Mean Corpuscular Hemoglobin 23 pg (25-35) Mean Corpuscular Hemoglobin Concent 31 g/dL (31-37) Red Cell Distribution Width 19.5 % (11.5-14.5) Platelet Count 276 x10^3/uL (140-400) Neutrophils (%) (Auto) 63 % (31-73) Lymphocytes (%) (Auto) 25 % (24-48) Monocytes (%) (Auto) 11 % (0-9) Eosinophils (%) (Auto) 1 % (0-3) Basophils (%) (Auto) 0 % (0-3) Neutrophils # (Auto) 3.0 x10^3/uL (1.8-7.7) Lymphocytes # (Auto) 1.2 x10^3/uL (1.0-4.8) Monocytes # (Auto) 0.5 x10^3/uL (0.0-1.1) Eosinophils # (Auto) 0.0 x10^3/uL (0.0-0.7) Basophils # (Auto) 0.0 x10^3/uL (0.0-0.2) Platelet Estimate Adequate (ADEQUATE) Polychromasia Slight Hypochromasia Mod Anisocytosis Mod Microcytosis Mod Sodium Level 143 mmol/L (136-145) Potassium Level 3.5 mmol/L (3.5-5.1) Chloride Level 108 mmol/L (98-107) Carbon Dioxide Level 29 mmol/L (21-32) Anion Gap 6 (6-14) Blood Urea Nitrogen 10 mg/dL (8-26) Creatinine 0.8 mg/dL (0.7-1.3) Estimated GFR (Cockcroft-Gault) 102.3 BUN/Creatinine Ratio 13 (6-20) Glucose Level 98 mg/dL (70-99) Calcium Level 7.9 mg/dL (8.5-10.1) Magnesium Level 2.2 mg/dL (1.8-2.4) Total Bilirubin 0.1 mg/dL (0.2-1.0) Aspartate Amino Transf (AST/SGOT) 14 U/L (15-37) Alanine Aminotransferase (ALT/SGPT) 16 U/L (16-63) Alkaline Phosphatase 60 U/L (46-116) Total Protein 6.1 g/dL (6.4-8.2) Albumin 2.9 g/dL (3.4-5.0) Albumin/Globulin Ratio 0.9 (1.0-1.7) Lipase 172 U/L (73-393) Urine Collection Type Unknown Urine Color Yellow Urine Clarity Clear Urine pH 6.5 (<5.0-8.0) Urine Specific [place] 1.020 (1.000-1.030) Urine Protein Negative mg/dL (NEG-TRACE) Urine Glucose (UA) Negative mg/dL (NEG) Urine Ketones (Stick) Negative mg/dL (NEG) Urine Blood Trace (NEG) Urine Nitrite Negative (NEG) Urine Bilirubin Negative (NEG) Urine Urobilinogen Dipstick 1.0 mg/dL (0.2 mg/dL) Urine Leukocyte Esterase Negative (NEG) Urine RBC 3-5 /HPF (0-2) Urine WBC Occ /HPF (0-4) Urine Squamous Epithelial Cells Few /LPF Urine Bacteria 0 /HPF (0-FEW) Urine Mucus Marked /LPF Assessment and Plan Assessmemt and Plan Problems Medical Problems: (1) Abdominal pain Status: Acute (2) Anemia Status: Acute (3) Intractable nausea and vomiting Status: Acute Comment Review of Relevant I have reviewed the following items dacia (where applicable) has been applied. Labs Laboratory Tests Test 02/20/21 14:15 02/20/21 14:35 White Blood Count 4.8 x10^3/uL (4.0-11.0) Red Blood Count 3.31 x10^6/uL (4.30-5.70) Hemoglobin 7.6 g/dL (13.0-17.5) Hematocrit 24.5 % (39.0-53.0) Mean Corpuscular Volume 74 fL (79-100) Mean Corpuscular Hemoglobin 23 pg (25-35) Mean Corpuscular Hemoglobin Concent 31 g/dL (31-37) Red Cell Distribution Width 19.5 % (11.5-14.5) Platelet Count 276 x10^3/uL (140-400) Neutrophils (%) (Auto) 63 % (31-73) Lymphocytes (%) (Auto) 25 % (24-48) Monocytes (%) (Auto) 11 % (0-9) Eosinophils (%) (Auto) 1 % (0-3) Basophils (%) (Auto) 0 % (0-3) Neutrophils # (Auto) 3.0 x10^3/uL (1.8-7.7) Lymphocytes # (Auto) 1.2 x10^3/uL (1.0-4.8) Monocytes # (Auto) 0.5 x10^3/uL (0.0-1.1) Eosinophils # (Auto) 0.0 x10^3/uL (0.0-0.7) Basophils # (Auto) 0.0 x10^3/uL (0.0-0.2) Platelet Estimate Adequate (ADEQUATE) Polychromasia Slight Hypochromasia Mod Anisocytosis Mod Microcytosis Mod Sodium Level 143 mmol/L (136-145) Potassium Level 3.5 mmol/L (3.5-5.1) Chloride Level 108 mmol/L (98-107) Carbon Dioxide Level 29 mmol/L (21-32) Anion Gap 6 (6-14) Blood Urea Nitrogen 10 mg/dL (8-26) Creatinine 0.8 mg/dL (0.7-1.3) Estimated GFR (Cockcroft-Gault) 102.3 BUN/Creatinine Ratio 13 (6-20) Glucose Level 98 mg/dL (70-99) Calcium Level 7.9 mg/dL (8.5-10.1) Magnesium Level 2.2 mg/dL (1.8-2.4) Total Bilirubin 0.1 mg/dL (0.2-1.0) Aspartate Amino Transf (AST/SGOT) 14 U/L (15-37) Alanine Aminotransferase (ALT/SGPT) 16 U/L (16-63) Alkaline Phosphatase 60 U/L (46-116) Total Protein 6.1 g/dL (6.4-8.2) Albumin 2.9 g/dL (3.4-5.0) Albumin/Globulin Ratio 0.9 (1.0-1.7) Lipase 172 U/L (73-393) Urine Collection Type Unknown Urine Color Yellow Urine Clarity Clear Urine pH 6.5 (<5.0-8.0) Urine Specific [place] 1.020 (1.000-1.030) Urine Protein Negative mg/dL (NEG-TRACE) Urine Glucose (UA) Negative mg/dL (NEG) Urine Ketones (Stick) Negative mg/dL (NEG) Urine Blood Trace (NEG) Urine Nitrite Negative (NEG) Urine Bilirubin Negative (NEG) Urine Urobilinogen Dipstick 1.0 mg/dL (0.2 mg/dL) Urine Leukocyte Esterase Negative (NEG) Urine RBC 3-5 /HPF (0-2) Urine WBC Occ /HPF (0-4) Urine Squamous Epithelial Cells Few /LPF Urine Bacteria 0 /HPF (0-FEW) Urine Mucus Marked /LPF Laboratory Tests Test 02/20/21 14:15 02/20/21 14:35 White Blood Count 4.8 x10^3/uL (4.0-11.0) Red Blood Count 3.31 x10^6/uL (4.30-5.70) Hemoglobin 7.6 g/dL (13.0-17.5) Hematocrit 24.5 % (39.0-53.0) Mean Corpuscular Volume 74 fL (79-100) Mean Corpuscular Hemoglobin 23 pg (25-35) Mean Corpuscular Hemoglobin Concent 31 g/dL (31-37) Red Cell Distribution Width 19.5 % (11.5-14.5) Platelet Count 276 x10^3/uL (140-400) Neutrophils (%) (Auto) 63 % (31-73) Lymphocytes (%) (Auto) 25 % (24-48) Monocytes (%) (Auto) 11 % (0-9) Eosinophils (%) (Auto) 1 % (0-3) Basophils (%) (Auto) 0 % (0-3) Neutrophils # (Auto) 3.0 x10^3/uL (1.8-7.7) Lymphocytes # (Auto) 1.2 x10^3/uL (1.0-4.8) Monocytes # (Auto) 0.5 x10^3/uL (0.0-1.1) Eosinophils # (Auto) 0.0 x10^3/uL (0.0-0.7) Basophils # (Auto) 0.0 x10^3/uL (0.0-0.2) Platelet Estimate Adequate (ADEQUATE) Polychromasia Slight Hypochromasia Mod Anisocytosis Mod Microcytosis Mod Sodium Level 143 mmol/L (136-145) Potassium Level 3.5 mmol/L (3.5-5.1) Chloride Level 108 mmol/L (98-107) Carbon Dioxide Level 29 mmol/L (21-32) Anion Gap 6 (6-14) Blood Urea Nitrogen 10 mg/dL (8-26) Creatinine 0.8 mg/dL (0.7-1.3) Estimated GFR (Cockcroft-Gault) 102.3 BUN/Creatinine Ratio 13 (6-20) Glucose Level 98 mg/dL (70-99) Calcium Level 7.9 mg/dL (8.5-10.1) Magnesium Level 2.2 mg/dL (1.8-2.4) Total Bilirubin 0.1 mg/dL (0.2-1.0) Aspartate Amino Transf (AST/SGOT) 14 U/L (15-37) Alanine Aminotransferase (ALT/SGPT) 16 U/L (16-63) Alkaline Phosphatase 60 U/L (46-116) Total Protein 6.1 g/dL (6.4-8.2) Albumin 2.9 g/dL (3.4-5.0) Albumin/Globulin Ratio 0.9 (1.0-1.7) Lipase 172 U/L (73-393) Urine Collection Type Unknown Urine Color Yellow Urine Clarity Clear Urine pH 6.5 (<5.0-8.0) Urine Specific [place] 1.020 (1.000-1.030) Urine Protein Negative mg/dL (NEG-TRACE) Urine Glucose (UA) Negative mg/dL (NEG) Urine Ketones (Stick) Negative mg/dL (NEG) Urine Blood Trace (NEG) Urine Nitrite Negative (NEG) Urine Bilirubin Negative (NEG) Urine Urobilinogen Dipstick 1.0 mg/dL (0.2 mg/dL) Urine Leukocyte Esterase Negative (NEG) Urine RBC 3-5 /HPF (0-2) Urine WBC Occ /HPF (0-4) Urine Squamous Epithelial Cells Few /LPF Urine Bacteria 0 /HPF (0-FEW) Urine Mucus Marked /LPF Medications Current Medications Sodium Chloride 1,000 ml @ 1,000 mls/hr 1X ONCE IV Last administered on 02/20/21at 14:26; Start 02/20/21 at 14:00; Stop 02/20/21 at 14:59; Status DC Ondansetron HCl (Zofran) 4 mg 1X ONCE IV Last administered on 02/20/21at 14:26; Start 02/20/21 at 14:00; Stop 02/20/21 at 14:01; Status DC Famotidine (Pepcid Vial) 20 mg 1X ONCE IVP Last administered on 02/20/21at 14:26; Start 02/20/21 at 14:30; Stop 02/20/21 at 14:31; Status DC Famotidine (Pepcid Vial) 20 mg STK-MED ONCE .ROUTE ; Start 02/20/21 at 14:24; Stop 02/20/21 at 14:24; Status DC Ondansetron HCl (Zofran) 4 mg PRN Q8HRS PRN IV NAUSEA/VOMITING Last administered on 02/21/21at 04:24; Start 02/20/21 at 15:45; Stop 02/21/21 at 15:44 Sodium Chloride 1,000 ml @ 100 mls/hr Q10H IV Last administered on 02/20/21at 16:14; Start 02/20/21 at 15:45; Stop 02/21/21 at 15:44 Iohexol (Omnipaque 300 Mg/ml) 75 ml 1X ONCE IV Last administered on 02/20/21at 18:13; Start 02/20/21 at 16:00; Stop 02/20/21 at 16:01; Status DC Fentanyl Citrate (Fentanyl 2ml Vial) 50 mcg 1X ONCE IV Last administered on 02/20/21at 16:14; Start 02/20/21 at 16:00; Stop 02/20/21 at 16:01; Status DC Diphenhydramine HCl (Benadryl) 25 mg 1X ONCE IVP Last administered on 02/20/21at 16:15; Start 02/20/21 at 16:00; Stop 02/20/21 at 16:01; Status DC Enoxaparin Sodium (Lovenox 150mg Syringe) 128 mg DAILY SQ ; Start 02/21/21 at 09:00 Diphenhydramine HCl (Benadryl) 50 mg QID IVP Last administered on 02/20/21at 22:13; Start 02/20/21 at 17:00 Ondansetron HCl (Zofran) 8 mg TID IVP ; Start 02/20/21 at 21:00 Sodium Chloride 1,000 ml @ 100 mls/hr CONT PRN IV SEE I/O RECORD; Start 02/20/21 at 17:00 Bisacodyl (Dulcolax Supp) 10 mg PRN DAILY PRN [place] CONSTIPATION; Start 02/20/21 at 17:00 Fentanyl Citrate (Fentanyl 2ml Vial) 50 mcg 1X ONCE IV Last administered on 02/20/21at 18:21; Start 02/20/21 at 17:45; Stop 02/20/21 at 17:46; Status DC Fentanyl Citrate (Fentanyl 2ml Vial) 50 mcg PRN Q2HR PRN IVP PAIN Last administered on 02/21/21at 07:22; Start 02/20/21 at 18:45 Active Scripts Active Ondansetron Odt (Ondansetron) 4 Mg Tab.rapdis 1 Tab PO PRN Q6-8HRS PRN Cipro (Ciprofloxacin Hcl) 500 Mg Tablet 1 Tab PO BID 10 Days Ondansetron Odt (Ondansetron) 4 Mg Tab.rapdis 1 Tab PO PRN Q6-8HRS Ondansetron Odt (Ondansetron) 4 Mg Tab.rapdis 1 Tab PO PRN Q6-8HRS PRN Ondansetron Odt (Ondansetron) 4 Mg Tab.rapdis 1 Tab PO PRN Q6-8HRS Zofran (Ondansetron Hcl) 4 Mg Tablet 1 Tab PO PRN Q6-8HRS Reported Venlafaxine Hcl Er (Venlafaxine Hcl) 75 Mg Cap.er.24h 75 Mg PO DAILY Prevacid (Lansoprazole) 30 Mg Capsule. 30 Mg PO DAILY Prilosec Otc (Omeprazole Magnesium) 20 Mg Tablet.dr 40 Mg PO BID Transderm-Scop (Scopolamine) 1 Each Patch.td72 1 Patch TP Q3DAYS Due to be changed 12/15/2019 Zofran (Ondansetron Hcl) 8 Mg Tablet 8 Mg PO BID PRN Promethazine Hcl 12.5 Mg Tablet 25 Mg PO PRN Q6HRS PRN Benadryl (Diphenhydramine Hcl) 25 Mg Capsule 50 Mg PO Q6HRS Dexilant (Dexlansoprazole) 60 Mg Cap. 60 Mg PO BIDAC Metoprolol Tartrate 25 Mg Tablet 2 Tab PO BID Vitals/I & O Vital Sign - Last 24 Hours 02/20/21 02/20/21 02/20/21 02/20/21 14:00 14:30 15:00 15:35 Temp 98.5 98.5 Pulse 102 81 75 86 Resp 16 16 16 16 B/P (MAP) 148/97 (114) 147/78 (101) 143/98 (113) 143/92 (109) Pulse Ox 100 99 99 99 O2 Delivery Room Air Room Air Room Air Room Air 02/20/21 02/20/21 02/20/21 02/20/21 16:05 16:14 17:00 18:21 Pulse 75 80 Resp 16 16 16 15 B/P (MAP) 154/95 (114) 153/97 (115) Pulse Ox 99 100 100 98 O2 Delivery Room Air Room Air Room Air Room Air 02/20/21 02/20/21 02/20/21 02/20/21 18:35 19:35 20:35 21:35 Pulse 96 77 80 73 Resp 16 16 16 16 B/P (MAP) 181/122 (141) 142/85 (104) 141/79 (99) 146/96 (113) Pulse Ox 100 100 100 100 O2 Delivery Room Air Room Air Room Air Room Air 02/20/21 02/20/21 02/20/21 02/21/21 22:13 22:30 23:30 00:30 Temp 98.5 98.5 Pulse 87 94 68 Resp 16 16 16 19 B/P (MAP) 154/86 (108) 127/74 (91) 126/71 (89) Pulse Ox 98 100 100 99 O2 Delivery Room Air Room Air Room Air Room Air 02/21/21 02/21/21 02/21/21 02/21/21 01:45 01:53 02:23 02:53 Pulse 64 66 58 B/P (MAP) 106/68 (81) 97/60 (72) 115/72 (86) Pulse Ox 98 94 99 99 O2 Delivery Room Air Room Air Room Air 02/21/21 02/21/21 02/21/21 03:23 04:24 07:22 Pulse 58 Resp 18 B/P (MAP) 118/69 (85) Pulse Ox 100 98 98 O2 Delivery Room Air Room Air Justicifation of Admission Dx: Justifications for Admission: Justification of Admission Dx: Yes Comments: intractable vomiting ROBERT GALLAGHER MD Feb 21, 2021 08:26
[2021-02-21] MEDS: ONDANSETRON PF 4 MG/2 ML VIAL. IVP SCH ×4 (09:00→21:49)
--- NOTE | 2021-02-21 09:49 | PDOC2 ---
GI CONSULT Date of Service: DATE: 02/21/21 TIME: 09:48 Reason For Consult: gastroparesis, anemia HPI: HPI: 50 y/o male who has see Dr. Arevalo in the past. H/o many abdominal surgeries and gastroparesis (?result of surgically induced vagal nerve damage) w/ complications. Has gastric pacemaker - office notes indicate voltage increased to 8.5 in 2018 w/o improvement. S/p pyloroplasty w/ G and J tube placements when pacer placed in 2014. G and J tubes were removed in 2019 due to fistula and infection. Still drains - increased recently, purulent. Has Groshong in place on TPN. Stable weight (140-145 lbs). Takes liquids or even some soft foods PO as able. Doesn't like Ensure, etc. Has seen Dr. James in the past re: leakage from previous tube site, protruding mesh, and enlarging abd hernia. Frequent ER visits for flares of n/v - usually improved in ER w/ Benadryl and Zofran. To ER yesterday for same, was surprised when admission was recommended for "Hgb being lower than it ever has been." Assumed maybe flar was triggered by first Moderna COVID vaccine (on Sunday). Denies bleeding except some hemorrhoidal-type issues awhile ago (red blood on tissue). Does say he has planned to call our office to check in and possible schedule 'scopes. H/o JOS - gets [facility] inf[facility], now has PCP @ [facility] who monitor TPN - last infusion ~4 months ago, says PCP has recommended restarting. Can't remember when last had EGD. Normal colonoscopy 2013. On Pepcid 40mg IV QD ("in my TPN"), Zofran 8mg TID IV, Benadryl 50mg QID IV, and clonidine patch. Intolerant to Reglan and Compazine. No longer takes scopolamine or Phenergan. No pain meds at home. PMH: PMH: Dustin fundoplication in 2005 - revision in 2008 complicated by pancreatitis/pancreatic injury, revision in 2011 w/ bowel perforations requiring ostomy (then take down) exploratory laparotomy w/ EDU, gastric pacemaker placement, G and J tube placement, pyloroplasty - G and J tubes removed 2019 Groshong catheter placement/removal/replacement ventral hernia repair ruptured diaphragm repair UTI FH: Family History: CAD, Hypertension, Other (colon polyps - father, Crohn's - mother) Social History: Smoke: No ALCOHOL: none Drugs: None ROS: GEN: Denies fevers, chills, sweats HEENT: Denies blurred vision, sore throat CV: Denies chest pain RESP: Denies shortness of air, cough GI: Per HPI : Denies hematuria, dysuria ENDO: Denies weight changes NEURO: Denies confusion, dizziness MSK: Denies weakness, joint pain/swelling SKIN: Denies jaundice, pruritus Vitals: Vitals: Vital Signs Date Time Temp Pulse Resp B/P (MAP) Pulse Ox O2 Delivery O2 Flow Rate FiO2 02/21/21 07:22 18 98 Room Air 02/21/21 03:23 58 118/69 (85) 02/21/21 00:30 98.5 98.5 Labs: Labs: Laboratory Tests Test 02/20/21 14:15 02/20/21 14:35 White Blood Count 4.8 x10^3/uL (4.0-11.0) Red Blood Count 3.31 x10^6/uL (4.30-5.70) Hemoglobin 7.6 g/dL (13.0-17.5) Hematocrit 24.5 % (39.0-53.0) Mean Corpuscular Volume 74 fL (79-100) Mean Corpuscular Hemoglobin 23 pg (25-35) Mean Corpuscular Hemoglobin Concent 31 g/dL (31-37) Red Cell Distribution Width 19.5 % (11.5-14.5) Platelet Count 276 x10^3/uL (140-400) Neutrophils (%) (Auto) 63 % (31-73) Lymphocytes (%) (Auto) 25 % (24-48) Monocytes (%) (Auto) 11 % (0-9) Eosinophils (%) (Auto) 1 % (0-3) Basophils (%) (Auto) 0 % (0-3) Neutrophils # (Auto) 3.0 x10^3/uL (1.8-7.7) Lymphocytes # (Auto) 1.2 x10^3/uL (1.0-4.8) Monocytes # (Auto) 0.5 x10^3/uL (0.0-1.1) Eosinophils # (Auto) 0.0 x10^3/uL (0.0-0.7) Basophils # (Auto) 0.0 x10^3/uL (0.0-0.2) Platelet Estimate Adequate (ADEQUATE) Polychromasia Slight Hypochromasia Mod Anisocytosis Mod Microcytosis Mod Sodium Level 143 mmol/L (136-145) Potassium Level 3.5 mmol/L (3.5-5.1) Chloride Level 108 mmol/L (98-107) Carbon Dioxide Level 29 mmol/L (21-32) Anion Gap 6 (6-14) Blood Urea Nitrogen 10 mg/dL (8-26) Creatinine 0.8 mg/dL (0.7-1.3) Estimated GFR (Cockcroft-Gault) 102.3 BUN/Creatinine Ratio 13 (6-20) Glucose Level 98 mg/dL (70-99) Calcium Level 7.9 mg/dL (8.5-10.1) Magnesium Level 2.2 mg/dL (1.8-2.4) Total Bilirubin 0.1 mg/dL (0.2-1.0) Aspartate Amino Transf (AST/SGOT) 14 U/L (15-37) Alanine Aminotransferase (ALT/SGPT) 16 U/L (16-63) Alkaline Phosphatase 60 U/L (46-116) Total Protein 6.1 g/dL (6.4-8.2) Albumin 2.9 g/dL (3.4-5.0) Albumin/Globulin Ratio 0.9 (1.0-1.7) Lipase 172 U/L (73-393) Urine Collection Type Unknown Urine Color Yellow Urine Clarity Clear Urine pH 6.5 (<5.0-8.0) Urine Specific [place] 1.020 (1.000-1.030) Urine Protein Negative mg/dL (NEG-TRACE) Urine Glucose (UA) Negative mg/dL (NEG) Urine Ketones (Stick) Negative mg/dL (NEG) Urine Blood Trace (NEG) Urine Nitrite Negative (NEG) Urine Bilirubin Negative (NEG) Urine Urobilinogen Dipstick 1.0 mg/dL (0.2 mg/dL) Urine Leukocyte Esterase Negative (NEG) Urine RBC 3-5 /HPF (0-2) Urine WBC Occ /HPF (0-4) Urine Squamous Epithelial Cells Few /LPF Urine Bacteria 0 /HPF (0-FEW) Urine Mucus Marked /LPF Allergies: Coded Allergies: morphine (Verified Allergy, Severe, Anaphylaxis Patient states can take Hydromorphone, 12/31/20) DILAUDID OK hydrocodone (Verified Allergy, Intermediate, Rash, 12/31/20) droperidol (Verified Adverse Reaction, Intermediate, DYSTONIA, 12/31/20) metoclopramide (Verified Adverse Reaction, Intermediate, DYSTONIA, 12/31/20) prochlorperazine (Verified Adverse Reaction, Intermediate, DYSTONIA, 12/31/20) Medications: Current Medications Medications (Trade) Dose Ordered Sig/De Route PRN Reason Start Time Stop Time Status Last Admin Dose Admin Sodium Chloride 1,000 ml @ 1,000 mls/hr 1X ONCE IV 02/20/21 14:00 02/20/21 14:59 DC 02/20/21 14:26 Ondansetron HCl (Zofran) 4 mg 1X ONCE IV 02/20/21 14:00 02/20/21 14:01 DC 02/20/21 14:26 Famotidine (Pepcid Vial) 20 mg 1X ONCE IVP 02/20/21 14:30 02/20/21 14:31 DC 02/20/21 14:26 Ondansetron HCl (Zofran) 4 mg PRN Q8HRS PRN IV NAUSEA/VOMITING 02/20/21 15:45 02/21/21 15:44 02/21/21 04:24 Sodium Chloride 1,000 ml @ 100 mls/hr Q10H IV 02/20/21 15:45 02/21/21 15:44 02/20/21 16:14 Iohexol (Omnipaque 300 Mg/ml) 75 ml 1X ONCE IV 02/20/21 16:00 02/20/21 16:01 DC 02/20/21 18:13 Fentanyl Citrate (Fentanyl 2ml Vial) 50 mcg 1X ONCE IV 02/20/21 16:00 02/20/21 16:01 DC 02/20/21 16:14 Diphenhydramine HCl (Benadryl) 25 mg 1X ONCE IVP 02/20/21 16:00 02/20/21 16:01 DC 02/20/21 16:15 Diphenhydramine HCl (Benadryl) 50 mg QID IVP 02/20/21 17:00 02/20/21 22:13 Fentanyl Citrate (Fentanyl 2ml Vial) 50 mcg 1X ONCE IV 02/20/21 17:45 02/20/21 17:46 DC 02/20/21 18:21 Fentanyl Citrate (Fentanyl 2ml Vial) 50 mcg PRN Q2HR PRN IVP PAIN 02/20/21 18:45 02/21/21 07:22 PE: GEN: NAD HEENT: Atraumatic, PERRL LUNGS: CTAB HEART: RRR ABD: surgical scars, reducible hernia (Tender), site w/ exposed mesh, previous G and J tube sites - dry, did not attempt to express (he says very painful from ER staff examining) EXTREMITY: No edema SKIN: No rashes, no jaundice NEURO/PSYCH: A & O 3 A/P: A/P: H/o many abdominal surgeries, gastroparesis w/ complications, recurrent n/v on TPN and IV medications w/ frequent ER visits S/p G and J tube placement/removal, fistula w/ chronic drainage (?worse) JOS - some drift in Hgb on review of past labs CRC screen, FH colon polyps - last colonoscopy in 2013 -- Continue TPN and IV acid-log feeder along w/ usual anti-emetics. Monitor Hgb. Give iron infusion now - hopefully can resume these as outpt. Dr. Arevalo will follow - consider outpt scopes (though I imagine colonoscopy prep would be difficult...) DOYLE ARANDA Feb 21, 2021 09:48
[2021-02-21] MEDS ORDERED: IRON SUCROSE COMPLEX 200 MG in IV NORMAL SALINE 100ML 100 ML IV ONE (10:00)
[2021-02-21] MEDS: IV NORMAL SALINE 1000ML BAG 1,000 ML IV SCH ×2 (10:08→11:37)
[2021-02-21] MEDS: diphenhydrAMINE 50 MG/ML VIAL IVP SCH ×4 (10:17→21:00)
[2021-02-21] MEDS: FAMOTIDINE 20 MG/2 ML VIAL IVP SCH ×2 (10:56→21:48)
[2021-02-21] MEDS: TPN PER PHARMACY MC PRN (12:21)
--- NOTE | 2021-02-21 12:28 | NUR ---
Pharmacy TPN Dosing Note S: JACKSONMERISSA is a 50 year old M Currently receiving Central Cyclic TPN B:Pertinent PMH: long-term TPN, gastroparesis Height: 5 feet, 8 inches Weight: 66.0 kg Current diet: NPO LABS: Sodium: 143 Potassium: 3.5 Chloride: 108 Calcium: 7.9 Corrected Calcium: 8.78 Magnesium: 2.2 CO2: 29 SCr: 0.8 Glucose: 98 Albumin: 2.9 AST: 14 ALT: 16 TPN FORMULA: TPN TYPE: Central Cyclic AMINO ACIDS: 90 gm DEXTROSE: 230 gm LIPIDS: 45 gm SODIUM CHLORIDE: 10 mEq SODIUM PHOSPHATE: 25 mmol POTASSIUM ACETATE: 20 mEq MAGNESIUM: 4 mEq MULTIPLE VITAMIN: 5 ml TRACE ELEMENTS: 1 ml(s) TPN PLAN: TPN per outpatient ([facility]) formula. R: Continue TPN per home formula Will monitor electrolytes, glucose, and tolerance to TPN. Sarah Morrison RPH, 02/21/21 0901
[2021-02-21 15:00] VITALS: BP 148/102
[2021-02-21 19:00] VITALS: BP 157/101
[2021-02-21] MEDS ORDERED: [UNRECOGNIZED DRUG - OTHER] IV SCH (22:00)
[2021-02-21] MEDS ORDERED: [UNRECOGNIZED DRUG - OTHER] IV SCH (22:00)
[2021-02-21] MEDS ORDERED: AMINO ACID IV SCH ×2 (22:00)
[2021-02-21] MEDS ORDERED: DEXTROSE 70% IV SCH ×2 (22:00)
[2021-02-21] MEDS ORDERED: TOTAL PARENTERAL NUTRITION IV SCH ×2 (22:00)
[2021-02-21 23:00] VITALS: BP 157/99
[2021-02-22] VITALS (7 sets, daily range): BP systolic 105–138; BP diastolic 50–88
[2021-02-22] MEDS: fentaNYL PF VIAL 100 MCG/2 ML VIAL IVP PRN ×9 (02:27→22:25)
[2021-02-22] MEDS ORDERED: IV RINGERS,LACTATED 1000ML 1,000 ML IV SCH (07:00)
[2021-02-22] MEDS: diphenhydrAMINE 50 MG/ML VIAL IVP SCH ×4 (08:21→20:37)
[2021-02-22] MEDS: ONDANSETRON PF 4 MG/2 ML VIAL. IVP SCH ×3 (08:22→20:36)
--- NOTE | 2021-02-22 09:19 | NUR ---
SW following. Discussed with RN, pt from home with his children, room air, NPO, rapid COVID-19 negative. Pt uses TPN at home, has home health through [facility]. Pt having an EGD today at noon. Possible discharge after EGD pending results. SW will continue to follow.
[2021-02-22 10:51] LABS: BASO # 0.1 x10^3/uL (0.0-0.2); BASO % 1 % (0-3); EOS % 1 % (0-3); HEMATOCRIT 23.3 % (39.0-53.0); HEMOGLOBIN 7.3 g/dL (13.0-17.5); LYMPH # 1.1 x10^3/uL (1.0-4.8); LYMPH % 24 % (24-48); MEAN CORPUSCULAR HEMOGLOBIN 23 pg (25-35); MEAN CORPUSCULAR HGB CONC 32 g/dL (31-37); MEAN CORPUSCULAR VOLUME 73 fL (79-100); MONO # 0.4 x10^3/uL (0.0-1.1); MONO % 9 % (0-9); NEUT # 2.9 x10^3/uL (1.8-7.7); NEUT % 65 % (31-73); PLATELET COUNT 209 x10^3/uL (140-400); RED CELL DISTRIBUTION WIDTH 19.5 % (11.5-14.5); WHITE BLOOD COUNT 4.5 x10^3/uL (4.0-11.0)
[2021-02-22 10:57] LABS: CALCIUM 7.7 mg/dL (8.5-10.1); CREATININE 0.7 mg/dL (0.7-1.3); GFR 119.4; MAGNESIUM 2.1 mg/dL (1.8-2.4); PHOSPHORUS 3.2 mg/dL (2.6-4.7); POTASSIUM 4.2 mmol/L (3.5-5.1)
--- NOTE | 2021-02-22 11:29 | PDOC ---
[facility] [facility] PROGRESS NOTE Date of Service DOS: DATE: 02/22/21 TIME: 11:26 Chief Complaint Chief Complaint VTE Prophylaxis Ordered VTE Prophylaxis Devices: No VTE Pharmacological Prophylaxi: Yes Assessment/Plan Assessment/Plan Intractable nausea and vomiting Gastroparesis Anemia Hypocalcemia History of PEs and DVTs Moderate malnutrition Plan: resume home medications; avoid Compazine or Reglan due to history of dystonic reaction. Consultation placed to GI IV fluids Avoid flushing patient's port with heparin FEN - NPO; will need to resume TPN in the AM PPX - Lovenox FULL CODE iv iron iv pain control Dispo - inpatient for above; patient names his [id number] (Aggie Golden) as his surrogate decision-maker History of Present Illness History of Present Illness Identification/Chief Complaint Chief Complaint Intractable nausea vomiting Source Source: Patient History of Present Illness History of Present Illness Patient is a 50-year-old male with past medical history of gastroparesis, multiple abdominal surgeries, and history of PEs, who presents to the ED with complaints of intractable nausea and vomiting since last night. He reports associated sharp epigastric pain, 8/10. States he vomited 3 times yesterday and twice today. He received his first dose of Materna COVID-19 injection on 02/18/2021, and he initially thought his symptoms were a reaction to his vaccination, but he came to the ED when his symptoms continued. Due to his history of gastroparesis he is on an unusual regimen of Zofran 8 mg 3 times daily, Benadryl 50 mg 4 times daily, and obtains nutritional needs through TPN. Upon evaluation in the ED his hemoglobin is 7.6 and hematocrit 24.5. He states his level of anemia is unusual for him. He denies any bloody vomit dark stools, or bright red blood per rectum. Will admit patient for further medical management. Past Medical History Past Medical History Gastroparesis, history of PEs, history of DVTs, anxiety/depression, GERD, hypertension, PTSD, TBI, dumping syndrome, UTIs Cardiovascular: HTN CENTRAL NERVOUS SYSTEM: Other GI: Other Psych: Other Past Surgical History Past Surgical History Colectomy, gastric bypass, hernia repair, colostomy with takedown, J-tube, G- tube, gastric stimulator Past Surgical History: Hernia Repair, Colectomy, Colon Resection, Other Family History Family History NH, CVA Social History Smoke: No ALCOHOL: none Drugs: None Current Medications Current Medications Current Medications Sodium Chloride 1,000 ml @ 1,000 mls/hr 1X ONCE IV Last administered on 02/20/21at 14:26; Start 02/20/21 at 14:00; Stop 02/20/21 at 14:59; Status DC Ondansetron HCl (Zofran) 4 mg 1X ONCE IV Last administered on 02/20/21at 14:26; Start 02/20/21 at 14:00; Stop 02/20/21 at 14:01; Status DC Famotidine (Pepcid Vial) 20 mg 1X ONCE IVP Last administered on 02/20/21at 14:26; Start 02/20/21 at 14:30; Stop 02/20/21 at 14:31; Status DC Famotidine (Pepcid Vial) 20 mg STK-MED ONCE .ROUTE ; Start 02/20/21 at 14:24; Stop 02/20/21 at 14:24; Status DC Ondansetron HCl (Zofran) 4 mg PRN Q8HRS PRN IV NAUSEA/VOMITING; Start 02/20/21 at 15:45; Stop 02/21/21 at 15:44 Sodium Chloride 1,000 ml @ 100 mls/hr Q10H IV Last administered on 02/20/21at 16:14; Start 02/20/21 at 15:45; Stop 02/21/21 at 15:44 Iohexol (Omnipaque 300 Mg/ml) 75 ml 1X ONCE IV ; Start 02/20/21 at 16:00; Stop 02/20/21 at 16:01; Status DC Fentanyl Citrate (Fentanyl 2ml Vial) 50 mcg 1X ONCE IV Last administered on 02/20/21at 16:14; Start 02/20/21 at 16:00; Stop 02/20/21 at 16:01; Status DC Diphenhydramine HCl (Benadryl) 25 mg 1X ONCE IVP Last administered on 02/20/21at 16:15; Start 02/20/21 at 16:00; Stop 02/20/21 at 16:01; Status DC Enoxaparin Sodium (Lovenox 150mg Syringe) 128 mg DAILY SQ ; Start 02/21/21 at 09:00; Status UNV Diphenhydramine HCl (Benadryl) 50 mg QID IVP ; Start 02/20/21 at 17:00; Status UNV Ondansetron HCl (Zofran) 8 mg TID IVP ; Start 02/20/21 at 21:00; Status UNV Active Scripts Active Ondansetron Odt (Ondansetron) 4 Mg Tab.rapdis 1 Tab PO PRN Q6-8HRS PRN Cipro (Ciprofloxacin Hcl) 500 Mg Tablet 1 Tab PO BID 10 Days Ondansetron Odt (Ondansetron) 4 Mg Tab.rapdis 1 Tab PO PRN Q6-8HRS Ondansetron Odt (Ondansetron) 4 Mg Tab.rapdis 1 Tab PO PRN Q6-8HRS PRN Ondansetron Odt (Ondansetron) 4 Mg Tab.rapdis 1 Tab PO PRN Q6-8HRS Zofran (Ondansetron Hcl) 4 Mg Tablet 1 Tab PO PRN Q6-8HRS Reported Venlafaxine Hcl Er (Venlafaxine Hcl) 75 Mg Cap.er.24h 75 Mg PO DAILY Prevacid (Lansoprazole) 30 Mg Capsule.dr 30 Mg PO DAILY Prilosec Otc (Omeprazole Magnesium) 20 Mg Tablet.dr 40 Mg PO BID Transderm-Scop (Scopolamine) 1 Each Patch.td72 1 Patch TP Q3DAYS Due to be changed 12/15/2019 Zofran (Ondansetron Hcl) 8 Mg Tablet 8 Mg PO BID PRN Promethazine Hcl 12.5 Mg Tablet 25 Mg PO PRN Q6HRS PRN Benadryl (Diphenhydramine Hcl) 25 Mg Capsule 50 Mg PO Q6HRS Dexilant (Dexlansoprazole) 60 Mg Cap.dr.mp 60 Mg PO BIDAC Metoprolol Tartrate 25 Mg Tablet 2 Tab PO BID Allergies Allergies: Coded Allergies: morphine (Verified Allergy, Severe, Anaphylaxis Patient states can take Hydromorphone, 12/31/20) DILAUDID OK hydrocodone (Verified Allergy, Intermediate, Rash, 12/31/20) droperidol (Verified Adverse Reaction, Intermediate, DYSTONIA, 12/31/20) metoclopramide (Verified Adverse Reaction, Intermediate, DYSTONIA, 12/31/20) prochlorperazine (Verified Adverse Reaction, Intermediate, DYSTONIA, 12/31/20) ROS Review of System GENERAL: No history of weight change, weakness or fevers. SKIN: No bruising, hair changes or rashes. EYES: No blurred, double or loss of vision. NOSE AND THROAT: No history of nosebleeds, hoarseness or sore throat. HEART: Denies chest pain, denies palpitations. LUNGS: Denies cough, hemoptysis, wheezing or shortness of breath. GASTROINTESTINAL: Abdominal pain, nausea, vomiting. Denies diarrhea. GENITOURINARY: Denies dysuria, frequency, urgency, hematuria. NEUROLOGIC: Denies history of numbness, tingling, tremor or weakness. PSYCHIATRIC: Denies anxiety, denies depression. ENDOCRINE: No history of heat or cold intolerance, polyuria or polydipsia. EXTREMITIES: Denies muscle weakness, joint pain, pain on walking or stiffness. 4-19 D/W RN presented to the ED with complaints of intractable nausea and vomiting gastroparesis w/ complications, recurrent n/v on TPN and IV medications w/ frequent ER visits Linear atelectasis at the lung bases. hgb 7.6 02/22/2021 No acute events overnight. Patient continues to have nausea. Plan for EGD today. Patient's chart, labs, images were reviewed and discussed with RN Vitals/I&O Vitals/I&O: Vital Signs Date Time Temp Pulse Resp B/P (MAP) Pulse Ox O2 Delivery O2 Flow Rate FiO2 02/22/21 10:57 97.8 76 20 98 97.8 02/22/21 10:34 Room Air 02/22/21 10:30 128/82 (97) I & O 02/21/21 02/21/21 02/22/21 15:00 23:00 07:00 Intake Total 0 ml 0 ml 400 ml Output Total 1000 ml 1000 ml Balance -1000 ml 0 ml -600 ml Physical Exam Physical Exam: Physical Exam Physical Exam General: Alert, Oriented X3, Cooperative, No acute distress HEENT: PERRLA, EOMI Lungs: Clear to auscultation, Normal air movement. Port to right chest wall. Heart: RRR, no murmurs Cardiovascular: S1, S2 Abdomen: Reducible abdominal hernia, multiple surgical scars to left abdomen, gastric stimulator right lower quadrant Extremities: No clubbing, No cyanosis Skin: No rashes, No significant lesion Neuro: Normal speech, Normal tone, Sensation intact Psych/Mental Status: Mental status NL, Mood NL General: Alert, Oriented X3, Cooperative, No acute distress Heart: Regular rate Lungs: Clear Abdomen: Normal bowel sounds, Soft Extremities: No cyanosis, No edema Skin: No rashes, No significant lesion Labs Labs: Laboratory Tests Test 02/21/21 14:15 02/22/21 10:30 SARS-CoV-2 RNA (BARBARA) Negative (Negative) SARS-CoV-2 Antigen (Rapid) Negative (NEGATIVE) White Blood Count 4.5 x10^3/uL (4.0-11.0) Red Blood Count 3.20 x10^6/uL (4.30-5.70) Hemoglobin 7.3 g/dL (13.0-17.5) Hematocrit 23.3 % (39.0-53.0) Mean Corpuscular Volume 73 fL (79-100) Mean Corpuscular Hemoglobin 23 pg (25-35) Mean Corpuscular Hemoglobin Concent 32 g/dL (31-37) Red Cell Distribution Width 19.5 % (11.5-14.5) Platelet Count 209 x10^3/uL (140-400) Neutrophils (%) (Auto) 65 % (31-73) Lymphocytes (%) (Auto) 24 % (24-48) Monocytes (%) (Auto) 9 % (0-9) Eosinophils (%) (Auto) 1 % (0-3) Basophils (%) (Auto) 1 % (0-3) Neutrophils # (Auto) 2.9 x10^3/uL (1.8-7.7) Lymphocytes # (Auto) 1.1 x10^3/uL (1.0-4.8) Monocytes # (Auto) 0.4 x10^3/uL (0.0-1.1) Eosinophils # (Auto) 0.0 x10^3/uL (0.0-0.7) Basophils # (Auto) 0.1 x10^3/uL (0.0-0.2) Sodium Level 142 mmol/L (136-145) Potassium Level 4.2 mmol/L (3.5-5.1) Chloride Level 104 mmol/L (98-107) Carbon Dioxide Level 30 mmol/L (21-32) Anion Gap 8 (6-14) Blood Urea Nitrogen 14 mg/dL (8-26) Creatinine 0.7 mg/dL (0.7-1.3) Estimated GFR (Cockcroft-Gault) 119.4 Glucose Level 90 mg/dL (70-99) Calcium Level 7.7 mg/dL (8.5-10.1) Phosphorus Level 3.2 mg/dL (2.6-4.7) Magnesium Level 2.1 mg/dL (1.8-2.4) Triglycerides Level 98 mg/dL (0-150) Assessment and Plan Assessmemt and Plan Problems Medical Problems: (1) Abdominal pain Status: Acute (2) Anemia Status: Acute (3) Intractable nausea and vomiting Status: Acute Comment Review of Relevant I have reviewed the following items dacia (where applicable) has been applied. Medications: Current Medications Medications (Trade) Dose Ordered Sig/Ed Route PRN Reason Start Time Stop Time Status Last Admin Dose Admin Sodium Chloride 10 meq/Sodium Phosphate 25 mmol/ Potassium Acetate 20 meq/Magnesium Sulfate 4 meq/ Multivitamins 5 ml/Zinc/Copper/ Manganese/ Selenium 1 ml/ Famotidine 40 mg/ Total Parenteral Nutrition/Amino Acids/Dextrose/ Fat Emulsion Intravenous 1,750 ml @ 145.833 mls/hr TPN CONT IV 02/21/21 22:00 02/22/21 09:59 DC 02/21/21 21:41 Ringer's Solution 1,000 ml @ 50 mls/hr Q20H IV 02/22/21 07:00 02/22/21 18:59 02/22/21 07:00 Justifications for Admission Other Justification Abdominal pain, intractable nausea vomiting, anemia EBONI BRODERICK MD Feb 22, 2021 11:28
[2021-02-22] MEDS ORDERED: LIDOCAINE 2% PF 5 ML VIAL. ONE (12:08)
[2021-02-22] MEDS ORDERED: PROPOFOL 10 MG/ML (20ML) VIAL. IV ONE (12:08)
--- NOTE | 2021-02-22 12:21 | PDOC4 ---
PROCEDURE Procedure EGD anemia, iron def. anesthesia- propofol E- erosive esophagitis- grade C or III - no bleeding but some small ulcers. r/o Baretts G- antral gastritis, prior PEG fistula- healed D- normal Plan- continue pepcid continue outpt iron infusions check biopsies NINI DURÁN MD Feb 22, 2021 12:21
[2021-02-22 13:19] LABS: HYPOCHROMIA MOD; PLT ESTIMATE ADEQUATE (ADEQUATE)
[2021-02-22 13:20] LABS: ANISOCYTOSIS SLIGHT; MICROCYTOSIS SLIGHT
[2021-02-22] MEDS ORDERED: FAMOTIDINE 20 MG/2 ML VIAL IVP SCH (14:00)
[2021-02-22] MEDS: TPN PER PHARMACY MC PRN (14:06)
--- NOTE | 2021-02-22 14:09 | NUR ---
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 B:Pertinent PMH: long-term TPN, gastroparesis Current diet: NPO LABS: Sodium: 142 Potassium: 4.2 Chloride: 104 Calcium: 7.7 Corrected Calcium: 8.58 Magnesium: 2.1 CO2: 30 SCr: 0.7 Glucose: 90 Albumin: 2.9 AST: 14 ALT: 16 TPN FORMULA: TPN TYPE: Central Cyclic AMINO ACIDS: 90 gm DEXTROSE: 230 gm LIPIDS: 45 gm SODIUM CHLORIDE: 10 mEq SODIUM ACETATE: - mEq SODIUM PHOSPHATE: 25 mmol POTASSIUM CHLORIDE: - mEq POTASSIUM ACETATE: 20 mEq POTASSIUM PHOSPHATE: - mmol MAGNESIUM: 4 mEq CALCIUM: - mEq INSULIN: - units MULTIPLE VITAMIN: 5 ml TRACE ELEMENTS: 1 ml(s) TPN PLAN: 02/22 CONT SAME NOTE: FAMOTIDINE 40mg IS IN TPN PER HOME FORMULA R: Continue TPN Will monitor electrolytes, glucose, and tolerance to TPN. EVANGELIST AGUAYO RPH, 02/22/21 [id number]
[2021-02-22] MEDS ORDERED: [UNRECOGNIZED DRUG - OTHER] IV SCH (22:00)
[2021-02-22] MEDS ORDERED: AMINO ACID IV SCH (22:00)
[2021-02-22] MEDS ORDERED: DEXTROSE 70% IV SCH (22:00)
[2021-02-22] MEDS ORDERED: TOTAL PARENTERAL NUTRITION IV SCH (22:00)
[2021-02-23] MEDS: fentaNYL PF VIAL 100 MCG/2 ML VIAL IVP PRN ×5 (00:30→11:05)
[2021-02-23 02:54] VITALS: BP 112/64
[2021-02-23 06:56] LABS: CALCIUM 7.3 mg/dL (8.5-10.1); CREATININE 0.8 mg/dL (0.7-1.3); GFR 102.3; MAGNESIUM 2.2 mg/dL (1.8-2.4); PHOSPHORUS 3.9 mg/dL (2.6-4.7)
[2021-02-23 07:00] VITALS: BP 82/49
[2021-02-23] MEDS: ONDANSETRON PF 4 MG/2 ML VIAL. IVP SCH (08:27)
[2021-02-23] MEDS: diphenhydrAMINE 50 MG/ML VIAL IVP SCH ×2 (08:27→13:02)
--- NOTE | 2021-02-23 09:23 | NUR ---
MARY ANNE following. Discussed with RN, pt from home, room air, NPO - uses TPN at home. Dr. Campbell plans on discharging pt home today with home health. Awaiting discharge orders to fax to [facility]. MARY ANNE will continue to follow. Addendum: 02/23/21 at 1154 by JUVENAL NORTH Discharge orders faxed to [facility]. MARY ANNE verified with [facility] that pt gets TPN through them. RN notified. No further SW needs.
[2021-02-23 11:00] VITALS: BP 116/66
--- NOTE | 2021-02-23 11:40 | SNU/HH DC ---
DISCHARGE WITH HOME HEALTH DISCHARGE INFORMATION: Discharge Date: Feb 23, 2021 Final Diagnosis: Problems Medical Problems: (1) Abdominal pain Status: Acute (2) Anemia Status: Acute (3) Intractable nausea and vomiting Status: Acute Condition on Discharge: Stable HOME HEALTH: Face to Face: I certify this patient is under my care and that I, or a nurse practitioner or physician's energy assistant working with me, had a face to face encounter that meets the physician face to face encounter requirements with this patient on []. Long-Term For: Assess & Educate Safety, Enteral Feeding Care, IV Infusion Therapy RN For Eval/Treatment: Yes Physical Therapy For: Evalulation/Treatment Occupational Therapy For: Evaluation/Treatment Speech Language Pathology For: Evaluation/Treatment Home Health Aide For: Self-care Pt Meets Homebound Status: Unable to negotiate home POST DISCHARGE ORDERS: Activity Instructions for Disc: Activity as tolerated Bathing Instructions: Shower-keep dressing dry FOLLOW-UP: Follow up with: PCP within 2 weeks of discharge Follow Up With: Gastroenterology as needed after EGD results DC TO SNF LABS: resume labs for TPN management TREATMENT/EQUIPMENT ORDERS: Adaptive Equipment Issued: None Infusion Equipment, home use: PortaCath CERTIFICATION STATEMENT: Certification Statement: Certification Statement: Based on the above finding, I certify that this patient is confined to the home and needs intermittent half-way care, physical therapy and/or speech therapy, or continues to need occupational therapy.~ This patient is under my care, and I have initiated the establishment of the plan of care.~ This patient will be followed by myself or a community physician who will periodically review the plan of care. Home Meds Active Scripts Ciprofloxacin Hcl (CIPRO) 500 Mg Tablet, 1 TAB PO BID for 10 Days, #20 TAB 0 Refills Prov:CHAY BLANC DO 11/20/20 Ondansetron (ONDANSETRON ODT) 4 Mg Tab.rapdis, 1 TAB PO PRN Q6-8HRS PRN for NAUSEA, #15 TAB Prov:YOON GERMAN Jr. DO 02/22/20 Reported Medications Venlafaxine Hcl (VENLAFAXINE HCL ER) 75 Mg Cap.er.24h, 75 MG PO DAILY, CAP.SR 12/15/19 Lansoprazole (PREVACID) 30 Mg Capsule.dr, 30 MG PO DAILY for GI, TAB 12/14/19 Omeprazole Magnesium (PRILOSEC OTC) 20 Mg Tablet., 40 MG PO BID for GI, TAB 12/14/19 Scopolamine (TRANSDERM-SCOP) 1 Each Patch.td72, 1 PATCH TP Q3DAYS for nausea, #4 PATCH Due to be changed 12/15/2019 12/14/19 Ondansetron Hcl (ZOFRAN) 8 Mg Tablet, 8 MG PO BID PRN for NAUSEA/VOMITING, TAB 12/14/19 Promethazine Hcl (PROMETHAZINE HCL) 12.5 Mg Tablet, 25 MG PO PRN Q6HRS PRN for NAUSEA, TAB 03/05/19 Diphenhydramine Hcl (BENADRYL) 25 Mg Capsule, 50 MG PO Q6HRS for Itching and Nausea, CAP 02/20/19 Dexlansoprazole (DEXILANT) 60 Mg Cap..agnieszka, 60 MG PO BIDAC, CAP 04/04/18 Metoprolol Tartrate (METOPROLOL TARTRATE) 25 Mg Tablet, 2 TAB PO BID for HTN, #180 TAB 1 Refill 04/03/18 Discontinued Scripts Ondansetron (ONDANSETRON ODT) 4 Mg Tab.rapdis, 1 TAB PO PRN Q6-8HRS PRN for NAUSEA, #16 TAB Prov:CHAY BLANC DO 12/31/20 Ondansetron (ONDANSETRON ODT) 4 Mg Tab.rapdis, 1 TAB PO PRN Q6-8HRS for VOMITING, #16 TAB Prov:LISSETTE DENT DO 03/12/20 Ondansetron (ONDANSETRON ODT) 4 Mg Tab.rapdis, 1 TAB PO PRN Q6-8HRS, #16 TAB Prov:MONICA LAWSON ALLEY WORKER 02/13/20 Ondansetron Hcl (ZOFRAN) 4 Mg Tablet, 1 TAB PO PRN Q6-8HRS for nausea, #12 TAB Prov:GILMER SEVILLA DO 01/07/20 EBONI BRODERICK MD Feb 23, 2021 11:40
--- NOTE | 2021-02-23 12:16 | PDOC ---
Date of Service: DATE: 02/23/21 TIME: 12:13 Subjective: Subjective: Feels better, going home. Objective: Vital Signs: Vital Signs Date Time Temp Pulse Resp B/P (MAP) Pulse Ox O2 Delivery O2 Flow Rate FiO2 02/23/21 11:43 Room Air 02/23/21 11:00 98.0 67 18 116/66 (83) 100 98.0 02/22/21 12:24 2 Labs: Laboratory Tests Test 02/23/21 06:05 Sodium Level 140 mmol/L Potassium Level 4.0 mmol/L Chloride Level 104 mmol/L Carbon Dioxide Level 32 mmol/L Anion Gap 4 Blood Urea Nitrogen 15 mg/dL Creatinine 0.8 mg/dL Estimated GFR (Cockcroft-Gault) 102.3 Glucose Level 106 mg/dL Calcium Level 7.3 mg/dL Phosphorus Level 3.9 mg/dL Magnesium Level 2.2 mg/dL Imaging: EGD 02/22 E- erosive esophagitis- grade C or III - no bleeding but some small ulcers. r/o Baretts G- antral gastritis, prior PEG fistula- healed D- normal Plan- continue pepcid continue outpt iron infusions check biopsies PE: GEN: NAD LUNGS: CTAB HEART: RRR ABD: hernia, mesh site, J tube fistula NEURO/PSYCH: A & O 3 A/P: Gastroparesis, erosive esophagitis, gastritis JOS CRC screen, FH colon polyps - last colonoscopy in 2013 -- Dc per primary. Follow-up on biopsy results. Plans to continue Pepcid in TPN and resume iron infusions w/ PCP. Colonoscopy prep would be challenging. Justicifation of Admission Dx: Justifications for Admission: Justification of Admission Dx: Yes DOYLE ARANDA Feb 23, 2021 12:16
--- NOTE | 2021-02-23 14:45 | NUR ---
Pt discharged home with home health. discharge instructions discussed. pt verbalized understanding. pt assisted to wheelchair and was secured in car.
--- NOTE | 2021-02-23 18:15 | PATHOLOGY ---
[facility] Accession Number: [id number] . 01 Material submitted: . PART A: stomach - ANTRAL BIOPSY. Modifiers: ANTRUM PART B: esophagus - DISTAL ESOPHAGUS . 01 Clinical history: . B.ULCERATICVE ESOPHAGUS - R/O MOURA'S EGD . 02 Diagnosis: A. Gastric biopsies, antrum: - Chronic gastritis, mild. . B. 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 (JPM:radha; 02/23/2021) S 02/23/2021 1201 Local . 02 Comment: Sections of the gastric biopsy reveal segments of gastric body mucosa showing congestion and predominantly superficial mild chronic inflammation. A properly controlled immunoperoxidase stain for Helicobacter is negative for Helicobacter organisms. . 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 There is no dysplasia or evidence of malignancy. (JPM:radha; 02/23/2021) . Special stain performed: Immunoperoxidase stain for Helicobacter on A1 . 02 Electronically signed: . Kalen uRshing MD, Pathologist NPI- [id number] . 01 Gross description: . A. The specimen is received in formalin, labeled "Andrea Portillo, antral biopsy rule out HP" and consist of 1 fragment of soft alejandro tissue measuring up to 0.5 cm. Entirely submitted in A1. . B. The specimen is received in formalin, labeled "Andrea Portillo, distal esophagus ulcerative esophagus rule out Moura's" and consist of 2 fragments of soft alejandro tissue measuring up to 0.3 cm. Entirely submitted in B1.([facility]; 02/22/2021) KRISHNA/KRISHNA 02/22/2021 2231 Local . 02 Pathologist provided ICD-10: K29.50, K22.10, K20.90 . 02 CPT . 099778, 036781, [id number] Specimen Comment: A courtesy copy of this report has been sent to [phone], [phone] Specimen Comment: [id number] Specimen Comment: Report sent to DR DURÁN / DR MALIK Performed at: 01 [facility] [address], [place] [id number] MD Pieter Eldridge MD Phone: [phone] Performed at: 02 [facility] [address] [place], [place] [id number] MD Kalen Rushing MD Phone: [phone]
--- NOTE | 2021-02-25 21:50 | PDOC3 ---
[facility]-Discharge Summary Date of Admission: Date of Admission: Feb 20, 2021 Date of Discharge: Date of Discharge: Feb 23, 2021 Discharge Diagnosis: Discharge Diagnosis: Intractable nausea and vomiting Gastroparesis Anemia Hypocalcemia History of PEs and DVTs Moderate malnutrition Gastroparesis, erosive esophagitis, gastritis JOS CRC screen, FH colon polyps - last colonoscopy in 2013 Consults: Consults: GI recs: EGD 02/22 E- erosive esophagitis- grade C or III - no bleeding but some small ulcers. r/o Baretts G- antral gastritis, prior PEG fistula- healed D- normal Plan- continue pepcid continue outpt iron infusions check biopsies Plans to continue Pepcid in TPN and resume iron infusions w/ PCP. Colonoscopy prep would be challenging. Hospital Course: Hospital Course: 50-year-old male with past medical history of gastroparesis, multiple abdominal surgeries, and history of PEs, who presents to the ED with complaints of intractable nausea and vomiting since last night. He reports associated sharp epigastric pain, 8/10. States he vomited 3 times yesterday and twice today. He received his first dose of Materna COVID-19 injection on 02/18/2021, and he initially thought his symptoms were a reaction to his vaccination, but he came to the ED when his symptoms continued. Due to his history of gastroparesis he is on an unusual regimen of Zofran 8 mg 3 times daily, Benadryl 50 mg 4 times daily, and obtains nutritional needs through TPN. Upon evaluation in the ED his hemoglobin is 7.6 and hematocrit 24.5. He states his level of anemia is unusual for him. He denies any bloody vomit dark stools, or bright red blood per rectum. Will admit patient for further medical management. s/p EGD. Tolerated well. By day of discharge, pt was clinically stable. Rest of hospital course was uneventful Disposition: Disposition/Orders: D/C to Home Activity: Activity: Resume previous activity Diet: Diet: other (TPN) Medications: Home Meds Active Scripts Ciprofloxacin Hcl (CIPRO) 500 Mg Tablet, 1 TAB PO BID for 10 Days, #20 TAB 0 Refills Prov:CHAY BLANC DO 11/20/20 Ondansetron (ONDANSETRON ODT) 4 Mg Tab.rapdis, 1 TAB PO PRN Q6-8HRS PRN for NAUSEA, #15 TAB Prov:YOON GERMAN Jr. DO 02/22/20 Reported Medications Venlafaxine Hcl (VENLAFAXINE HCL ER) 75 Mg Cap.er.24h, 75 MG PO DAILY, CAP.SR 12/15/19 Lansoprazole (PREVACID) 30 Mg Capsule.dr, 30 MG PO DAILY for GI, TAB 12/14/19 Omeprazole Magnesium (PRILOSEC OTC) 20 Mg Tablet.dr, 40 MG PO BID for GI, TAB 12/14/19 Scopolamine (TRANSDERM-SCOP) 1 Each Patch.td72, 1 PATCH TP Q3DAYS for nausea, #4 PATCH Due to be changed 12/15/2019 12/14/19 Ondansetron Hcl (ZOFRAN) 8 Mg Tablet, 8 MG PO BID PRN for NAUSEA/VOMITING, TAB 12/14/19 Promethazine Hcl (PROMETHAZINE HCL) 12.5 Mg Tablet, 25 MG PO PRN Q6HRS PRN for NAUSEA, TAB 03/05/19 Diphenhydramine Hcl (BENADRYL) 25 Mg Capsule, 50 MG PO Q6HRS for Itching and Nausea, CAP 02/20/19 Dexlansoprazole (DEXILANT) 60 Mg Cap.mp, 60 MG PO BIDAC, CAP 04/04/18 Metoprolol Tartrate (METOPROLOL TARTRATE) 25 Mg Tablet, 2 TAB PO BID for HTN, #180 TAB 1 Refill 04/03/18 Discontinued Scripts Ondansetron (ONDANSETRON ODT) 4 Mg Tab.rapdis, 1 TAB PO PRN Q6-8HRS PRN for NAUSEA, #16 TAB Prov:CHAY BLANC DO 12/31/20 Ondansetron (ONDANSETRON ODT) 4 Mg Tab.rapdis, 1 TAB PO PRN Q6-8HRS for VOMITING, #16 TAB Prov:LISSETTE DENT DO 03/12/20 Ondansetron (ONDANSETRON ODT) 4 Mg Tab.rapdis, 1 TAB PO PRN Q6-8HRS, #16 TAB Prov:MONICA LAWSON TELEPHOTO INSTALLER 02/13/20 Ondansetron Hcl (ZOFRAN) 4 Mg Tablet, 1 TAB PO PRN Q6-8HRS for nausea, #12 TAB Prov:GILMER SEVILLA DO 01/07/20 Scheduled Ciprofloxacin Hcl (Cipro), 1 TAB PO BID Dexlansoprazole (Dexilant), 60 MG PO BIDAC, (Reported) Diphenhydramine Hcl (Benadryl), 50 MG PO Q6HRS, (Reported) Lansoprazole (Prevacid), 30 MG PO DAILY, (Reported) Metoprolol Tartrate (Metoprolol Tartrate), 2 TAB PO BID, (Reported) Omeprazole Magnesium (Prilosec Otc), 40 MG PO BID, (Reported) Scopolamine (Transderm-Scop), 1 PATCH TP Q3DAYS, (Reported) Venlafaxine Hcl (Venlafaxine Hcl Er), 75 MG PO DAILY, (Reported) Scheduled PRN Ondansetron (Ondansetron Odt), 1 TAB PO PRN Q6-8HRS PRN for NAUSEA Ondansetron Hcl (Zofran), 8 MG PO BID PRN for NAUSEA/VOMITING, (Reported) Promethazine Hcl (Promethazine Hcl), 25 MG PO PRN Q6HRS PRN for NAUSEA, (Reported) Discontinued Medications Ondansetron (Ondansetron Odt), 1 TAB PO PRN Q6-8HRS Discontinued Reason: DUPL Ondansetron (Ondansetron Odt), 1 TAB PO PRN Q6-8HRS Discontinued Reason: DUPL Ondansetron (Ondansetron Odt), 1 TAB PO PRN Q6-8HRS PRN for NAUSEA Discontinued Reason: DUPL Ondansetron Hcl (Zofran), 1 TAB PO PRN Q6-8HRS Discontinued Reason: DUPL Total Time: Total Time: Total time spent was 38 minutes in preparing scripts, discharge planning with SW and RN, and preparing this discharge summary. Patient seen and examined on day of discharge. Justicifation of Admission Dx: Justifications for Admission: Justification of Admission Dx: Yes EBONI BRODERICK MD Feb 25, 2021 21:50
== END 2021-02-23 14:49 | disposition home health service (06) | DRG 381 ==
LOC: ER 13:41 → ED HOLD 20:56 → 4 NORTH 02-21 10:46
PROVIDERS: ADMIT Family Medicine; ATTEND Family Medicine
PROC: 0DB78ZX Excision of Stomach, Pylorus, Via Natural or Artificial Opening Endoscopic, Diagnostic (ICD-10-PCS; 2021-02-22)
PROC: 0DB38ZX Excision of Lower Esophagus, Via Natural or Artificial Opening Endoscopic, Diagnostic (ICD-10-PCS; principal; 2021-02-22 12:00)
DX: K22.10 Ulcer of esophagus without bleeding (principal); E44.0 Moderate protein-calorie malnutrition; K31.84 Gastroparesis; K29.70 Gastritis, unspecified, without bleeding; E83.51 Hypocalcemia; Z20.822 Contact with and (suspected) exposure to COVID-19; F32.9 Major depressive disorder, single episode, unspecified; F41.9 Anxiety disorder, unspecified; K21.9 Gastro-esophageal reflux disease without esophagitis; F43.10 Post-traumatic stress disorder, unspecified; I10 Essential (primary) hypertension; Z68.23 Body mass index [BMI] 23.0-23.9, adult; D50.9 Iron deficiency anemia, unspecified; K44.9 Diaphragmatic hernia without obstruction or gangrene; N28.9 Disorder of kidney and ureter, unspecified; Z98.84 Bariatric surgery status; Z93.1 Gastrostomy status; Z95.0 Presence of cardiac pacemaker; Z87.820 Personal history of traumatic brain injury; Z86.711 Personal history of pulmonary embolism; Z86.718 Personal history of other venous thrombosis and embolism; Z79.899 Other long term (current) drug therapy; Z87.440 Personal history of urinary (tract) infections; Z90.49 Acquired absence of other specified parts of digestive tract; Z88.5 Allergy status to narcotic agent; Z88.8 Allergy status to other drugs, medicaments and biological substances; Z82.3 Family history of stroke; Z83.71 Family history of colonic polyps; Z82.49 Family history of ischemic heart disease and other diseases of the circulatory system
CPT/HCPCS: 36415; 43239; 74177; 80048; 80053; 81001; 83540; 83550; 83690; 83735; 84100; 84478; 85025; 87426; 88305; 88342; 96361; 96374; 96375; 96376; 99285; J1200; J1650; J1756; J2405; J2704; J3010; J3475; J3490; J7030; J7120; Q9967; U0003; U0005; G0378

== ENCOUNTER 2021-03-14 17:16 | Emergency (ER) | payer MEDICARE, OTHER ==
[~2021-03-14] VITALS: Ht 172.7 cm; Wt 65.9 kg
--- NOTE | 2021-03-14 20:20 | PHYS DOC ---
Past Medical History Past Medical History: Anemia, GERD, Other Additional Past Medical Histor: GASTROPROESIS Past Surgical History: Colectomy, Other Additional Past Surgical Histo: RUPTURED DIAPHRAM, GASTRIC PACEMAKER Smoking Status: Never Smoker Alcohol Use: None Drug Use: None General Adult EDM: Chief Complaint: ABDOMINAL PAIN HPI: HPI: Patient is a 50-year-old male presenting for flare of gastroparesis. This is an acute on chronic issue for patient. 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 He is well followed in outpatient setting with GI, receives TPN daily and has home medications such as Zofran and Benadryl for use when his gastroparesis flares. Admits flares such as today occur infrequent but typically resolve with pain medication, IV fluid rehydration, and antinausea medication. He has had no fever, no other concerning signs or systemic symptoms of illness Review of Systems: Review of Systems: Fourteen body systems of review of systems have been reviewed. See HPI for pertinent positives and negative responses, other robles all other systems are negative, non-pertinent or non-contributory Heart Score: C/O Chest Pain: No HEART Score for Chest Pain: HEART Score for Chest Pain Response (Comments) Value History Slighlty/Non-Suspicious 0 ECG Normal 0 Age >45 - < 65 1 Risk Factors 1 or 2 Risk Factors 1 Troponin < Normal Limit 0 Total 2 Risk Factors: Risk Factors: DM, Current or recent (<one month) smoker, HTN, HLP, family history of CAD, obesity. Risk Scores: Score 0 - 3: 2.5% MACE over next 6 weeks - Discharge Home Score 4 - 6: 20.3% MACE over next 6 weeks - Admit for Clinical Observation Score 7 - 10: 72.7% MACE over next 6 weeks - Early Invasive Strategies Allergies: Allergies: Allergies Coded Allergies Type Severity Reaction Last Updated Verified morphine Allergy Severe Anaphylaxis Patient states can take Hydromorphone 02/22/21 Yes hydrocodone Allergy Intermediate Rash 02/22/21 Yes droperidol Adverse Reaction Intermediate DYSTONIA 02/22/21 Yes metoclopramide Adverse Reaction Intermediate DYSTONIA 02/22/21 Yes prochlorperazine Adverse Reaction Intermediate DYSTONIA 02/22/21 Yes Physical Exam: PE: Constitutional: Well developed, well nourished, no acute distress, non-toxic appearance. HENT: Normocephalic, atraumatic, bilateral external ears normal, oropharynx moist, no oral exudates, nose normal. Eyes: PERRLA, EOMI, conjunctiva normal, no discharge. Neck: Normal range of motion, no tenderness, supple, no stridor. Cardiovascular: Heart rate regular, sinus rhythm, no murmurs rubs or gallops Lungs & Thorax: Bilateral breath sounds clear to auscultation Abdomen: Bowel sounds normal, soft, no tenderness, no masses, no pulsatile masses. Nonsurgical abdomen, no peritoneal signs Skin: Warm, dry, no erythema, no rash. Back: No tenderness, no CVA tenderness. Extremities: No tenderness, no cyanosis, no clubbing, ROM intact, no edema. Neurologic: Alert and oriented X 3, grossly normal motor & sensory function, no focal deficits noted. Psychologic: Affect normal, judgement normal, mood normal. Current Patient Data: Labs: Laboratory Tests Test 03/14/21 21:00 03/14/21 21:55 Sodium Level 141 mmol/L Potassium Level 4.1 mmol/L Chloride Level 104 mmol/L Carbon Dioxide Level 28 mmol/L Anion Gap 9 Blood Urea Nitrogen 11 mg/dL Creatinine 0.8 mg/dL Estimated GFR (Cockcroft-Gault) 102.3 BUN/Creatinine Ratio 14 Glucose Level 95 mg/dL Calcium Level 8.4 mg/dL Total Bilirubin 0.4 mg/dL Aspartate Amino Transf (AST/SGOT) 19 U/L Alanine Aminotransferase (ALT/SGPT) 23 U/L Alkaline Phosphatase 86 U/L Troponin I Quantitative < 0.017 ng/mL Total Protein 6.7 g/dL Albumin 3.5 g/dL Albumin/Globulin Ratio 1.1 White Blood Count 5.0 x10^3/uL Red Blood Count 3.63 x10^6/uL Hemoglobin 8.2 g/dL Hematocrit 26.0 % Mean Corpuscular Volume 72 fL Mean Corpuscular Hemoglobin 23 pg Mean Corpuscular Hemoglobin Concent 32 g/dL Red Cell Distribution Width 20.3 % Platelet Count 228 x10^3/uL Neutrophils (%) (Auto) 64 % Lymphocytes (%) (Auto) 25 % Monocytes (%) (Auto) 9 % Eosinophils (%) (Auto) 1 % Basophils (%) (Auto) 2 % Neutrophils # (Auto) 3.2 x10^3/uL Lymphocytes # (Auto) 1.3 x10^3/uL Monocytes # (Auto) 0.4 x10^3/uL Eosinophils # (Auto) 0.0 x10^3/uL Basophils # (Auto) 0.1 x10^3/uL Platelet Estimate Adequate Polychromasia Slight Hypochromasia Mod Anisocytosis Mod Microcytosis Marked Current Medications Medications (Trade) Dose Ordered Sig/Ed Route PRN Reason Start Time Stop Time Status Last Admin Dose Admin Hydromorphone HCl (Dilaudid) 1 mg 1X ONCE IVP 03/14/21 20:45 03/14/21 20:46 DC 03/14/21 21:00 Sodium Chloride 1,000 ml @ 1,000 mls/hr 1X ONCE IV 03/14/21 20:45 03/14/21 21:44 DC 03/14/21 21:00 Ondansetron HCl (Zofran) 4 mg 1X ONCE IVP 03/14/21 22:30 03/14/21 22:31 DC 03/14/21 22:03 Diphenhydramine HCl (Benadryl) 50 mg 1X ONCE IVP 03/14/21 22:30 03/14/21 22:31 DC 03/14/21 22:03 Hydromorphone HCl (Dilaudid) 1 mg 1X ONCE IVP 03/14/21 23:00 03/14/21 23:01 DC 03/14/21 22:37 Hydromorphone HCl (Dilaudid) 1 mg 1X ONCE IVP 03/15/21 00:30 03/15/21 00:31 DC 03/15/21 00:35 Vital Signs: Vital Signs Date Time Temp Pulse Resp B/P (MAP) Pulse Ox O2 Delivery O2 Flow Rate FiO2 03/14/21 18:25 99.7 104 16 184/137 (153) 100 Room Air 99.7 EKG: EKG: EKG ordered and interpreted by myself at 2159 hrs. as sinus rhythm at 91 bpm, unremarkable intervals, no axis deviation, no acute ischemic findings, no STEMI Radiology/Procedures: Radiology/Procedures: [] Course & Med Decision Making: Course & Med Decision Making Discussed with the patient all findings and diagnostic testing. I discussed most likely diagnosis of acute on chronic gastroparesis due to known issue. Patient responded to ER intervention provided. I stressed need for close outpatient follow-up to review today's ER visit. Strict return precautions were also discussed at length with good understanding by patient. Patient voiced understanding and agreement with the plan. Patient knows to come back for repeat evaluation if concerning signs or symptoms present prior to outpatient follow- up. Hemodynamically stable, ambulatory and well-appearing at time of disposition. Critical Care Time This patient required critical care. Due to the fact that the patient required a significant amount of one on one physician - patient contact time, ordering and review of studies, arranging urgent treatment with development of a management plan, evaluation of patients response to treatment with frequent reassessments, and discussions with other providers this patient required 35 minutes of critical care time. Critical care time was indicated due to the inherent instability and/or potential for instability in this patient. The critical care time that is allocated to this patient is above and beyond any time spent on any other billable procedures performed on this patient. Antonieta Disclaimer: Antonieta Disclaimer: This electronic medical record was generated, in whole or in part, using a voice recognition dictation system. Departure Departure Impression: Primary Impression: Gastroparesis Disposition: HOME / SELF CARE / HOMELESS Condition: IMPROVED Referrals: CHIRAG MALIK (PCP) Additional Instructions: As discussed prior to ER departure, your physical exam and subsequent diagnostic work-up in ER setting was nonconcerning for any emergent or surgical findings. Your symptoms improved with IV fluid rehydration, Benadryl, Zofran and IV pain medication. 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 As mention, this might be an acute presentation of more concerning pathology and so, if you experience any concerning signs or symptoms prior to outpatient follow-up please do not hesitate to come back for repeat evaluation. It was a pleasure to take care of you and I wish you the best going forward LAW ORTA DO March 14, 2021 20:20
[2021-03-14] MEDS ORDERED: IV NORMAL SALINE 1000ML BAG 1,000 ML IV ONE (20:45)
[2021-03-14] MEDS ORDERED: HYDROmorphone 2 MG/ML VIAL IVP ONE ×2 (20:45→23:00)
[2021-03-14 21:35] LABS: CALCIUM 8.4 mg/dL (8.5-10.1); CREATININE 0.8 mg/dL (0.7-1.3); GFR 102.3; POTASSIUM 4.1 mmol/L (3.5-5.1)
[2021-03-14 21:48] LABS: ALBUMIN 3.5 g/dL (3.4-5.0); ALBUMIN/GLOBULIN RATIO 1.1 (1.0-1.7); TOTAL BILIRUBIN 0.4 mg/dL (0.2-1.0); TOTAL PROTEIN 6.7 g/dL (6.4-8.2)
[2021-03-14 22:02] LABS: BASO # 0.1 x10^3/uL (0.0-0.2); BASO % 2 % (0-3); EOS % 1 % (0-3); HEMOGLOBIN 8.2 g/dL (13.0-17.5); LYMPH # 1.3 x10^3/uL (1.0-4.8); LYMPH % 25 % (24-48); MEAN CORPUSCULAR HEMOGLOBIN 23 pg (25-35); MEAN CORPUSCULAR HGB CONC 32 g/dL (31-37); MEAN CORPUSCULAR VOLUME 72 fL (79-100); MONO # 0.4 x10^3/uL (0.0-1.1); MONO % 9 % (0-9); NEUT # 3.2 x10^3/uL (1.8-7.7); NEUT % 64 % (31-73); PLATELET COUNT 228 x10^3/uL (140-400); RED BLOOD COUNT 3.63 x10^6/uL (4.30-5.70); RED CELL DISTRIBUTION WIDTH 20.3 % (11.5-14.5)
[2021-03-14 22:26] LABS: PLT ESTIMATE ADEQUATE (ADEQUATE)
[2021-03-14 22:27] LABS: ANISOCYTOSIS MOD; HYPOCHROMIA MOD; MICROCYTOSIS MARKED; POLYCHROMASIA SLIGHT
[2021-03-14] MEDS ORDERED: ONDANSETRON PF 4 MG/2 ML VIAL. IVP ONE (22:30)
[2021-03-14] MEDS ORDERED: diphenhydrAMINE 50 MG/ML VIAL IVP ONE (22:30)
[2021-03-15 00:30] VITALS: BP 139/89
[2021-03-15] MEDS ORDERED: HYDROmorphone 2 MG/ML VIAL IVP ONE (00:30)
--- NOTE | 2021-03-15 01:10 | EKG ---
[facility] [address] [place] [address] Test Date: 2021-03-14 Test Time: 21:51:09 Pat Name: MERISSA JACKSON Department: Room: Gender: Smasher: : 1970 Requested By: LAW ORTA Order Number: [id number] Reading MD: Measurements Intervals [place] Rate: 91 P: 63 [place]: 164 QRS: 4 QRSD: 88 T: 38 QT: 346 QTc: 427 Interpretive Statements SINUS RHYTHM NORMAL ECG RI6.01 No previous ECG available for comparison
== END 2021-03-15 00:45 | disposition home or self-care (01) ==
LOC: ER 17:16
DX: K31.84 Gastroparesis (principal); K21.9 Gastro-esophageal reflux disease without esophagitis; Z90.49 Acquired absence of other specified parts of digestive tract; Z88.5 Allergy status to narcotic agent; Z88.8 Allergy status to other drugs, medicaments and biological substances
CPT/HCPCS: 36415; 80053; 84484; 85025; 93005; 96361; 96374; 96375; 96376; 99285; J1170; J1200; J2405; J7030

== ENCOUNTER 2021-03-26 09:54 | Emergency (ER) | payer MEDICARE, OTHER ==
[~2021-03-26] VITALS: Ht 172.7 cm; Wt 65.0 kg
[2021-03-26 10:04] VITALS: BP 162/100
--- NOTE | 2021-03-26 12:30 | PHYS DOC ---
Past Medical History Past Medical History: Anemia, GERD, Other Additional Past Medical Histor: GASTROPROESIS Past Surgical History: Colectomy, Other Additional Past Surgical Histo: RUPTURED DIAPHRAM, GASTRIC PACEMAKER Smoking Status: Never Smoker Alcohol Use: None Drug Use: None General Adult EDM: Chief Complaint: OTHER COMPLAINTS HPI: HPI: This is a pleasant 50-year-old male with a history of gastroparesis and a PICC line currently in place which was placed to [facility] who presents emergency department thinking his PICC line was clogged. Here in our department the patient was able to have his PICC line flushed. One of the lines leaks when he flush it but the other line flushes without difficulty. He denies any fevers chills or any other complaints. Onset today. Location PICC line. Duration constant. No leaving factors. Review of systems negative for chest pain shortness of breath abdominal pain vomiting fevers chills. All other review of systems negative. ED course: 50-year-old male presenting with PICC line dysfunction. Given that he has 1 line that is fully functional we will have him stop using the line that leaks and we will have him call his interventional radiology team to inquire as to when they want to change his PICC line. The patient was then discharged to follow-up with interventional radiology for further treatment and care. He is resting comfortably in the examination room without any complaints. Heart Score: C/O Chest Pain: No Risk Factors: Risk Factors: DM, Current or recent (<one month) smoker, HTN, HLP, family history of CAD, obesity. Risk Scores: Score 0 - 3: 2.5% MACE over next 6 weeks - Discharge Home Score 4 - 6: 20.3% MACE over next 6 weeks - Admit for Clinical Observation Score 7 - 10: 72.7% MACE over next 6 weeks - Early Invasive Strategies Allergies: Allergies: Allergies Coded Allergies Type Severity Reaction Last Updated Verified morphine Allergy Severe Anaphylaxis Patient states can take Hydromorphone 02/22/21 Yes hydrocodone Allergy Intermediate Rash 02/22/21 Yes droperidol Adverse Reaction Intermediate DYSTONIA 02/22/21 Yes metoclopramide Adverse Reaction Intermediate DYSTONIA 02/22/21 Yes prochlorperazine Adverse Reaction Intermediate DYSTONIA 02/22/21 Yes Physical Exam: PE: Constitutional: Well developed, well nourished, no acute distress, non-toxic appearance. [] HENT: Normocephalic, atraumatic, bilateral external ears normal, oropharynx moist, no oral exudates, nose normal. [] Eyes: PERRLA, EOMI, conjunctiva normal, no discharge. [] Neck: Normal range of motion, no tenderness, supple, no stridor. [] Cardiovascular:Heart rate regular rhythm, no murmur [] PICC line is clean dry and intact without any visible abnormalities. Lungs & Thorax: Bilateral breath sounds clear to auscultation [] Abdomen: Bowel sounds normal, soft, no masses, no pulsatile masses. Multiple chronic hernias. Nontender. Skin: Warm, dry, no erythema, no rash. [] Back: No tenderness, no CVA tenderness. [] Extremities: No tenderness, no cyanosis, no clubbing, ROM intact, no edema. [] Neurologic: Alert and oriented X 3, normal motor function, normal sensory function, no focal deficits noted. [] Psychologic: Affect normal, judgement normal, mood normal. [] EKG: EKG: [] Radiology/Procedures: Radiology/Procedures: [] Course & Med Decision Making: Course & Med Decision Making Pertinent Labs and Imaging studies reviewed. (See chart for details) [] Dragon Disclaimer: Antonieta Disclaimer: This electronic medical record was generated, in whole or in part, using a voice recognition dictation system. Departure Departure Impression: Primary Impression: Encounter for medical screening examination Disposition: HOME / SELF CARE / HOMELESS Condition: STABLE Referrals: CHIRAG MALIK (PCP) SARITA ROBERTSON MD March 26, 2021 12:30
== END 2021-03-26 12:40 | disposition home or self-care (01) ==
LOC: ER 09:54
DX: T82.898A Other specified complication of vascular prosthetic devices, implants and grafts, initial encounter (principal); K21.9 Gastro-esophageal reflux disease without esophagitis; Z95.0 Presence of cardiac pacemaker; Z90.49 Acquired absence of other specified parts of digestive tract; Z88.5 Allergy status to narcotic agent; Z88.8 Allergy status to other drugs, medicaments and biological substances; Y82.8 Other medical devices associated with adverse incidents; Y92.89 Other specified places as the place of occurrence of the external cause
CPT/HCPCS: 99281

== ENCOUNTER 2021-04-08 16:37 | Emergency (ER) | payer MEDICARE, OTHER ==
[~2021-04-08] VITALS: Ht 172.7 cm; Wt 65.3 kg
--- NOTE | 2021-04-08 16:59 | PHYS DOC ---
Past Medical History Past Medical History: Anemia, GERD, Other Additional Past Medical Histor: GASTROPROESIS Past Surgical History: Colectomy, Other Additional Past Surgical Histo: RUPTURED DIAPHRAM, GASTRIC PACEMAKER Smoking Status: Never Smoker Alcohol Use: None Drug Use: None General Adult EDM: Chief Complaint: ABDOMINAL PAIN HPI: HPI: 50-year-old male presenting with acute on chronic gastroparesis pain in his epigastrium. He has a longstanding history of chronic abdominal pain. He has taken IV Benadryl and fluids at home along with Protonix without much relief today. He describes the pain is similar to his chronic pain only mildly worse. He denies any vomiting fevers or chills. Onset today. Location epigastrium. Duration constant. Review of Systems: Review of Systems: Negative for vomiting fevers chills back pain all other review of systems negative. Heart Score: C/O Chest Pain: No Risk Factors: Risk Factors: DM, Current or recent (<one month) smoker, HTN, HLP, family history of CAD, obesity. Risk Scores: Score 0 - 3: 2.5% MACE over next 6 weeks - Discharge Home Score 4 - 6: 20.3% MACE over next 6 weeks - Admit for Clinical Observation Score 7 - 10: 72.7% MACE over next 6 weeks - Early Invasive Strategies Allergies: Allergies: Allergies Coded Allergies Type Severity Reaction Last Updated Verified morphine Allergy Severe Anaphylaxis Patient states can take Hydromorphone 02/22/21 Yes hydrocodone Allergy Intermediate Rash 02/22/21 Yes droperidol Adverse Reaction Intermediate DYSTONIA 02/22/21 Yes metoclopramide Adverse Reaction Intermediate DYSTONIA 02/22/21 Yes prochlorperazine Adverse Reaction Intermediate DYSTONIA 02/22/21 Yes Physical Exam: PE: Constitutional: Well developed, well nourished, no acute distress, non-toxic appearance. [] HENT: Normocephalic, atraumatic, bilateral external ears normal, oropharynx moist, no oral exudates, nose normal. [] Eyes: PERRLA, EOMI, conjunctiva normal, no discharge. [] Neck: Normal range of motion, no tenderness, supple, no stridor. [] Cardiovascular:Heart rate regular rhythm, no murmur [] Lungs & Thorax: Bilateral breath sounds clear to auscultation [] Abdomen: Patient's abdomen is similar to my previous examination of the patient with multiple hernias in the epigastric region which are easily reduced without swelling or severe tenderness. Bowel sounds normal, soft, no tenderness, no masses, no pulsatile masses. [] No rebound tenderness or guarding. Negative McBurney's point. Negative Whitney sign. Skin: Warm, dry, no erythema, no rash. [] Back: No tenderness, no CVA tenderness. [] Extremities: No tenderness, no cyanosis, no clubbing, ROM intact, no edema. [] Neurologic: Alert and oriented X 3, normal motor function, normal sensory function, no focal deficits noted. [] Psychologic: Affect normal, judgement normal, mood normal. [] EKG: EKG: [] Radiology/Procedures: Radiology/Procedures: [] Course & Med Decision Making: Course & Med Decision Making Pertinent Labs and Imaging studies reviewed. (See chart for details) [] Blood work unremarkable here. Mild anemia of 9.9. On reexamination the patient is feeling much better after 1 dose of pain medications. Will discharge to follow-up with PCP. Repeat abdominal exam continues to show a soft and nontender abdomen. Patient is well-appearing on second examination. Dragon Disclaimer: Dragon Disclaimer: This electronic medical record was generated, in whole or in part, using a voice recognition dictation system. Departure Departure Impression: Primary Impression: Abdominal pain Disposition: HOME / SELF CARE / HOMELESS Condition: STABLE Referrals: CHIRAG MALIK (PCP) SARITA ROBERTSON MD Apr 08, 2021 16:59
[2021-04-08] MEDS ORDERED: HYDROmorphone 2 MG/ML VIAL IV/SQ PRN (17:00)
[2021-04-08] MEDS ORDERED: IV NORMAL SALINE 1000ML BAG 1,000 ML IV SCH (17:00)
[2021-04-08 17:22] LABS: BASO % 1 % (0-3); EOS # 0.3 x10^3/uL (0.0-0.7); EOS % 4 % (0-3); HEMATOCRIT 31.7 % (39.0-53.0); HEMOGLOBIN 9.9 g/dL (13.0-17.5); LYMPH # 1.3 x10^3/uL (1.0-4.8); LYMPH % 18 % (24-48); MEAN CORPUSCULAR HEMOGLOBIN 24 pg (25-35); MEAN CORPUSCULAR HGB CONC 31 g/dL (31-37); MEAN CORPUSCULAR VOLUME 75 fL (79-100); MONO # 0.5 x10^3/uL (0.0-1.1); MONO % 7 % (0-9); NEUT # 5.1 x10^3/uL (1.8-7.7); NEUT % 71 % (31-73); PLATELET COUNT 254 x10^3/uL (140-400); RED BLOOD COUNT 4.22 x10^6/uL (4.30-5.70); RED CELL DISTRIBUTION WIDTH 23.2 % (11.5-14.5); WHITE BLOOD COUNT 7.3 x10^3/uL (4.0-11.0)
[2021-04-08 17:36] LABS: CALCIUM 8.5 mg/dL (8.5-10.1); CREATININE 1.2 mg/dL (0.7-1.3); GFR 64.1; POTASSIUM 3.8 mmol/L (3.5-5.1)
[2021-04-08 17:41] LABS: ALBUMIN 3.9 g/dL (3.4-5.0); DIRECT BILIRUBIN 0.1 mg/dL (0.0-0.2); TOTAL BILIRUBIN 0.3 mg/dL (0.2-1.0); TOTAL PROTEIN 7.1 g/dL (6.4-8.2)
[2021-04-08 18:07] LABS: ANISOCYTOSIS MOD; HYPOCHROMIA SLIGHT; MICROCYTOSIS SLIGHT; PLT ESTIMATE ADEQUATE (ADEQUATE); POIKILOCYTOSIS SLIGHT
[2021-04-08 18:08] LABS: OVALOCYTES FEW
[2021-04-08 18:25] VITALS: BP 157/97
== END 2021-04-08 18:47 | disposition home or self-care (01) ==
LOC: ER 16:37
DX: R10.13 Epigastric pain (principal); G89.29 Other chronic pain; K21.9 Gastro-esophageal reflux disease without esophagitis; Z86.2 Personal history of diseases of the blood and blood-forming organs and certain disorders involving the immune mechanism; Z90.49 Acquired absence of other specified parts of digestive tract; Z88.5 Allergy status to narcotic agent; Z88.8 Allergy status to other drugs, medicaments and biological substances
CPT/HCPCS: 36415; 80048; 80076; 83690; 85025; 96361; 96374; 99283; J1170; J7030

== ENCOUNTER 2021-11-08 13:20 | Emergency (ER) | payer MEDICARE, OTHER ==
[~2021-11-08] VITALS: Ht 172.7 cm; Wt 64.0 kg
[~2021-11-08 13:20] MED LIST changes: -SCOP1PAT11 TP; +SCOP1PAT12 TP
[2021-11-08] MEDS: HYDROmorphone 2 MG/ML INJ. IVP ONE ×2 (17:45→19:51)
[2021-11-08] MEDS ORDERED: HYDROmorphone 2 MG/ML INJ. IVP ONE (17:45)
--- NOTE | 2021-11-08 17:49 | PHYS DOC ---
Past Medical History Past Medical History: Anemia, GERD, Other Additional Past Medical Histor: GASTROPARESIS Past Surgical History: Colectomy, Other Additional Past Surgical Histo: RUPTURED DIAPHRAM, GASTRIC PACEMAKER Smoking Status: Never Smoker Alcohol Use: None Drug Use: None General Adult EDM: Chief Complaint: ABDOMINAL PAIN HPI: HPI: Patient is a 51-year-old male who presents to the emergency department for chronic abdominal pain. Patient states that he has a history of gastroparesis and experiencing abdominal pain consistent with his chronic gastroparesis pain in his epigastric region and left upper quadrant of his abdomen. Patient rates his pain 6 out of 10. He states that he does not have any pain medication at home but takes Zofran, Benadryl, Protonix and IV fluids. Patient also receives TPN. Patient has had numerous abdominal surgeries and G-tube tube placements. He does have a fistula to his abdomen that is draining fluid but states that he has a appointment with wound care and Dr. Love who is his surgeon to address this issue. Patient denies any current nausea, vomiting, fevers. Review of Systems: Review of Systems: Constitutional: see HPI GI: See HPI : Denies dysuria. [] Heart Score: C/O Chest Pain: N/A Risk Factors: Risk Factors: DM, Current or recent (<one month) smoker, HTN, HLP, family history of CAD, obesity. Risk Scores: Score 0 - 3: 2.5% MACE over next 6 weeks - Discharge Home Score 4 - 6: 20.3% MACE over next 6 weeks - Admit for Clinical Observation Score 7 - 10: 72.7% MACE over next 6 weeks - Early Invasive Strategies Current Medications: Current Medications Medications (Trade) Dose Ordered Sig/Ed Start Time Stop Time Status Last Admin Dose Admin Hydromorphone HCl (Dilaudid) 1 mg 1X ONCE 11/08/21 17:45 11/08/21 17:46 Sodium Chloride 1,000 ml @ 1,000 mls/hr 1X ONCE 11/08/21 17:45 11/08/21 18:44 Allergies: Allergies: Allergies Coded Allergies Type Severity Reaction Last Updated Verified morphine Allergy Severe Anaphylaxis Patient states can take Hydromorphone 11/08/21 Yes hydrocodone Allergy Intermediate Rash 11/08/21 Yes droperidol Adverse Reaction Intermediate DYSTONIA 11/08/21 Yes metoclopramide Adverse Reaction Intermediate DYSTONIA 11/08/21 Yes prochlorperazine Adverse Reaction Intermediate DYSTONIA 11/08/21 Yes Physical Exam: PE: Constitutional: Well developed, well nourished, no acute distress, non-toxic appearance. [] HENT: Normocephalic, atraumatic, bilateral external ears normal, oropharynx moist, no oral exudates, nose normal. [] Eyes: PERRL, EOMI, conjunctiva normal, no discharge. [] Neck: Normal range of motion, no stridor Cardiovascular:Heart rate tachycardic rhythm, no murmur [] Lungs & Thorax: Bilateral breath sounds clear to auscultation [] Abdomen: Bowel sounds normal, soft, patient has hernia in his upper abdomen that is easily reduceable. small closed fistula to midline abdomen with mesh coming from it-patient states that this is non operable per Dr. James and is unchanged, small fistula 0.5cm to left upper abdomen that is draining a small amount of clear drainage, multiple surgical scars noted to abdomen, negative murphys sign, negative mcburneys point tenderness, no abdominal rigidity, no guarding Skin: Warm, dry, no erythema, no rash. [] Back: normal rom Extremities: No tenderness, no cyanosis, no clubbing, ROM intact, no edema. [] Neurologic: Alert and oriented X 3, normal motor function, normal sensory function, no focal deficits noted. [] Psychologic: Affect normal, judgement normal, mood normal. [] Current Patient Data: Labs: Laboratory Tests Test 11/08/21 18:10 White Blood Count 3.6 x10^3/uL Red Blood Count 4.32 x10^6/uL Hemoglobin 8.8 g/dL Hematocrit 28.6 % Mean Corpuscular Volume 66 fL Mean Corpuscular Hemoglobin 20 pg Mean Corpuscular Hemoglobin Concent 31 g/dL Red Cell Distribution Width 20.1 % Platelet Count 233 x10^3/uL Neutrophils (%) (Auto) 56 % Lymphocytes (%) (Auto) 30 % Monocytes (%) (Auto) 12 % Eosinophils (%) (Auto) 0 % Basophils (%) (Auto) 2 % Neutrophils # (Auto) 2.0 x10^3/uL Lymphocytes # (Auto) 1.1 x10^3/uL Monocytes # (Auto) 0.4 x10^3/uL Eosinophils # (Auto) 0.0 x10^3/uL Basophils # (Auto) 0.1 x10^3/uL Platelet Estimate Adequate Hypochromasia Marked Poikilocytosis Slight Anisocytosis Mod Microcytosis Marked Ovalocytes Few Sodium Level 136 mmol/L Potassium Level 4.6 mmol/L Chloride Level 105 mmol/L Carbon Dioxide Level 27 mmol/L Anion Gap 4 Blood Urea Nitrogen 15 mg/dL Creatinine 0.8 mg/dL Estimated GFR (Cockcroft-Gault) 101.9 BUN/Creatinine Ratio 19 Glucose Level 92 mg/dL Calcium Level 8.0 mg/dL Total Bilirubin 0.2 mg/dL Aspartate Amino Transf (AST/SGOT) 20 U/L Alanine Aminotransferase (ALT/SGPT) 20 U/L Alkaline Phosphatase 93 U/L Total Protein 7.4 g/dL Albumin 3.2 g/dL Albumin/Globulin Ratio 0.8 Lipase 105 U/L Current Medications Medications (Trade) Dose Ordered Sig/Ed Route PRN Reason Start Time Stop Time Status Last Admin Dose Admin Sodium Chloride 1,000 ml @ 1,000 mls/hr 1X ONCE IV 11/08/21 17:45 11/08/21 18:44 DC 11/08/21 18:04 Hydromorphone HCl (Dilaudid) 1 mg 1X ONCE IVP 11/08/21 17:45 11/08/21 17:46 Cancel Hydromorphone HCl (Dilaudid) 0.5 mg 1X ONCE IVP 11/08/21 17:45 11/08/21 17:46 DC 11/08/21 17:45 Vital Signs: Vital Signs Date Time Temp Pulse Resp B/P (MAP) Pulse Ox O2 Delivery O2 Flow Rate FiO2 11/08/21 17:27 98.0 106 17 190/116 (140) 100 Room Air 98.0 EKG: EKG: [] Radiology/Procedures: Radiology/Procedures: [] Course & Med Decision Making: Course & Med Decision Making Pertinent Labs and Imaging studies reviewed. (See chart for details) Patient presents to the emergency department for chronic abdominal pain. Patient has a history of gastroparesis and he receives home health which provides him with Zofran, Benadryl, Protonix, IV fluids and TPN. Patient has a history of multiple abdominal surgeries/hernia repairs. Patient reports that he has a appointment with wound care tomorrow for the fistula in his abdomen and a appointment with Dr. James in a week. Patient does have a fistula with mesh from it which Dr. James is aware of and states that it is not operable. Dr. James is also aware of the fistula that is draining fluid in patient's left upper abdomen which prompted the wound care appointment. Patient states that his abdominal pain is consistent with the pain that he experiences with his gastroparesis. He states that he does not have any pain medication at home to take. Blood work performed in the emergency department and patient was treated with IV fluids and pain medication. Patient CBC mostly unremarkable, patient was noted to have a hemoglobin of 8.8 which is consistent with his previous lab findings. Patient states that he has a chronically low hemoglobin and this is being monitored by his home health nurses. CMP and lipase is unremarkable. Patient states that he still has pain after first dose of pain medication but it has improved, he will be given another dose of pain medication and advised to follow-up with wound care and Dr. James as previously scheduled. Patient states that he does not require any pain management for home. I discussed with patient all findings and diagnostic testing as well as the need to follow-up with PCP for further evaluation and treatment or return to the ER if any new or worsening symptoms. Strict return precautions were also discussed at length. Patient voiced understanding and agreement with the plan. Patient is hemodynamically stable at the time of disposition. Antonieta Disclaimer: Antonieta Disclaimer: This electronic medical record was generated, in whole or in part, using a voice recognition dictation system. Departure Departure Impression: Primary Impression: Abdominal pain Qualified Codes: R10.9 - Unspecified abdominal pain Disposition: 01 HOME / SELF CARE / HOMELESS Condition: GOOD Referrals: CHIRAG MALIK (PCP) Patient Instructions: Gastroparesis Additional Instructions: You were seen in the emergency department today for abdominal pain. Your lab work was reassuring, you did have a hemoglobin of 8.8 at today's visit. Please monitor this with home health. You were treated in the emergency department w ith IV pain medication. If you require any additional pain management for home, please follow-up with your home health physician. Please continue to follow-up with wound care and Dr. James regarding your fistulas. Please return to the emergency department if you develop worsening of your abdominal pain, intractable nausea or vomiting, high fevers refractory to treatment, confusion, weakness or any new or worsening concerns. BREA CHI [employer]IC ENGINEER Nov 08, 2021 17:49
[2021-11-08] MEDS: IV NORMAL SALINE 1000ML BAG 1,000 ML IV ONE (18:04)
[2021-11-08 18:15] LABS: BASO # 0.1 x10^3/uL (0.0-0.2); BASO % 2 % (0-3); EOS % 0 % (0-3); HEMATOCRIT 28.6 % (39.0-53.0); HEMOGLOBIN 8.8 g/dL (13.0-17.5); LYMPH # 1.1 x10^3/uL (1.0-4.8); LYMPH % 30 % (24-48); MEAN CORPUSCULAR HEMOGLOBIN 20 pg (25-35); MEAN CORPUSCULAR HGB CONC 31 g/dL (31-37); MEAN CORPUSCULAR VOLUME 66 fL (79-100); MONO # 0.4 x10^3/uL (0.0-1.1); MONO % 12 % (0-9); NEUT % 56 % (31-73); PLATELET COUNT 233 x10^3/uL (140-400); RED BLOOD COUNT 4.32 x10^6/uL (4.30-5.70); RED CELL DISTRIBUTION WIDTH 20.1 % (11.5-14.5); WHITE BLOOD COUNT 3.6 x10^3/uL (4.0-11.0)
[2021-11-08 18:27] LABS: CREATININE 0.8 mg/dL (0.7-1.3); GFR 101.9; POTASSIUM 4.6 mmol/L (3.5-5.1)
[2021-11-08 18:33] LABS: ALBUMIN 3.2 g/dL (3.4-5.0); ALBUMIN/GLOBULIN RATIO 0.8 (1.0-1.7); PLT ESTIMATE ADEQUATE (ADEQUATE); TOTAL BILIRUBIN 0.2 mg/dL (0.2-1.0); TOTAL PROTEIN 7.4 g/dL (6.4-8.2)
[2021-11-08 18:35] LABS: ANISOCYTOSIS MOD; HYPOCHROMIA MARKED; MICROCYTOSIS MARKED; OVALOCYTES FEW; POIKILOCYTOSIS SLIGHT
[2021-11-08 21:16] VITALS: BP 174/109
== END 2021-11-08 21:15 | disposition home or self-care (01) ==
LOC: ER 13:20
DX: R10.13 Epigastric pain (principal); R10.12 Left upper quadrant pain; K21.9 Gastro-esophageal reflux disease without esophagitis; Z86.2 Personal history of diseases of the blood and blood-forming organs and certain disorders involving the immune mechanism; Z90.49 Acquired absence of other specified parts of digestive tract; Z88.5 Allergy status to narcotic agent; Z88.8 Allergy status to other drugs, medicaments and biological substances
CPT/HCPCS: 36415; 80053; 83690; 85025; 96361; 96374; 96376; 99285; J1170; J7030

== ENCOUNTER 2022-01-17 12:41 | Emergency (ER) | payer MEDICARE, OTHER ==
[~2022-01-17] VITALS: Ht 172.7 cm; Wt 61.3 kg
[2022-01-17] MEDS ORDERED: diphenhydrAMINE 50 MG/ML VIAL IVP ONE (13:00)
[2022-01-17] MEDS ORDERED: IV RINGERS,LACTATED 1000ML 1,000 ML IV ONE ×2 (13:00→14:00)
[2022-01-17] MEDS ORDERED: ONDANSETRON PF 4 MG/2 ML VIAL. IVP ONE (13:00)
[2022-01-17] MEDS ORDERED: HYDROmorphone 2 MG/ML INJ. IVP ONE ×2 (13:00→14:30)
[2022-01-17 13:44] LABS: BASO % 0 % (0-3); EOS % 0 % (0-3); HEMATOCRIT 34.7 % (39.0-53.0); HEMOGLOBIN 10.7 g/dL (13.0-17.5); LYMPH # 0.7 x10^3/uL (1.0-4.8); LYMPH % 21 % (24-48); MEAN CORPUSCULAR HEMOGLOBIN 24 pg (25-35); MEAN CORPUSCULAR HGB CONC 31 g/dL (31-37); MEAN CORPUSCULAR VOLUME 78 fL (79-100); MONO # 0.3 x10^3/uL (0.0-1.1); MONO % 9 % (0-9); NEUT # 2.3 x10^3/uL (1.8-7.7); NEUT % 70 % (31-73); PLATELET COUNT 170 x10^3/uL (140-400); RED BLOOD COUNT 4.43 x10^6/uL (4.30-5.70); RED CELL DISTRIBUTION WIDTH 25.9 % (11.5-14.5); WHITE BLOOD COUNT 3.4 x10^3/uL (4.0-11.0)
[2022-01-17 13:59] LABS: CALCIUM 8.7 mg/dL (8.5-10.1); CREATININE 1.3 mg/dL (0.7-1.3); GFR 58.2
[2022-01-17 14:05] LABS: ALBUMIN 3.6 g/dL (3.4-5.0); ALBUMIN/GLOBULIN RATIO 0.9 (1.0-1.7); TOTAL BILIRUBIN 0.3 mg/dL (0.2-1.0); TOTAL PROTEIN 7.4 g/dL (6.4-8.2)
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
--- NOTE | 2022-01-17 14:56 | RAD ---
XR ABDOMEN COMP ACUTE History: Reason: vomiting / Spl. Instructions: / History: Technique: Upright and supine views the abdomen. Comparison: December 17, 2018 Findings: No consolidation or pleural effusion. No pneumothorax. Hyperinflation. No pneumoperitoneum. Mild small bowel gas. Air and stool throughout the colon. Moderate colonic stool burden. Stimulator d evice projecting over the right abdomen, unchanged. Impression: 1. Nonobstructed bowel gas pattern. 2. Moderate colonic stool burden. Electronically signed by: Ronan Calabrese DO (01/17/2022 2:53 PM) [id number]
[2022-01-17 15:49] VITALS: BP 154/96
[2022-01-17 17:48] LABS: HYPOCHROMIA SLIGHT; MICROCYTOSIS SLIGHT; OVALOCYTES OCC; PLT ESTIMATE ADEQUATE (ADEQUATE); STOMATOCYTES OCC
== END 2022-01-17 16:20 | disposition home or self-care (01) ==
LOC: ER 12:41
DX: K31.84 Gastroparesis (principal); K21.9 Gastro-esophageal reflux disease without esophagitis; F43.10 Post-traumatic stress disorder, unspecified; Z90.49 Acquired absence of other specified parts of digestive tract; Z95.0 Presence of cardiac pacemaker; Z88.5 Allergy status to narcotic agent; Z88.1 Allergy status to other antibiotic agents; Z88.8 Allergy status to other drugs, medicaments and biological substances
CPT/HCPCS: 36415; 74022; 80053; 83690; 85025; 96361; 96374; 96375; 96376; 99285; J1170; J1200; J2405; J7120

== ENCOUNTER 2022-02-12 19:17 | Emergency (ER) | payer MEDICARE, OTHER ==
[~2022-02-12] VITALS: Ht 172.7 cm; Wt 61.4 kg
[2022-02-12] MEDS ORDERED: ONDANSETRON PF 4 MG/2 ML VIAL. IVP ONE ×2 (20:30→22:30)
[2022-02-12] MEDS ORDERED: IV NORMAL SALINE 1000ML BAG 1,000 ML IV ONE (20:30)
[2022-02-12] MEDS ORDERED: diphenhydrAMINE 50 MG/ML VIAL IVP ONE (20:30)
[2022-02-12] MEDS ORDERED: HYDROmorphone 2 MG/ML INJ. IVP ONE ×2 (20:30→22:30)
--- NOTE | 2022-02-12 22:25 | PHYS DOC ---
Past Medical History Past Medical History: Anemia, GERD, Other Additional Past Medical Histor: Gastricparesis Past Surgical History: Other Additional Past Surgical Histo: Tunnelled PICC, Abdominal surgery, Ruptured Diaphram, Colotomy take down, Smoking Status: Never Smoker Alcohol Use: None Drug Use: None General Adult EDM: Chief Complaint: ABDOMINAL PAIN HPI: HPI: Patient is a 51 year old male well-known to this ED for chronic gastroparesis presenting today complaining of exacerbation of his gastroparesis. Patient reports mild intermittent abdominal pain generalized in nature, nausea and vomiting for the last 24 hours. States Zofran is not helping. He states he has a chronic wound on the abdomen from removal of J-tube and G-tube and has been following up with his own surgeon for this. He states they did a CT of his abdomen and pelvis and told him he has a fistula but they could not fix it. He states he will follow up with his own surgeon for this. He states he has a PICC line to the right upper chest for TPN feedings. Review of Systems: Review of Systems: Constitutional: Denies fever or chills. [] Eyes: Denies change in visual acuity. [] HENT: Denies nasal congestion or sore throat. [] Respiratory: Denies cough or shortness of breath. [] Cardiovascular: Denies chest pain or edema. [] GI: Reports chronic nausea and vomiting, chronic abdominal pain bloody stools or diarrhea. [] : Denies dysuria. [] Musculoskeletal: Denies back pain or joint pain. [] Integument: Denies rash. [] Neurologic: Denies headache, focal weakness or sensory changes. [] Psychiatric: Denies depression or anxiety. [] Heart Score: C/O Chest Pain: N/A Risk Factors: Risk Factors: DM, Current or recent (<one month) smoker, HTN, HLP, family history of CAD, obesity. Risk Scores: Score 0 - 3: 2.5% MACE over next 6 weeks - Discharge Home Score 4 - 6: 20.3% MACE over next 6 weeks - Admit for Clinical Observation Score 7 - 10: 72.7% MACE over next 6 weeks - Early Invasive Strategies Current Medications: Current Medications Medications (Trade) Dose Ordered Sig/Ed Start Time Stop Time Status Last Admin Dose Admin Diphenhydramine HCl (Benadryl) 50 mg 1X ONCE 02/12/22 20:30 02/12/22 20:42 DC 02/12/22 20:53 50 MG Hydromorphone HCl (Dilaudid) 2 mg 1X ONCE 02/12/22 22:30 02/12/22 22:31 Ondansetron HCl (Zofran) 4 mg 1X ONCE 02/12/22 22:30 02/12/22 22:31 Sodium Chloride 1,000 ml @ 1,000 mls/hr 1X ONCE 02/12/22 20:30 02/12/22 21:29 DC 02/12/22 20:49 1,000 MLS/HR Allergies: Allergies: Allergies Coded Allergies Type Severity Reaction Last Updated Verified morphine Allergy Severe Anaphylaxis Patient states can take Hydromorphone 11/08/21 Yes hydrocodone Allergy Intermediate Rash 11/08/21 Yes droperidol Adverse Reaction Intermediate DYSTONIA 11/08/21 Yes metoclopramide Adverse Reaction Intermediate DYSTONIA 11/08/21 Yes prochlorperazine Adverse Reaction Intermediate DYSTONIA 11/08/21 Yes Physical Exam: PE: Constitutional: Thin appearing patient, no acute distress, non-toxic appearance. [] HENT: Normocephalic, atraumatic, bilateral external ears normal, oropharynx moist, no oral exudates, nose normal. [] Eyes: PERRLA, EOMI, conjunctiva normal, no discharge. [] Neck: Normal range of motion, no tenderness, supple, no stridor. [] Cardiovascular Right upper chest with a PICC line heart rate regular rhythm, no murmur [] Lungs & Thorax: Bilateral breath sounds clear to auscultation [] Abdomen: Abdomen with multiple umbilical and abdominal hernias, they are all reducible, left mid abdomen with a tiny hole from a fistula, no drainage noted bowel sounds normal, soft, diffuse abdominal tenderness, no masses, no pulsatile masses. [] Skin: Warm, dry, no erythema, no rash. [] Back: No tenderness, no CVA tenderness. [] Extremities: No tenderness, no cyanosis, no clubbing, ROM intact, no edema. [] Neurologic: Alert and oriented X 3, normal motor function, normal sensory function, no focal deficits noted. [] Psychologic: Affect normal, judgement normal, mood normal. [] Current Patient Data: Vital Signs: Vital Signs Date Time Temp Pulse Resp B/P (MAP) Pulse Ox O2 Delivery O2 Flow Rate FiO2 02/12/22 21:45 18 93 Room Air 02/12/22 21:20 92 127/78 (94) 02/12/22 19:50 98.7 98.7 EKG: EKG: [] Radiology/Procedures: Radiology/Procedures: [] Course & Med Decision Making: Course & Med Decision Making Pertinent Labs and Imaging studies reviewed. (See chart for details) This a 51-year-old male patient well-known to this ED for gastroparesis presenting to the ED complaining of chronic abdominal pain and nausea and vomiting from his gastroparesis. His symptoms were taken care of with Dilaudid Benadryl and Zofran as well as a liter of all fluids. He was discharged home. Follow-up with PCP in 1 week Antonieta Disclaimer: Antonieta Disclaimer: This electronic medical record was generated, in whole or in part, using a voice recognition dictation system. Departure Departure Impression: Primary Impression: Generalized abdominal pain Additional Impression: Gastroparesis Disposition: 01 HOME / SELF CARE / HOMELESS Condition: STABLE Referrals: KEVIN SYED MD (PCP) follow up with your doctor in one week Patient Instructions: Gastroparesis Additional Instructions: You were evaluated in the emergency room for abdominal pain with gastroparesis. Please follow-up with your PCP and surgeon in the next 7 days. MONICA LAWSON APRN Feb 12, 2022 22:25
[2022-02-12 22:50] VITALS: BP 135/83
== END 2022-02-12 23:08 | disposition home or self-care (01) ==
LOC: ER 19:17
DX: K31.84 Gastroparesis (principal); R11.2 Nausea with vomiting, unspecified; R10.84 Generalized abdominal pain; K21.9 Gastro-esophageal reflux disease without esophagitis; Z93.3 Colostomy status; Z88.5 Allergy status to narcotic agent; Z88.1 Allergy status to other antibiotic agents; Z88.8 Allergy status to other drugs, medicaments and biological substances
CPT/HCPCS: 96361; 96374; 96375; 96376; 99284; J1170; J1200; J2405; J7030

== ENCOUNTER 2022-03-15 13:37 | Emergency (ER) | payer MEDICARE, OTHER ==
[~2022-03-15] VITALS: Ht 172.7 cm; Wt 60.5 kg
[2022-03-15] MEDS ORDERED: IV NORMAL SALINE 1000ML BAG 1,000 ML IV ONE (14:15)
[2022-03-15] MEDS ORDERED: ONDANSETRON PF 4 MG/2 ML VIAL. IVP ONE (14:15)
[2022-03-15] MEDS ORDERED: HYDROmorphone 2 MG/ML INJ. IVP ONE ×2 (14:15→15:15)
[2022-03-15] MEDS ORDERED: diphenhydrAMINE 50 MG/ML VIAL IVP ONE (14:15)
--- NOTE | 2022-03-15 15:06 | PHYS DOC ---
Past Medical History Past Medical History: Anemia, GERD, Other Additional Past Medical Histor: Gastricparesis Past Surgical History: Other Additional Past Surgical Histo: Tunnelled PICC, Abdominal surgery, Ruptured Diaphram, Colotomy take down, Smoking Status: Never Smoker Alcohol Use: None Drug Use: None General Adult EDM: Chief Complaint: ABDOMINAL PAIN HPI: HPI: Patient is a 51 year old male who presents with history of gastroparesis and multiple abdominal surgeries presents with gastroparesis flare. Patient is on TPN with central line on the right chest. Patient has long history of dealing with gastroparesis. 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 Patient states that he is having generalized abdominal pain as well as nausea. He took Zofran at home which did not help. Patient states that he would like something for pain and nausea. He is supposed to have a consultation with a general surgeon tomorrow in [facility]. He is heading to [place] today for his visit. Reportedly, his surgeon in town he is not willing to perform a revision of his multiple abdominal surgeries due to his high risk nature. Patient is good historian. Review of Systems: Review of Systems: Constitutional: Denies fever or chills. [] Eyes: Denies change in visual acuity. [] HENT: Denies nasal congestion or sore throat. [] Respiratory: Denies cough or shortness of breath. [] Cardiovascular: Denies chest pain or edema. [] GI: Positive abdominal pain, nausea, vomiting, no bloody stools or diarrhea. [] : Denies dysuria. [] Musculoskeletal: Denies back pain or joint pain. [] Integument: Denies rash. [] Neurologic: Denies headache, focal weakness or sensory changes. [] Endocrine: Denies polyuria or polydipsia. [] Lymphatic: Denies swollen glands. [] Psychiatric: Denies depression or anxiety. [] Heart Score: C/O Chest Pain: No Risk Factors: Risk Factors: DM, Current or recent (<one month) smoker, HTN, HLP, family history of CAD, obesity. Risk Scores: Score 0 - 3: 2.5% MACE over next 6 weeks - Discharge Home Score 4 - 6: 20.3% MACE over next 6 weeks - Admit for Clinical Observation Score 7 - 10: 72.7% MACE over next 6 weeks - Early Invasive Strategies Current Medications: Current Medications Medications (Trade) Dose Ordered Sig/Ed Start Time Stop Time Status Last Admin Dose Admin Diphenhydramine HCl (Benadryl) 50 mg 1X ONCE 03/15/22 14:15 03/15/22 14:22 DC 03/15/22 14:28 50 MG Hydromorphone HCl (Dilaudid) 1 mg 1X ONCE 03/15/22 14:15 03/15/22 14:22 DC 03/15/22 14:28 1 MG Ondansetron HCl (Zofran) 8 mg 1X ONCE 03/15/22 14:15 03/15/22 14:22 DC 03/15/22 14:28 8 MG Sodium Chloride 1,000 ml @ 1,000 mls/hr 1X ONCE 03/15/22 14:15 03/15/22 15:14 03/15/22 14:28 1,000 MLS/HR Allergies: Allergies: Allergies Coded Allergies Type Severity Reaction Last Updated Verified morphine Allergy Severe Anaphylaxis Patient states can take Hydromorphone 11/08/21 Yes hydrocodone Allergy Intermediate Rash 11/08/21 Yes droperidol Adverse Reaction Intermediate DYSTONIA 11/08/21 Yes metoclopramide Adverse Reaction Intermediate DYSTONIA 11/08/21 Yes prochlorperazine Adverse Reaction Intermediate DYSTONIA 11/08/21 Yes Physical Exam: PE: Constitutional: Well developed, well nourished, no acute distress, non-toxic appearance. [] HENT: Normocephalic, atraumatic, bilateral external ears normal, oropharynx moist, no oral exudates, nose normal. [] Eyes: PERRLA, EOMI, conjunctiva normal, no discharge. [] Neck: Normal range of motion, no tenderness, supple, no stridor. [] Cardiovascular:Heart rate regular rhythm, no murmur [] Lungs & Thorax: Bilateral breath sounds clear to auscultation [] Abdomen: Bowel sounds normal, soft, moderate generalized tenderness, no pulsatile masses. [] Skin: Warm, dry, no erythema, no rash. Multiple scars over abdomen with fistula present [] Back: No tenderness, no CVA tenderness. [] Extremities: No tenderness, no cyanosis, no clubbing, ROM intact, no edema. [] Neurologic: Alert and oriented X 3, normal motor function, normal sensory function, no focal deficits noted. [] Psychologic: Affect normal, judgement normal, mood normal. [] Current Patient Data: Vital Signs: Vital Signs Date Time Temp Pulse Resp B/P (MAP) Pulse Ox O2 Delivery O2 Flow Rate FiO2 03/15/22 14:28 Room Air 03/15/22 13:48 98.0 93 16 164/98 (120) 100 98.0 EKG: EKG: [] Radiology/Procedures: Radiology/Procedures: [] Impression: Gastroparesis flare Course & Med Decision Making: Course & Med Decision Making Pertinent Labs and Imaging studies reviewed. (See chart for details) Patient with long history of gastroparesis flare, seen and evaluated by myself. Patient given 1 mg of Dilaudid, 50 mg of Benadryl, 1 L normal saline, and 8 mg of Zofran. Patient felt much better with this treatment, patient discharged in stable condition to follow-up with his general surgeon tomorrow in [facility]. Patient agreed with the plan of care, he has good follow-up, all questions answered. Hemodynamically stable at time of discharge. Dragon Disclaimer: Dragon Disclaimer: This electronic medical record was generated, in whole or in part, using a voice recognition dictation system. Departure Departure Impression: Primary Impression: Gastroparesis Additional Impression: Generalized abdominal pain Disposition: HOME / SELF CARE / HOMELESS Condition: GOOD Referrals: KEVIN SYED MD (PCP) Patient Instructions: Gastroparesis Additional Instructions: Follow-up with your general surgeon Continue current management Return to emergency department if you are feeling worse. MARIAM GARCIA MD March 15, 2022 15:06
[2022-03-15 15:19] VITALS: BP 160/94
== END 2022-03-15 15:40 | disposition home or self-care (01) ==
LOC: ER 13:37
DX: K31.84 Gastroparesis (principal); R10.84 Generalized abdominal pain; K21.9 Gastro-esophageal reflux disease without esophagitis; Z88.5 Allergy status to narcotic agent; Z88.1 Allergy status to other antibiotic agents; Z88.8 Allergy status to other drugs, medicaments and biological substances
CPT/HCPCS: 96361; 96374; 96375; 96376; 99284; J1170; J1200; J2405; J7030

== ENCOUNTER 2022-03-26 16:47 | Emergency (ER) | payer MEDICARE, OTHER ==
[~2022-03-26] VITALS: Ht 172.7 cm; Wt 60.0 kg
[2022-03-26 17:10] VITALS: BP 123/88
[2022-03-26] MEDS ORDERED: HYDROmorphone 2 MG/ML INJ. IVP ONE ×2 (17:30→20:00)
[2022-03-26] MEDS ORDERED: diphenhydrAMINE 50 MG/ML VIAL IVP ONE (17:30)
[2022-03-26] MEDS ORDERED: IV NORMAL SALINE 1000ML BAG 1,000 ML IV ONE (17:30)
[2022-03-26] MEDS ORDERED: ONDANSETRON PF 4 MG/2 ML VIAL. IVP ONE (17:30)
--- NOTE | 2022-03-26 17:33 | PHYS DOC ---
Past Medical History Past Medical History: Anemia, GERD, Other Additional Past Medical Histor: Gastricparesis Past Surgical History: Other Additional Past Surgical Histo: Tunnelled PICC, Abdominal surgery, Ruptured Diaphram, Colotomy take down, Smoking Status: Never Smoker Alcohol Use: None Drug Use: None General Adult EDM: Chief Complaint: ABDOMINAL PAIN HPI: HPI: Patient is a 51-year-old male who presents today with abdominal pain and drainage from a old G-tube site. Patient states that he has chronic abdominal pain due to gastroparesis, he said that he also has an old G-tube site that has been draining over the last couple of days in the left upper quadrant. Patient states that he was recently at the [facility] for evaluation by wound clinic and general surgeon for repair of this old G-tube site, patient states they have mesh in there and most physicians are reluctant to repair this area, patient states he also has an appointment at the [facility] in the wound care clinic in the general surgery clinic for evaluation and management of this area as well. Patient states today he presents to the emergency department because the drainage from his old G-tube site has changed and has become "chunky" and that he has had increased pain today. Patient states that he normally takes Benadryl, Zofran, and TPN, patient states he cannot take pills he said yes either take liquids or crushed up the pills and mix them with liquid to drink them, he states that he was giving Lortab and has been unable to tolerate that and has been vomiting that up. Patient denies chest pain, shortness of breath, fever chills, patient does state that he has had a couple episodes of loose stools today but he says he normally has loose stools due to multiple bowel surgeries. Review of Systems: Review of Systems: Constitutional: Denies fever or chills. [] Eyes: Denies change in visual acuity. [] HENT: Denies nasal congestion or sore throat. [] Respiratory: Denies cough or shortness of breath. [] Cardiovascular: Denies chest pain or edema. [] GI: abdominal pain, nausea, vomiting, diarrhea. [] : Denies dysuria. [] Musculoskeletal: Denies back pain or joint pain. [] Integument: Denies rash. [] Neurologic: Denies headache, focal weakness or sensory changes. [] Endocrine: Denies polyuria or polydipsia. [] Lymphatic: Denies swollen glands. [] Psychiatric: Denies depression or anxiety. [] Heart Score: C/O Chest Pain: No Risk Factors: Risk Factors: DM, Current or recent (<one month) smoker, HTN, HLP, family history of CAD, obesity. Risk Scores: Score 0 - 3: 2.5% MACE over next 6 weeks - Discharge Home Score 4 - 6: 20.3% MACE over next 6 weeks - Admit for Clinical Observation Score 7 - 10: 72.7% MACE over next 6 weeks - Early Invasive Strategies Current Medications: Current Medications Medications (Trade) Dose Ordered Sig/Ed Start Time Stop Time Status Last Admin Dose Admin Diphenhydramine HCl (Benadryl) 50 mg 1X ONCE 03/26/22 17:30 03/26/22 17:31 UNV Hydromorphone HCl (Dilaudid) 1 mg 1X ONCE 03/26/22 17:30 03/26/22 17:31 UNV Ondansetron HCl (Zofran) 8 mg 1X ONCE 03/26/22 17:30 03/26/22 17:31 UNV Sodium Chloride 1,000 ml @ 999 mls/hr 1X ONCE 03/26/22 17:30 03/26/22 18:30 UNV Allergies: Allergies: Allergies Coded Allergies Type Severity Reaction Last Updated Verified morphine Allergy Severe Anaphylaxis Patient states can take Hydromorphone 11/08 Yes hydrocodone Allergy Intermediate Rash 11/08/21 Yes droperidol Adverse Reaction Intermediate DYSTONIA 11/08/21 Yes metoclopramide Adverse Reaction Intermediate DYSTONIA 11/08/21 Yes prochlorperazine Adverse Reaction Intermediate DYSTONIA 11/08/21 Yes Physical Exam: PE: Constitutional: Well developed, well nourished, mild distress, non-toxic appearance. [] HENT: Normocephalic, atraumatic, bilateral external ears normal, oropharynx moist, no oral exudates, nose normal. [] Eyes: PERRLA, EOMI, conjunctiva normal, no discharge. [] Neck: Normal range of motion, no tenderness, supple, no stridor. [] Cardiovascular:Heart rate regular rhythm, no murmur [] Lungs & Thorax: Bilateral breath sounds clear to auscultation, patient has a tunneled dual-lumen Archer catheter in place in his right upper chest wall no signs and symptoms of infection noted Abdomen: Abdomen is firm with a midline abdominal hernia noted that is easily reducible, patient does have a open area to the left upper quadrant that is draining a green purulent drainage, patient does have multiple healed scars including a midline scar that is well-healed, patient also has a old takedown scar on the right side of his abdomen, bowel sounds are hypoactive Skin: Warm, dry, no erythema, no rash. [] Back: No tenderness, no CVA tenderness. [] Extremities: No tenderness, no cyanosis, no clubbing, ROM intact, no edema. [] Neurologic: Alert and oriented X 3, normal motor function, normal sensory function, no focal deficits noted. [] Psychologic: Affect normal, judgement normal, mood normal. [] Current Patient Data: Labs: Laboratory Tests Test 03/26/22 17:00 03/26/22 17:40 White Blood Count 3.9 x10^3/uL Red Blood Count 4.33 x10^6/uL Hemoglobin 11.0 g/dL Hematocrit 34.4 % Mean Corpuscular Volume 80 fL Mean Corpuscular Hemoglobin 26 pg Mean Corpuscular Hemoglobin Concent 32 g/dL Red Cell Distribution Width 18.4 % Platelet Count 226 x10^3/uL Neutrophils (%) (Auto) 58 % Lymphocytes (%) (Auto) 29 % Monocytes (%) (Auto) 10 % Eosinophils (%) (Auto) 3 % Basophils (%) (Auto) 1 % Neutrophils # (Auto) 2.3 x10^3/uL Lymphocytes # (Auto) 1.1 x10^3/uL Monocytes # (Auto) 0.4 x10^3/uL Eosinophils # (Auto) 0.1 x10^3/uL Basophils # (Auto) 0.0 x10^3/uL Sodium Level 141 mmol/L Potassium Level 4.2 mmol/L Chloride Level 105 mmol/L Carbon Dioxide Level 28 mmol/L Anion Gap 8 Blood Urea Nitrogen 23 mg/dL Creatinine 1.1 mg/dL Estimated GFR (Cockcroft-Gault) 70.6 BUN/Creatinine Ratio 21 Glucose Level 94 mg/dL Calcium Level 8.4 mg/dL Total Bilirubin 0.2 mg/dL Aspartate Amino Transf (AST/SGOT) 18 U/L Alanine Aminotransferase (ALT/SGPT) 16 U/L Alkaline Phosphatase 80 U/L Total Protein 7.6 g/dL Albumin 3.8 g/dL Albumin/Globulin Ratio 1.0 Procalcitonin < 0.10 ng/mL Lactic Acid Level 1.0 mmol/L Current Medications Medications (Trade) Dose Ordered Sig/Ed Route PRN Reason Start Time Stop Time Status Last Admin Dose Admin Sodium Chloride 1,000 ml @ 999 mls/hr 1X ONCE IV 03/26/22 17:30 03/26/22 18:30 DC 03/26/22 17:37 Hydromorphone HCl (Dilaudid) 1 mg 1X ONCE IVP 03/26/22 17:30 03/26/22 17:31 DC 03/26/22 17:38 Diphenhydramine HCl (Benadryl) 50 mg 1X ONCE IVP 03/26/22 17:30 03/26/22 17:31 DC 03/26/22 17:37 Ondansetron HCl (Zofran) 8 mg 1X ONCE IVP 03/26/22 17:30 03/26/22 17:31 DC 03/26/22 17:37 Iohexol (Omnipaque 300 Mg/ml) 75 ml 1X ONCE IV 03/26/22 18:00 03/26/22 18:01 DC 03/26/22 18:08 Vital Signs: Vital Signs Date Time Temp Pulse Resp B/P (MAP) Pulse Ox O2 Delivery O2 Flow Rate FiO2 03/26/22 17:38 16 100 Room Air 03/26/22 17:10 98.4 90 20 123/88 (100) 100 Room Air 98.4 Vital Signs Date Time Temp Pulse Resp B/P (MAP) Pulse Ox O2 Delivery O2 Flow Rate FiO2 03/26/22 17:38 16 100 Room Air 03/26/22 17:10 98.4 90 20 123/88 (100) 100 Room Air 98.4 EKG: EKG: [] Radiology/Procedures: Radiology/Procedures: REASON: abdominal pain with drainage from old gtube site LUQ PROCEDURE: CT ABD PELV W/ IV CONTRST ONLY Exam Date: 03/26/2022 5:[address] ABDOMEN+PELVIS W Indication: Reason: abdominal pain with drainage from old gtube site LUQ / Spl. Instructions: omni 300 75ml / History: . TECHNIQUE: CT examination of the abdomen and pelvis was performed following the administration of nonionic intravenous contrast. One or more of the following dose reduction techniques were utilized: *Automated exposure control (AEC) *Adjustment of mA and/or kV according to patient size *Use of iterative reconstruction technique *CT scan done according to ALARA, or ALARA/IMAGE GENTLY COMPARISON: February 20, 2021 FINDINGS: The visualized lung bases are clear. There is a left renal cyst. The liver, gallbladder, spleen, pancreas, adrenal glands and kidneys are otherwise normal. Circumferential bladder wall thickening is again seen, nonspecific. There is no bowel obstruction or inflammation. No evidence for acute appendicitis. No significant atherosclerotic calcifications are seen. No lymphadenopathy or ascites is seen. There is subcutaneous soft tissue density along the anterior abdominal wall at the midline, indeterminate, possibly representing a small abdominal wall hernia. Soft tissue density at the site may represent a loop of small bowel. This is immediately anterior to the transverse colon. There is a cutaneous defect along the anterior wall of the left upper quadrant, presumably the site of prior percutaneous gastrostomy tube. Fat stranding and irregular soft tissue density at this site is consistent with inflammation and/or scarring. No organized collection is seen to suggest abscess. There may be a small focus of extraluminal air at this site, though this was present on the prior exam as well. Degenerative changes are seen in the spine. IMPRESSION: Cutaneous defect along the anterior wall of the left upper quadrant presumably represents the site of previous percutaneous gastrostomy tube. Fat stranding and irregular soft tissue density is seen at this site consistent with inflammation and/or scarring. No organized collection is seen to suggest abscess. There may be a small focus of extraluminal air versus air within small bowel at this site, though this was present on the prior exam as well. Suspected ventral hernia at the midline with a loop of small bowel. No bowel obstruction. Circumferential bladder wall thickening is again seen, nonspecific, but similar compared to the prior exam. This can be seen with chronic outlet obstruction, though other differentials are not excluded, including infection or neoplasm. Correlate clinically. Electronically signed by: Brock Smith MD (03/26/2022 7:05 PM) [id number] DICTATED and SIGNED BY: BROCK SMITH MD[] Course & Med Decision Making: Course & Med Decision Making Pertinent Labs and Imaging studies reviewed. (See chart for details) 1939 I reviewed case with Dr. Sarabia general surgery, he believes that the inflammation seen around the wall defect in the left side is due to the mesh, he has requested that I discharge the patient home and have him follow-up with Dr. Love's general surgeon in the morning for further evaluation and management. I did review this with the patient and he is agreeable with the plan of care, he is asking for another dose of pain medication to go home and that will be provided. Patient is encouraged to return here to the emergency department should he develop a fever, have increased abdominal pain, or any other concerns you may have. Dragon Disclaimer: DragHooptap Disclaimer: This electronic medical record was generated, in whole or in part, using a voice recognition dictation system. Departure Departure Impression: Primary Impression: Abdominal pain Qualified Codes: R10.12 - Left upper quadrant pain Additional Impression: Gastroparesis Disposition: HOME / SELF CARE / HOMELESS Condition: STABLE Referrals: KEVIN SYED MD (PCP) JANIE MORALES MD Patient Instructions: Abdominal Pain Additional Instructions: Continue home medications as previously prescribed Follow-up with Dr. Love in the a.m. for further evaluation and management of your abdominal pain Return to the emergency department should you develop a fever, have nausea and vomiting or have chest pain. REESE GRIFFIN LEVELMAN March 26, 2022 17:33
[2022-03-26 17:38] LABS: BASO % 1 % (0-3); EOS # 0.1 x10^3/uL (0.0-0.7); EOS % 3 % (0-3); HEMATOCRIT 34.4 % (39.0-53.0); LYMPH # 1.1 x10^3/uL (1.0-4.8); LYMPH % 29 % (24-48); MEAN CORPUSCULAR HEMOGLOBIN 26 pg (25-35); MEAN CORPUSCULAR HGB CONC 32 g/dL (31-37); MEAN CORPUSCULAR VOLUME 80 fL (79-100); MONO # 0.4 x10^3/uL (0.0-1.1); MONO % 10 % (0-9); NEUT # 2.3 x10^3/uL (1.8-7.7); NEUT % 58 % (31-73); PLATELET COUNT 226 x10^3/uL (140-400); RED BLOOD COUNT 4.33 x10^6/uL (4.30-5.70); RED CELL DISTRIBUTION WIDTH 18.4 % (11.5-14.5); WHITE BLOOD COUNT 3.9 x10^3/uL (4.0-11.0)
[2022-03-26 17:46] LABS: CALCIUM 8.4 mg/dL (8.5-10.1); CREATININE 1.1 mg/dL (0.7-1.3); GFR 70.6; POTASSIUM 4.2 mmol/L (3.5-5.1)
[2022-03-26 17:52] LABS: ALBUMIN 3.8 g/dL (3.4-5.0); TOTAL BILIRUBIN 0.2 mg/dL (0.2-1.0); TOTAL PROTEIN 7.6 g/dL (6.4-8.2)
[2022-03-26] MEDS ORDERED: IOHEXOL 300 MG/ML 100ML VIAL. IV ONE (18:00)
--- NOTE | 2022-03-26 19:08 | RAD ---
Exam Date: 03/26/2022 5:[address] ABDOMEN+PELVIS W Indication: Reason: abdominal pain with drainage from old gtube site LUQ / Spl. Instructions: omni 30 0 75ml / History: . TECHNIQUE: CT examination of the abdomen and pelvis was performed following the administration of no nionic intravenous contrast. One or more of the following dose reduction techniques were utilized: *Automated exposure control (AEC) *Adjustment of mA and/or kV according to patient size *Use of iterative reconstruction technique *CT scan done according to ALARA, or ALARA/IMAGE GENTLY COMPARISON: February 20, 2021 FINDINGS: The visualized lung bases are clear. There is a left renal cyst. The liver, gallbladder, spleen, pancreas, adrenal glands and kidneys are otherwise normal. Circumferential bladder wall thickening is again seen, nonspecific. There is no bowel obstruction or inflammation. No evidence for acute appendicitis. No significant atherosclerotic calcifications are seen. No lymphadenopathy or ascites is seen. There is subcutaneous soft tissue density along the anterior abdominal wall at the midline, indetermi dre, possibly representing a small abdominal wall hernia. Soft tissue density at the site may repre sent a loop of small bowel. This is immediately anterior to the transverse colon. There is a cutaneous defect along the anterior wall of the left upper quadrant, presumably the site o f prior percutaneous gastrostomy tube. Fat stranding and irregular soft tissue density at this site is consistent with inflammation and/or scarring. No organized collection is seen to suggest abscess. There may be a small focus of extraluminal air at this site, though this was present on the prior e xam as well. Degenerative changes are seen in the spine. IMPRESSION: Cutaneous defect along the anterior wall of the left upper quadrant presumably represents the site of previous percutaneous gastrostomy tube. Fat stranding and irregular soft tissue density is seen at this site consistent with inflammation and/or scarring. No organized collection is seen to suggest a bscess. There may be a small focus of extraluminal air versus air within small bowel at this site, t puneet this was present on the prior exam as well. Suspected ventral hernia at the midline with a loop of small bowel. No bowel obstruction. Circumferential bladder wall thickening is again seen, nonspecific, but similar compared to the prior exam. This can be seen with chronic outlet obstruction, though other differentials are not excluded , including infection or neoplasm. Correlate clinically. Electronically signed by: Hudson Smith MD (03/26/2022 7:05 PM) [id number]
== END 2022-03-26 20:11 | disposition home or self-care (01) ==
LOC: ER 16:47
DX: R10.12 Left upper quadrant pain (principal); K31.84 Gastroparesis; K21.9 Gastro-esophageal reflux disease without esophagitis; Z93.3 Colostomy status; Z88.1 Allergy status to other antibiotic agents; Z88.5 Allergy status to narcotic agent; Z88.8 Allergy status to other drugs, medicaments and biological substances
CPT/HCPCS: 36415; 74177; 80053; 83605; 84145; 85025; 96361; 96374; 96375; 96376; 99285; J1170; J1200; J2405; J7030; Q9967

== ENCOUNTER 2022-04-03 18:48 | Emergency (ER) | payer MEDICARE, OTHER ==
[~2022-04-03] VITALS: Ht 172.7 cm; Wt 61.4 kg
[2022-04-03] MEDS ORDERED: ONDANSETRON ODT 4 MG TAB.RAPDIS. PO ONE (19:45)
[2022-04-03] MEDS ORDERED: ACETAMINOPHEN 500 MG TABLET PO ONE (19:45)
[2022-04-03 19:58] LABS: BASO % 1 % (0-3); EOS # 0.1 x10^3/uL (0.0-0.7); EOS % 1 % (0-3); HEMATOCRIT 31.5 % (39.0-53.0); HEMOGLOBIN 10.1 g/dL (13.0-17.5); LYMPH % 22 % (24-48); MEAN CORPUSCULAR HEMOGLOBIN 25 pg (25-35); MEAN CORPUSCULAR HGB CONC 32 g/dL (31-37); MEAN CORPUSCULAR VOLUME 79 fL (79-100); MONO # 0.4 x10^3/uL (0.0-1.1); MONO % 10 % (0-9); NEUT # 2.9 x10^3/uL (1.8-7.7); NEUT % 66 % (31-73); PLATELET COUNT 172 x10^3/uL (140-400); RED BLOOD COUNT 3.98 x10^6/uL (4.30-5.70); RED CELL DISTRIBUTION WIDTH 18.1 % (11.5-14.5); WHITE BLOOD COUNT 4.4 x10^3/uL (4.0-11.0)
[2022-04-03 20:09] LABS: CALCIUM 8.8 mg/dL (8.5-10.1); GFR 78.8; POTASSIUM 3.9 mmol/L (3.5-5.1)
[2022-04-03 20:15] LABS: ALBUMIN 3.5 g/dL (3.4-5.0); ALBUMIN/GLOBULIN RATIO 0.9 (1.0-1.7); TOTAL BILIRUBIN 0.3 mg/dL (0.2-1.0); TOTAL PROTEIN 7.3 g/dL (6.4-8.2)
[2022-04-03] MEDS ORDERED: diphenhydrAMINE 50 MG/ML VIAL IVP ONE (20:45)
[2022-04-03] MEDS ORDERED: HYDROmorphone 2 MG/ML INJ. IVP ONE (20:45)
[2022-04-03] MEDS ORDERED: ONDANSETRON PF 4 MG/2 ML VIAL. IVP ONE ×2 (20:45)
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
[2022-04-03 20:55] VITALS: BP 187/93
== END 2022-04-03 20:55 | disposition home or self-care (01) ==
LOC: ER 18:48
DX: S31.109A Unspecified open wound of abdominal wall, unspecified quadrant without penetration into peritoneal cavity, initial encounter (principal); L08.9 Local infection of the skin and subcutaneous tissue, unspecified; G89.29 Other chronic pain; K21.9 Gastro-esophageal reflux disease without esophagitis; Z86.2 Personal history of diseases of the blood and blood-forming organs and certain disorders involving the immune mechanism; Z88.5 Allergy status to narcotic agent; Z88.8 Allergy status to other drugs, medicaments and biological substances; X58.XXXA Exposure to other specified factors, initial encounter; Y93.89 Activity, other specified; Y92.89 Other specified places as the place of occurrence of the external cause; Y99.8 Other external cause status
CPT/HCPCS: 36415; 80053; 83690; 85025; 96374; 96375; 99285; J1170; J1200; J2405